=== PATIENT | female | born 1935 | race Caucasian/White ===

== ENCOUNTER 2024-01-28 16:05 | Inpatient (IN) | payer MEDICARE, BC, SELFPAY ==
[2024-01-28] VITALS (23 sets, daily range): BP systolic 105–172; BP diastolic 53–94; PULSE 96–145; RESP 15–30; TEMP 36.9–38.6; O2SAT 95–100; BMI 22.0
--- NOTE | ~2024-01-28 | XR_ITS ---
XR chest 1V portable 01/29/2024 11:12 Indication: CHF Procedure: AP portable chest Comparison: 01/28/2024 Findings: Cardiomegaly with interstitial edema. Moderate right pleural effusion. Atherosclerosis of t he aorta. No pneumothorax. There is a right shoulder arthroplasty. No acute osseous abnormality. Impression: 1: Cardiomegaly with interstitial edema. No significant change. 2: Stable moderate right pleural effusion. Reviewed, dictated and finalized at location B. REL PATTERN MAKER Impression: 1: Cardiomegaly with interstitial edema. No significant change. 2: Stable moderate right pleural effusion.
--- NOTE | ~2024-01-28 | XR_ITS ---
[id number] Ordering provider: Patty Tomlinson APRN History: 88 years Female with . pleural effusion-post thoracentesis . Comparison: None. FINDINGS: MEDIASTINUM: The cardiac silhouette is slightly enlarged. Congestive barrington. LUNGS: No pneumothorax. Bilateral basal opacification with blunting of the costophrenic angle suggest wilmer of atelectasis versus pneumonia with pleural effusion more on the right side. Minimal interstitia l changes are seen bilaterally. OTHER: No free air under the diaphragm. Right shoulder arthroplasty. Degenerative the spine with kyphosis. IMPRESSION: Slight cardiomegaly with congestive barrington which may indicate cardiac decompensation and minimal pulmon katty edema. Bilateral basal atelectasis versus pneumonia with minimal effusion more on the right side. Reviewed, dictated and finalized at location A. REGULATOR REPAIRER HELPER IMPRESSION: Slight cardiomegaly with congestive barrington which may indicate cardiac decompensat ion and minimal pulmonary edema. Bilateral basal atelectasis versus pneumonia with minimal effusion more on the right side.
--- NOTE | ~2024-01-28 | US_ITS ---
EXAMINATION: US thoracentesis DATE: 02/01/2024 17:14 INDICATION: pleural effusion TECHNIQUE: The procedure and its risks, benefits, and alternatives were discussed with the patient. P otential risks discussed included bleeding, infection, and pneumothorax. The patient understood the r isks and agreed to proceed. The skin was prepped and draped in sterile fashion. 1% lidocaine was used for local anesthesia. Under ultrasound guidance, a 5 Fr catheter with trochar was advanced into the right pleural effusion. Fluid was aspirated. The catheter was removed, and a dressing was applied. Th ere were no immediate complications. FINDINGS: Ultrasound images demonstrate a right pleural effusion and the catheter within the fluid. IMPRESSION: 1. Successful ultrasound-guided thoracentesis yielding 1000 mL of yellow fluid. Reviewed, dictated and finalized at location A. A THERAPIST IMPRESSION: 1. Successful ultrasound-guided thoracentesis yielding 1000 mL of yellow fluid .
--- NOTE | ~2024-01-28 | XR_ITS ---
CHEST RADIOGRAPH, PA AND LATERAL CLINICAL HISTORY: sob, cough . COMPARISON: None available TECHNIQUE: PA and lateral views of the chest. FINDINGS The cardiomediastinal silhouette is enlarged. Large right-sided pleural effusion with a small left-sided pleural effusion. Increased interstitial markings are identified bilaterally, findings suggesting mild pulmonary vascul ar congestion. The lungs are otherwise clear. IMPRESSION: Large right-sided and small left-sided pleural effusions Mild pulmonary vascular congestion is also noted. Reviewed, dictated and finalized at location A. CT MARKETING MANAGER
--- NOTE | 2024-01-28 16:28 | ECG_ITS ---
Test Date: 2024-01-28 17:37:00 Measurements Intervals Gail Rate: 129 P: 0 NV: 0 QRS: -1 QRSD: 84 T: 0 QT: 294 QTc: 431 Interpretive Statements ATRIAL FIBRILLATION WITH RAPID VENTRICULAR RESPONSE WITH VENTRICULAR PREMATURE COMPLEXES CANNOT R/O SEPTAL INFARCT, AGE INDETERMINATE BORDERLINE ST-T WAVE ABNORMALITY- DIFFUSE LEADS BASELINE ARTIFACT- I, II, AVR, AVL, AVF, V1-V3 ABNORMAL ECG No previous ECG available for comparison Electronically Signed On 01-28-2024 18:03:27 CHANNEL WORKER by Chano Lang D.O.
--- NOTE | 2024-01-28 16:29 | ED_ITS ---
HPI - URI/Sore Throat General Chief Complaint: Upper Respiratory Infection <Jennifer Quiñones PA-C - Last Filed: 01/28/24 16:31> Stated Complaint: URI sx <Jennifer Quiñones PA-C - Last Filed: 01/28/24 16:31> Time Seen by Provider: 01/28/24 16:25 <MANUEL Jones Last Filed: 01/28/24 16:31> Focused HPI: Patient is an 88 y/o female who presents to the ED with c/o URI sx's. Patient is a resident of [facility]. Per facility report, patient has been sick over the last couple of days with mild cough, rhinorrhea, fevers, intermittent right-sided chest pain, headache. Facility reported that patient had crackles in her lungs. Patient does admit to feeling mildly short of breath. Patient has not had any of her normal medications today. Denies abdominal pain, nausea, vomiting, known sick contacts. GENERAL: Elderly, well-nourished, and in no acute distress. Mildly flushed appearing. HEAD: Normocephalic, atraumatic. CHEST: Clear to auscultation. ?No respiratory distress. Decreased lung sounds in bases. HEART: Tachycardic with regular rhythm.? NEURO: ?Alert and oriented x3. Patient screened in triage and initial orders placed.? ?Additional care and disposition to be based upon?diagnostic testing and treatment. <Jennifer Quiñones PA-C - Last Filed: 01/28/24 16:31> Source: patient <Jennifer Quiñones PA-C - Last Filed: 01/28/24 16:31> Mode of arrival: ambulatory <MANUEL Jones Last Filed: 01/28/24 16:31> Limitations: no limitations <MNAUEL Jones Last Filed: 01/28/24 16:31> History of Present Illness HPI Narrative: agree with HPI <J Carlos Vora MD - Last Filed: 01/28/24 21:49> Related Data Allergies/Adverse Reactions: Allergies Allergy/AdvReac Type Severity Reaction Status Date / Time Penicillins Allergy Verified 10/15/11 18:42 <Jennifer Quiñones PA-C - Last Filed: 01/28/24 16:31> Review of Systems Review of Systems: All systems reviewed & are unremarkable except as noted in HPI and below <J Carlos Vora MD - Last Filed: 01/28/24 21:49> Constitutional: Constitutional: Denies chills, Reports fatigue and Denies fever(s) <J Carlos Vora MD - Last Filed: 01/28/24 21:49> ENT: Reports system reviewed and no additional complaints, except as documented <J Carlos Vora MD - Last Filed: 01/28/24 21:49> Cardiovascular: Cardiovascular: Denies chest pain, Reports rapid heart rate and Denies radiating jaw, neck or arm pain <J Carlos Vora MD - Last Filed: 01/28/24 21:49> Respiratory: Respiratory: Denies chest congestion, Reports cough, Denies dyspnea and Denies wheezing <J Carlos Vora MD - Last Filed: 01/28/24 21:49> Gastrointestinal: Gastrointestinal: Reports no additional gastrointestinal complaints <J Carlos Vora MD - Last Filed: 01/28/24 21:49> Genitourinary: Genitourinary: Reports no additional female genitourinary complaints <J Carlos Vora MD - Last Filed: 01/28/24 21:49> PMFSH Past Medical History Medical History: Medical History (Updated 01/28/24 @ 21:48 by J Carlos Vora MD) Atrial fibrillation CHF (congestive heart failure) Hyperlipidemia Hypertension <Jennifer Quiñones PA-C - Last Filed: 01/28/24 16:31> Social History Social History: Social History Smoking status: Smoker, status unknown <Jennifer Quiñones PA-C - Last Filed: 01/28/24 16:31> Exam Narrative: GENERAL: Well-appearing, well-nourished, and in no acute distress. HEAD: Normocephalic, atraumatic. ENT: Mucous membranes moist. NECK: Supple. CHEST: Diminished lung sounds at the bases with faint crackles in the mid/ upper lung zones. No respiratory distress. HEART: irregularly irregular rate and rhythm that is tachycardic. Normal peripheral pulses. ABDOMEN: Soft, nontender, nondistended. EXTREMITIES: Normal range of motion. No edema. SKIN: Warm, dry, no rash. NEURO: Alert and oriented x3. PSYCH: Normal mood and affect. <J Carlos Vora MD - Last Filed: 01/28/24 21:49> Course Course Emergency Course: given fever suspect pneumonia over pulmonary edema on chest x-ray. Patient restarted on EB antibiotics. Accepted by hospitalist service. Modest control of AFib with diltiazem. Will also give home oral metoprolol. Patient did receive 1 L IV fluid. Suspect component being dry given her significantly elevated fever. <J Carlos Vora MD - Last Filed: 01/28/24 21:49> Vital Signs Vital signs: Vital Signs Temperature 99.5 F 01/28/24 16:23 Pulse Rate 117 H 01/28/24 16:23 Respiratory Rate 20 01/28/24 16:23 Blood Pressure 105/78 01/28/24 16:23 Pulse Oximetry 97 01/28/24 16:23 Oxygen Delivery Room Air 01/28/24 16:23 Temperature 99.0 F 01/28/24 19:00 Pulse Rate 106 H 01/28/24 21:16 Respiratory Rate 22 H 01/28/24 21:16 Blood Pressure 145/72 H 01/28/24 21:16 Pulse Oximetry 96 01/28/24 21:16 Oxygen Delivery Room Air 01/28/24 16:23 <Jennifer Quiñones PA-C - Last Filed: 01/28/24 16:31> Vital Signs Temperature 99.5 F 01/28/24 16:23 Pulse Rate 117 H 01/28/24 16:23 Respiratory Rate 20 01/28/24 16:23 Blood Pressure 105/78 01/28/24 16:23 Pulse Oximetry 97 01/28/24 16:23 Oxygen Delivery Room Air 01/28/24 16:23 Temperature 99.0 F 01/28/24 19:00 Pulse Rate 106 H 01/28/24 21:16 Respiratory Rate 22 H 01/28/24 21:16 Blood Pressure 145/72 H 01/28/24 21:16 Pulse Oximetry 96 01/28/24 21:16 Oxygen Delivery Room Air 01/28/24 16:23 <J Carlos Vora MD - Last Filed: 01/28/24 21:49> MDM - URI/Sore Throat MDM Narrative Medical decision making narrative: MSE by LUIS in triage. <Jennifer Quiñones PA-C - Last Filed: 01/28/24 16:31> Lab Data Result diagrams: 01/28/24 18:02 01/28/24 18:02 <Jennifer Quiñones PA-C - Last Filed: 01/28/24 16:31> Labs: Lab Results 01/28/24 01/28/24 01/28/24 Range/Units 18:02 18:03 21:07 WBC 10.6 H (4.5-10.0) K/mm3 RBC 3.51 L (4.2-5.4) M/mm3 Hgb 9.7 L (12.0-15.0) g/dL Hct 30.9 L (37.0-47.0) % MCV 88.0 (80-100) fl MCH 27.6 (26-34) pg MCHC 31.4 L (32-36) g/dl RDW 20.1 H (11.5-14.5) % Plt Count 304 (150-375) k/mm3 MPV 9.4 (7.4-10.4) fl Immature Gran % (Auto) 0.5 (0-0.5) % Neut % (Auto) 79.5 H (45.5-73.1) % Lymph % (Auto) 12.5 L (18.3-44.2) % [place] % (Auto) 7.2 (2.6-8.5) % Eos % (Auto) 0.1 (0-4.4) % Baso % (Auto) 0.2 (0.2-1.2) % Lymph # (Auto) 1.32 (0.9-3.2) K/mm3 [place] # (Auto) 0.8 H (0.1-0.6) K/mm3 Eos # (Auto) 0.0 (0-0.3) K/mm3 Baso # (Auto) 0.0 (0.0-0.1) K/mm3 Abs Immat Gran (auto) 0.05 H (0.00-0.031) K/mm3 Absolute Neuts (auto) 8.4 H (1.3-6.7) K/mm3 Absolute Nucleated RBC 0.000 (0.0-0.012) K/mm3 Nucleated RBC % 0.0 (0.0-0.2) % PT 18.9 H (11.1-14.7) Seconds INR 1.5 APTT 33.0 (22.3-36.8) Seconds Sodium 131 L (137-145) mmol/L Potassium 3.0 L (3.4-5.0) mmol/L Chloride 95 L (98-107) mmol/L Carbon Dioxide 30 (22-30) mmol/L Anion Gap 6 (4-12) mmol/L BUN 16 (7-17) mg/dL Creatinine 0.80 (0.7-1.0) mg/dL Estim Creat Clear Calc Not Reportable Estimated GFR > 60 (59 - ) Glucose 114 H (65-110) mg/dL Lactic Acid 1.7 (0.7-2.0) mmol/L Calcium 8.7 (8.4-10.2) mg/dL Magnesium 1.3 L (1.6-2.3) mg/dL Total Bilirubin 1.4 H (0.2-1.3) mg/dL AST 23 (14-36) U/L ALT 13 (6-35) U/L Alkaline Phosphatase 108 (38-126) U/L Troponin I 0.022 (0.000-0.034) ng/mL NT-Pro-B Natriuret Pep 4510 H (19.9-100) pg/mL Total Protein 6.0 L (6.3-8.2) g/dL Albumin 2.8 L (3.5-5.1) g/dL Urine Color Yellow (Yellow) Urine Appearance Clear (Clear) Urine pH 6.0 (5.0-9.0) Ur Specific Devine 1.016 (1.001-1.035) Urine Protein 2+ H (Negative) mg/dL Urine Glucose (UA) Negative (Negative) mg/dL Urine Ketones Negative (Negative) mg/dL Ur Blood (Man) Negative (Negative) Urine Nitrate Negative (Negative) Urine Bilirubin Negative (Negative) Urine Urobilinogen 1.0 (<2.0) mg/dL Leukocyte Esterase Rfl Trace H (Negative) JACQUIE/UL Urine RBC 0-2 (0-2) /hpf Urine WBC 0-5 (0-3) /hpf Ur Squamous Epith Cells None seen (Few) /hpf Urine Bacteria None seen /hpf Urine Casts 0-2 Influenza A (RT-PCR) Negative (Negative) Influenza B (RT-PCR) Negative (Negative) RSV (RT-PCR) Negative (Negative) SARS-CoV-2 RNA (RT-PCR) Negative (Negative) <Jennifer Quiñones PA-C - Last Filed: 01/28/24 16:31> Lab Results 01/28/24 01/28/24 01/28/24 Range/Units 18:02 18:03 21:07 WBC 10.6 H (4.5-10.0) K/mm3 RBC 3.51 L (4.2-5.4) M/mm3 Hgb 9.7 L (12.0-15.0) g/dL Hct 30.9 L (37.0-47.0) % MCV 88.0 (80-100) fl MCH 27.6 (26-34) pg MCHC 31.4 L (32-36) g/dl RDW 20.1 H (11.5-14.5) % Plt Count 304 (150-375) k/mm3 MPV 9.4 (7.4-10.4) fl Immature Gran % (Auto) 0.5 (0-0.5) % Neut % (Auto) 79.5 H (45.5-73.1) % Lymph % (Auto) 12.5 L (18.3-44.2) % [place] % (Auto) 7.2 (2.6-8.5) % Eos % (Auto) 0.1 (0-4.4) % Baso % (Auto) 0.2 (0.2-1.2) % Lymph # (Auto) 1.32 (0.9-3.2) K/mm3 [place] # (Auto) 0.8 H (0.1-0.6) K/mm3 Eos # (Auto) 0.0 (0-0.3) K/mm3 Baso # (Auto) 0.0 (0.0-0.1) K/mm3 Abs Immat Gran (auto) 0.05 H (0.00-0.031) K/mm3 Absolute Neuts (auto) 8.4 H (1.3-6.7) K/mm3 Absolute Nucleated RBC 0.000 (0.0-0.012) K/mm3 Nucleated RBC % 0.0 (0.0-0.2) % PT 18.9 H (11.1-14.7) Seconds INR 1.5 APTT 33.0 (22.3-36.8) Seconds Sodium 131 L (137-145) mmol/L Potassium 3.0 L (3.4-5.0) mmol/L Chloride 95 L (98-107) mmol/L Carbon Dioxide 30 (22-30) mmol/L Anion Gap 6 (4-12) mmol/L BUN 16 (7-17) mg/dL Creatinine 0.80 (0.7-1.0) mg/dL Estim Creat Clear Calc Not Reportable Estimated GFR > 60 (59 - ) Glucose 114 H (65-110) mg/dL Lactic Acid 1.7 (0.7-2.0) mmol/L Calcium 8.7 (8.4-10.2) mg/dL Magnesium 1.3 L (1.6-2.3) mg/dL Total Bilirubin 1.4 H (0.2-1.3) mg/dL AST 23 (14-36) U/L ALT 13 (6-35) U/L Alkaline Phosphatase 108 (38-126) U/L Troponin I 0.022 (0.000-0.034) ng/mL NT-Pro-B Natriuret Pep 4510 H (19.9-100) pg/mL Total Protein 6.0 L (6.3-8.2) g/dL Albumin 2.8 L (3.5-5.1) g/dL Urine Color Yellow (Yellow) Urine Appearance Clear (Clear) Urine pH 6.0 (5.0-9.0) Ur Specific Devine 1.016 (1.001-1.035) Urine Protein 2+ H (Negative) mg/dL Urine Glucose (UA) Negative (Negative) mg/dL Urine Ketones Negative (Negative) mg/dL Ur Blood (Man) Negative (Negative) Urine Nitrate Negative (Negative) Urine Bilirubin Negative (Negative) Urine Urobilinogen 1.0 (<2.0) mg/dL Leukocyte Esterase Rfl Trace H (Negative) JACQUIE/UL Urine RBC 0-2 (0-2) /hpf Urine WBC 0-5 (0-3) /hpf Ur Squamous Epith Cells None seen (Few) /hpf Urine Bacteria None seen /hpf Urine Casts 0-2 Influenza A (RT-PCR) Negative (Negative) Influenza B (RT-PCR) Negative (Negative) RSV (RT-PCR) Negative (Negative) SARS-CoV-2 RNA (RT-PCR) Negative (Negative) <J Carlos Vora MD - Last Filed: 01/28/24 21:49> Imaging Data Radiologist's impression: ITS Impressions Chest X-Ray 01/28/24 18:26 IMPRESSION: Large right-sided and small left-sided pleural effusions Mild pulmonary vascular congestion is also noted. <J Carlos Vora MD - Last Filed: 01/28/24 21:49> ECG Data EKG #1: ECG completion date: 01/28/24 <J Carlos Vora MD - Last Filed: 01/28/24 21:49> ECG completion time: 17:37 <J Carlos Vora MD - Last Filed: 01/28/24 21:49> EKG Interpretation: tachycardia (129), atrial fibrillation, non-specific ST changes, normal QRS and NL axis <J Carlos Vora MD - Last Filed: 01/28/24 21:49> Critical Care Time Critical Care Time Critical Care Time: Yes <J Carlos Vora MD - Last Filed: 01/28/24 21:49> Total Critical Care Time: 35 <J Carlos Vora MD - Last Filed: 01/28/24 21:49> Discharge Plan Discharge Clinical Impression: Pneumonia, Atrial fibrillation with RVR <Jennifer Quiñones PA-C - Last Filed: 01/28/24 16:31> Patient Disposition: Still a Patient <Jennifer Quiñones PA-C - Last Filed: 01/28/24 16:31> Condition: Stable <Jennifer Quiñones PA-C - Last Filed: 01/28/24 16:31> Follow-up/Referrals: PHYSICIAN NOT ON STAFF,NONSTAFF [Primary Care Provider] - <DEBBIE JonesC - Last Filed: 01/28/24 16:31>
[2024-01-28] MEDS: ACETAMINOPHEN 500 MG TABLET 1000 MG PO (17:22)
--- NOTE | 2024-01-28 18:07 | PC.NURSE ---
5 unsuccessful attempts at an IV by 4 different RN's. blood work obtained and sent down
[2024-01-28 18:11] LABS: Basophils Percent Auto 0.2 % (0.2-1.2); Eosinophils Percent Auto 0.1 % (0-4.4); Hematocrit 30.9 % (37.0-47.0); Hemoglobin 9.7 g/dL (12.0-15.0); Immature Granulocyte Absolute 0.05 K/mm3 (0.00-0.031); Immature Granulocyte Percent A 0.5 % (0-0.5); Lymphocytes Absolute Auto 1.32 K/mm3 (0.9-3.2); Lymphocytes Percent Auto 12.5 % (18.3-44.2); Mean Corpuscular HGB Conc 31.4 g/dl (32-36); Mean Corpuscular Hemoglobin 27.6 pg (26-34); Mean Platelet Volume 9.4 fl (7.4-10.4); Monocytes Absolute Auto 0.8 K/mm3 (0.1-0.6); Monocytes Percent Auto 7.2 % (2.6-8.5); Neutrophils Absolute Auto 8.4 K/mm3 (1.3-6.7); Neutrophils Percent Auto 79.5 % (45.5-73.1); Platelet Count Result 304 k/mm3 (150-375); Red Blood Count 3.51 M/mm3 (4.2-5.4); Red Cell Distribution Width 20.1 % (11.5-14.5); White Blood Count 10.6 K/mm3 (4.5-10.0)
[2024-01-28 18:21] LABS: Lactic Acid Reflex 1.7 mmol/L (0.7-2.0)
[2024-01-28 18:22] LABS: Alanine Aminotransferase 13 U/L (6-35); Albumin Level 2.8 g/dL (3.5-5.1); Alkaline Phosphatase 108 U/L (38-126); Anion Gap 6 mmol/L (4-12); Aspartate Amino Transferase 23 U/L (14-36); Bilirubin,Total 1.4 mg/dL (0.2-1.3); Blood Urea Nitrogen 16 mg/dL (7-17); Calcium 8.7 mg/dL (8.4-10.2); Carbon Dioxide 30 mmol/L (22-30); Chloride 95 mmol/L (98-107); Estimated Glomerular Filt Rate > 60; Glucose 114 mg/dL (65-110); Magnesium 1.3 mg/dL (1.6-2.3); Sodium 131 mmol/L (137-145)
[2024-01-28 18:30] LABS: INR 1.5; Prothrombin Time 18.9 Seconds (11.1-14.7)
[2024-01-28 18:34] LABS: Troponin I 0.022 ng/mL (0.000-0.034)
[2024-01-28 18:42] LABS: NT Pro B Type Natriuretic Pept 4510 pg/mL (19.9-100)
[2024-01-28 18:47] LABS: Influenza A QL RT-PCR Negative (Negative); Influenza B QL RT-PCR Negative (Negative); RSV RNA, RT-PCR Negative (Negative); SARS-CoV-2 RNA PCR Negative (Negative)
[2024-01-28] MEDS: SODIUM CHLORIDE 0.9% IV 1,000 ML 999 ML IV CONT (19:06)
[2024-01-28] MEDS: dilTIAZem HCl INJ 25 MG/5 ML VIAL 10 MG IV PUSH (19:34)
--- NOTE | 2024-01-28 21:17 | PM.IMHP ---
H&P: HPI History of Present Illness Date/Time: 01/28/24 21:17 Chief Complaint: sob Narrative: This is an 88-year-old female with past medical history significant for atrial fibrillation, congestive heart failure, dyslipidemia, hypertension. Patient is currently in rehabilitation center after she was discharged from outside facility. Was brought to the emergency room due to shortness of breath. Patient has been feeling fatigued has had night sweats, fevers, chills, body aches and pains. Preliminary workup was significant for large pleural effusion. patient tested negative for influenza type A influenza type B COVID and RSV. Brain atretic peptide was 4500. Patient has been admitted for further evaluation management and treatment. CHEST RADIOGRAPH, PA AND LATERAL CLINICAL HISTORY: sob, cough . COMPARISON: None available TECHNIQUE: PA and lateral views of the chest. FINDINGS The cardiomediastinal silhouette is enlarged. Large right-sided pleural effusion with a small left-sided pleural effusion. Increased interstitial markings are identified bilaterally, findings suggesting mild pulmonary vascular congestion. The lungs are otherwise clear. IMPRESSION: Large right-sided and small left-sided pleural effusions Mild pulmonary vascular congestion is also noted. [facility] Past Medical History Medical History (Updated 01/29/24 @ 00:52 by Meng Duke MD) Atrial fibrillation CHF (congestive heart failure) Hyperlipidemia Hypertension Family History Family History (Updated 01/28/24 @ 23:03 by Tri Ghosh RN) Father Acute myocardial infarction Hypertension Mother Hypertension Cerebrovascular accident Social History Social History Smoking status: Never smoker Alcohol intake: never Substance use: never Do You Feel Safe in your Home?: Yes Lack of Transportation: YES Lack of Food: Never True Current Housing: I Have Housing Concerned About Future Housing: No Difficulty Paying Gas/Electric Bills: No Difficulty Paying for Meds: No Currently Unemployed: No Education: High School Diploma/GED Difficulty w/ Childcare or Family Care: No Spiritual care concerns: No Meds Home Medications and Allergies Home Medications Medication Instructions Recorded Confirmed Type amlodipine 5 mg tablet 5 mg PO DAILY 01/28/24 01/28/24 History apixaban 5 mg tablet (Eliquis) 5 mg PO BID 01/28/24 01/28/24 History atorvastatin 20 mg tablet 40 mg PO DAILY 01/28/24 01/28/24 History cetirizine 10 mg tablet 10 mg PO DAILY 01/28/24 01/28/24 History cimetidine 300 mg tablet 300 mg PO BID 01/28/24 01/28/24 History dexlansoprazole 60 mg 60 mg PO DAILY 01/28/24 01/28/24 History capsule,biphase delayed release diltiazem HCl 120 mg 120 mg PO DAILY 01/28/24 01/28/24 History capsule,extended release 24 hr fluticasone propionate 50 2 spray intranasal DAILY 01/28/24 01/28/24 History mcg/actuation nasal spray,suspension furosemide 20 mg tablet 20 mg PO BID 01/28/24 01/28/24 History furosemide 40 mg tablet 40 mg PO DAILY 01/28/24 01/29/24 History methimazole 10 mg tablet 10 mg PO DAILY 01/28/24 01/28/24 History metoprolol tartrate 75 mg tablet 75 mg PO DAILY 01/28/24 01/28/24 History mirtazapine 30 mg tablet 30 mg PO DAILY 01/28/24 01/29/24 History omeprazole 20 mg capsule,delayed 20 mg PO DAILY 01/28/24 01/29/24 History release potassium chloride 10 mEq 10 meq PO DAILY 01/28/24 01/28/24 History tablet,extended release(part/cryst) (Klor-Con M) propranolol 20 mg tablet 20 mg PO BID 01/28/24 01/28/24 History triamterene 75 1 tablet PO DAILY 01/28/24 01/29/24 History mg-hydrochlorothiazide 50 mg tablet Allergies Allergy/AdvReac Type Severity Reaction Status Date / Time Penicillins Allergy Verified 10/15/11 18:42 Vital Signs Vital Signs - 24 hr 01/28/24 16:23 01/28/24 17:23 01/28/24 17:25 Temperature 99.5 F 101.4 F H Pulse Rate 117 H 117 H Respiratory Rate 20 15 Blood Pressure 105/78 168/94 H 168/94 H Pulse Oximetry 97 97 97 Oxygen Delivery Room Air 01/28/24 17:46 01/28/24 18:01 01/28/24 17:52 Temperature 99.4 F Pulse Rate 125 H 123 H Respiratory Rate 26 H 30 H Blood Pressure 172/84 H 163/69 H Pulse Oximetry 97 96 Oxygen Delivery 01/28/24 19:00 01/28/24 18:02 01/28/24 18:45 Temperature 99.0 F Pulse Rate 115 H 145 H Respiratory Rate 25 H 25 H Blood Pressure Pulse Oximetry 100 95 Oxygen Delivery 01/28/24 19:42 01/28/24 19:46 01/28/24 20:01 Temperature Pulse Rate 100 97 100 Respiratory Rate 27 H 22 H 25 H Blood Pressure 136/59 L 137/62 152/57 H Pulse Oximetry 95 95 96 Oxygen Delivery 01/28/24 20:16 Temperature Pulse Rate 96 Respiratory Rate 24 H Blood Pressure 146/58 H Pulse Oximetry 96 Oxygen Delivery Exam Narrative: lying in stretcher Const: General: comfortable, no acute distress, well developed, alert, awake and average body habitus Nutritional Appearance: average body habitus Orientation/consciousness: patient oriented x3 HENMT: Head: normal to inspection, normocephalic and atraumatic Ears: hearing grossly normal bilaterally Face/Nose/Sinus: normal facial exam Face and sinus: normal facial exam Eyes: General: appearance normal, both eyes and all related structures Pupils: Equal, round and reactive pupils present EOM: EOMs intact bilaterally Neck: Neck: full ROM, no lymphadenopathy and no JVD Thyroid: thyroid normal Lymphatic: no lymphadenopathy noted Resp: Effort & Inspection: normal respiratory effort and able to speak in complete sentences Auscultation: clear to auscultation bilaterally and diminished lung sounds bilateral in the lower lung sosa Cardio: Jugular venous distension: no JVD Rate: regular rate Rhythm: regular rhythm Heart sounds: S1 normal heart sound present and S2 normal heart sound present GI: GI Palp: Yes Soft to palpation and Yes No hepatosplenomegaly present : General: Yes deferred Skin: Rashes: no rashes Wounds: no wounds Neuro: General: patient oriented x3 and CN's II-XI intact bilaterally Cranial nerves: Yes CN's II-XII intact bilaterally and Yes Equal, round and reactive pupils present Cognition (Neuro): normal cognition Speech: normal speech Gait exam (Neuro): Normal gait present Motor exam (neuro): 5/5 motor strength present throughout Extrem: General: normal to inspection, full ROM, no joint enlargement and no pedal edema H&P: Results Labs Labs: Short CBC 01/28/24 Range/Units 18:02 WBC 10.6 H (4.5-10.0) K/mm3 Hgb 9.7 L (12.0-15.0) g/dL Hct 30.9 L (37.0-47.0) % Plt Count 304 (150-375) k/mm3 BMP 01/28/24 18:02 Sodium 131 L Potassium 3.0 L Chloride 95 L Carbon Dioxide 30 BUN 16 Creatinine 0.80 Glucose 114 H Calcium 8.7 Cardiac Enzymes 01/28/24 Range/Units 18:02 Troponin I 0.022 (0.000-0.034) ng/mL Liver Function 01/28/24 Range/Units 18:02 Total Bilirubin 1.4 H (0.2-1.3) mg/dL AST 23 (14-36) U/L ALT 13 (6-35) U/L Alkaline Phosphatase 108 (38-126) U/L Albumin 2.8 L (3.5-5.1) g/dL Assessment and Plan Assessment and plan (1) Pneumonia: Code(s): J18.9 - Pneumonia, unspecified organism Status: Acute Assessment and Plan: Admit to IMU patient started on Rocephin and Zithromax await cultures (2) Atrial fibrillation with RVR: Code(s): I48.91 - Unspecified atrial fibrillation Status: Acute Assessment and Plan: rate controlled and anticoagulated (3) Pleural effusion: Code(s): J90 - Pleural effusion, not elsewhere classified Status: Acute Assessment and Plan: gentle diuresis consider thoracentesis (4) CHF (congestive heart failure): Code(s): I50.9 - Heart failure, unspecified Status: Acute Assessment and Plan: diurese as needed echo cardio Hospitalist MIPS Advance Care Plan I have confirmed that the patient's Advanced Care Plan is present, code status is documented, or surrogate decision maker is listed in patient medical record.: Yes Medication Reconciliation I have utilized all available resources to obtain, update and review the patients current medications (includes all prescriptions, OTC, herbals, cannabis, and nutritional supplements).: Yes
[2024-01-28 21:20] LABS: Add Urine Microscopic? YES; Appearance Urine Clear (Clear); Bacteria Urine None Seen /hpf; Bilirubin Urine Negative (Negative); Blood Urine Negative (Negative); Color Urine Yellow (Yellow); Glucose Urine UA Negative (Negative); Ketones Urine Negative (Negative); Leukocyte Esterase Ur Trace LEU/UL (Negative); Nitrate Urine Negative (Negative); Non Pathogenic Casts 0-2; Protein Urine 2+ mg/dL (Negative); RBC Urine 0-2 /hpf (0-2); Specific Grav Ur 1.016 (1.001-1.035); Squamous Epithelial Cell Urine None Seen /hpf (Few); WBC Urine 0-5 /hpf (0-3)
[2024-01-28] MEDS: METOPROLOL TARTRATE TAB 25 MG, METOPROLOL TARTRATE TAB 50 MG 75 MG PO (21:49)
[2024-01-28] MEDS: AZITHROMYCIN 500 MG/NS 250 ML 500 MG/250 ML BAG 250 MG IVPB (22:11)
--- NOTE | 2024-01-28 23:00 | ADMGEN ---
This patient, Keila Talbert, was admitted to IMU Room 205-01. Patient/family oriented to hospital policies and general routines including ID bracelet, bed and alarms, visiting hours, pain management, procedures, bathroom and other care routines, personal items, smoking policy, room service/diet, and visiting hours. Information on how to activate the Rapid Response Team has been discussed. Patient/Family are encouraged to report perceived risks to care and to ask questions if they do not understand what they are told or what they should do.
[2024-01-29] VITALS (16 sets, daily range): BP systolic 108–156; BP diastolic 59–70; PULSE 72–107; RESP 16–21; TEMP 36.7–36.9; O2SAT 91–100
--- NOTE | 2024-01-29 | ECHO_ITS ---
Patient Info Name: Keila Talbert Age: 88 years : 1935 Gender: Female Ht: 63 in Wt: 120 lbs BSA: 1.56 m2 HR: 86 bpm BP: 108 / 64 mmHg Heart Rhythm: Atrial Fibrillation Technical Quality: Good Exam Date: 01/29/2024 9:50 AM Exam Location: Echo Lab Patient Status: Outpatient Admit Date: 01/28/2024 Staff Ordering Physician: Meng Duke MD Department Of Sociology Chair: Micah Moreno RDCS Attending Provider: Meng Duke MD Referring Physician: Leilani ARIAS; Exam Type: CA echo doppler color flow Study Info Indications - chf Complete two-dimensional, color flow and Doppler transthoracic echocardiogram is performed. Summary 1. Left ventricular chamber dimension is normal. 2. Left ventricular systolic function is normal, estimated at 60-65%. 3. There is mildly increased left ventricular wall thickness. 4. Right ventricular systolic function is normal. 5. Left atrial chamber dimension is severely enlarged. 6. Right atrial chamber dimension is severely enlarged. 7. There is moderate aortic valve calcification. 8. There is mild aortic valve stenosis. 9. There is severe mitral valve regurgitation. 10. There is severe tricuspid valve regurgitation. 11. Pulmonary hypertension, estimated pulmonary arterial systolic pressure is 49 mmHg. Left Ventricle Left ventricular chamber dimension is normal. Left ventricular systolic function is normal, estimated at 60-65%. There is mildly increased left ventricular wall thickness. The left ventricular diastolic function is abnormal. Right Ventricle Right ventricular chamber dimension is normal. Right ventricular systolic function is normal. Left Atria Left atrial chamber dimension is severely enlarged. Right Atria Right atrial chamber dimension is severely enlarged. Atrial Septum Intact interatrial septum visualized by color flow imaging. Aortic Valve The aortic valve is probable trileaflet. There is mild aortic valve stenosis. There is no aortic valve regurgitation. There is moderate aortic valve calcification. Pulmonic Valve The pulmonic valve is not well visualized. There is trace pulmonic regurgitation. Mitral Valve There is severe mitral valve regurgitation. The mitral valve annulus is mildly calcified. Tricuspid Valve There is severe tricuspid valve regurgitation. Pulmonary hypertension, estimated pulmonary arterial systolic pressure is 49 mmHg. Pericardium/Pleural There is no pericardial effusion. Inferior Vena Cava Dilated inferior vena cava with >50% collapse upon inspiration consistent with elevated right atrial pressure, 8 mmHg. Aorta The aortic root size at the sinus of Valsalva is normal. Left Ventricular Outflow Tract Name Value Normal LVOT 2D LVOT Diameter 1.9 cm LVOT Doppler LVOT Peak Gradient 2 mmHg LVOT Mean Gradient 1 mmHg LVOT VTI 11 cm LVOT VTI/AV VTI Ratio 0.5 LVOT Stroke Volume 30 ml LVOT CO 2.8 l/min LVOT CI 1.8 l/min/m2 Pulmonic Valve Name Value Normal PV Regurgitation Doppler OR Peak End Diastolic Velocity 75 cm/s Mitral Valve Name Value Normal MV Doppler MV Decel Lamb 899 cm/s2 MV PHT 38 ms MV Area (PHT) 5.8 cm2 4.0-5.0 MV Regurgitation Doppler MR Peak Gradient 91 mmHg MV Diastolic Function MV E Peak Velocity 118 cm/s MV A Peak Velocity 36 cm/s MV E/A 3.3 MV Decel Time 132 ms MV Annular TDI MV E/e' (Septal) 23.0 <=8.0 MV E/e' (Lateral) 15.5 <=8.0 MV E/e' (Average) 19.2 Tricuspid Valve Name Value Normal TV Regurgitation Doppler TR Peak Velocity 340 cm/s TR Peak Gradient 24 mmHg Estimated PAP/RSVP RA Pressure 8 mmHg <=5 PA Systolic Pressure 54 mmHg <36 RV Systolic Pressure 54 mmHg <36 Aortic Valve Name Value Normal AV Doppler AV Peak Velocity 129 cm/s AV Peak Gradient 7 mmHg AV Mean Gradient 5 mmHg AV VTI 23 cm AV Area (Cont Eq VTI) 1.3 cm2 >=3.0 AV Area (Cont Eq Antione) 1.4 cm2 AV Regurgitation 2D LVOT Area 2.8 cm2 Ventricles Name Value Normal LV Dimensions 2D/MM IVS Diastolic Thickness (2D) 1.0 cm 0.6-1.0 LVID Diastole (2D) 4.7 cm 3.8-5.2 LVIW Diastolic Thickness (2D) 0.8 cm 0.6-0.9 LVID Systole (2D) 3.4 cm 2.2-3.5 LVOT Diameter 1.9 cm LV Mass (2D Cubed) 143.81 g 67.00-162.00 LV Mass Index (2D Cubed) 92 g/m2 43-95 Relative Wall Thickness (2D) 0.35 LV Fractional Shortening/Ejection Fraction 2D/MM LV Fractional Shortening (2D) 27 % 27-45 LV EF (2D Teicholz) 53 % 54-74 LV Diastolic Volume (4C MOD) 80 ml LV EF (4C MOD) 47 % LV Diastolic Volume (2C MOD) 54 ml LV EF (2C MOD) 51 % LV Diastolic Volume (BP MOD) 66 ml 46-106 LV Diastolic Volume Index (BP MOD) 43 ml/m2 29-61 LV Systolic Volume (BP MOD) 36 ml 14-42 LV Systolic Volume Index (BP MOD) 23 ml/m2 8-24 LV EF (BP MOD) 45 % 54-74 LV Diastolic Length (4C) 6.1 cm LV Systolic Length (4C) 5.7 cm LV Stroke Volume (4C MOD) 37 ml Atria Name Value Normal LA Dimensions LA Volume (4C A-L) 27 ml LA Volume (BP A-L) 55 ml RA Dimensions RA Area (4C) 17.6 cm2 <=18.0 Report Signatures
[2024-01-29] MEDS: FLUTICASONE PROPIONATE 0.05% NA SPR 16 GM BTL (*BKC) 2 SPRAY NASAL (07:58)
[2024-01-29] MEDS: ATORVASTATIN 40 MG TABLET PO (07:59)
[2024-01-29] MEDS: APIXABAN 5 MG TABLET PO (07:59)
[2024-01-29] MEDS: dilTIAZem HCL CD 120 MG CAP.24HR PO (08:00)
[2024-01-29] MEDS: PANTOPRAZOLE 40 MG TABLET PO (08:00)
[2024-01-29] MEDS: LORATADINE 10 MG TABLET PO (08:00)
[2024-01-29] MEDS: methiMAzole 10 MG TAB PO (08:00)
[2024-01-29] MEDS: PROPRANOLOL HCL 20 MG TABLET PO ×2 (08:00→20:44)
[2024-01-29] MEDS: METOPROLOL TARTRATE 25 MG TABLET 75 MG PO (08:00)
[2024-01-29] MEDS: amLODIPine BESYLATE 5 MG TABLET PO (08:01)
[2024-01-29] MEDS: FUROSEMIDE INJ 40 MG/4 ML VIAL IV PUSH ×2 (08:02→17:09)
[2024-01-29] MEDS: MIRTAZAPINE 30 MG TABLET PO (08:02)
--- NOTE | 2024-01-29 08:42 | P.PNIM_ITS ---
Progress Note: A&P Assessment and Plan (1) Pneumonia: Code(s): J18.9 - Pneumonia, unspecified organism Status: Acute Assessment and Plan: Admit to IMU patient started on Rocephin and Zithromax blood cultures pending NGTD (2) CHF (congestive heart failure): Code(s): I50.9 - Heart failure, unspecified Status: Acute Assessment and Plan: pulmonary edema seen on chest x-ray diurese as needed echo cardio EF 60 60% (3) Pleural effusion: Code(s): J90 - Pleural effusion, not elsewhere classified Status: Acute Assessment and Plan: is, will aggressively diure Eliquis on hold for possible thoracentesis (4) Atrial fibrillation with RVR: Code(s): I48.91 - Unspecified atrial fibrillation Status: Acute Assessment and Plan: rate controlled and anticoagulated IV diltiazem ED x1 continue home dose of diltiazem restart metoprolol, propanolol and Eliquis (5) Leukocytosis: Code(s): D72.829 - Elevated white blood cell count, unspecified Status: Acute Assessment and Plan: secondary to pneumonia and UTI (6) UTI (urinary tract infection): Code(s): N39.0 - Urinary tract infection, site not specified Status: Acute Assessment and Plan: on IV Rocephin (7) Hyponatremia: Code(s): E87.1 - Hypo-osmolality and hyponatremia Status: Acute Assessment and Plan: patient being aggressively diuresed daily BMP Time Spent With Patient Time with patient: Greater than 35 minutes Subjective Date/time seen: 01/29/24 08:42 Interval history: 88-year-old female with past medical history significant for atrial fibrillation, congestive heart failure, dyslipidemia, hypertension here with RVR, CHF and pneumonia patient with great urine output after Lasix, on ABX for pneumonia, AFib rate control now unable to do a thoracentesis today due to patient getting Eliquis This a.m., Eliquis placed on hold for tomorrow, will aggressively diurese and recheck chest x-ray. Patient is stable to move to floor. Review of Systems Review of Systems: 12 systems were reviewed and are negative except for as per HPI. Exam Narrative: General: well appearing, appears stated age. HEENT: normocephalic, atraumatic. Mucous membranes moist. EOMI, PERRLA, bilateral sclera anicteric, no conjunctival injection. Neck supple without JVD, lymphadenopathy, or bruit. Respiratory: clear to ascultation bilaterally. No rales/rhonic/wheezes. Cardiovascular: Regular rate and rhythm, normal S1-S2 upon ascultation. No murmurs, rubs, or clicks. PMI is nondisplaced, capillary refill less than 3 second. Abdomen: Soft, round, no pulsatile masses, nondistended and nontender. No rebound, no guarding. No CVA tenderness, no hepatosplenomegaly. Bowel sounds present to all four quadrants. No high pitch or tinkling sounds, resonant to percussion. Extremities: No cyanosis, clubbing. 2-3 + edema present. Pulses are palpable 2/2. Active ROM to all four extremities. Neuro: Alert and orientated x 4. PERRLA. Cranial nerves 2-12 intact without focal deficit. Skin: Warm, dry, and intact, without rash, erythema, or lesion. Psych: pleasant, cooperative, normal speech, normal affect, no hallucinations, no dysarthia Const: General: comfortable, no acute distress, well developed, alert, awake and average body habitus Nutritional Appearance: average body habitus Orientation/consciousness: patient oriented x3 HENMT: Head: normal to inspection, normocephalic and atraumatic Ears: hearing grossly normal bilaterally Face/Nose/Sinus: normal facial exam Face and sinus: normal facial exam Eyes: General: appearance normal, both eyes and all related structures Pupils: Equal, round and reactive pupils present EOM: EOMs intact bilaterally Neck: Neck: full ROM, no lymphadenopathy and no JVD Thyroid: thyroid normal Lymphatic: no lymphadenopathy noted Resp: Effort & Inspection: normal respiratory effort and able to speak in complete sentences Auscultation: clear to auscultation bilaterally and diminished lung sounds bilateral in the lower lung sosa Cardio: Jugular venous distension: no JVD Rate: regular rate Rhythm: regular rhythm Heart sounds: S1 normal heart sound present and S2 normal heart sound present : General: Yes deferred Skin: Rashes: no rashes Wounds: no wounds Neuro: General: patient oriented x3 and CN's II-XI intact bilaterally Cranial nerves: Yes CN's II-XII intact bilaterally and Yes Equal, round and reactive pupils present Cognition (Neuro): normal cognition Speech: normal speech Gait exam (Neuro): Normal gait present Motor exam (neuro): 5/5 motor strength present throughout Extrem: General: normal to inspection, full ROM, no joint enlargement and no pedal edema Objective Data Vital Signs Vital Signs: Vital Signs - 24 hr 01/28/24 16:23 01/28/24 17:23 01/28/24 17:25 Temperature 99.5 F 101.4 F H Pulse Rate 117 H 117 H Respiratory Rate 20 15 Blood Pressure 105/78 168/94 H 168/94 H Pulse Oximetry 97 97 97 Oxygen Delivery Room Air 01/28/24 17:46 01/28/24 18:01 01/28/24 17:52 Temperature 99.4 F Pulse Rate 125 H 123 H Respiratory Rate 26 H 30 H Blood Pressure 172/84 H 163/69 H Pulse Oximetry 97 96 Oxygen Delivery 01/28/24 19:00 01/28/24 18:02 01/28/24 18:45 Temperature 99.0 F Pulse Rate 115 H 145 H Respiratory Rate 25 H 25 H Blood Pressure Pulse Oximetry 100 95 Oxygen Delivery 01/28/24 19:42 01/28/24 19:46 01/28/24 20:01 Temperature Pulse Rate 100 97 100 Respiratory Rate 27 H 22 H 25 H Blood Pressure 136/59 L 137/62 152/57 H Pulse Oximetry 95 95 96 Oxygen Delivery 01/28/24 20:16 01/28/24 20:31 01/28/24 20:46 Temperature Pulse Rate 96 98 118 H Respiratory Rate 24 H 29 H 22 H Blood Pressure 146/58 H 144/53 H 120/55 L Pulse Oximetry 96 96 95 Oxygen Delivery 01/28/24 21:08 01/28/24 21:16 01/28/24 21:49 Temperature Pulse Rate 108 H 106 H 106 H Respiratory Rate 21 H 22 H Blood Pressure 156/84 H 145/72 H Pulse Oximetry 95 96 Oxygen Delivery 01/28/24 21:30 01/28/24 21:47 01/28/24 22:00 Temperature Pulse Rate 113 H 104 H 99 Respiratory Rate 25 H 30 H 30 H Blood Pressure 150/80 H 108/84 141/60 H Pulse Oximetry 96 97 96 Oxygen Delivery 01/28/24 22:14 01/29/24 00:10 01/29/24 00:00 Temperature 98.5 F 98.1 F Pulse Rate 77 82 Respiratory Rate 21 H Blood Pressure 110/59 L Pulse Oximetry 100 Oxygen Delivery 01/29/24 00:00 01/29/24 02:00 01/29/24 03:53 Temperature Pulse Rate 77 80 80 Respiratory Rate 21 H 21 H Blood Pressure Pulse Oximetry 100 100 Oxygen Delivery Room Air Room Air 01/29/24 04:17 01/29/24 04:00 01/28/24 23:25 Temperature 98.1 F Pulse Rate 88 77 Respiratory Rate 21 H Blood Pressure 108/64 Pulse Oximetry 100 100 Oxygen Delivery Room Air 01/29/24 05:59 01/29/24 07:50 01/29/24 08:00 Temperature 98.5 F Pulse Rate 85 88 107 H Respiratory Rate 20 Blood Pressure 132/61 Pulse Oximetry 98 Oxygen Delivery 01/29/24 08:00 01/29/24 08:00 Temperature Pulse Rate 107 H Respiratory Rate Blood Pressure Pulse Oximetry Oxygen Delivery Room Air Intake/Output Intake/Output: Intake & Output 01/26/24 01/27/24 01/28/24 01/29/24 23:59 23:59 23:59 23:59 Intake Total 1050 Output Total 200 Balance 850 Meds/Results Medications: Active Medications Generic Name Dose Route Start Last Admin Trade Name Freq PRN Reason Stop Dose Admin Acetaminophen 650 mg 01/28/24 21:19 Acetaminophen 325 Mg Tablet PO Q4H PRN Mild Pain (1-3) or Fever Amlodipine Besylate 5 mg 01/29/24 09:00 01/29/24 08:01 Amlodipine Besylate 5 Mg Tablet PO 5 mg DAILY MILDRED Administration Apixaban 5 mg 01/29/24 09:00 01/29/24 07:59 Apixaban 5 Mg Tablet PO 5 mg Q12HR MILDRED Administration Atorvastatin Calcium 40 mg 01/29/24 09:00 01/29/24 07:59 Atorvastatin 40 Mg Tablet PO 40 mg DAILY MILDRED Administration Diltiazem HCl 120 mg 01/29/24 09:00 01/29/24 08:00 Diltiazem Hcl Cd 120 Mg Cap.24hr PO 120 mg DAILY MILDRED Administration Fluticasone Propionate 2 spray 01/29/24 09:00 01/29/24 07:58 Fluticasone Propionate 0.05% Na Spr 16 Gm Btl (*Bkc) NASAL 2 spray DAILY MILDRED Administration Furosemide 40 mg 01/29/24 09:00 01/29/24 08:02 Furosemide Inj 40 Mg/4 Ml Vial IV PUSH 40 mg Q12HR MILDRED Administration Furosemide 40 mg 01/29/24 09:00 Furosemide Inj 40 Mg/4 Ml Vial IV PUSH BID MILDRED Ceftriaxone Sodium 1 gm in 50 mls @ 100 mls/hr 01/29/24 22:00 Rocephin 1 Gm/Ns 50 Ml IVPB Q24H MILDRED Azithromycin 500 mg in 250 mls @ 250 mls/hr 01/29/24 23:00 Zithromax IVPB Q24H MILDRED Loratadine 10 mg 01/29/24 09:00 01/29/24 08:00 Loratadine 10 Mg Tablet PO 02/28/24 08:59 10 mg DAILY MILDRED Administration Methimazole 10 mg 01/29/24 09:00 01/29/24 08:00 Methimazole 10 Mg Tab PO 10 mg DAILY MILDRED Administration Metoprolol Tartrate 25 mg/ 75 mg 01/28/24 21:00 01/28/24 21:49 Metoprolol Tartrate 50 mg PO 75 mg Q12HR MILDRED Administration Metoprolol Tartrate 75 mg 01/29/24 09:00 01/29/24 08:00 Metoprolol Tartrate 25 Mg Tablet PO 75 mg DAILY MILDRED Administration Mirtazapine 30 mg 01/29/24 09:00 01/29/24 08:02 Mirtazapine 30 Mg Tablet PO 30 mg DAILY MILDRED Administration Pantoprazole Sodium 40 mg 01/29/24 09:00 01/29/24 08:00 Pantoprazole 40 Mg Tablet PO 02/28/24 08:59 40 mg DAILY MILDRED Administration Perflutren Lipid Microsphere 0 ml 01/29/24 00:49 Perflutren Lipid Microspheres 1.5 Ml Vial Diluted To 10 Ml Total Volume IV PUSH 02/01/24 00:49 ONCE PRN adequate visualization Protocol Promethazine HCl 12.5 mg 01/28/24 21:19 Promethazine Hcl 25 Mg/Ml Ampul IV PUSH Q6H PRN Nausea Propranolol HCl 20 mg 01/29/24 09:00 01/29/24 08:00 Propranolol Hcl 20 Mg Tablet PO 20 mg Q12HR MILDRED Administration Radiology Results: ITS Impressions Chest X-Ray 01/28/24 18:26 IMPRESSION: Large right-sided and small left-sided pleural effusions Mild pulmonary vascular congestion is also noted. Labs Labs: Laboratory Results - last 24 hr 01/28/24 01/28/24 01/28/24 18:02 18:03 21:07 WBC 10.6 H RBC 3.51 L Hgb 9.7 L Hct 30.9 L MCV 88.0 MCH 27.6 MCHC 31.4 L RDW 20.1 H Plt Count 304 MPV 9.4 Immature Gran % (Auto) 0.5 Neut % (Auto) 79.5 H Lymph % (Auto) 12.5 L Lares % (Auto) 7.2 Eos % (Auto) 0.1 Baso % (Auto) 0.2 Lymph # (Auto) 1.32 Lares # (Auto) 0.8 H Eos # (Auto) 0.0 Baso # (Auto) 0.0 Abs Immat Gran (auto) 0.05 H Absolute Neuts (auto) 8.4 H Absolute Nucleated RBC 0.000 Nucleated RBC % 0.0 PT 18.9 H INR 1.5 APTT 33.0 Sodium 131 L Potassium 3.0 L Chloride 95 L Carbon Dioxide 30 Anion Gap 6 BUN 16 Creatinine 0.80 Estim Creat Clear Calc Not Reportable Estimated GFR > 60 Glucose 114 H Lactic Acid 1.7 Calcium 8.7 Magnesium 1.3 L Total Bilirubin 1.4 H AST 23 ALT 13 Alkaline Phosphatase 108 Troponin I 0.022 NT-Pro-B Natriuret Pep 4510 H Total Protein 6.0 L Albumin 2.8 L Urine Color Yellow Urine Appearance Clear Urine pH 6.0 Ur Specific Wheatley 1.016 Urine Protein 2+ H Urine Glucose (UA) Negative Urine Ketones Negative Ur Blood (Man) Negative Urine Nitrate Negative Urine Bilirubin Negative Urine Urobilinogen 1.0 Leukocyte Esterase Rfl Trace H Urine RBC 0-2 Urine WBC 0-5 Ur Squamous Epith Cells None seen Urine Bacteria None seen Urine Casts 0-2 Influenza A (RT-PCR) Negative Influenza B (RT-PCR) Negative RSV (RT-PCR) Negative SARS-CoV-2 RNA (RT-PCR) Negative Quality VTE Prophylaxis VTE prophylaxis: mechanical ordered and pharmacologic ordered Hospitalist MIPS Advance Care Plan I have confirmed that the patient's Advanced Care Plan is present, code status is documented, or surrogate decision maker is listed in patient medical record.: Yes Medication Reconciliation I have utilized all available resources to obtain, update and review the patients current medications (includes all prescriptions, OTC, herbals, cannabis, and nutritional supplements).: Yes
[2024-01-29] MEDS: HEPARIN SODIUM 5,000 UNITS/ML VIAL 5000 UNITS SUB-Q ×3 (14:48→20:59)
[2024-01-29] MEDS: FAMOTIDINE 20 MG TABLET PO (20:44)
[2024-01-29] MEDS: AZITHROMYCIN 500 MG/NS 250 ML 500 MG/250 ML BAG 250 MG IVPB (20:59)
[2024-01-29] MEDS: ACETAMINOPHEN 325 MG TABLET 650 MG PO (23:34)
[2024-01-30] VITALS (12 sets, daily range): BP systolic 130–147; BP diastolic 56–66; PULSE 72–98; RESP 16–18; TEMP 36.5–36.9; O2SAT 96–98
[2024-01-30] MEDS: HEPARIN SODIUM 5,000 UNITS/ML VIAL 5000 UNITS SUB-Q ×3 (06:35→21:23)
[2024-01-30] MEDS: FUROSEMIDE INJ 40 MG/4 ML VIAL IV PUSH ×2 (06:36→17:09)
[2024-01-30] MEDS: FLUTICASONE PROPIONATE 0.05% NA SPR 16 GM BTL (*BKC) 2 SPRAY NASAL (08:38)
[2024-01-30] MEDS: METOPROLOL TARTRATE 25 MG TABLET 75 MG PO (08:39)
[2024-01-30] MEDS: POTASSIUM CHLORIDE 10 MEQ ER TABLET PO (08:39)
[2024-01-30] MEDS: PANTOPRAZOLE 40 MG TABLET PO (08:39)
[2024-01-30] MEDS: LORATADINE 10 MG TABLET PO (08:39)
[2024-01-30] MEDS: amLODIPine BESYLATE 5 MG TABLET PO (08:39)
[2024-01-30] MEDS: TRIAMTERENE 37.5 MG/HCTZ 25 MG (MAXZIDE) TABLET 2 TAB PO (08:39)
[2024-01-30] MEDS: PROPRANOLOL HCL 20 MG TABLET PO ×2 (08:40→21:22)
[2024-01-30] MEDS: ATORVASTATIN 40 MG TABLET PO (08:40)
[2024-01-30] MEDS: MIRTAZAPINE 30 MG TABLET PO (08:40)
[2024-01-30] MEDS: methiMAzole 10 MG TAB PO (08:40)
[2024-01-30] MEDS: dilTIAZem HCL CD 120 MG CAP.24HR PO (08:40)
[2024-01-30] MEDS: FAMOTIDINE 20 MG TABLET PO ×2 (08:40→21:22)
[2024-01-30 09:23] LABS: Hematocrit 31.4 % (37.0-47.0); Hemoglobin 9.5 g/dL (12.0-15.0); Mean Corpuscular HGB Conc 30.3 g/dl (32-36); Mean Corpuscular Hemoglobin 26.8 pg (26-34); Mean Corpuscular Volume 88.7 fl (80-100); Mean Platelet Volume 9.6 fl (7.4-10.4); Platelet Count Result 340 k/mm3 (150-375); Red Blood Count 3.54 M/mm3 (4.2-5.4); Red Cell Distribution Width 19.9 % (11.5-14.5); White Blood Count 10.4 K/mm3 (4.5-10.0)
[2024-01-30 09:34] LABS: Anion Gap 4 mmol/L (4-12); Blood Urea Nitrogen 15 mg/dL (7-17); Calcium 8.4 mg/dL (8.4-10.2); Carbon Dioxide 35 mmol/L (22-30); Chloride 95 mmol/L (98-107); Estimated CRCL calculation 33 ml/min; Estimated Glomerular Filt Rate > 60; Glucose 97 mg/dL (65-110); INR 1.6; Potassium 2.8 mmol/L (3.4-5.0); Prothrombin Time 19.4 Seconds (11.1-14.7); Sodium 134 mmol/L (137-145)
[2024-01-30] MEDS: POTASSIUM CHLORIDE 20 MEQ ER TABLET 40 MEQ PO (09:59)
--- NOTE | 2024-01-30 12:38 | PM.IMPN ---
Progress Note: A&P Assessment and Plan (1) Pneumonia: Code(s): J18.9 - Pneumonia, unspecified organism Status: Acute Assessment and Plan: - Continue Rocephin and Zithromax. - Continue to follow blood cultures. - Supplemental O2 PRN for sats > 90 %. - Currently good O2 sats on RA. (2) CHF (congestive heart failure): Code(s): I50.9 - Heart failure, unspecified Status: Acute Assessment and Plan: - Acute on Chronic HFpEF. - pulmonary edema on CXR. - Continue diuresis with Lasix IV. - Strict I & O's with daily weights. - FR 1500 ML. - Echo showing EF 60-60%. (3) Pleural effusion: Code(s): J90 - Pleural effusion, not elsewhere classified Status: Acute Assessment and Plan: - Continue IV diuresis. - Continue FR. - Scheduled for paracentesis and we'll follow fluid analysis. (4) Atrial fibrillation with RVR: Code(s): I48.91 - Unspecified atrial fibrillation Status: Acute Assessment and Plan: - Rate well controlled. - Patient on Cardizem, metoprolol and propranolol at home. - Resume Apixaban post thoracentesis. - Continue tele monitoring. (5) Leukocytosis: Code(s): D72.829 - Elevated white blood cell count, unspecified Status: Acute Assessment and Plan: - Possibly secondary to pneumonia. - Stable. - Monitor trend. (6) UTI (urinary tract infection): Code(s): N39.0 - Urinary tract infection, site not specified Status: Acute Assessment and Plan: - Low suspicion for UTI. - Covered by Ceftriaxone. (7) Hyponatremia: Code(s): E87.1 - Hypo-osmolality and hyponatremia Status: Acute Assessment and Plan: - Possibly secondary to fluid overload. - Improving with diuresis. - Continue to monitor trend. Plan Continue IV abx for PNA treatment and IV diuresis for CHF exacerbation. Scheduled for paracentesis and we'll follow fluid analysis. Time Spent With Patient Time with patient: 25 - 35 minutes Subjective Date/time seen: 01/30/24 12:38 Patient seated on chair on states feels alright. Reports feeling much better compared to when she came. Interval history: Patient looks comfortable on chair, not in any acute distress. Patient admitted for SOB and noted with PNA and large Left Pleural effusion, moderate Right Pleural effusion. Patient scheduled for thoracentesis. Review of Systems Review of Systems: 12 systems were reviewed and are negative except for as per HPI. Exam Narrative: General: Elderly well appearing, no acute distress. HEENT: normocephalic, atraumatic. Mucous membranes moist. EOMI, PERRLA. Neck supple. Respiratory: clear to ascultation bilaterally. Cardiovascular: Regular rate and rhythm, normal S1-S2, No murmurs. Abdomen: Soft, nondistended and nontender. Bowel sounds present to all four quadrants. Extremities: No cyanosis, clubbing. 2-3 + edema crista. LE. 2+ pedal Pulses. Neuro: Alert and orientated x 4. Cranial nerves II-XII intact without focal deficit. Skin: Warm, dry, and intact, without rash, erythema, or lesion. Psych: pleasant, cooperative. Objective Data Vital Signs Vital Signs: Vital Signs - 24 hr 01/29/24 14:27 01/29/24 15:00 01/29/24 15:35 Temperature 98.4 F Pulse Rate 85 Respiratory Rate 16 Blood Pressure 156/67 H Pulse Oximetry 91 Oxygen Delivery Room Air Room Air 01/29/24 16:00 01/29/24 20:00 01/29/24 20:00 Temperature Pulse Rate 82 82 82 Respiratory Rate 16 Blood Pressure Pulse Oximetry 91 Oxygen Delivery Room Air 01/29/24 20:52 01/30/24 00:00 01/30/24 04:00 Temperature 98.5 F Pulse Rate 72 85 72 Respiratory Rate 16 Blood Pressure 153/70 H Pulse Oximetry 95 Oxygen Delivery 01/30/24 06:30 01/30/24 08:39 01/30/24 08:40 Temperature 97.7 F Pulse Rate 78 80 80 Respiratory Rate 16 Blood Pressure 130/66 Pulse Oximetry 96 Oxygen Delivery 01/30/24 08:00 01/30/24 12:00 Temperature Pulse Rate 77 77 Respiratory Rate Blood Pressure Pulse Oximetry Oxygen Delivery Intake/Output Intake/Output: Intake & Output 01/27/24 01/28/24 01/29/24 01/30/24 23:59 23:59 23:59 23:59 Intake Total 1050 1460 540 Output Total 200 Balance 850 1460 540 Meds/Results Medications: Active Medications Generic Name Dose Route Start Last Admin Trade Name Cezar PRN Reason Stop Dose Admin Acetaminophen 650 mg 01/28/24 21:19 01/29/24 23:34 Acetaminophen 325 Mg Tablet PO 650 mg Q4H PRN Administration Mild Pain (1-3) or Fever Amlodipine Besylate 5 mg 01/29/24 09:00 01/30/24 08:39 Amlodipine Besylate 5 Mg Tablet PO 5 mg DAILY [facility] Administration Apixaban 5 mg 01/29/24 09:00 01/29/24 07:59 Apixaban 5 Mg Tablet PO 5 mg Q12HR MILDRED Administration Atorvastatin Calcium 40 mg 01/29/24 09:00 01/30/24 08:40 Atorvastatin 40 Mg Tablet PO 40 mg DAILY [facility] Administration Diltiazem HCl 120 mg 01/29/24 09:00 01/30/24 08:40 Diltiazem Hcl Cd 120 Mg Cap.24hr PO 120 mg DAILY [facility] Administration Famotidine 20 mg 01/29/24 21:00 01/30/24 08:40 Famotidine 20 Mg Tablet PO 20 mg Q12HR [facility]DRED Administration Fluticasone Propionate 2 spray 01/29/24 09:00 01/30/24 08:38 Fluticasone Propionate 0.05% Na Spr 16 Gm Btl (*Bkc) NASAL 2 spray DAILY [facility] Administration Furosemide 40 mg 01/29/24 18:00 01/30/24 06:36 Furosemide Inj 40 Mg/4 Ml Vial IV PUSH 40 mg [id number] [facility]DRED Administration Furosemide 40 mg 01/30/24 09:00 Furosemide 40 Mg Tablet PO DAILY [facility] Heparin Sodium (Porcine) 5,000 units 01/29/24 22:00 01/30/24 06:35 Heparin Sodium 5,000 Units/Ml Vial SUB-Q 5,000 units Q8HR [facility] Administration Ceftriaxone Sodium 1 gm in 50 mls @ 100 mls/hr 01/29/24 22:00 01/29/24 21:30 Rocephin 1 Gm/Ns 50 Ml IVPB Infused Q24H [facility] Infusion Azithromycin 500 mg in 250 mls @ 250 mls/hr 01/29/24 23:00 01/29/24 22:00 Zithromax IVPB Infused Q24H [facility]ED Infusion Loratadine 10 mg 01/29/24 09:00 01/30/24 08:39 Loratadine 10 Mg Tablet PO 02/28/24 08:59 10 mg DAILY [facility] Administration Methimazole 10 mg 01/29/24 09:00 01/30/24 08:40 Methimazole 10 Mg Tab PO 10 mg DAILY [facility] Administration Metoprolol Tartrate 75 mg 01/29/24 09:00 01/30/24 08:39 Metoprolol Tartrate 25 Mg Tablet PO 75 mg DAILY [facility] Administration Mirtazapine 30 mg 01/29/24 09:00 01/30/24 08:40 Mirtazapine 30 Mg Tablet PO 30 mg DAILY [facility] Administration Pantoprazole Sodium 40 mg 01/29/24 09:00 01/30/24 08:39 Pantoprazole 40 Mg Tablet PO 02/28/24 08:59 40 mg DAILY [facility] Administration Perflutren Lipid Microsphere 0 ml 01/29/24 00:49 Perflutren Lipid Microspheres 1.5 Ml Vial Diluted To 10 Ml Total Volume IV PUSH 02/01/24 00:49 ONCE PRN adequate visualization Protocol Potassium Chloride 10 meq 01/30/24 09:00 01/30/24 08:39 Potassium Chloride 10 Meq Er Tablet PO 10 meq DAILY [facility] Administration Promethazine HCl 12.5 mg 01/28/24 21:19 Promethazine Hcl 25 Mg/Ml Ampul IV PUSH Q6H PRN Nausea Propranolol HCl 20 mg 01/29/24 09:00 01/30/24 08:40 Propranolol Hcl 20 Mg Tablet PO 20 mg Q12HR [facility]DRED Administration Triamterene/Hydrochlorothiazide 2 tab 01/30/24 09:00 01/30/24 08:39 Triamterene 37.5 Mg/Hctz 25 Mg (Maxzide) Tablet PO 2 tab QAM [facility]DRED Administration Radiology Results: ITS Impressions Chest X-Ray 01/29/24 11:15 Impression: 1: Cardiomegaly with interstitial edema. No significant change. 2: Stable moderate right pleural effusion. Labs Labs: Laboratory Results - last 24 hr 01/30/24 09:03 WBC 10.4 H RBC 3.54 L Hgb 9.5 L Hct 31.4 L MCV 88.7 MCH 26.8 MCHC 30.3 L RDW 19.9 H Plt Count 340 MPV 9.6 PT 19.4 H INR 1.6 Sodium 134 L Potassium 2.8 L* Chloride 95 L Carbon Dioxide 35 H Anion Gap 4 BUN 15 Creatinine 0.80 Estim Creat Clear Calc 33 Estimated GFR > 60 Glucose 97 Calcium 8.4 Quality VTE Prophylaxis VTE prophylaxis: mechanical ordered and pharmacologic ordered Hospitalist MIPS Advance Care Plan I have confirmed that the patient's Advanced Care Plan is present, code status is documented, or surrogate decision maker is listed in patient medical record.: Yes Medication Reconciliation I have utilized all available resources to obtain, update and review the patients current medications (includes all prescriptions, OTC, herbals, cannabis, and nutritional supplements).: Yes
[2024-01-30] MEDS: ACETAMINOPHEN 325 MG TABLET 650 MG PO (21:31)
[2024-01-30] MEDS: MELATONIN 5 MG TABLET PO (22:28)
[2024-01-30] MEDS: AZITHROMYCIN 500 MG/NS 250 ML 500 MG/250 ML BAG 250 MG IVPB (22:28)
[2024-01-31] VITALS (12 sets, daily range): BP systolic 130–144; BP diastolic 50–61; PULSE 75–110; RESP 16–20; TEMP 36.4–37.1; O2SAT 94–98
[2024-01-31] MEDS: HEPARIN SODIUM 5,000 UNITS/ML VIAL 5000 UNITS SUB-Q ×3 (06:44→21:01)
[2024-01-31] MEDS: FUROSEMIDE INJ 40 MG/4 ML VIAL IV PUSH ×2 (06:45→17:35)
[2024-01-31] MEDS: ATORVASTATIN 40 MG TABLET PO (08:13)
[2024-01-31] MEDS: FLUTICASONE PROPIONATE 0.05% NA SPR 16 GM BTL (*BKC) 2 SPRAY NASAL (08:13)
[2024-01-31] MEDS: dilTIAZem HCL CD 120 MG CAP.24HR PO (08:13)
[2024-01-31] MEDS: FAMOTIDINE 20 MG TABLET PO ×2 (08:13→20:21)
[2024-01-31] MEDS: amLODIPine BESYLATE 5 MG TABLET PO (08:13)
[2024-01-31] MEDS: methiMAzole 10 MG TAB PO (08:14)
[2024-01-31] MEDS: LORATADINE 10 MG TABLET PO (08:14)
[2024-01-31] MEDS: METOPROLOL TARTRATE 25 MG TABLET 75 MG PO (08:14)
[2024-01-31] MEDS: PANTOPRAZOLE 40 MG TABLET PO (08:15)
[2024-01-31] MEDS: MIRTAZAPINE 30 MG TABLET PO (08:15)
[2024-01-31] MEDS: PROPRANOLOL HCL 20 MG TABLET PO (08:15)
[2024-01-31] MEDS: TRIAMTERENE 37.5 MG/HCTZ 25 MG (MAXZIDE) TABLET 2 TAB PO (08:16)
[2024-01-31 09:17] LABS: Hematocrit 35.6 % (37.0-47.0); Hemoglobin 10.9 g/dL (12.0-15.0); Mean Corpuscular HGB Conc 30.6 g/dl (32-36); Mean Corpuscular Hemoglobin 27.5 pg (26-34); Mean Corpuscular Volume 89.7 fl (80-100); Mean Platelet Volume 9.6 fl (7.4-10.4); Platelet Count Result 434 k/mm3 (150-375); Red Blood Count 3.97 M/mm3 (4.2-5.4); Red Cell Distribution Width 19.8 % (11.5-14.5)
[2024-01-31 09:27] LABS: Anion Gap 8 mmol/L (4-12); Blood Urea Nitrogen 17 mg/dL (7-17); Calcium 9.1 mg/dL (8.4-10.2); Carbon Dioxide 33 mmol/L (22-30); Chloride 93 mmol/L (98-107); Estimated CRCL calculation 27 ml/min; Estimated Glomerular Filt Rate 52; Glucose 109 mg/dL (65-110); Potassium 3.3 mmol/L (3.4-5.0); Sodium 134 mmol/L (137-145)
[2024-01-31] MEDS: POTASSIUM CHLORIDE 10 MEQ ER TABLET PO (09:38)
--- NOTE | 2024-01-31 12:17 | P.PNIM_ITS ---
Progress Note: A&P Assessment and Plan (1) Pneumonia: Code(s): J18.9 - Pneumonia, unspecified organism Status: Acute Assessment and Plan: - Continue Rocephin and Zithromax. - Continue to follow blood cultures. - Supplemental O2 PRN for sats > 90 %. - Currently good O2 sats on RA. (2) CHF (congestive heart failure): Code(s): I50.9 - Heart failure, unspecified Status: Acute Assessment and Plan: - Acute on Chronic HFpEF. - pulmonary edema on CXR. - Continue diuresis with Lasix IV. - Strict I & O's with daily weights. - FR 1500 ML. - Echo showing EF 60-60%. (3) Pleural effusion: Code(s): J90 - Pleural effusion, not elsewhere classified Status: Acute Assessment and Plan: - Continue IV diuresis. - Continue FR. - Scheduled for paracentesis and we'll follow fluid analysis. (4) Atrial fibrillation with RVR: Code(s): I48.91 - Unspecified atrial fibrillation Status: Acute Assessment and Plan: - Rate well controlled. - Patient on Cardizem, metoprolol and propranolol at home, continued inpatient. - Resume Apixaban post thoracentesis. - Continue tele monitoring. (5) Leukocytosis: Code(s): D72.829 - Elevated white blood cell count, unspecified Status: Acute Assessment and Plan: - Slightly trended up today. - Possibly secondary to pneumonia vs atelectasis vs other. - Continue to monitor trend with IV abx. (6) UTI (urinary tract infection): Code(s): N39.0 - Urinary tract infection, site not specified Status: Acute Assessment and Plan: - Low suspicion for UTI. - Covered by Ceftriaxone. (7) Hyponatremia: Code(s): E87.1 - Hypo-osmolality and hyponatremia Status: Acute Assessment and Plan: - Possibly secondary to fluid overload. - Improving with diuresis. - Continue to monitor trend. Plan Continue IV abx for PNA treatment and IV diuresis for CHF exacerbation. Scheduled for paracentesis and we'll follow fluid analysis. Time Spent With Patient Time with patient: 15 - 25 minutes Subjective Date/time seen: 01/31/24 12:17 Patient calm on bedrest stating she feels alright. States still awaiting Thoracentesis and was informed it was going to be done later today. States her breathing is ok but she still has some discomfort in the middle of her chest. Interval history: Patient looks comfortable on chair, not in any acute distress. Patient admitted for SOB and noted with PNA and large Left Pleural effusion, moderate Right Pleural effusion. Patient scheduled for thoracentesis possibly later today. Review of Systems Review of Systems: 12 systems were reviewed and are negative except for as per HPI. Exam Narrative: General: Elderly female well appearing, no acute distress. HEENT: normocephalic, atraumatic. Mucous membranes moist. EOMI, PERRLA. Neck supple. Respiratory: Lungs diminished bilaterally. Cardiovascular: Regular rate and rhythm, normal S1-S2, No murmurs. Abdomen: Soft, nondistended and nontender. Bowel sounds present to all four quadrants. Extremities: No cyanosis, clubbing. 2-3 + edema crista. LE. 2+ pedal Pulses. Neuro: Alert and orientated x 4. Cranial nerves II-XII intact without focal deficit. Skin: Warm, dry, and intact, without rash, erythema, or lesion. Psych: pleasant, cooperative. Objective Data Vital Signs Vital Signs: Vital Signs - 24 hr 01/30/24 16:00 01/30/24 16:55 01/30/24 20:05 Temperature 98.4 F 98.0 F Pulse Rate 85 92 98 Respiratory Rate 18 16 Blood Pressure 147/66 H 139/56 L Pulse Oximetry 98 98 Oxygen Delivery 01/30/24 21:22 01/30/24 20:00 01/30/24 20:00 Temperature Pulse Rate 98 88 Respiratory Rate Blood Pressure Pulse Oximetry 98 Oxygen Delivery Room Air 01/31/24 00:00 01/31/24 05:08 01/31/24 04:00 Temperature 97.6 F Pulse Rate 75 85 92 Respiratory Rate 16 Blood Pressure 144/59 H Pulse Oximetry 94 Oxygen Delivery 01/31/24 08:14 01/31/24 08:15 01/31/24 08:06 Temperature Pulse Rate 80 80 Respiratory Rate Blood Pressure Pulse Oximetry Oxygen Delivery Room Air 01/31/24 08:06 Temperature Pulse Rate 99 Respiratory Rate Blood Pressure Pulse Oximetry Oxygen Delivery Intake/Output Intake/Output: Intake & Output 01/28/24 01/29/24 01/30/24 01/31/24 23:59 23:59 23:59 23:59 Intake Total 1050 1460 1280 390 Output Total 200 Balance 850 1460 1280 390 Meds/Results Medications: Active Medications Generic Name Dose Route Start Last Admin Trade Name Freq PRN Reason Stop Dose Admin Acetaminophen 650 mg 01/28/24 21:19 01/30/24 21:31 Acetaminophen 325 Mg Tablet PO 650 mg Q4H PRN Administration Mild Pain (1-3) or Fever Amlodipine Besylate 5 mg 01/29/24 09:00 01/31/24 08:13 Amlodipine Besylate 5 Mg Tablet PO 5 mg DAILY [facility] Administration Apixaban 5 mg 01/29/24 09:00 01/29/24 07:59 Apixaban 5 Mg Tablet PO 5 mg Q12HR [facility] Administration Atorvastatin Calcium 40 mg 01/29/24 09:00 01/31/24 08:13 Atorvastatin 40 Mg Tablet PO 40 mg DAILY [facility] Administration Diltiazem HCl 120 mg 01/29/24 09:00 01/31/24 08:13 Diltiazem Hcl Cd 120 Mg Cap.24hr PO 120 mg DAILY [facility] Administration Famotidine 20 mg 01/29/24 21:00 01/31/24 08:13 Famotidine 20 Mg Tablet PO 20 mg Q12HR [facility] Administration Fluticasone Propionate 2 spray 01/29/24 09:00 01/31/24 08:13 Fluticasone Propionate 0.05% Na Spr 16 Gm Btl (*Bkc) NASAL 2 spray DAILY [facility] Administration Furosemide 40 mg 01/29/24 18:00 01/31/24 06:45 Furosemide Inj 40 Mg/4 Ml Vial IV PUSH 40 mg [id number] [facility] Administration Furosemide 40 mg 01/30/24 09:00 Furosemide 40 Mg Tablet PO DAILY [facility] Heparin Sodium (Porcine) 5,000 units 01/29/24 22:00 01/31/24 06:44 Heparin Sodium 5,000 Units/Ml Vial SUB-Q 5,000 units Q8HR [facility] Administration Ceftriaxone Sodium 1 gm in 50 mls @ 100 mls/hr 01/29/24 22:00 01/30/24 21:52 Rocephin 1 Gm/Ns 50 Ml IVPB Infused Q24H [facility] Infusion Azithromycin 500 mg in 250 mls @ 250 mls/hr 01/29/24 23:00 01/30/24 23:28 Zithromax IVPB Infused Q24H [facility] Infusion Loratadine 10 mg 01/29/24 09:00 01/31/24 08:14 Loratadine 10 Mg Tablet PO 02/28/24 08:59 10 mg DAILY [facility] Administration Melatonin 5 mg 01/30/24 22:25 01/30/24 22:28 Melatonin 5 Mg Tablet PO 5 mg HS [facility]DR[facility] Administration Methimazole 10 mg 01/29/24 09:00 01/31/24 08:14 Methimazole 10 Mg Tab PO 10 mg DAILY [facility] Administration Metoprolol Tartrate 75 mg 01/29/24 09:00 01/31/24 08:14 Metoprolol Tartrate 25 Mg Tablet PO 75 mg DAILY [facility] Administration Mirtazapine 30 mg 01/29/24 09:00 01/31/24 08:15 Mirtazapine 30 Mg Tablet PO 30 mg DAILY [facility] Administration Pantoprazole Sodium 40 mg 01/29/24 09:00 01/31/24 08:15 Pantoprazole 40 Mg Tablet PO 02/28/24 08:59 40 mg DAILY [facility] Administration Perflutren Lipid Microsphere 0 ml 01/29/24 00:49 Perflutren Lipid Microspheres 1.5 Ml Vial Diluted To 10 Ml Total Volume IV PUSH 02/01/24 00:49 ONCE PRN adequate visualization Protocol Potassium Chloride 10 meq 01/30/24 09:00 01/31/24 09:38 Potassium Chloride 10 Meq Er Tablet PO 10 meq DAILY [facility]DR[facility] Administration Promethazine HCl 12.5 mg 01/28/24 21:19 Promethazine Hcl 25 Mg/Ml Ampul IV PUSH Q6H PRN Nausea Propranolol HCl 20 mg 01/29/24 09:00 01/31/24 08:15 Propranolol Hcl 20 Mg Tablet PO 20 mg Q12HR MILDRED Administration Triamterene/Hydrochlorothiazide 2 tab 01/30/24 09:00 01/31/24 08:16 Triamterene 37.5 Mg/Hctz 25 Mg (Maxzide) Tablet PO 2 tab QAM MILDRED Administration Radiology Results: ITS Impressions Chest X-Ray 01/29/24 11:15 Impression: 1: Cardiomegaly with interstitial edema. No significant change. 2: Stable moderate right pleural effusion. Labs Labs: Laboratory Results - last 24 hr 01/31/24 08:57 WBC 12.0 H RBC 3.97 L Hgb 10.9 L Hct 35.6 L MCV 89.7 MCH 27.5 MCHC 30.6 L RDW 19.8 H Plt Count 434 H MPV 9.6 Sodium 134 L Potassium 3.3 L Chloride 93 L Carbon Dioxide 33 H Anion Gap 8 BUN 17 Creatinine 1.00 Estim Creat Clear Calc 27 Estimated GFR 52 L Glucose 109 Calcium 9.1 Quality VTE Prophylaxis VTE prophylaxis: mechanical ordered and pharmacologic ordered Hospitalist MIPS Advance Care Plan I have confirmed that the patient's Advanced Care Plan is present, code status is documented, or surrogate decision maker is listed in patient medical record.: Yes Medication Reconciliation I have utilized all available resources to obtain, update and review the patients current medications (includes all prescriptions, OTC, herbals, cannabis, and nutritional supplements).: Yes
[2024-01-31] MEDS: POTASSIUM CHLORIDE 20 MEQ ER TABLET 40 MEQ PO (13:55)
--- NOTE | 2024-01-31 16:44 | PC.NURSE ---
Addendum entered by Cindy Boo RN 01/31/24 19:39: Close family friends came to bedside after speaking with son. Patient reoriented and back to bed. Patient requests all staff to announce and introduce themselves to her as multiple people coming in and out is overwhelming. Sign placed on door to see nurse's station prior to entry with patient's permission. Original Note: RN called to room as requesting per [employer]. Patient was found to be pacing the room and stating that she was not in the hospital. RN tried to re-orient the patient but patient became more agitated. Provider called @ 1625 to be made aware of the sudden mental status change. Provider came to room to assess patient. Patient was able to answer questions appropriately. Provider stated to continue to keep an eye on the patient and notify if anything were to change.
[2024-01-31] MEDS: METOPROLOL TARTRATE 50 MG TAB PO (20:20)
[2024-01-31] MEDS: MELATONIN 5 MG TABLET PO (20:21)
[2024-01-31] MEDS: AZITHROMYCIN 500 MG/NS 250 ML 500 MG/250 ML BAG 250 MG IVPB (23:14)
[2024-02-01] VITALS (13 sets, daily range): BP systolic 114–124; BP diastolic 52–67; PULSE 73–103; RESP 13–20; TEMP 36.3–36.9; O2SAT 90–97
[2024-02-01] MEDS: FUROSEMIDE INJ 40 MG/4 ML VIAL IV PUSH ×2 (05:10→17:24)
[2024-02-01] MEDS: HEPARIN SODIUM 5,000 UNITS/ML VIAL 5000 UNITS SUB-Q ×3 (05:10→20:33)
[2024-02-01 05:42] LABS: Basophils Percent Auto 0.5 % (0.2-1.2); Eosinophils Absolute Auto 0.1 K/mm3 (0-0.3); Eosinophils Percent Auto 1.5 % (0-4.4); Hematocrit 26.4 % (37.0-47.0); Hemoglobin 8.3 g/dL (12.0-15.0); Immature Granulocyte Absolute 0.04 K/mm3 (0.00-0.031); Immature Granulocyte Percent A 0.5 % (0-0.5); Lymphocytes Absolute Auto 1.81 K/mm3 (0.9-3.2); Lymphocytes Percent Auto 20.8 % (18.3-44.2); Mean Corpuscular HGB Conc 31.4 g/dl (32-36); Mean Corpuscular Hemoglobin 27.6 pg (26-34); Mean Corpuscular Volume 87.7 fl (80-100); Mean Platelet Volume 9.6 fl (7.4-10.4); Monocytes Absolute Auto 0.9 K/mm3 (0.1-0.6); Monocytes Percent Auto 9.9 % (2.6-8.5); Neutrophils Absolute Auto 5.8 K/mm3 (1.3-6.7); Neutrophils Percent Auto 66.8 % (45.5-73.1); Platelet Count Result 362 k/mm3 (150-375); Red Blood Count 3.01 M/mm3 (4.2-5.4); Red Cell Distribution Width 19.7 % (11.5-14.5); White Blood Count 8.7 K/mm3 (4.5-10.0)
[2024-02-01 05:58] LABS: Anion Gap 6 mmol/L (4-12); Blood Urea Nitrogen 19 mg/dL (7-17); Calcium 8.4 mg/dL (8.4-10.2); Carbon Dioxide 36 mmol/L (22-30); Chloride 91 mmol/L (98-107); Estimated CRCL calculation 24 ml/min; Estimated Glomerular Filt Rate 47; Glucose 90 mg/dL (65-110); Potassium 2.9 mmol/L (3.4-5.0); Sodium 133 mmol/L (137-145)
[2024-02-01 07:50] LABS: Magnesium 1.5 mg/dL (1.6-2.3)
[2024-02-01] MEDS: METOPROLOL TARTRATE 50 MG TAB PO ×2 (09:21→20:35)
[2024-02-01] MEDS: POTASSIUM CHLORIDE 20 MEQ ER TABLET 40 MEQ PO ×2 (09:21→17:24)
[2024-02-01] MEDS: methiMAzole 10 MG TAB PO (09:21)
[2024-02-01] MEDS: TRIAMTERENE 37.5 MG/HCTZ 25 MG (MAXZIDE) TABLET 2 TAB PO (09:22)
[2024-02-01] MEDS: PANTOPRAZOLE 40 MG TABLET PO (09:22)
[2024-02-01] MEDS: ATORVASTATIN 40 MG TABLET PO (09:22)
[2024-02-01] MEDS: MIRTAZAPINE 30 MG TABLET PO (09:22)
[2024-02-01] MEDS: amLODIPine BESYLATE 5 MG TABLET PO (09:22)
[2024-02-01] MEDS: LORATADINE 10 MG TABLET PO (09:22)
[2024-02-01] MEDS: dilTIAZem HCL CD 120 MG CAP.24HR PO (09:23)
[2024-02-01] MEDS: FAMOTIDINE 20 MG TABLET PO ×2 (09:23→20:35)
[2024-02-01] MEDS: MAGNESIUM SULF 2 GM/WATER 50ML 2 GM/50 ML BAG IVPB (09:23)
[2024-02-01] MEDS: FLUTICASONE PROPIONATE 0.05% NA SPR 16 GM BTL (*BKC) 2 SPRAY NASAL (09:23)
--- NOTE | 2024-02-01 09:56 | PM.IMPN ---
Progress Note: A&P Assessment and Plan (1) Pneumonia: Code(s): J18.9 - Pneumonia, unspecified organism Status: Acute Assessment and Plan: - Switch to oral Azithromycin and Cefdinir. - Continue to follow blood cultures. - Supplemental O2 PRN for sats > 90 %. - Currently good O2 sats on RA. (2) CHF (congestive heart failure): Code(s): I50.9 - Heart failure, unspecified Status: Acute Assessment and Plan: - Acute on Chronic HFpEF. - pulmonary edema on CXR. - Continue diuresis with Lasix IV. - Strict I & O's with daily weights. - FR 1500 ML. - Echo showing EF 60-60%. (3) Pleural effusion: Code(s): J90 - Pleural effusion, not elsewhere classified Status: Acute Assessment and Plan: - Continue IV diuresis. - Continue FR. - Scheduled for paracentesis and we'll follow fluid analysis. (4) Atrial fibrillation with RVR: Code(s): I48.91 - Unspecified atrial fibrillation Status: Acute Assessment and Plan: - Rate well controlled. - Patient on Cardizem, metoprolol and propranolol at home, continued inpatient. - Resume Apixaban post thoracentesis. - Continue tele monitoring. (5) Leukocytosis: Code(s): D72.829 - Elevated white blood cell count, unspecified Status: Acute Assessment and Plan: - WBC: 10.6->10.4->12.0->8.7 - Possibly secondary to pneumonia vs atelectasis vs other. - Continue to monitor trend - Switch antibiotics to oral (6) Hypokalemia: Code(s): E87.6 - Hypokalemia Status: Acute Assessment and Plan: Potassium 2.9 Increase Potassium 40 meq PO BID Monitor labs. (7) Hypomagnesemia: Code(s): E83.42 - Hypomagnesemia Status: Acute Assessment and Plan: Magnesium 1.5. Give Magnesium 2 gm IVPB x1 Monitor labs. (8) Hyponatremia: Code(s): E87.1 - Hypo-osmolality and hyponatremia Status: Acute Assessment and Plan: - Possibly secondary to fluid overload. - Improving with diuresis. - Sodium 133 - Continue to monitor trend. Subjective Date/time seen: 02/01/24 09:56 Interval history: Patient sitting up in chair. Patient denies chest pain, palpitations, dizziness, nausea, or vomiting. Patient reports a headache that is a 6 , constant, and aching. Review of Systems Review of Systems: All systems reviewed & are unremarkable except as noted in HPI and below Exam Const: General: no acute distress Eyes: Sclera: sclerae normal Resp: Auscultation: diminished lung sounds Cardio: Rhythm: abnormal rhythm irregularly irregular Other: Telemetry Afib 98 GI: GI Palp: Yes Soft to palpation Auscultation: normal bowel sounds Extrem: General: pedal edema bilaterally 2+ Psych: Affect: normal affect Objective Data Vital Signs Vital Signs: Vital Signs - 24 hr 01/31/24 12:00 01/31/24 14:05 01/31/24 16:00 Temperature 98.3 F Pulse Rate 90 88 110 H Respiratory Rate 16 Blood Pressure 130/50 L Pulse Oximetry 98 01/31/24 20:20 01/31/24 20:00 01/31/24 21:28 Temperature 98.8 F Pulse Rate 108 H 87 90 Respiratory Rate 20 Blood Pressure 133/61 Pulse Oximetry 98 02/01/24 00:00 02/01/24 04:00 02/01/24 05:38 Temperature 98.4 F Pulse Rate 80 87 87 Respiratory Rate 18 Blood Pressure 124/56 L Pulse Oximetry 96 02/01/24 09:20 02/01/24 09:21 Temperature Pulse Rate 97 95 Respiratory Rate Blood Pressure 121/52 L Pulse Oximetry Intake/Output Intake/Output: Intake & Output 01/29/24 01/30/24 01/31/24 02/01/24 23:59 23:59 23:59 23:59 Intake Total 1460 1280 490 100 Output Total 0 Balance 1460 1280 490 100 Meds/Results Medications: Active Medications Generic Name Dose Route Start Last Admin Trade Name Freq PRN Reason Stop Dose Admin Acetaminophen 650 mg 01/28/24 21:19 01/30/24 21:31 Acetaminophen 325 Mg Tablet PO 650 mg Q4H PRN Administration Mild Pain (1-3) or Fever Amlodipine Besylate 5 mg 01/29/24 09:00 02/01/24 09:22 Amlodipine Besylate 5 Mg Tablet PO 5 mg DAILY MILDRED Administration Apixaban 5 mg 01/29/24 09:00 01/29/24 07:59 Apixaban 5 Mg Tablet PO 5 mg Q12HR MILDRED Administration Atorvastatin Calcium 40 mg 01/29/24 09:00 02/01/24 09:22 Atorvastatin 40 Mg Tablet PO 40 mg DAILY MILDRED Administration Diltiazem HCl 120 mg 01/29/24 09:00 02/01/24 09:23 Diltiazem Hcl Cd 120 Mg Cap.24hr PO 120 mg DAILY MILDRED Administration Famotidine 20 mg 01/29/24 21:00 02/01/24 09:23 Famotidine 20 Mg Tablet PO 20 mg Q12HR MILDRED Administration Fluticasone Propionate 2 spray 01/29/24 09:00 02/01/24 09:23 Fluticasone Propionate 0.05% Na Spr 16 Gm Btl (*Bkc) NASAL 2 spray DAILY MILDRED Administration Furosemide 40 mg 01/29/24 18:00 02/01/24 05:10 Furosemide Inj 40 Mg/4 Ml Vial IV PUSH 40 mg [id number] MILDRED Administration Furosemide 40 mg 01/30/24 09:00 Furosemide 40 Mg Tablet PO DAILY [facility] Heparin Sodium (Porcine) 5,000 units 01/29/24 22:00 02/01/24 05:10 Heparin Sodium 5,000 Units/Ml Vial SUB-Q 5,000 units Q8HR MILDRED Administration Ceftriaxone Sodium 1 gm in 50 mls @ 100 mls/hr 01/29/24 22:00 01/31/24 21:00 Rocephin 1 Gm/Ns 50 Ml IVPB 100 mls/hr Q24H MIDLRED Administration Azithromycin 500 mg in 250 mls @ 250 mls/hr 01/29/24 23:00 01/31/24 23:14 Zithromax IVPB 250 mls/hr Q24H MILDRED Administration Magnesium Sulfate 2 gm in 50 mls @ 25 mls/hr 02/01/24 08:20 02/01/24 09:23 Magnesium Sulf 2 Gm/Water 50ml IVPB 02/01/24 10:19 25 mls/hr ONCE ONE Administration Loratadine 10 mg 01/29/24 09:00 02/01/24 09:22 Loratadine 10 Mg Tablet PO 02/28/24 08:59 10 mg DAILY MILDRED Administration Melatonin 5 mg 01/30/24 22:25 01/31/24 20:21 Melatonin 5 Mg Tablet PO 5 mg HS MILDRED Administration Methimazole 10 mg 01/29/24 09:00 02/01/24 09:21 Methimazole 10 Mg Tab PO 10 mg DAILY MILDRED Administration Metoprolol Tartrate 50 mg 01/31/24 21:00 02/01/24 09:21 Metoprolol Tartrate 50 Mg Tab PO 50 mg Q12HR MILDRED Administration Mirtazapine 30 mg 01/29/24 09:00 02/01/24 09:22 Mirtazapine 30 Mg Tablet PO 30 mg DAILY [facility]ED Administration Pantoprazole Sodium 40 mg 01/29/24 09:00 02/01/24 09:22 Pantoprazole 40 Mg Tablet PO 02/28/24 08:59 40 mg DAILY MILDRED Administration Polyethylene Glycol 17 gm 02/01/24 09:45 Polyethylene Glycol 3350 17 Gm Powd.Pack PO QAM MILDRED Potassium Chloride 40 meq 02/01/24 09:00 02/01/24 09:21 Potassium Chloride 20 Meq Er Tablet PO 40 meq BID MILDRED Administration Promethazine HCl 12.5 mg 01/28/24 21:19 Promethazine Hcl 25 Mg/Ml Ampul IV PUSH Q6H PRN Nausea Senna/Docusate Sodium 1 tab 02/01/24 09:45 Senna/Docusate Sodium Tablet PO BID MILDRED Triamterene/Hydrochlorothiazide 2 tab 01/30/24 09:00 02/01/24 09:22 Triamterene 37.5 Mg/Hctz 25 Mg (Maxzide) Tablet PO 2 tab QAM MILDRED Administration Radiology Results: ITS Impressions Chest X-Ray 01/29/24 11:15 Impression: 1: Cardiomegaly with interstitial edema. No significant change. 2: Stable moderate right pleural effusion. Labs Labs: Laboratory Results - last 24 hr 02/01/24 02/01/24 05:06 05:11 WBC 8.7 RBC 3.01 L Hgb 8.3 L Hct 26.4 L MCV 87.7 MCH 27.6 MCHC 31.4 L RDW 19.7 H Plt Count 362 MPV 9.6 Immature Gran % (Auto) 0.5 Neut % (Auto) 66.8 Lymph % (Auto) 20.8 [place] % (Auto) 9.9 H Eos % (Auto) 1.5 Baso % (Auto) 0.5 Lymph # (Auto) 1.81 [place] # (Auto) 0.9 H Eos # (Auto) 0.1 Baso # (Auto) 0.0 Abs Immat Gran (auto) 0.04 H Absolute Neuts (auto) 5.8 Absolute Nucleated RBC 0.000 Nucleated RBC % 0.0 Sodium 133 L Potassium 2.9 L Chloride 91 L Carbon Dioxide 36 H Anion Gap 6 BUN 19 H Creatinine 1.10 H Estim Creat Clear Calc 24 Estimated GFR 47 L Glucose 90 Calcium 8.4 Magnesium 1.5 L Quality VTE Prophylaxis VTE prophylaxis: mechanical ordered
[2024-02-01] MEDS: ACETAMINOPHEN 325 MG TABLET 650 MG PO ×2 (11:57→18:19)
[2024-02-01] MEDS: SENNA/DOCUSATE SODIUM TABLET 1 TAB PO ×2 (11:57→17:24)
[2024-02-01 17:36] LABS: pH Pleural Fluid > 7.500 (7.210-7.500)
[2024-02-01 18:43] LABS: Pleural fluid source Pleural fluid
[2024-02-01 18:44] LABS: Appearance Pleural Fluid Hazy (Clear); Color Pleural Fluid Yellow (Colorless); Nucleated Cell Pleural Fluid 1317 /uL (0-1000); RBC Pleural Fluid < 2000 /uL (0-10000)
[2024-02-01 18:45] LABS: Lymphocytes Pleural Fluid 8 %; Macrophages Pleural Fluid 70 %; Mesothelial Cells Pleural Flui 4 %; Neutrophils Pleural Fluid 13 % (0-25); Other Cells Pleural Fluid 5 %
[2024-02-01] MEDS: CEFDINIR 300 MG CAPSULE PO (20:35)
[2024-02-01] MEDS: MELATONIN 5 MG TABLET PO (20:35)
[2024-02-01] MEDS: AZITHROMYCIN 250 MG TABLET 500 MG PO (20:41)
[2024-02-02] VITALS (12 sets, daily range): BP systolic 106–128; BP diastolic 45–63; PULSE 82–113; RESP 18–24; TEMP 36.4–37.2; O2SAT 91–100
[2024-02-02 06:13] LABS: Basophils Percent Auto 0.3 % (0.2-1.2); Eosinophils Absolute Auto 0.2 K/mm3 (0-0.3); Eosinophils Percent Auto 2.1 % (0-4.4); Hematocrit 30.2 % (37.0-47.0); Hemoglobin 9.2 g/dL (12.0-15.0); Immature Granulocyte Absolute 0.04 K/mm3 (0.00-0.031); Immature Granulocyte Percent A 0.5 % (0-0.5); Lymphocytes Absolute Auto 1.61 K/mm3 (0.9-3.2); Lymphocytes Percent Auto 18.4 % (18.3-44.2); Mean Corpuscular HGB Conc 30.5 g/dl (32-36); Mean Corpuscular Hemoglobin 27.1 pg (26-34); Mean Corpuscular Volume 88.8 fl (80-100); Monocytes Absolute Auto 0.6 K/mm3 (0.1-0.6); Monocytes Percent Auto 7.2 % (2.6-8.5); Neutrophils Absolute Auto 6.3 K/mm3 (1.3-6.7); Neutrophils Percent Auto 71.5 % (45.5-73.1); Platelet Count Result 406 k/mm3 (150-375); Red Cell Distribution Width 19.6 % (11.5-14.5); White Blood Count 8.8 K/mm3 (4.5-10.0)
[2024-02-02 06:30] LABS: Alanine Aminotransferase 13 U/L (6-35); Albumin Level 3.1 g/dL (3.5-5.1); Alkaline Phosphatase 114 U/L (38-126); Anion Gap 5 mmol/L (4-12); Aspartate Amino Transferase 23 U/L (14-36); Bilirubin,Total 0.5 mg/dL (0.2-1.3); Blood Urea Nitrogen 21 mg/dL (7-17); Calcium 8.8 mg/dL (8.4-10.2); Carbon Dioxide 36 mmol/L (22-30); Chloride 92 mmol/L (98-107); Estimated CRCL calculation 21 ml/min; Estimated Glomerular Filt Rate 39; Glucose 102 mg/dL (65-110); Potassium 3.9 mmol/L (3.4-5.0); Sodium 133 mmol/L (137-145)
[2024-02-02] MEDS: FUROSEMIDE INJ 40 MG/4 ML VIAL IV PUSH ×2 (06:52→17:02)
[2024-02-02] MEDS: dilTIAZem HCL CD 120 MG CAP.24HR PO (08:43)
[2024-02-02] MEDS: amLODIPine BESYLATE 5 MG TABLET PO (08:43)
[2024-02-02] MEDS: PANTOPRAZOLE 40 MG TABLET PO (08:43)
[2024-02-02] MEDS: ATORVASTATIN 40 MG TABLET PO (08:44)
[2024-02-02] MEDS: TRIAMTERENE 37.5 MG/HCTZ 25 MG (MAXZIDE) TABLET 2 TAB PO (08:44)
[2024-02-02] MEDS: methiMAzole 10 MG TAB PO (08:44)
[2024-02-02] MEDS: LORATADINE 10 MG TABLET PO (08:45)
[2024-02-02] MEDS: MIRTAZAPINE 30 MG TABLET PO (08:45)
[2024-02-02] MEDS: FAMOTIDINE 20 MG TABLET PO (08:45)
[2024-02-02] MEDS: METOPROLOL TARTRATE 50 MG TAB PO ×2 (08:45→21:46)
[2024-02-02] MEDS: FLUTICASONE PROPIONATE 0.05% NA SPR 16 GM BTL (*BKC) 2 SPRAY NASAL (08:45)
[2024-02-02] MEDS: POTASSIUM CHLORIDE 20 MEQ ER TABLET 40 MEQ PO ×2 (08:46→17:01)
[2024-02-02] MEDS: SENNA/DOCUSATE SODIUM TABLET 1 TAB PO ×2 (08:46→17:01)
--- NOTE | 2024-02-02 09:54 | P.PNIM_ITS ---
Progress Note: A&P Assessment and Plan (1) Pneumonia: Code(s): J18.9 - Pneumonia, unspecified organism Status: Acute Assessment and Plan: - Patient completed Azithromycin and Cefdinir. - Continue to follow blood cultures. - Supplemental O2 PRN for sats > 90 %. - Currently good O2 sats on RA. (2) CHF (congestive heart failure): Code(s): I50.9 - Heart failure, unspecified Status: Acute Assessment and Plan: - Acute on Chronic HFpEF. - pulmonary edema on CXR. - Continue diuresis with Lasix IV. - Strict I & O's with daily weights. - FR 1500 ML. - Echo showing EF 60-65%. (3) Pleural effusion: Code(s): J90 - Pleural effusion, not elsewhere classified Status: Acute Assessment and Plan: - Continue IV diuresis. - Continue FR. - Thoracentesis completed on 02/01/24 with 1,000 ml yellow fluid removed. - Pleural fluid grew gram positive gram + cocci. - Started on Vancomycin 1,000 mg IVPB q 36. (4) Atrial fibrillation with RVR: Code(s): I48.91 - Unspecified atrial fibrillation Status: Acute Assessment and Plan: - Rate well controlled. - Patient on Cardizem, metoprolol and propranolol at home, continued inpatient. - Resume Apixaban tomorrow, post thoracentesis. - Heparin 5,000 units subq q8. - Continue tele monitoring. (5) Leukocytosis: Code(s): D72.829 - Elevated white blood cell count, unspecified Status: Acute Assessment and Plan: - WBC: 10.6->10.4->12.0->8.7->8.8 - Possibly secondary to pneumonia vs atelectasis vs other. - Continue to monitor trend (6) Hypokalemia: Code(s): E87.6 - Hypokalemia Status: Acute Assessment and Plan: * Potassium 3.9, improved. * Continue Potassium 40 meq PO BID * Monitor labs. (7) Hypomagnesemia: Code(s): E83.42 - Hypomagnesemia Status: Acute Assessment and Plan: * Magnesium 2.0, improved. * Monitor labs. (8) Hyponatremia: Code(s): E87.1 - Hypo-osmolality and hyponatremia Status: Acute Assessment and Plan: - Possibly secondary to fluid overload. - Improving with diuresis. - Sodium 133 - Continue to monitor trend. Subjective Date/time seen: 02/02/24 09:54 Interval history: Patient sitting up in chair. Patient denies any chest pain, palpitations, shortness of breath, nausea, or vomiting. Patient reports feeling better since her right lung was drained. Pleural fluid grew gram + cocci. Review of Systems Review of Systems: All systems reviewed & are unremarkable except as noted in HPI and below Exam Const: General: comfortable and no acute distress Eyes: Sclera: sclerae normal Resp: Auscultation: diminished lung sounds Other: bandaid intact to right side of back thoracentesis site, no swelling or drainage. Cardio: Rhythm: abnormal rhythm irregularly irregular (Telemetry-Afib 92) GI: GI Palp: Yes Soft to palpation Auscultation: normal bowel sounds Extrem: General: pedal edema bilaterally 2+ Psych: Affect: normal affect Objective Data Vital Signs Vital Signs: Vital Signs - 24 hr 02/01/24 12:00 02/01/24 12:29 02/01/24 18:16 Temperature 98.2 F 98.5 F Pulse Rate 85 84 103 H Respiratory Rate 13 14 Blood Pressure 114/59 L 117/67 Pulse Oximetry 97 90 Oxygen Delivery 02/01/24 16:00 02/01/24 19:49 02/01/24 20:35 Temperature 97.3 F L Pulse Rate 73 98 98 Respiratory Rate 20 Blood Pressure 116/60 Pulse Oximetry 95 Oxygen Delivery 02/01/24 20:00 02/01/24 20:00 02/02/24 00:00 Temperature Pulse Rate 92 99 Respiratory Rate Blood Pressure Pulse Oximetry Oxygen Delivery Room Air 02/02/24 04:00 02/02/24 04:52 02/02/24 08:41 Temperature 97.6 F Pulse Rate 99 99 99 Respiratory Rate 20 Blood Pressure 128/63 120/58 L Pulse Oximetry 91 Oxygen Delivery 02/02/24 08:45 02/02/24 07:55 Temperature 98.7 F Pulse Rate 99 95 Respiratory Rate 20 Blood Pressure 112/56 L Pulse Oximetry 99 Oxygen Delivery Intake/Output Intake/Output: Intake & Output 01/30/24 01/31/24 02/01/24 02/02/24 23:59 23:59 23:59 23:59 Intake Total 1280 490 396 200 Output Total 1000 250 Balance 1280 490 -604 -50 Meds/Results Medications: Active Medications Generic Name Dose Route Start Last Admin Trade Name [place] PRN Reason Stop Dose Admin Acetaminophen 650 mg 01/28/24 21:19 02/01/24 18:19 Acetaminophen 325 Mg Tablet PO 650 mg Q4H PRN Administration Mild Pain (1-3) or Fever Amlodipine Besylate 5 mg 01/29/24 09:00 02/02/24 08:43 Amlodipine Besylate 5 Mg Tablet PO 5 mg DAILY MILDRED Administration Apixaban 5 mg 01/29/24 09:00 01/29/24 07:59 Apixaban 5 Mg Tablet PO 5 mg Q12HR MILDRED Administration Atorvastatin Calcium 40 mg 01/29/24 09:00 02/02/24 08:44 Atorvastatin 40 Mg Tablet PO 40 mg DAILY MILDRED Administration Diltiazem HCl 120 mg 01/29/24 09:00 02/02/24 08:43 Diltiazem Hcl Cd 120 Mg Cap.24hr PO 120 mg DAILY MILDRED Administration Famotidine 20 mg 01/29/24 21:00 02/02/24 08:45 Famotidine 20 Mg Tablet PO 20 mg Q12HR MILDRED Administration Fluticasone Propionate 2 spray 01/29/24 09:00 02/02/24 08:45 Fluticasone Propionate 0.05% Na Spr 16 Gm Btl (*Bkc) NASAL 2 spray DAILY MILDRED Administration Furosemide 40 mg 01/29/24 18:00 02/02/24 06:52 Furosemide Inj 40 Mg/4 Ml Vial IV PUSH 40 mg [id number] MILDRED Administration Furosemide 40 mg 01/30/24 09:00 Furosemide 40 Mg Tablet PO DAILY MILDRED Heparin Sodium (Porcine) 5,000 units 01/29/24 22:00 02/02/24 09:47 Heparin Sodium 5,000 Units/Ml Vial SUB-Q Not Given Q8HR MILDRED Loratadine 10 mg 01/29/24 09:00 02/02/24 08:45 Loratadine 10 Mg Tablet PO 02/28/24 08:59 10 mg DAILY MILDRED Administration Melatonin 5 mg 01/30/24 22:25 02/01/24 20:35 Melatonin 5 Mg Tablet PO 5 mg HS MILDRED Administration Methimazole 10 mg 01/29/24 09:00 02/02/24 08:44 Methimazole 10 Mg Tab PO 10 mg DAILY MILDRED Administration Metoprolol Tartrate 50 mg 01/31/24 21:00 02/02/24 08:45 Metoprolol Tartrate 50 Mg Tab PO 50 mg Q12HR MILDRED Administration Mirtazapine 30 mg 01/29/24 09:00 02/02/24 08:45 Mirtazapine 30 Mg Tablet PO 30 mg DAILY MILDRED Administration Pantoprazole Sodium 40 mg 01/29/24 09:00 02/02/24 08:43 Pantoprazole 40 Mg Tablet PO 02/28/24 08:59 40 mg DAILY MILDRED Administration Polyethylene Glycol 17 gm 02/01/24 09:45 02/02/24 08:46 Polyethylene Glycol 3350 17 Gm Powd.Pack PO Not Given QAM MILDRED Potassium Chloride 40 meq 02/01/24 09:00 02/02/24 08:46 Potassium Chloride 20 Meq Er Tablet PO 40 meq BID MILDRED Administration Promethazine HCl 12.5 mg 01/28/24 21:19 Promethazine Hcl 25 Mg/Ml Ampul IV PUSH Q6H PRN Nausea Senna/Docusate Sodium 1 tab 02/01/24 09:45 02/02/24 08:46 Senna/Docusate Sodium Tablet PO 1 tab BID MILDRED Administration Triamterene/Hydrochlorothiazide 2 tab 01/30/24 09:00 02/02/24 08:44 Triamterene 37.5 Mg/Hctz 25 Mg (Maxzide) Tablet PO 2 tab QAM MILDRED Administration Radiology Results: ITS Impressions Chest X-Ray 02/01/24 17:04 IMPRESSION: Slight cardiomegaly with congestive [place] which may indicate cardiac decompensation and minimal pulmonary edema. Bilateral basal atelectasis versus pneumonia with minimal effusion more on the right side. Thoracentesis Ultrasound 02/01/24 18:52 IMPRESSION: 1. Successful ultrasound-guided thoracentesis yielding 1000 mL of yellow fluid. Labs Labs: Laboratory Results - last 24 hr 02/01/24 02/01/24 02/02/24 17:07 17:08 05:04 WBC RBC Hgb Hct MCV MCH MCHC RDW Plt Count MPV Immature Gran % (Auto) Neut % (Auto) Lymph % (Auto) [place] % (Auto) Eos % (Auto) Baso % (Auto) Lymph # (Auto) [place] # (Auto) Eos # (Auto) Baso # (Auto) Abs Immat Gran (auto) Absolute Neuts (auto) Absolute Nucleated RBC Nucleated RBC % Sodium Potassium Chloride Carbon Dioxide Anion Gap BUN Creatinine Estim Creat Clear Calc Estimated GFR Glucose Calcium Magnesium 2.0 Total Bilirubin AST ALT Alkaline Phosphatase Total Protein Albumin Pleural Fluid Source Pleural fluid Pleural Color Yellow Pleural Appearance Hazy Pleural pH > 7.500 H Pleural RBC < 2000 Pleural Nuc Cells 1317 H Pleural Neutrophils 13 Pleural Lymphocytes 8 Pleural Macrophages 70 Pleural Mesothelial 4 Pleural Other Cells 5 02/02/24 05:09 WBC 8.8 RBC 3.40 L Hgb 9.2 L Hct 30.2 L MCV 88.8 MCH 27.1 MCHC 30.5 L RDW 19.6 H Plt Count 406 H MPV 10.0 Immature Gran % (Auto) 0.5 Neut % (Auto) 71.5 Lymph % (Auto) 18.4 [place] % (Auto) 7.2 Eos % (Auto) 2.1 Baso % (Auto) 0.3 Lymph # (Auto) 1.61 [place] # (Auto) 0.6 Eos # (Auto) 0.2 Baso # (Auto) 0.0 Abs Immat Gran (auto) 0.04 H Absolute Neuts (auto) 6.3 Absolute Nucleated RBC 0.000 Nucleated RBC % 0.0 Sodium 133 L Potassium 3.9 Chloride 92 L Carbon Dioxide 36 H Anion Gap 5 BUN 21 H Creatinine 1.30 H Estim Creat Clear Calc 21 Estimated GFR 39 L Glucose 102 Calcium 8.8 Magnesium Total Bilirubin 0.5 AST 23 ALT 13 Alkaline Phosphatase 114 Total Protein 6.0 L Albumin 3.1 L Pleural Fluid Source Pleural Color Pleural Appearance Pleural pH Pleural RBC Pleural Nuc Cells Pleural Neutrophils Pleural Lymphocytes Pleural Macrophages Pleural Mesothelial Pleural Other Cells Quality VTE Prophylaxis VTE prophylaxis: mechanical ordered and pharmacologic ordered
[2024-02-02] MEDS: HEPARIN SODIUM 5,000 UNITS/ML VIAL 5000 UNITS SUB-Q ×2 (14:10→21:45)
[2024-02-02] MEDS: VANCOMYCIN 1,000 MG/NS 250 ML 1,000 MG/250 ML BAG 150 MG IVPB (14:11)
[2024-02-02] MEDS: MELATONIN 5 MG TABLET PO (21:47)
[2024-02-03] VITALS (9 sets, daily range): BP systolic 109–140; BP diastolic 47–72; PULSE 72–98; RESP 16–20; TEMP 35.9–36.6; O2SAT 79–100
[2024-02-03] MEDS: ACETAMINOPHEN 325 MG TABLET 650 MG PO ×2 (00:22→21:28)
[2024-02-03 05:41] LABS: Basophils Percent Auto 0.4 % (0.2-1.2); Eosinophils Absolute Auto 0.3 K/mm3 (0-0.3); Eosinophils Percent Auto 3.1 % (0-4.4); Hematocrit 31.9 % (37.0-47.0); Hemoglobin 9.8 g/dL (12.0-15.0); Immature Granulocyte Absolute 0.05 K/mm3 (0.00-0.031); Immature Granulocyte Percent A 0.5 % (0-0.5); Lymphocytes Absolute Auto 2.59 K/mm3 (0.9-3.2); Lymphocytes Percent Auto 27.6 % (18.3-44.2); Mean Corpuscular HGB Conc 30.7 g/dl (32-36); Mean Corpuscular Hemoglobin 27.1 pg (26-34); Mean Corpuscular Volume 88.4 fl (80-100); Mean Platelet Volume 10.1 fl (7.4-10.4); Monocytes Absolute Auto 0.9 K/mm3 (0.1-0.6); Monocytes Percent Auto 9.5 % (2.6-8.5); Neutrophils Absolute Auto 5.5 K/mm3 (1.3-6.7); Neutrophils Percent Auto 58.9 % (45.5-73.1); Platelet Count Result 459 k/mm3 (150-375); Red Blood Count 3.61 M/mm3 (4.2-5.4); Red Cell Distribution Width 19.4 % (11.5-14.5); White Blood Count 9.4 K/mm3 (4.5-10.0)
[2024-02-03 05:57] LABS: Alanine Aminotransferase 16 U/L (6-35); Albumin Level 3.3 g/dL (3.5-5.1); Alkaline Phosphatase 143 U/L (38-126); Anion Gap 7 mmol/L (4-12); Aspartate Amino Transferase 34 U/L (14-36); Bilirubin,Total 0.5 mg/dL (0.2-1.3); Blood Urea Nitrogen 21 mg/dL (7-17); Calcium 9.4 mg/dL (8.4-10.2); Carbon Dioxide 35 mmol/L (22-30); Chloride 91 mmol/L (98-107); Estimated CRCL calculation 20 ml/min; Estimated Glomerular Filt Rate 39; Glucose 88 mg/dL (65-110); Magnesium 1.9 mg/dL (1.6-2.3); Potassium 4.1 mmol/L (3.4-5.0); Sodium 133 mmol/L (137-145)
[2024-02-03] MEDS: HEPARIN SODIUM 5,000 UNITS/ML VIAL 5000 UNITS SUB-Q (06:27)
[2024-02-03] MEDS: FUROSEMIDE INJ 40 MG/4 ML VIAL IV PUSH (06:28)
[2024-02-03] MEDS: dilTIAZem HCL CD 120 MG CAP.24HR PO (09:11)
[2024-02-03] MEDS: FAMOTIDINE 20 MG TABLET PO (09:11)
[2024-02-03] MEDS: methiMAzole 10 MG TAB PO (09:11)
[2024-02-03] MEDS: polyethylene glycoL 3350 17 GM POWD.PACK PO (09:11)
[2024-02-03] MEDS: APIXABAN 5 MG TABLET PO (09:11)
[2024-02-03] MEDS: SENNA/DOCUSATE SODIUM TABLET 1 TAB PO ×2 (09:11→16:10)
[2024-02-03] MEDS: ATORVASTATIN 40 MG TABLET PO (09:12)
[2024-02-03] MEDS: METOPROLOL TARTRATE 50 MG TAB PO ×2 (09:12→21:20)
[2024-02-03] MEDS: POTASSIUM CHLORIDE 20 MEQ ER TABLET PO ×2 (09:12→16:10)
[2024-02-03] MEDS: TRIAMTERENE 37.5 MG/HCTZ 25 MG (MAXZIDE) TABLET 2 TAB PO (09:13)
[2024-02-03] MEDS: amLODIPine BESYLATE 5 MG TABLET PO (09:13)
[2024-02-03] MEDS: PANTOPRAZOLE 40 MG TABLET PO (09:13)
[2024-02-03] MEDS: MIRTAZAPINE 30 MG TABLET PO (09:13)
[2024-02-03] MEDS: LORATADINE 10 MG TABLET PO (09:13)
--- NOTE | 2024-02-03 11:45 | P.PNIM_ITS ---
Progress Note: A&P Assessment and Plan (1) Pneumonia: Code(s): J18.9 - Pneumonia, unspecified organism Status: Acute Assessment and Plan: - Patient completed Azithromycin and Cefdinir. - Blood cultures showed no growth. - Supplemental O2 PRN for sats > 90 %. - Currently good O2 sats on RA. (2) CHF (congestive heart failure): Code(s): I50.9 - Heart failure, unspecified Status: Acute Assessment and Plan: - Acute on Chronic HFpEF. - pulmonary edema on CXR. - Lasix changed to oral 40 mg PO BID. - Patient has lost 13 lb of fluid. - BNP improving 4510 to 3240. - Strict I & O's with daily weights. - FR 1500 ML. - Echo showing EF 60-65%. (3) Pleural effusion: Code(s): J90 - Pleural effusion, not elsewhere classified Status: Acute Assessment and Plan: - Continue IV diuresis. - Continue FR. - Thoracentesis completed on 02/01/24 with 1,000 ml yellow fluid removed. - Pleural fluid grew gram positive gram + cocci. - Switched to oral antibiotics: Doxycycline 100 mg PO q 12 and Cefdinir 300 mg PO daily. (4) Atrial fibrillation with RVR: Code(s): I48.91 - Unspecified atrial fibrillation Status: Acute Assessment and Plan: - Rate well controlled. - Patient on Cardizem, metoprolol and propranolol at home, continued inpatient. - Resume Apixaban 2.5 mg PO BID. - Telemetry Afib 98. - Continue tele monitoring. (5) Leukocytosis: Code(s): D72.829 - Elevated white blood cell count, unspecified Status: Acute Assessment and Plan: - WBC: 10.6->10.4->12.0->8.7->8.8->9.4. - Possibly secondary to pneumonia vs atelectasis vs other. - Continue to monitor trend (6) Hypokalemia: Code(s): E87.6 - Hypokalemia Status: Acute Assessment and Plan: * Potassium 4.1, improved * Decrease Potassium 20 meq PO BID * Monitor labs. (7) Hypomagnesemia: Code(s): E83.42 - Hypomagnesemia Status: Acute Assessment and Plan: * Magnesium 1.9 today. * Monitor labs. (8) Hyponatremia: Code(s): E87.1 - Hypo-osmolality and hyponatremia Status: Acute Assessment and Plan: - Possibly secondary to fluid overload. - Improving with diuresis. - Sodium 133 - Continue to monitor trend. Subjective Date/time seen: 02/03/24 11:45 Interval history: Patient sitting up in chair. Patient denies any chest pain, palpitations, shortness of breath, nausea, or vomiting. Patient reports feeling better since her right lung was drained. Pleural fluid grew gram + cocci. Son Krysta call returned and his questions answered. Review of Systems Review of Systems: All systems reviewed & are unremarkable except as noted in HPI and below Exam Const: General: comfortable and no acute distress Eyes: Sclera: sclerae normal Resp: Auscultation: diminished lung sounds Cardio: Rhythm: abnormal rhythm irregularly irregular (Telemetry Afib 92. ) GI: GI Palp: Yes Soft to palpation Auscultation: normal bowel sounds Other: Last BM 02/03/24 Skin: General skin exam: no rashes or lesions noted Extrem: General: pedal edema bilaterally 1+ Psych: Affect: normal affect Objective Data Vital Signs Vital Signs: Vital Signs - 24 hr 02/02/24 16:00 02/02/24 12:00 02/02/24 16:00 Temperature 99 F Pulse Rate 82 106 H 100 Respiratory Rate 18 Blood Pressure 115/61 Pulse Oximetry 100 Oxygen Delivery 02/02/24 19:42 02/02/24 21:46 02/02/24 20:00 Temperature 98.4 F Pulse Rate 110 H 113 H Respiratory Rate 24 H Blood Pressure 106/45 L Pulse Oximetry 99 Oxygen Delivery Room Air 02/02/24 20:00 02/03/24 00:00 02/03/24 00:00 Temperature 97.3 F L Pulse Rate 101 H 72 86 Respiratory Rate 20 Blood Pressure 109/47 L Pulse Oximetry 99 Oxygen Delivery 02/03/24 04:00 02/03/24 05:09 02/03/24 09:12 Temperature 97.9 F Pulse Rate 86 79 92 Respiratory Rate 20 Blood Pressure 114/55 L Pulse Oximetry 93 Oxygen Delivery 02/03/24 09:00 02/03/24 08:00 02/03/24 08:00 Temperature 97.1 F L Pulse Rate 79 84 Respiratory Rate 18 Blood Pressure 117/72 Pulse Oximetry 79 L Oxygen Delivery Room Air Intake/Output Intake/Output: Intake & Output 01/31/24 02/01/24 02/02/24 02/03/24 23:59 23:59 23:59 23:59 Intake Total 361 468 0329 910 Output Total 1000 650 400 Balance 490 -604 535 510 Meds/Results Medications: Active Medications Generic Name Dose Route Start Last Admin Trade Name Freq PRN Reason Stop Dose Admin Acetaminophen 650 mg 01/28/24 21:19 02/03/24 00:22 Acetaminophen 325 Mg Tablet PO 650 mg Q4H PRN Administration Mild Pain (1-3) or Fever Amlodipine Besylate 5 mg 01/29/24 09:00 02/03/24 09:13 Amlodipine Besylate 5 Mg Tablet PO 5 mg DAILY MILDRED Administration Apixaban 5 mg 01/29/24 09:00 02/03/24 09:11 Apixaban 5 Mg Tablet PO 5 mg Q12HR MILDRED Administration Atorvastatin Calcium 40 mg 01/29/24 09:00 02/03/24 09:12 Atorvastatin 40 Mg Tablet PO 40 mg DAILY MILDRED Administration Cefdinir 300 mg 02/03/24 21:00 Cefdinir 300 Mg Capsule PO 02/22/24 21:01 DAILY@2100 MILDRED Diltiazem HCl 120 mg 01/29/24 09:00 02/03/24 09:11 Diltiazem Hcl Cd 120 Mg Cap.24hr PO 120 mg DAILY MILDRED Administration Doxycycline Hyclate 100 mg 02/03/24 21:00 Doxycycline Hyclate 100 Mg Tablet PO 02/23/24 21:01 Q12HR MILDRED Famotidine 20 mg 02/03/24 09:00 02/03/24 09:11 Famotidine 20 Mg Tablet PO 20 mg DAILY MILDRED Administration Fluticasone Propionate 2 spray 01/29/24 09:00 02/02/24 08:45 Fluticasone Propionate 0.05% Na Spr 16 Gm Btl (*Bkc) NASAL 2 spray DAILY MILDRED Administration Furosemide 40 mg 02/03/24 17:00 Furosemide 40 Mg Tablet PO BID MILDRED Loratadine 10 mg 01/29/24 09:00 02/03/24 09:13 Loratadine 10 Mg Tablet PO 02/28/24 08:59 10 mg DAILY MILDRED Administration Melatonin 5 mg 01/30/24 22:25 02/02/24 21:47 Melatonin 5 Mg Tablet PO 5 mg HS MILDRED Administration Methimazole 10 mg 01/29/24 09:00 02/03/24 09:11 Methimazole 10 Mg Tab PO 10 mg DAILY MILDRED Administration Metoprolol Tartrate 50 mg 01/31/24 21:00 02/03/24 09:12 Metoprolol Tartrate 50 Mg Tab PO 50 mg Q12HR MILDRED Administration Mirtazapine 30 mg 01/29/24 09:00 02/03/24 09:13 Mirtazapine 30 Mg Tablet PO 30 mg DAILY MILDRED Administration Pantoprazole Sodium 40 mg 01/29/24 09:00 02/03/24 09:13 Pantoprazole 40 Mg Tablet PO 02/28/24 08:59 40 mg DAILY MILDRED Administration Polyethylene Glycol 17 gm 02/01/24 09:45 02/03/24 09:11 Polyethylene Glycol 3350 17 Gm Powd.Pack PO 17 gm QAM MILDRED Administration Potassium Chloride 20 meq 02/03/24 09:00 02/03/24 09:12 Potassium Chloride 20 Meq Er Tablet PO 20 meq BID MILDRED Administration Promethazine HCl 12.5 mg 01/28/24 21:19 Promethazine Hcl 25 Mg/Ml Ampul IV PUSH Q6H PRN Nausea Senna/Docusate Sodium 1 tab 02/01/24 09:45 02/03/24 09:11 Senna/Docusate Sodium Tablet PO 1 tab BID MILDRED Administration Triamterene/Hydrochlorothiazide 2 tab 01/30/24 09:00 02/03/24 09:13 Triamterene 37.5 Mg/Hctz 25 Mg (Maxzide) Tablet PO 2 tab QAM MILDRED Administration Radiology Results: ITS Impressions Chest X-Ray 02/01/24 17:04 IMPRESSION: Slight cardiomegaly with congestive [place] which may indicate cardiac decompensation and minimal pulmonary edema. Bilateral basal atelectasis versus pneumonia with minimal effusion more on the right side. Thoracentesis Ultrasound 02/01/24 18:52 IMPRESSION: 1. Successful ultrasound-guided thoracentesis yielding 1000 mL of yellow fluid. Labs Labs: Laboratory Results - last 24 hr 02/03/24 04:03 WBC 9.4 RBC 3.61 L Hgb 9.8 L Hct 31.9 L MCV 88.4 MCH 27.1 MCHC 30.7 L RDW 19.4 H Plt Count 459 H MPV 10.1 Immature Gran % (Auto) 0.5 Neut % (Auto) 58.9 Lymph % (Auto) 27.6 [place] % (Auto) 9.5 H Eos % (Auto) 3.1 Baso % (Auto) 0.4 Lymph # (Auto) 2.59 [place] # (Auto) 0.9 H Eos # (Auto) 0.3 Baso # (Auto) 0.0 Abs Immat Gran (auto) 0.05 H Absolute Neuts (auto) 5.5 Absolute Nucleated RBC 0.000 Nucleated RBC % 0.0 Sodium 133 L Potassium 4.1 Chloride 91 L Carbon Dioxide 35 H Anion Gap 7 BUN 21 H Creatinine 1.30 H Estim Creat Clear Calc 20 Estimated GFR 39 L Glucose 88 Calcium 9.4 Magnesium 1.9 Total Bilirubin 0.5 AST 34 ALT 16 Alkaline Phosphatase 143 H Total Protein 7.0 Albumin 3.3 L Quality VTE Prophylaxis VTE prophylaxis: mechanical ordered and pharmacologic ordered
[2024-02-03] MEDS: FLUTICASONE PROPIONATE 0.05% NA SPR 16 GM BTL (*BKC) 2 SPRAY NASAL (12:08)
[2024-02-03 12:17] LABS: NT Pro B Type Natriuretic Pept 3240 pg/mL (19.9-100)
[2024-02-03] MEDS: FUROSEMIDE 40 MG TABLET PO (16:10)
[2024-02-03] MEDS: MELATONIN 5 MG TABLET PO (21:21)
[2024-02-03] MEDS: DOXYCYCLINE HYCLATE 100 MG TABLET PO (21:21)
[2024-02-03] MEDS: APIXABAN 2.5 MG TABLET PO (21:21)
[2024-02-03] MEDS: CEFDINIR 300 MG CAPSULE PO (21:21)
[2024-02-04] VITALS (7 sets, daily range): BP systolic 115–122; BP diastolic 50–62; PULSE 75–100; RESP 14–18; TEMP 36.7–37.1; O2SAT 98–100
[2024-02-04 05:59] LABS: Basophils Percent Auto 0.5 % (0.2-1.2); Eosinophils Absolute Auto 0.3 K/mm3 (0-0.3); Eosinophils Percent Auto 4.6 % (0-4.4); Hematocrit 30.7 % (37.0-47.0); Hemoglobin 9.2 g/dL (12.0-15.0); Immature Granulocyte Absolute 0.03 K/mm3 (0.00-0.031); Immature Granulocyte Percent A 0.4 % (0-0.5); Lymphocytes Absolute Auto 2.19 K/mm3 (0.9-3.2); Lymphocytes Percent Auto 29.8 % (18.3-44.2); Mean Corpuscular Hemoglobin 26.4 pg (26-34); Mean Corpuscular Volume 88.2 fl (80-100); Mean Platelet Volume 9.8 fl (7.4-10.4); Monocytes Absolute Auto 0.7 K/mm3 (0.1-0.6); Monocytes Percent Auto 9.9 % (2.6-8.5); Neutrophils Percent Auto 54.8 % (45.5-73.1); Platelet Count Result 466 k/mm3 (150-375); Red Blood Count 3.48 M/mm3 (4.2-5.4); Red Cell Distribution Width 19.2 % (11.5-14.5); White Blood Count 7.4 K/mm3 (4.5-10.0)
[2024-02-04 06:16] LABS: Alanine Aminotransferase 22 U/L (6-35); Alkaline Phosphatase 145 U/L (38-126); Anion Gap 5 mmol/L (4-12); Aspartate Amino Transferase 41 U/L (14-36); Bilirubin,Total 0.4 mg/dL (0.2-1.3); Blood Urea Nitrogen 21 mg/dL (7-17); Calcium 9.4 mg/dL (8.4-10.2); Carbon Dioxide 32 mmol/L (22-30); Chloride 94 mmol/L (98-107); Estimated CRCL calculation 18 ml/min; Estimated Glomerular Filt Rate 33; Glucose 95 mg/dL (65-110); Magnesium 1.7 mg/dL (1.6-2.3); Potassium 4.1 mmol/L (3.4-5.0); Sodium 131 mmol/L (137-145)
--- NOTE | 2024-02-04 07:16 | P.PNIM_ITS ---
Progress Note: A&P Assessment and Plan (1) Pneumonia: Code(s): J18.9 - Pneumonia, unspecified organism Status: Acute Assessment and Plan: - Patient completed Azithromycin and Cefdinir. - Blood cultures showed no growth. - Supplemental O2 PRN for sats > 90 %. - Currently good O2 sats on RA. (2) CHF (congestive heart failure): Code(s): I50.9 - Heart failure, unspecified Status: Acute Assessment and Plan: - Acute on Chronic HFpEF. - pulmonary edema on CXR. - Lasix changed to oral 40 mg PO BID. - Patient has lost 13 lb of fluid. - BNP improving 4510 to 3240. - Strict I & O's with daily weights. - FR 1500 ML. - Echo showing EF 60-65%. (3) Pleural effusion: Code(s): J90 - Pleural effusion, not elsewhere classified Status: Acute Assessment and Plan: - Continue IV diuresis. - Continue FR. - Thoracentesis completed on 02/01/24 with 1,000 ml yellow fluid removed. - Pleural fluid grew gram positive gram + cocci. - Switched to oral antibiotics: Doxycycline 100 mg PO q 12 and Cefdinir 300 mg PO daily. (4) Atrial fibrillation with RVR: Code(s): I48.91 - Unspecified atrial fibrillation Status: Acute Assessment and Plan: - Rate well controlled. - Patient on Cardizem, metoprolol and propranolol at home, continued inpatient. - Resume Apixaban 2.5 mg PO BID. - Telemetry Afib 98. - Continue tele monitoring. (5) Hyponatremia: Code(s): E87.1 - Hypo-osmolality and hyponatremia Status: Acute Assessment and Plan: - Possibly secondary to fluid overload. - Improving with diuresis. - Sodium 131 low-sodium diet changed to regular - Continue to monitor trend. gentle IV hydration for 12 hours (6) MIN (acute kidney injury): Code(s): N17.9 - Acute kidney failure, unspecified Status: Acute Assessment and Plan: likely due to aggressive diuresis will continue with p.o. Lasix daily BMP avoid additional nephrotoxic medications gentle IV hydration for 12 hours repeat BMP in a.m. (7) Leukocytosis: Code(s): D72.829 - Elevated white blood cell count, unspecified Status: Acute Assessment and Plan: resolved - Possibly secondary to pneumonia vs atelectasis vs other. - Continue to monitor trend (8) Hypomagnesemia: Code(s): E83.42 - Hypomagnesemia Status: Acute Assessment and Plan: * improved * Magnesium 1.9 today. * Monitor labs. (9) Hypokalemia: Code(s): E87.6 - Hypokalemia Status: Acute Assessment and Plan: * Potassium 4.1, improved * Decrease Potassium 20 meq PO BID * Monitor labs. Time Spent With Patient Time with patient: Greater than 35 minutes Subjective Date/time seen: 02/04/24 07:16 Interval history: 88-year-old female with past medical history significant for atrial fibrillation, congestive heart failure, dyslipidemia, hypertension Presents hospital with AFib with RVR Pleural fluid grew gram + cocci. patient on P.o. Omnicef and doxycycline. patient euvolemic and rate control. She is working towards discharge. However Na 131 this morning creatinine has increased 1.5 from 1.1 on 02/01/2024 , monitor closely. patient will likely discharge tomorrow Review of Systems Review of Systems: 12 systems were reviewed and are negative except for as per HPI. All systems reviewed & are unremarkable except as noted in HPI and below Exam Narrative: General: Elderly female well appearing, no acute distress. HEENT: normocephalic, atraumatic. Mucous membranes moist. EOMI, PERRLA. Neck supple. Respiratory: Lungs diminished bilaterally. Cardiovascular: Regular rate and rhythm, normal S1-S2, No murmurs. Abdomen: Soft, nondistended and nontender. Bowel sounds present to all four quadrants. Extremities: No cyanosis, clubbing. 2-3 + edema crista. LE. 2+ pedal Pulses. Neuro: Alert and orientated x 4. Cranial nerves II-XII intact without focal deficit. Skin: Warm, dry, and intact, without rash, erythema, or lesion. Psych: pleasant, cooperative. Const: General: comfortable, no acute distress, well developed, alert, awake and average body habitus Nutritional Appearance: average body habitus Orientation/consciousness: patient oriented x3 HENMT: Head: normal to inspection, normocephalic and atraumatic Ears: hearing grossly normal bilaterally Face/Nose/Sinus: normal facial exam Face and sinus: normal facial exam Eyes: General: appearance normal, both eyes and all related structures Sclera: sclerae normal Pupils: Equal, round and reactive pupils present EOM: EOMs intact bilaterally Neck: Neck: full ROM, no lymphadenopathy and no JVD Thyroid: thyroid normal Lymphatic: no lymphadenopathy noted Resp: Effort & Inspection: normal respiratory effort and able to speak in complete sentences Auscultation: clear to auscultation bilaterally and diminished lung sounds bilateral in the lower lung sosa Other: bandaid intact to right side of back thoracentesis site, no swelling or drainage. Cardio: Jugular venous distension: no JVD Rate: regular rate Rhythm: regular rhythm and abnormal rhythm irregularly irregular (Telemetry Afib 92. ) Heart sounds: S1 normal heart sound present and S2 normal heart sound present Other: Telemetry Afib 98 GI: Auscultation: normal bowel sounds Other: Last BM 02/03/24 : General: Yes deferred Skin: General skin exam: no rashes or lesions noted Rashes: no rashes Wounds: no wounds Neuro: General: patient oriented x3 and CN's II-XI intact bilaterally Cr anial nerves: Yes CN's II-XII intact bilaterally and Yes Equal, round and reactive pupils present Cognition (Neuro): normal cognition Speech: normal speech Gait exam (Neuro): Normal gait present Motor exam (neuro): 5/5 motor strength present throughout Extrem: General: normal to inspection, full ROM, no joint enlargement, no pedal edema and pedal edema bilaterally 1+ Psych: Affect: normal affect Objective Data Vital Signs Vital Signs: Vital Signs - 24 hr 02/03/24 09:12 02/03/24 09:00 02/03/24 08:00 Temperature 97.1 F L Pulse Rate 92 79 Respiratory Rate 18 Blood Pressure 117/72 Pulse Oximetry 79 L Oxygen Delivery Room Air 02/03/24 08:00 02/03/24 12:00 02/03/24 16:00 Temperature 96.6 F L Pulse Rate 84 98 77 Respiratory Rate 16 Blood Pressure 140/67 Pulse Oximetry 100 Oxygen Delivery 02/03/24 16:00 02/03/24 21:20 02/03/24 20:00 Temperature Pulse Rate 92 94 Respiratory Rate Blood Pressure Pulse Oximetry Oxygen Delivery Room Air 02/03/24 20:00 02/04/24 00:00 02/04/24 00:00 Temperature 98.1 F Pulse Rate 85 89 75 Respiratory Rate 18 Blood Pressure 115/51 L Pulse Oximetry 98 Oxygen Delivery 02/04/24 04:00 Temperature Pulse Rate 83 Respiratory Rate Blood Pressure Pulse Oximetry Oxygen Delivery Intake/Output Intake/Output: Intake & Output 02/01/24 02/02/24 02/03/24 02/04/24 23:59 23:59 23:59 23:59 Intake Total 396 1185 1660 Output Total 2026 038 4144 Balance -604 535 60 Meds/Results Medications: Active Medications Generic Name Dose Route Start Last Admin Trade Name Freq PRN Reason Stop Dose Admin Acetaminophen 650 mg 01/28/24 21:19 02/03/24 21:28 Acetaminophen 325 Mg Tablet PO 650 mg Q4H PRN Administration Mild Pain (1-3) or Fever Amlodipine Besylate 5 mg 01/29/24 09:00 02/03/24 09:13 Amlodipine Besylate 5 Mg Tablet PO 5 mg DAILY MILDRED Administration Apixaban 2.5 mg 02/03/24 21:00 02/03/24 21:21 Apixaban 2.5 Mg Tablet PO 2.5 mg Q12HR MILDRED Administration Atorvastatin Calcium 40 mg 01/29/24 09:00 02/03/24 09:12 Atorvastatin 40 Mg Tablet PO 40 mg DAILY MILDRED Administration Cefdinir 300 mg 02/03/24 21:00 02/03/24 21:21 Cefdinir 300 Mg Capsule PO 02/22/24 21:01 300 mg DAILY@2100 MILDRED Administration Diltiazem HCl 120 mg 01/29/24 09:00 02/03/24 09:11 Diltiazem Hcl Cd 120 Mg Cap.24hr PO 120 mg DAILY MILDRED Administration Doxycycline Hyclate 100 mg 02/03/24 21:00 02/03/24 21:21 Doxycycline Hyclate 100 Mg Tablet PO 02/23/24 21:01 100 mg Q12HR MILDRED Administration Famotidine 20 mg 02/03/24 09:00 02/03/24 09:11 Famotidine 20 Mg Tablet PO 20 mg DAILY MILDRDE Administration Fluticasone Propionate 2 spray 01/29/24 09:00 02/03/24 12:08 Fluticasone Propionate 0.05% Na Spr 16 Gm Btl (*Bkc) NASAL 2 spray DAILY MILDRED Administration Furosemide 40 mg 02/03/24 17:00 02/03/24 16:10 Furosemide 40 Mg Tablet PO 40 mg BID MILDRED Administration Loratadine 10 mg 01/29/24 09:00 02/03/24 09:13 Loratadine 10 Mg Tablet PO 02/28/24 08:59 10 mg DAILY MILDRED Administration Melatonin 5 mg 01/30/24 22:25 02/03/24 21:21 Melatonin 5 Mg Tablet PO 5 mg HS MILDRED Administration Methimazole 10 mg 01/29/24 09:00 02/03/24 09:11 Methimazole 10 Mg Tab PO 10 mg DAILY MILDRED Administration Metoprolol Tartrate 50 mg 01/31/24 21:00 02/03/24 21:20 Metoprolol Tartrate 50 Mg Tab PO 50 mg Q12HR MILDRED Administration Mirtazapine 30 mg 01/29/24 09:00 02/03/24 09:13 Mirtazapine 30 Mg Tablet PO 30 mg DAILY MILDRED Administration Pantoprazole Sodium 40 mg 01/29/24 09:00 02/03/24 09:13 Pantoprazole 40 Mg Tablet PO 02/28/24 08:59 40 mg DAILY MILDRED Administration Polyethylene Glycol 17 gm 02/01/24 09:45 02/03/24 09:11 Polyethylene Glycol 3350 17 Gm Powd.Pack PO 17 gm QAM MILDRED Administration Potassium Chloride 20 meq 02/03/24 09:00 02/03/24 16:10 Potassium Chloride 20 Meq Er Tablet PO 20 meq BID MILDRED Administration Promethazine HCl 12.5 mg 01/28/24 21:19 Promethazine Hcl 25 Mg/Ml Ampul IV PUSH Q6H PRN Nausea Senna/Docusate Sodium 1 tab 02/01/24 09:45 02/03/24 16:10 Senna/Docusate Sodium Tablet PO 1 tab BID MILDRED Administration Triamterene/Hydrochlorothiazide 2 tab 01/30/24 09:00 02/03/24 09:13 Triamterene 37.5 Mg/Hctz 25 Mg (Maxzide) Tablet PO 2 tab QAM MILDRED Administration Radiology Results: ITS Impressions Chest X-Ray 02/01/24 17:04 IMPRESSION: Slight cardiomegaly with congestive [place] which may indicate cardiac decompensation and minimal pulmonary edema. Bilateral basal atelectasis versus pneumonia with minimal effusion more on the right side. Thoracentesis Ultrasound 02/01/24 18:52 IMPRESSION: 1. Successful ultrasound-guided thoracentesis yielding 1000 mL of yellow fluid. Labs Labs: Laboratory Results - last 24 hr 02/03/24 02/04/24 04:03 04:58 WBC 7.4 RBC 3.48 L Hgb 9.2 L Hct 30.7 L MCV 88.2 MCH 26.4 MCHC 30.0 L RDW 19.2 H Plt Count 466 H MPV 9.8 Immature Gran % (Auto) 0.4 Neut % (Auto) 54.8 Lymph % (Auto) 29.8 [place] % (Auto) 9.9 H Eos % (Auto) 4.6 H Baso % (Auto) 0.5 Lymph # (Auto) 2.19 [place] # (Auto) 0.7 H Eos # (Auto) 0.3 Baso # (Auto) 0.0 Abs Immat Gran (auto) 0.03 Absolute Neuts (auto) 4.0 Absolute Nucleated RBC 0.000 Nucleated RBC % 0.0 Sodium 131 L Potassium 4.1 Chloride 94 L Carbon Dioxide 32 H Anion Gap 5 BUN 21 H Creatinine 1.50 H Estim Creat Clear Calc 18 Estimated GFR 33 L Glucose 95 Calcium 9.4 Magnesium 1.7 Total Bilirubin 0.4 AST 41 H ALT 22 Alkaline Phosphatase 145 H NT-Pro-B Natriuret Pep 3240 H Total Protein 7.0 Albumin 3.0 L Quality VTE Prophylaxis VTE prophylaxis: mechanical ordered and pharmacologic ordered Hospitalist MIPS Advance Care Plan I have confirmed that the patient's Advanced Care Plan is present, code status is documented, or surrogate decision maker is listed in patient medical record.: Yes Medication Reconciliation I have utilized all available resources to obtain, update and review the patients current medications (includes all prescriptions, OTC, herbals, cannabis, and nutritional supplements).: Yes
[2024-02-04] MEDS: MIRTAZAPINE 30 MG TABLET PO (09:06)
[2024-02-04] MEDS: DOXYCYCLINE HYCLATE 100 MG TABLET PO ×2 (09:06→20:06)
[2024-02-04] MEDS: SENNA/DOCUSATE SODIUM TABLET 1 TAB PO ×2 (09:06→16:30)
[2024-02-04] MEDS: PANTOPRAZOLE 40 MG TABLET PO (09:06)
[2024-02-04] MEDS: TRIAMTERENE 37.5 MG/HCTZ 25 MG (MAXZIDE) TABLET 2 TAB PO (09:06)
[2024-02-04] MEDS: METOPROLOL TARTRATE 50 MG TAB PO ×2 (09:07→20:06)
[2024-02-04] MEDS: dilTIAZem HCL CD 120 MG CAP.24HR PO (09:07)
[2024-02-04] MEDS: FAMOTIDINE 20 MG TABLET PO (09:07)
[2024-02-04] MEDS: ATORVASTATIN 40 MG TABLET PO (09:07)
[2024-02-04] MEDS: POTASSIUM CHLORIDE 20 MEQ ER TABLET PO ×2 (09:07→16:29)
[2024-02-04] MEDS: FUROSEMIDE 40 MG TABLET PO ×2 (09:07→16:30)
[2024-02-04] MEDS: methiMAzole 10 MG TAB PO (09:07)
[2024-02-04] MEDS: amLODIPine BESYLATE 5 MG TABLET PO (09:07)
[2024-02-04] MEDS: APIXABAN 2.5 MG TABLET PO ×2 (09:08→20:06)
[2024-02-04] MEDS: polyethylene glycoL 3350 17 GM POWD.PACK PO (09:08)
[2024-02-04] MEDS: FLUTICASONE PROPIONATE 0.05% NA SPR 16 GM BTL (*BKC) 2 SPRAY NASAL (09:08)
[2024-02-04] MEDS: LORATADINE 10 MG TABLET PO (09:08)
[2024-02-04] MEDS: SODIUM CHLORIDE 0.9% IV 1,000 ML 75 ML IV CONT (13:02)
[2024-02-04] MEDS: CEFDINIR 300 MG CAPSULE PO (20:06)
[2024-02-04] MEDS: MELATONIN 5 MG TABLET PO (20:07)
[2024-02-05 05:52] LABS: Alanine Aminotransferase 33 U/L (6-35); Alkaline Phosphatase 179 U/L (38-126); Anion Gap 4 mmol/L (4-12); Aspartate Amino Transferase 60 U/L (14-36); Bilirubin,Total 0.4 mg/dL (0.2-1.3); Blood Urea Nitrogen 21 mg/dL (7-17); Calcium 9.4 mg/dL (8.4-10.2); Carbon Dioxide 31 mmol/L (22-30); Chloride 96 mmol/L (98-107); Estimated CRCL calculation 22 ml/min; Estimated Glomerular Filt Rate 42; Glucose 95 mg/dL (65-110); Magnesium 1.6 mg/dL (1.6-2.3); Potassium 4.1 mmol/L (3.4-5.0); Sodium 131 mmol/L (137-145)
[2024-02-05 05:58] LABS: Basophils Absolute Auto 0.1 K/mm3 (0.0-0.1); Basophils Percent Auto 0.6 % (0.2-1.2); Eosinophils Absolute Auto 0.3 K/mm3 (0-0.3); Eosinophils Percent Auto 3.7 % (0-4.4); Hematocrit 29.3 % (37.0-47.0); Hemoglobin 8.8 g/dL (12.0-15.0); Immature Granulocyte Absolute 0.03 K/mm3 (0.00-0.031); Immature Granulocyte Percent A 0.4 % (0-0.5); Lymphocytes Absolute Auto 1.93 K/mm3 (0.9-3.2); Lymphocytes Percent Auto 24.6 % (18.3-44.2); Mean Corpuscular Hemoglobin 26.3 pg (26-34); Mean Corpuscular Volume 87.7 fl (80-100); Mean Platelet Volume 9.4 fl (7.4-10.4); Monocytes Absolute Auto 0.8 K/mm3 (0.1-0.6); Monocytes Percent Auto 10.2 % (2.6-8.5); Neutrophils Absolute Auto 4.8 K/mm3 (1.3-6.7); Neutrophils Percent Auto 60.5 % (45.5-73.1); Platelet Count Result 485 k/mm3 (150-375); Red Blood Count 3.34 M/mm3 (4.2-5.4); Red Cell Distribution Width 18.8 % (11.5-14.5); White Blood Count 7.9 K/mm3 (4.5-10.0)
[2024-02-05 06:00] VITALS: BP 116/57; PULSE 93; RESP 18; TEMP 36.7; O2SAT 97
--- NOTE | 2024-02-05 07:39 | P.DS_ITS ---
DS: Admitting Diagnosis Discharge Date 02/05/2024 Admitting Diagnosis AFib with RVR, acute CHF and pneumonia DS: Discharge Diagnosis Discharge Diagnosis (1) Pneumonia: Code(s): J18.9 - Pneumonia, unspecified organism Status: Acute Assessment and Plan: improving - Patient completed Azithromycin and Cefdinir. - Blood cultures showed no growth. - Supplemental O2 PRN for sats > 90 %. - Currently good O2 sats on RA. (2) CHF (congestive heart failure): Code(s): I50.9 - Heart failure, unspecified Status: Acute Assessment and Plan: euvolemic - Acute on Chronic HFpEF. - pulmonary edema on CXR. - Lasix changed to oral 40 mg PO BID. - Patient has lost 13 lb of fluid. - BNP improving 4510 to 3240. - Strict I & O's with daily weights. - FR 1500 ML. - Echo showing EF 60-65%. (3) Pleural effusion: Code(s): J90 - Pleural effusion, not elsewhere classified Status: Acute Assessment and Plan: improved - Continue IV diuresis. - Continue FR. - Thoracentesis completed on 02/01/24 with 1,000 ml yellow fluid removed. - Pleural fluid grew gram positive gram + cocci. - Switched to oral antibiotics: Doxycycline 100 mg PO q 12 and Cefdinir 300 mg PO daily. (4) Atrial fibrillation with RVR: Code(s): I48.91 - Unspecified atrial fibrillation Status: Acute Assessment and Plan: - Rate well controlled. - Patient on Cardizem, metoprolol and propranolol at home, continued inpatient. - Resume Apixaban 2.5 mg PO BID. - Telemetry Afib 98. - Continue tele monitoring. (5) Hyponatremia: Code(s): E87.1 - Hypo-osmolality and hyponatremia Status: Acute Assessment and Plan: pre - Possibly secondary to fluid overload. - Improving with diuresis. low-sodium diet changed to regular - Continue to monitor trend. (6) MIN (acute kidney injury): Code(s): N17.9 - Acute kidney failure, unspecified Status: Acute Assessment and Plan: improved likely due to aggressive diuresis will continue with p.o. Lasix daily BMP avoid additional nephrotoxic medications (7) Leukocytosis: Code(s): D72.829 - Elevated white blood cell count, unspecified Status: Acute Assessment and Plan: resolved - Possibly secondary to pneumonia vs atelectasis vs other. - Continue to monitor trend (8) Hypomagnesemia: Code(s): E83.42 - Hypomagnesemia Status: Acute Assessment and Plan: * improved * Magnesium 1.9 today. * Monitor labs. (9) Hypokalemia: Code(s): E87.6 - Hypokalemia Status: Acute Assessment and Plan: * Potassium 4.1, improved * Decrease Potassium 20 meq PO BID * Monitor labs. DS: Summary Hospital Course Reason for hospitalization: pneumonia and acute on chronic CHF Hospital Course: 88-year-old female with past medical history significant for atrial fibrillation, congestive heart failure, dyslipidemia, hypertension. Patient is currently in rehabilitation center after she was discharged from outside facility. Was brought to the emergency room due to shortness of breath. Patient has been feeling fatigued has had night sweats, fevers, chills, body aches and pains. Preliminary workup was significant for large pleural effusion. patient tested negative for influenza type A influenza type B COVID and RSV. Brain atretic peptide was 4500. Patient has been admitted for further evaluation management and treatment. Patient was found to have AFib with RVR,acute on chronic CHF, pneumonia, and pleural effusion positive for Gram-positive cocci. bone the ED the patient was given IV diltiazem which resolved her AFib with RVR. She was restart him on diltiazem dose. during her hospitalization the patient had aggressive diuresis which helped resolve her shortness of breath. Patient had echocardiogram which showed EF of 60-65%. She is currently euvolemic on the day of discharge. Patient was also found to have bilateral pleural effusions with right greater than left and completed a right Thoracentesis on 02/01/24 with 1,000 ml yellow fluid removed. Pleural fluid grew gram positive gram + cocci. Started on Vancomycin 1,000 mg IVPB q 36. After the thoracentesis she was able to restart her anticoagulation. Without issue. patient worked with PT and OT with recommendations for SNF. She is recommended to follow-up closely with her plant tender as an to remain medically compliant so she reduce her chances of going back into AFib with RVR and acute on chronic CHF. Status at Discharge Functional status at discharge: uses cane/walker Time Spent with Patient Time attestation: Total time spent providing and/or coordinating discharge services: Time spent: Greater than 30 minutes Exam Narrative: General: Elderly female well appearing, no acute distress. HEENT: normocephalic, atraumatic. Mucous membranes moist. EOMI, PERRLA. Neck supple. Respiratory: Lungs diminished bilaterally. Cardiovascular: Regular rate and rhythm, normal S1-S2, No murmurs. Abdomen: Soft, nondistended and nontender. Bowel sounds present to all four quadrants. Extremities: No cyanosis, clubbing. 2-3 + edema crista. LE. 2+ pedal Pulses. Neuro: Alert and orientated x 4. Cranial nerves II-XII intact without focal deficit. Skin: Warm, dry, and intact, without rash, erythema, or lesion. Psych: pleasant, cooperative. Const: General: comfortable, no acute distress, well developed, alert, awake and average body habitus Nutritional Appearance: average body habitus Orientation/consciousness: patient oriented x3 HENMT: Head: normal to inspection, normocephalic and atraumatic Ears: hearing grossly normal bilaterally Face/Nose/Sinus: normal facial exam Face and sinus: normal facial exam Eyes: General: appearance normal, both eyes and all related structures Sclera: sclerae normal Pupils: Equal, round and reactive pupils present EOM: EOMs intact bilaterally Neck: Neck: full ROM, no lymphadenopathy and no JVD Thyroid: thyroid normal Lymphatic: no lymphadenopathy noted Resp: Effort & Inspection: normal respiratory effort and able to speak in complete sentences Auscultation: clear to auscultation bilaterally and diminished lung sounds bilateral in the lower lung sosa Other: bandaid intact to right side of back thoracentesis site, no swelling or drainage. Cardio: Jugular venous distension: no JVD Rate: regular rate Rhythm: regular rhythm and abnormal rhythm irregularly irregular (Telemetry Afib 92. ) Heart sounds: S1 normal heart sound present and S2 normal heart sound present Other: Telemetry Afib 98 GI: Auscultation: normal bowel sounds Other: Last BM 02/03/24 : General: Yes deferred Skin: General skin exam: no rashes or lesions noted Rashes: no rashes Wounds: no wounds Neuro: General: patient oriented x3 and CN's II-XI intact bilaterally Cranial nerves: Yes CN's II-XII intact bilaterally and Yes Equal, round and reactive pupils present Cognition (Neuro): normal cognition Speech: normal speech Gait exam (Neuro): Normal gait present Motor exam (neuro): 5/5 motor strength present throughout Extrem: General: normal to inspection, full ROM, no joint enlargement, no pedal edema and pedal edema bilaterally 1+ Psych: Affect: normal affect DS: Data Data Completed and Pending Completed studies during hospitalization: Pending at discharge 02/01/24 15:37 Cytology [PTH] Routine Pending studies at discharge: Pending at discharge 02/01/24 12:31 Cytology [PTH] Routine Labs on day of discharge: Labs from last 24 hours 02/05/24 05:01 WBC 7.9 RBC 3.34 L Hgb 8.8 L Hct 29.3 L MCV 87.7 MCH 26.3 MCHC 30.0 L RDW 18.8 H Plt Count 485 H MPV 9.4 Immature Gran % (Auto) 0.4 Neut % (Auto) 60.5 Lymph % (Auto) 24.6 [place] % (Auto) 10.2 H Eos % (Auto) 3.7 Baso % (Auto) 0.6 Lymph # (Auto) 1.93 [place] # (Auto) 0.8 H Eos # (Auto) 0.3 Baso # (Auto) 0.1 Abs Immat Gran (auto) 0.03 Absolute Neuts (auto) 4.8 Absolute Nucleated RBC 0.000 Nucleated RBC % 0.0 Sodium 131 L Potassium 4.1 Chloride 96 L Carbon Dioxide 31 H Anion Gap 4 BUN 21 H Creatinine 1.20 H Estim Creat Clear Calc 22 Estimated GFR 42 L Glucose 95 Calcium 9.4 Magnesium 1.6 Total Bilirubin 0.4 AST 60 H ALT 33 Alkaline Phosphatase 179 H Total Protein 7.0 Albumin 3.0 L Preliminary micro results at discharge 02/01/24 17:08 Anaerobic Culture - Preliminary Pleural Fluid Aerobic Culture - Preliminary Fungal Culture - Preliminary 02/01/24 17:08 Acid Fast Bacilli Culture - Preliminary Pleural Fluid Discharge Plan Discharge Discharging Clinician: Tami Valverde Anticipated Discharge Date/Time: 02/05/24 07:46 Patient Disposition: SNF Activity: may shower Diet: heart healthy Discharge Instructions: Per Care Coordination: [facility] has been arranged for physical and occupational therapy [phone]. They will call you regarding your first visit. Discharge instructions: Take medications as prescribed New medications prescribed: you have been surgery on 2 different antibiotics Omnicef and doxy please take as directed you have started on metoprolol you will need to get refills from your primary care provider you need to follow-up with her plant tender for medical management and take cardiac meds as directed You are activity as tolerated Monitor blood pressures Avoid social areas, you wear a mask when in social settings Encouraged to continue with yearly vaccinations Return to the emergency department if he developed sudden shortness of breath, chest pain, nausea, vomiting, upset stomach or intractable diarrhea Return to the emergency department if you develop fever greater than 101.5 Follow-up with: Your primary care physician within 1-2 weeks for post hospitalization check up will need to follow up with your plant tender post hospitalization, is very important to have optimal medical management to prevent hospitalization Thank you for choosing [facility] for your healthcare needs Patient Instructions: Heart Failure (DC), Heart Failure (GEN), A-fib (Atrial Fibrillation) (DC), Pulmonary Edema (DC), Low-Sodium Diet (DC), Safe Use of Anticoagulants (ED), Safe Use of Anticoagulants (DC) Stand Alone Forms: General Discharge Information Follow-up/Referrals: PHYSICIAN NOT ON STAFF,NONSTAFF [Primary Care Provider] - Discharge Medications: New metoprolol tartrate 50 mg Tablet 50 mg PO Q12HR 90 Days Qty: 90 0RF cefdinir 300 mg Capsule 300 mg PO DAILY@2100 18 Days Qty: 18 0RF doxycycline hyclate 100 mg Tablet 100 mg PO Q12HR 19 Days Qty: 38 0RF Continued amlodipine 5 mg tablet 5 mg PO DAILY atorvastatin 20 mg tablet 40 mg PO DAILY cetirizine 10 mg tablet 10 mg PO DAILY cimetidine 300 mg tablet 300 mg PO BID diltiazem HCl 120 mg capsule,extended release 24hr 120 mg PO DAILY fluticasone propionate 50 mcg/actuation spray,suspension 2 spray INTRANASAL DAILY dexlansoprazole 60 mg capsule,biphase delayed releas 60 mg PO DAILY Eliquis 5 mg tablet 5 mg PO BID furosemide 40 mg tablet 40 mg PO DAILY mirtazapine 30 mg tablet 30 mg PO DAILY omeprazole 20 mg capsule,delayed release(DR/EC) 20 mg PO DAILY triamterene-hydrochlorothiazid 75-50 mg tablet 1 tablet PO DAILY methimazole 10 mg tablet 10 mg PO DAILY propranolol 20 mg tablet 20 mg PO BID potassium chloride [Klor-Con M10] 10 mEq tablet,ER particles/crystals 10 meq PO DAILY metoprolol tartrate 75 mg tablet 75 mg PO DAILY Date of admission: 01/29/24 17:39 Primary Care Provider: PHYSICIAN NOT ON STAFF,NONSTAFF Admitting Provider: Meng Duke V. Attending physician on admission: Meng Duke V. Condition: Stable Quality VTE Prophylaxis VTE prophylaxis: mechanical ordered and pharmacologic ordered Hospitalist MIPS Heart Failure (Exclusion) Patient has history of Heart Transplant or Left Ventricular Assistive Device?: No IF YES, STOP HERE Heart Failure (Qualifier) Patient has current or prior documentation of LVEF less than or equal to 40%, or mod/servere depressed LVSF?: No IF NO, STOP HERE
[2024-02-05] MEDS: FLUTICASONE PROPIONATE 0.05% NA SPR 16 GM BTL (*BKC) 2 SPRAY NASAL (08:26)
[2024-02-05] MEDS: DOXYCYCLINE HYCLATE 100 MG TABLET PO (08:26)
[2024-02-05 08:27] VITALS: PULSE 80
[2024-02-05] MEDS: APIXABAN 2.5 MG TABLET PO (08:27)
[2024-02-05] MEDS: ATORVASTATIN 40 MG TABLET PO (08:27)
[2024-02-05] MEDS: METOPROLOL TARTRATE 50 MG TAB PO (08:27)
[2024-02-05] MEDS: methiMAzole 10 MG TAB PO (08:27)
[2024-02-05] MEDS: FAMOTIDINE 20 MG TABLET PO (08:27)
[2024-02-05] MEDS: FUROSEMIDE 40 MG TABLET PO (08:27)
[2024-02-05] MEDS: amLODIPine BESYLATE 5 MG TABLET PO (08:27)
[2024-02-05] MEDS: POTASSIUM CHLORIDE 20 MEQ ER TABLET PO (08:27)
[2024-02-05] MEDS: MIRTAZAPINE 30 MG TABLET PO (08:28)
[2024-02-05] MEDS: dilTIAZem HCL CD 120 MG CAP.24HR PO (08:28)
[2024-02-05] MEDS: SENNA/DOCUSATE SODIUM TABLET 1 TAB PO (08:28)
[2024-02-05] MEDS: polyethylene glycoL 3350 17 GM POWD.PACK PO (08:28)
[2024-02-05] MEDS: LORATADINE 10 MG TABLET PO (08:28)
[2024-02-05] MEDS: TRIAMTERENE 37.5 MG/HCTZ 25 MG (MAXZIDE) TABLET 2 TAB PO (08:28)
[2024-02-05] MEDS: PANTOPRAZOLE 40 MG TABLET PO (08:28)
[2024-02-05 14:00] VITALS: BP 128/61; PULSE 90; RESP 12; TEMP 37.1; O2SAT 98
--- NOTE | 2024-02-05 14:55 | PCNWS ---
Weekly nutritional screen. Patient is tolerating current diet with adequate intake. No weight loss reported. No nutritional needs at this time.
[2024-02-09 20:58] LABS: Albumin Pleural Fluid 1.4 g/dL; Amylase, Pleural Fluid 29 U/L; Glucose Pleural Fluid 136 mg/dL; LDH Pleural Fluid 410 U/L; Total Protein Pleural Fluid 3.1 g/dL
== END 2024-02-05 13:05 | DRG 193 ==
LOC: ANHED 21:48 → ANHIMU 22:26 → ANH2MED 01-29 13:31
PROVIDERS: Nurse Practitioner Adult Health; Nurse Practitioner Family; Physician Assistant; Admitting Provider Internal Medicine; Emergency Provider Emergency Medicine; Visit Provider Nurse Practitioner Gerontology
DX: J18.9 Pneumonia, unspecified organism (principal); I50.33 Acute on chronic diastolic (congestive) heart failure; N39.0 Urinary tract infection, site not specified; E87.1 Hypo-osmolality and hyponatremia; I48.20 Chronic atrial fibrillation, unspecified; J90 Pleural effusion, not elsewhere classified; I11.0 Hypertensive heart disease with heart failure; E87.6 Hypokalemia; E83.42 Hypomagnesemia; E78.5 Hyperlipidemia, unspecified; Z20.822 Contact with and (suspected) exposure to COVID-19; Z79.01 Long term (current) use of anticoagulants
CPT/HCPCS: 32555; 36415; 71045; 71046; 80048; 80053; 81001; 82042; 82150; 82945; 83605; 83615; 83735; 83880; 83986; 84157; 84311; 84484; 85025; 85027; 85610; 85730; 87015; 87040; 87070; 87075; 87102; 87116; 87205; 87206; 87637; 88108; 88305; 88342; 89051; 93005; 93306; 96361; 96365; 96375; 97110; 97161; 97165; 97530; 97535; 99285; A9270; G0378; J0456; J0696; J1644; J1940; J3370; J3475; J7030

== ENCOUNTER 2024-05-30 21:58 | Inpatient (IN) | payer MEDICARE, BC, SELFPAY ==
[2024-05-30] VITALS (8 sets, daily range): BP systolic 144; BP diastolic 62; PULSE 76–87; RESP 18–36; O2SAT 85–100
--- NOTE | ~2024-05-30 | XR_ITS ---
EXAMINATION: [id number] DATE: 05/31/2024 15:41 INDICATION: Right pleural effusion status post thoracentesis. TECHNIQUE: A single frontal view of the chest was obtained. COMPARISON: Chest 2 views 05/30/2024 FINDINGS: There is a moderate-sized right pleural effusion. There are airspace opacities at the lung bases. No pneumothorax. Cardiomegaly is noted. There is a total right shoulder arthroplasty. IMPRESSION: 1. Moderate-sized right pleural effusion with improvement status post thoracentesis. 2. Airspace opacities at the lung bases, consistent with atelectasis versus pneumonia. 3. Cardiomegaly. Reviewed, dictated and finalized at location B. IMPRESSION: 1. Moderate-sized right pleural effusion with improvement status post thoracent esis. 2. Airspace opacities at the lung bases, consistent with atelectasis versus pne umonia. 3. Cardiomegaly.
--- NOTE | ~2024-05-30 | US_ITS ---
EXAMINATION: US thoracentesis DATE: 05/31/2024 16:38 INDICATION: Right-sided pleural effusion TECHNIQUE: The procedure and its risks, benefits, and alternatives were discussed with the patient. Potential risks discussed included bleeding, infection, and pneumothorax. The patient understood the risks and agreed to proceed. A timeout was then performed as per protocol. The skin was prepped and draped in sterile fashion. 1% lidocaine was used for local anesthesia. Under ultrasound guidance, a 5 Fr Buzzient catheter was advanced into the right-sided pleural effusion, a nd the inner cannula needle removed. The catheter was then attached to vacuum suction. 1250 cc of thin yellow fluid was evacuated. Evacuation of the fluid was aborted when patient became symptomatic (coughing and complaining of ches t pain, which resolved after catheter removal). The catheter was then removed, and a sterile dressing was applied. There were no immediate complications. FINDINGS: Ultrasound images demonstrate a large right-sided pleural effusion and the catheter within the fluid. IMPRESSION: 1. Successful ultrasound-guided thoracentesis yielding 1250 mL of thin yellow fluid. Fluid was sent for the requested studies. Reviewed, dictated and finalized at location A.
--- NOTE | ~2024-05-30 | XR_ITS ---
EXAMINATION: XR chest 2V Exam Date/Time: 05/30/2024 22:50 CDT HISTORY: sob Comparison: None. RESULT: Lines, tubes, and devices: Cholecystomy clips. Right shoulder arthroplasty hardware. Lungs and pleura: Right mid and lower lung airspace opacities. Moderate left costophrenic angle blun ting. Cardiomediastinal silhouette: Stable. Hiatal hernia. Other: No acute osseous or upper abdominal finding. IMPRESSION: Right lower lung atelectasis/consolidation. Moderate right pleural effusion, slightly increased in si ze since the comparison study. Reviewed, dictated and finalized at location K. IMPRESSION: Right lower lung atelectasis/consolidation. Moderate right pleural effusion, sl ightly increased in size since the comparison study.
--- NOTE | 2024-05-30 22:02 | ECG_ITS ---
Test Date: 2024-05-30 23:12:05 Measurements Intervals [place] Rate: 75 P: 75 [place]: 154 QRS: -11 QRSD: 93 T: 10 QT: 388 QTc: 434 Interpretive Statements SINUS RHYTHM SEPTAL MYOCARDIAL INFARCTION , OF INDETERMINATE AGE [40+ ms Q WAVE IN V1/V2] Compared to ECG 01/28/2024 17:37:00 Atrial fibrillation no longer present Electronically Signed On 05-31-2024 14:49:12 CDT by Kaushal Copeland M.D.
--- NOTE | 2024-05-30 22:17 | PC.NURSE ---
rn x 3 attempting for iv with no luck.
[2024-05-30 22:37] LABS: Basophils Percent Auto 0.3 % (0.2-1.2); Eosinophils Absolute Auto 0.3 K/mm3 (0-0.3); Eosinophils Percent Auto 2.8 % (0-4.4); Hematocrit 27.9 % (37.0-47.0); Hemoglobin 8.7 g/dL (12.0-15.0); Immature Granulocyte Absolute 0.02 K/mm3 (0.00-0.031); Immature Granulocyte Percent A 0.2 % (0-0.5); Lymphocytes Absolute Auto 1.22 K/mm3 (0.9-3.2); Lymphocytes Percent Auto 13.1 % (18.3-44.2); Mean Corpuscular HGB Conc 31.2 g/dl (32-36); Mean Corpuscular Hemoglobin 26.5 pg (26-34); Mean Corpuscular Volume 85.1 fl (80-100); Mean Platelet Volume 8.9 fl (7.4-10.4); Monocytes Absolute Auto 0.9 K/mm3 (0.1-0.6); Neutrophils Absolute Auto 6.8 K/mm3 (1.3-6.7); Neutrophils Percent Auto 73.6 % (45.5-73.1); Platelet Count Result 365 k/mm3 (150-375); Red Blood Count 3.28 M/mm3 (4.2-5.4); White Blood Count 9.3 K/mm3 (4.5-10.0)
[2024-05-30 22:46] LABS: Alanine Aminotransferase 13 U/L (6-35); Albumin Level 3.3 g/dL (3.5-5.1); Alkaline Phosphatase 137 U/L (38-126); Anion Gap 6 mmol/L (4-12); Aspartate Amino Transferase 25 U/L (14-36); Bilirubin,Total 0.4 mg/dL (0.2-1.3); Blood Urea Nitrogen 17 mg/dL (7-17); Calcium 9.5 mg/dL (8.4-10.2); Carbon Dioxide 31 mmol/L (22-30); Chloride 97 mmol/L (98-107); Estimated CRCL calculation 22 ml/min; Estimated Glomerular Filt Rate 41; Glucose 115 mg/dL (65-110); Potassium 3.1 mmol/L (3.4-5.0); Sodium 134 mmol/L (137-145)
[2024-05-30 23:13] LABS: Influenza A QL RT-PCR Negative (Negative); Influenza B QL RT-PCR Negative (Negative); RSV RNA, RT-PCR Negative (Negative); SARS-CoV-2 RNA PCR Negative (Negative)
[2024-05-31] VITALS (10 sets, daily range): BP systolic 117–142; BP diastolic 49–88; PULSE 72–100; RESP 16–28; TEMP 35.9–37.1; O2SAT 98–100; BMI 23.0
--- OUTSIDE RECORDS SUMMARY | 2024-05-31 00:17 | XMS_ITS | Encounter Summary ---
Author Organization [facility] Address [address] [place] [address] Care Team Providers Care Color Paste Mixer Name Role Phone Naomi Pena MD Primary Care Provider [phone] Encounter Details Date Type Department Care Team (Late st Contact Info) Description 05/28/2024 External Device Data [facility] ABSTRACTION Provider, Abstract NO ADDRESS ON FILE Social History Tobacco Use Types Packs/Day Years Used Date Smoking Tobacco: Never Smokeless Tobacco: Never Feeling Safe Answer Date Recorded Are you in a relationship wi th someone who hurts you emotionally and/or physically? No 12/24/2023 Food Insecurity Answer Date Recorded Social/Environmental Concerns No concerns Transportation Needs Answer Date Record ed Social/Environmental Concerns No concerns Housing Stability Answer Date Recorded Social/Environmental Concerns No concerns Utility Needs Answer Date Recorded Social/Environmental Concerns No concerns Comments Unknown Sex and Gender Information Value Date Recorded Sex Assigned at Not on file Legal Sex Female 10:05 PM CDT Gender Identity Not on file Sexual Orientation Not on file documented as of this encounter Plan of Treatment Upcoming Encounters Date Type Department Care Team (Late st Contact Info) Description 03/09/2025 10:15 AM ENERGY CONSULTANT Appointment [facility] Testing [address] [place] [address] [place] [id number] [place] [phone] 03/29/2025 10:30 AM ENERGY CONSULTANT Office Visit [facility] Heart [facility] V[facility] - [address] [place] [phone] Skip Cole MD [address] [place] [phone] documented as of this encounter Visit Diagnoses Not on filedocumented in this encounter Care Teams Color Paste Mixer Relationship Specialty Start Date End Date Naomi Pena MD [address] [place] [phone] PCP - General Internal Medicine 11/08/20 documented as of this encounter
--- OUTSIDE RECORDS SUMMARY | 2024-05-31 00:17 | XMS_ITS | Continuity of Care Document ---
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 atorvastatin 40 mg tablet take 1 tablet by oral route every day 40 MG - Active amlodipine 5 mg tablet take 1 tablet by oral route every day 5 MG - Active Eliquis 2.5 mg tablet take 1 tablet by oral route 2 times every day 2.5 MG - Active potassium chloride ER 10 mEq tablet,extended release take 1 tablet by oral route every day with food 10 MEQ - Active metoprolol tartrate 50 mg tablet take 1 tablet by oral route 2 times every day with meals 50 MG - Active cimetidine 300 mg tablet take 1 tablet by oral route 2 times every day with meals - Active trazodone 50 mg tablet take 0.5 tablet by oral route 3 times every day after meals - Active Hospital diltiazem ER 120 mg tablet,extended release 24 hr take 1 tablet by oral route every day 120 MG - Active Hospital methimazole 10 mg tablet take 1 tablet by oral route every day 10 MG - Active Hospital mirtazapine 30 mg tablet take 1 tablet by oral route every day before bedtime 30 MG - Active ferrous sulfate 325 mg (65 mg iron) tablet take 1 tablet by oral route every day 325 MG - Active Citracal + Bone Density 300 mg-200 unit-13.5 mg tablet - Active CALCIUM 1.5G TABS 1 DIRECTE 325 MG - Activ e Vitamin D3 1,000 unit capsule - Active Zyrtec 10 mg capsule - Active Centrum Silver tablet - Active Procedures Procedure Date CBC, INC PLATELETS, NO DIFFERENTIAL COMPREHEN METABOLIC PANEL CMP LIPID PANEL BRAIN NATRIURETIC PEPTIDE (BNP) 025 THYROID STIMULATION HORMONE(TSH) 2024 ROUTINE VENIPUNCTURE OFFICE [id number]-[id number] BODY MASS INDEX DOCD SYST BP GE 130 - 139MM HG DIAST BP < 80 MM HG CBC, INC PLATELETS AND DIFFERENTIAL COMPREHEN METABOLIC PANEL CMP 4 FREE T4 (FT4) LIPID PANEL THYROID STIMULATION HORMONE(TSH) 2023 ROUTINE VENIPUNCTURE OFFICE [id number] ROUTINE VENIPUNCTURE OFFICE VWNXI-DIM-RLKGUKHK BODY MASS INDEX DOCD SYST BP LT 130 MM HG DIAST BP < 80 MM HG DSCHRG MED/CURRENT MED MERGE C-REACTIVE PROTEIN (CRP) CBC, INC PLATELETS AND DIFFERENTIAL COMPREHEN METABOLIC PANEL CMP 4 FERRITIN LEVEL FOLIC ACID (S) (FOLATE) IRON (FE), TOTAL TIBC, & % SATURATION RETICYTE/HGB CONCENTRATE VITAMIN B12 (SERUM) ROUTINE VENIPUNCTURE EKG (ELECTROCARDIOGRAM) URINALYSIS, DIPSTICK (UA) - Office Lab S PARATHYROID HORMONE (PTH) OFFICE FYOWK-TCK-YNOUILKO BODY MASS INDEX DOCD SYST BP GE 130 - 139MM HG DIAST BP < 80 MM HG CBC, INC PLATELETS AND DIFFERENTIAL COMPREHEN METABOLIC PANEL CMP FERRITIN LEVEL IRON (FE), TOTAL TIBC, & % SATURATION PARATHYROID HORMONE (PTH) VITAMIN D, 25-HYDROXY ROUTINE VENIPUNCTURE ANTINUCLEAR ANTIBODIES ([place]) C-REACTIVE PROTEIN (CRP) OFFICE WEOGM-HZF-LCDEYYHB OFFICE DPIZE-KKL-YBGWIWL Kept Appointment No Charge Encounter Oct OFFICE MGYCG-JRA-ZCEMGIB SYST BP GE 130 - 139MM HG DIAST BP < 80 MM HG DSCHRG MED/CURRENT MED MERGE Pt inelig neg scrn depres C-REACTIVE PROTEIN (CRP) CBC, INC PLATELETS AND DIFFERENTIAL COMPREHEN METABOLIC PANEL CMP ROUTINE VENIPUNCTURE SYST BP LT 130 MM HG DIAST BP < 80 MM HG OFFICE GVACF-TVD-[id number] BODY MASS INDEX DOCD SYST BP LT 130 MM HG DIAST BP < 80 MM HG PARATHYROID HORMONE (PTH) DSCHRG MED/CURRENT MED MERGE Pt inelig neg scrn depres EKG (ELECTROCARDIOGRAM) C-REACTIVE PROTEIN (CRP) CBC, INC PLATELETS AND DIFFERENTIAL COMPREHEN METABOLIC PANEL CMP ROUTINE VENIPUNCTURE OFFICE VSXIK-HXU-ZFOBHARD BODY MASS INDEX DOCD SYST BP LT 130 MM HG DIAST BP < 80 MM HG OFFICE ZCFTN-TPG-IWECRIAW BODY MASS INDEX DOCD SYST BP >= 140 MM HG6 IT DIAST BP < 80 MM HG Pt inelig neg scrn depres FALL RISK ASSESSMENT DOC'D PRES/ABSN URINE INCON ASSESS OFFICE HTWED-KXD-DOUGUVFB BODY MASS INDEX DOCD SYST BP LT 130 MM HG DIAST BP < 80 MM HG CBC, INC PLATELETS AND DIFFERENTIAL COMPREHEN METABOLIC PANEL CMP LIPID PANEL VITAMIN D, 25-HYDROXY ROUTINE VENIPUNCTURE INIT PREVENT PHYS EXAM; LIMITED TO NEW B ENEFICIARY BODY MASS INDEX DOCD SYST BP GE 130 - 139MM HG DIAST BP < 80 MM HG FERRITIN LEVEL FOLIC ACID (S) (FOLATE) VITAMIN B12 (SERUM) OFFICE YMEJL-PTN-GHXPKOTA BODY MASS INDEX DOCD SYST BP >= 140 MM HG6 IT DIAST BP < 80 MM HG URINALYSIS, DIPSTICK (UA) - Office Lab M OFFICE NAYJE-AWR-GQPJMDO OFFICE HOSSF-SWJ-DHBMJOJJ BODY MASS INDEX DOCD SYST BP >= 140 MM HG6 IT DIAST BP < 80 MM HG Pt inelig neg scrn depres CBC, INC PLATELETS AND DIFFERENTIAL COMPREHEN METABOLIC PANEL CMP FERRITIN LEVEL IRON (FE), TOTAL TIBC, & % SATURATION LIPID PANEL VITAMIN D, 25-HYDROXY ROUTINE VENIPUNCTURE URINALYSIS, DIPSTICK (UA) - Office Lab J OFFICE HXPEA-XYQ-JYWYNRZB BODY MASS INDEX DOCD SYST BP LT 130 MM HG DIAST BP < 80 MM HG OFFICE XIMDA-YHB-OQODFACQ BODY MASS INDEX DOCD SYST BP LT 130 MM HG DIAST BP < 80 MM HG FALL RISK ASSESSMENT DOC'D PRES/ABSN URINE INCON ASSESS OFFICE WOFNS-QDA-ZKLMHNJQ BODY MASS INDEX DOCD SYST BP GE 130 - 139MM HG DIAST BP < 80 MM HG Admin influenza virus vac FLU VACC PRSV FREE INC ANTIG URINALYSIS, DIPSTICK (UA) - Office Lab A OFFICE RRBDI-KXE-DCLBQKSX BODY MASS INDEX DOCD SYST BP >= 140 MM HG6 IT DIAST BP < 80 MM HG BREATH HYDROGEN TEST OFFICE QIZGF-HLU-MVJKZJJR BODY MASS INDEX DOCD SYST BP >= 140 MM HG6 IT DIAST BP < 80 MM HG FALL RISK ASSESSMENT DOC'D PRES/ABSN URINE INCON ASSESS Pt inelig neg scrn depres CBC, INC PLATELETS AND DIFFERENTIAL COMPREHEN METABOLIC PANEL CMP LIPID PANEL VITAMIN D, 25-HYDROXY ROUTINE VENIPUNCTURE OFFICE ZAGDO-VLR-NENKJSZM BODY MASS INDEX DOCD SYST BP >= 140 MM HG6 IT DIAST BP < 80 MM HG FALL RISK ASSESSMENT DOC'D PRES/ABSN URINE INCON ASSESS CBC, INC PLATELETS AND DIFFERENTIAL COMPREHEN METABOLIC PANEL CMP THYROID STIMULATION HORMONE(TSH) 2020 URINALYSIS, DIPSTICK (UA) - Office Lab A ROUTINE VENIPUNCTURE OFFICE KMJDF-JHJ-DXJOAVXF BODY MASS INDEX DOCD SYST BP >= 140 MM HG6 IT DIAST BP < 80 MM HG OFFICE VRBGU-STR-NEHYGRNB BODY MASS INDEX DOCD SYST BP LT 130 MM HG DIAST BP < 80 MM HG FALL RISK ASSESSMENT DOC'D PRES/ABSN URINE INCON ASSESS OFFICE TDVVM-FSF-FMUBNQDV BODY MASS INDEX DOCD SYST BP >= 140 MM HG6 IT DIAST BP < 80 MM HG HEPATIC FUNCTION PANEL(LFT, LIVER) Feb-2 ROUTINE VENIPUNCTURE DSCHRG MED/CURRENT MED MERGE AMYLASE CBC, INC PLATELETS AND DIFFERENTIAL COMPREHEN METABOLIC PANEL CMP 0 LIPASE ROUTINE VENIPUNCTURE OFFICE NDBKW-CXI-OUMRSJGE Additional supplies, materials, & Clinic al Staff Time During A PHE BODY MASS INDEX DOCD SYST BP >= 140 MM HG6 IT DIAST BP 80-89 MM HG TELEPHONE E&M BY A PHYSICIAN; 02-09 VJ GARCIAS OFFICE ILZFV-DQA-[id number] BODY MASS INDEX DOCD SYST BP GE 130 - 139MM HG DIAST BP < 80 MM HG OFFICE PCLZC-LWG-ZRGQLLYF BODY MASS INDEX DOCD SYST BP >= 140 MM HG6 IT DIAST BP < 80 MM HG OFFICE DTKHC-LAS-WWFUTAAL BODY MASS INDEX DOCD SYST BP >= 140 MM HG6 IT DIAST BP < 80 MM HG Pt inelig neg scrn depres OFFICE EPXWI-TEK-JHUYKSNG BODY MASS INDEX DOCD SYST BP >= 140 MM HG6 IT DIAST BP < 80 MM HG BASIC METABOLIC PANEL(BMP) LDL-CHOLESTEROL, DIRECT ROUTINE VENIPUNCTURE COLONOSCOPY TRANSENDOSCOPIC BALLOON COLONOSCOPY AND BIOPSY TISSUE EXAM BY PATHOLOGIST OFFICE IWKPH-VPC-YXVVFRRO BODY MASS INDEX DOCD SYST BP >= 140 MM HG6 IT DIAST BP < 80 MM HG Admin influenza virus vac FLU VACC 4 JEANNIE 0.5mL DOSAGE URINALYSIS, DIPSTICK (UA) - Office Lab S OFFICE OFLAF-JOZ-OYEIEKI OFFICE VZGMT-MYC-QQBBAYW Depression screen annual Brief Emotional/Behavioral A ssessment, With Scoring/Doct, Per Stndrd Instrument FALL PLAN OF CARE DOC'D URINE INCON PLAN DOC'D PRES/ABSN URINE INCON ASSESS OFFICE KYPQL-TJJ-[id number] BODY MASS INDEX DOCD SYST BP >= 140 MM HG6 IT DIAST BP < 80 MM HG BASIC METABOLIC PANEL(BMP) HEMATOCRIT (HCT) HEMOGLOBIN (HGB) LDL-CHOLESTEROL, DIRECT ROUTINE VENIPUNCTURE Advance Directives Directive Yes / No Effective Date File Name Life Support Not Answered N/A N/A Intubation Not Answered N/A N/A Antibiotics Not Answered N/A N/A IV Fluid Support Not Answered N/A N/A Tube Feed Not Answered N/A N/A Other Directive N/A N/A WARNING:The information contained in this section is historical and is provided for information only and does not constitute a legal document or any assurance that the information is still accurate. Please verify the information with the cornejo of the legal document before using it for clinical purposes. Encounters Encounter Description Practice Location Reason(s) For Visit Diagnoses Date Provider Providers Copied on Encounter [facility], [address], [place], [place], [address] , tel: [phone] No Information 5 Jean Salgado. [address], [facility] [address], [place], [place], [address], . tel:[phone] [facility], [address], [place], [place], [address] , [facility]: [phone] [facility] Information 5 Jean Salgado. [address], [address], [place], [place], [address], [place]. tel:[phone] OFFICE BOBQU-GUR-AW TAILED [facility], [address], [place], [place], [address] , tel: [phone] [facility] leg swelling- (chief complaint) Hyperthyroidis mMild hyperlipidemia Pulmonary hypertensionLo ngstanding persistent atrial fibrillationLe g swellingAcute on chronic combined systolic and diastolic congestive heart failure 0 5 Jean Salgado. [address], [address], [place], [place], [address], . tel:[phone] Referring Provider: Rosanna De [address], [place], [address] . tel:[phone] [facility], [address], [place], [place], [address] , tel: [phone] [facility] Dementia with anxiety, unspecified dementia severity, unspecified dementia typeDepression , unspecified depression type 5 Jean Salgado. [address], [place], [place], [address], [place]. tel:[phone] [employer] [facility], [address], [place], [place], [address] , tel: [phone] [facility] No Information 4 Jean Salgado. [address], [place], [place], [address], [place]. tel:[phone] [facility], [address], [place], [place], [address] , tel: [phone] [facility] No Information 4 Jean Salgado. [facility] [address], [address], [place], [place], [address], [place]. tel:[phone] OFFICE ZDTDH-UXJ-JX [facility], [address], [place], [place], [address] , [place] tel: [phone] [facility] weight loss (chief complaint)mem ory issues (chief complaint) Unspecified deficiency anemiaPulmonar y hypertensionMi ld hyperlipidemia Hyperthyroidis m 4 Jean Salgado. [address], [place], [place], [address], [place]. tel:[phone] Referring Provider: Rosanna [address], [place], [address] . tel:[phone] [facility], [address], [place], [place], [address] , tel: [phone] [facility] No Information 4 Jean Salgado. [address], [place], [place], [address], [place]. tel:[phone] [facility], [address], [place], [place], [address] , tel: [phone] [facility] discharge f/u for cc- (chief complaint) Pulmonary hypertensionHy perlipidemia LDL goal <100Leg swellingHypert hyroidismLongs tanding persistent atrial fibrillation 4 Jean Salgado. [address], [address], [place], [place], [address], . tel:[phone] Referring Provider: Naomi Pena, [address], [place], [address] . tel:[phone] [facility], [address], [place], [place], [address] , tel: [phone] [facility] No Information 4 Jean Salgado. [address], [address], [place], [place], [address], . tel:[phone] Referring Provider: Rosanna De [address], [place], [address] . tel:[phone] OFFICE [facility]JZ[facility]AFW[facility], [address], [place], [place], [address] , tel: [phone] [facility] fatigue- (chief complaint) Pulmonary hypertensionMi ld anemiaFever, unspecified fever causeTachycard iaLeukocytes in urineHypercalc emia 4 Jean Salgado. [address], [address], [place], [place], [address], [place]. tel:[phone] Referring Provider: Rosanna De [address], [place], [address] . tel:[phone] OFFICE JBHTC[facility]GMP[facility], [address], [place], [place], [address] , tel:[phone] [facility] fatigue- (chief complaint) Mild anemiaPulmonar y hypertensionMi ld depression Nov- 4 Jean Salgado. [address], [address], [place], [place], [address], . tel:[phone] Referring Provider: Rosanna [address], [place], [address] . tel:[phone] [facility], [address], [place], [place], [address] , [place] tel: [phone] [facility] eustachian tube dysfunction (chief complaint) Dysfunction of both eustachian tubes 4 Jean Salgado. [address], [address], [place], [place], [address], [place]. tel:[phone] Referring Provider: Ros[address], [place], [address] . tel:[phone] [facility], [address], [place], [place], [address] , [place] tel: [phone] [facility] No Information 4 Jean Salgado. [address], [place], [place], [address], [place]. tel:[phone] Referring Provider: Rosanna De [address], [place], [address] . tel:[phone] OFFICE HJDGX[facility]CWF[facility], [address], [place], [place], [address] , [place] tel: [phone] [facility] stress (chief complaint)dep ression (chief complaint) StressSituatio nal depression 4 Brigette Sears. [address], [place], [place], [address], [place]. tel:[phone] Referring Provider: Ros[address], [place], [address] . tel:[phone] [facility], [address], [place], [place], [address] , tel: [phone] [facility] hospital discharge f/u- (chief complaint) Personal history of pneumoniaOther fatigueHospita l discharge follow-up 4 Jean Salgado. [address], [facility] [address], [place], [place], [address], . tel:[phone] Referring Provider: Rosanna De Dios Dr [facility] [address], [place], [address] . tel:[phone] OFFICE YIGNA-NZO-ML [employer], [address], [place], [place], [address] , tel: [phone] [facility] not feeling well- (chief complaint) TachycardiaHyp okalemiaOther fatigue 4 Jean Salgado. [address] [facility] [address], [place], [place], [address], . tel:[phone] Referring Provider: Naomi Pena, [address] [facility] [address], [place], [address] . tel:[phone] OFFICE KIQVT-VWU-MP [employer], [address], [place], [place], [address] , tel: [phone] [facility] GERD (chief complaint) Gastro-esophag eal reflux dis with esophagitis, without bleed 3 Jr Valdivia. [address], [address], [address], . tel:[phone] Referring Provider: Rosanna De Dios Dr [facility] [address], [place], [address] . tel:[phone] [facility], [address], [place], [place], [address] , tel: [phone] [facility] No Information 3 Brigette Sears. [address] [facility] [address], [place], [place], [address], . tel:[phone] OFFICE ZSJXJ-WQZ-CW [employer], [address], [place], [place], [address] , tel: [phone] [facility] 6 months f/u for cc- (chief complaint) Coronary artery disease involving [place] coronary artery of [place] heart without angina pectorisAthero sclerosis of aortaHyperlipi demia LDL goal <100Gastro-eso phageal reflux dis with esophagitis, without bleedVitamin D deficiencyCere bral atrophyEssenti al hypertensionAg e-related osteoporosis without current pathological fracture 3 Jean Salgado. [address], [address], [place], [place], [address], [place]. tel:[phone] Referring Provider: Rosanna De [address], [place], [address] . tel:[phone] [facility], [address], [place], [place], [address] , [place] tel: [phone] [facility] Encounter for screening mammogram for malignant neoplasm of breast 3 Jean Salgado. [address], [address], [place], [place], [address], [place]. tel:[phone] [employer], [address], [place], [place], [address] , [place] tel: [phone] [facility] No Information 3 Jean Salgado. [address], [address], [place], [place], [address], [place]. tel:[phone] [facility], [address], [place], [place], [address] , tel: [phone] [facility] [employer] preventive (chief complaint)pre ventive- (chief complaint) Encntr for general adult medical exam w/o abnormal findingsVitami n D deficiencyCere bral atrophyEssenti al hypertensionHy perlipidemia LDL goal <100Age-relate d osteoporosis without current pathological fractureGastro -esophageal reflux dis with esophagitis, without bleedCoronary artery disease involving [place] coronary artery of [place] heart without angina pectorisAthero sclerosis of aortaMild anemia 3 Jean Salgado. [address], [address], [place], [place], [address], [place]. [phone] Referring Provider: [address], [place], [address] . tel:[phone] [facility], [address], [place], [place], [address] , [place] tel: [phone] [facility] No Information 2 Josef De Jesus. [address], [address], [place], [place], [address], . tel:[phone] OFFICE AGFXP-QAM-MK [facility], [address], [place], [place], [address] , [place] tel: [phone] [facility] 6 months f/u- (chief complaint) Essential hypertensionCe rebral atrophyHyperli pidemia LDL goal <100Coronary artery disease involving [place] coronary artery of [place] heart without angina pectorisAge-re lated osteoporosis without current pathological fractureGastro -esophageal reflux dis with esophagitis, without bleed 2 Jean Salgado. [address], [address], [place], [place], [address], . tel:[phone] Referring Provider: Naomi Pena [address], [place], [address] . [phone] [facility], [address], [place], [place], [address] , [place] tel: [phone] [facility] Acute bilateral low back pain without sciaticaCervic al radiculopathy 2 Jean Salgado. [address], [address], [place], [place], [address], . tel:[phone] OFFICE RNUSW-HXL-CE [facility], [address], [place], [place], [address] , [place] tel: [phone] [facility] Acute bilateral low back pain without sciatica 2 Jean Salgado. [address], [address], [place], [place], [address], . tel:[phone] Referring Provider: Rosanna [address], [place], [address] . tel:[phone] OFFICE ATNFF-NNC-XX PANDED [facility], [address], [place], [place], [address] , [place] tel: [phone] [facility] gerd. (chief complaint)SIB O. (chief complaint) Gastro-esophag eal reflux dis with esophagitis, without bleedSmall intestinal bacterial overgrowth (SIBO) 2 Kamla Mcmullen. [address], [facility] [address], [place], [place], [address], [place]. tel:[phone] Referring Provider: [address], [place], [address] . tel:[phone] [facility], [address], [place], [place], [address] , [place] tel: [phone] [facility] Encounter for screening mammogram for malignant neoplasm of breast 2 Jean Salgado. [address], [address], [place], [place], [address], [place]. tel:[phone] OFFICE QKVJG-CQZ-LN TAILED [facility], [address], [place], [place], [address] , [place] tel: [phone] [facility] 6 months f/u for cc- (chief complaint) Essential hypertensionHy perlipidemia LDL goal <100Coronary artery disease involving [place] coronary artery of [place] heart without angina pectorisGastro -esophageal reflux dis with esophagitis, without bleedAge-relat ed osteoporosis without current pathological fractureCerebr al atrophyEncount er for screening mammogram for malignant neoplasm of breastVitamin D deficiencyFati francisco, unspecified typeAcute UTIAsymptomati c menopausal state 2 Jean Salgado. [address], [address], [place], [place], [address], [place]. tel:[phone] Referring Provider: Ros[address], [place], [address] . tel:[phone] OFFICE BPMAC-IPI-ZA [facility], [address], [place], [place], [address] , [place] tel: [phone] [facility] Follow Up of GERD (chief complaint)Fol low Up of SIBO (chief complaint) Gastro-esophag eal reflux dis with esophagitis, without bleedSmall intestinal bacterial overgrowth (SIBO) 1 Kamla Mcmullen. [address], [facility] [address], [place], [place], [address], . [phone] Referring Provider: Rosanna [address], [place], [address] . tel:[phone] OFFICE XXNZL-IKJ-KA [facility]ITAL[facility], [address], [place], [place], [address] , [place] tel: [phone] [facility] Edema and Rash on legs (chief complaint) Body mass index (BMI) 32.0-32.9, adultLeg swelling Nov- 1 Jean Salgado. [address], [place], [place], [address], [place]. tel:[phone] Referring Provider: [address], [place], [address] . tel:[phone] [facility], [address], [place], [place], [address] , [place] tel: [phone] [facility] No Information 1 Jean Salgado. [address], [place], [place], [address], [place]. tel:[phone] Referring Provider: [address], [place], [address] . tel:[phone] OFFICE MJUNR-XSK-VC [employer], [address], [place], [place], [address] , tel: [phone] [facility] skin laceration- (chief complaint)uri nary frequency- (chief complaint) Acute UTILaceration of skin of left forearm, subsequent encounter 1 Jean Salgado. [address], [place], [place], [address], . tel:[phone] Referring Provider: [address], [place], [address] . tel:[phone] [facility], [address], [place], [place], [address] , [place] tel: [phone] [facility] No Information 1 Kamla Mcmullen. [address] [place] [address] Drive, [address], [address], . tel:[phone] Referring Provider: [address], [place], [address] . tel:[phone] OFFICE AXXGF-KRG-QP [facility], [address], [place], [place], [address] , [place] tel: [phone] [facility] GERD (chief complaint)Abd ominal pain (chief complaint) Gastro-esophag eal reflux dis with esophagitis, without bleedAbdominal bloating 1 Kamla Mcmullen. [facility]5 [facility], [address], [address], . tel:[phone] Referring Provider: [address], [place], [address] . tel:[phone] OFFICE PHFQP[facility]IZU[facility], [address], [place], [place], [address] , [place] tel: [phone] [facility] 6 mo fu re cc (chief complaint) Body mass index (BMI) 31.0-31.9, adultEssential hypertensionVi tamin D deficiencyHype rlipidemia LDL goal <100Coronary artery disease involving [place] coronary artery of [place] heart without angina pectorisGastro -esophageal reflux dis with esophagitis, without bleedAge-relat ed osteoporosis without current pathological fractureScalp irritation 1 Jean Salgado. [address], [place], [place], [address], [place]. [phone] Referring Provider: [address], [place], [address] . tel:[phone] OFFICE LBTWM[facility]NJO[facility]QPExcel[facility], [address], [place], [place], [address] , [place] tel: [id number] [facility] fatigue. (chief complaint) Recurrent UTICoronary artery disease involving [place] coronary artery of [place] heart without angina pectorisEssent ial hypertensionCe rebral atrophyAtheros clerosis of aortaFatigue, unspecified type 1 Tomas De Jesus. [address] , [address], [place], [place], [address], . [phone] Referring Provider: Nikhil Knox, [address] [place], [address]. tel:[phone] [facility], [address], [place], [place], [address] , [place] tel: [phone] [facility] No Information 1 Abilio Tejeda. [address] [place], [address], [place]. [phone] OFFICE WUDBQ-LJX-UM PANDED [facility], [address], [place], [place], [address] , [place] tel: [phone] [facility] Follow Up of Abdominal pain (chief complaint)Fol low Up of GERD (chief complaint) Left upper quadrant abdominal painGastro-eso phageal reflux dis with esophagitis, without bleed 1 Kamla Mcmullen. [address] [facility], [address], [address], [place]. tel:[phone] Referring Provider: Nikhil Knox, [address] [place], [address]. tel:[phone] OFFICE ZLYAC-AZO-HQ TAILED [facility], [address], [place], [place], [address] , [place] tel: [phone] [facility] hbp (chief complaint)hyp erlipid (chief complaint)cad (chief complaint)ost eoporosis (chief complaint)rec urrent uti (chief complaint)dori d /abd pain (chief complaint) Body mass index (BMI) 31.0-31.9, adultEssential hypertensionOt her and unspecified hyperlipidemia Coronary artery disease involving [place] coronary artery of [place] heart without angina pectorisEncoun ter for screening for osteoporosisGa stro-esophagea l reflux dis with esophagitis, without bleedRecurrent UTILeft upper quadrant abdominal pain Feb- 0 Josef De Jesus. [address], [address], [place], [place], [address], [place]. tel:[phone] Referring Provider: [address], [address], [place], [address] . tel:[phone] [facility], [address], [place], [place], [address] , [place] tel: [phone] [facility] LUQ abdominal pain Feb- 0 Cason Kemi. [facility], [address], [address], [place]. tel:[phone] OFFICE TTGDR-HQQ-JL [facility], [address], [place], [place], [address] , tel: [phone] [facility] Abdominal pain (chief complaint)DORI D (chief complaint) LUQ abdominal painGastro-eso phageal reflux dis with esophagitis, without bleed Feb- 0 Cason Kemi. [facility], [address], [address], [place]. tel:[phone] Referring Provider: [address], [address], [place], [address] . tel:[phone] TELEPHONE E&M BY A PHYSICIAN; 11-20 MINUTES [facility], [address], [place], [place], [address] , tel:[phone] [facility] Follow Up of GERD (chief complaint) Gastro-esophag eal reflux dis with esophagitis, without bleed 0 Cason Kemi. [facility], [address], [address], [place]. tel:[phone] Referring Provider: [address], [address], [place], [address] . tel:[phone] [facility], [address], [place], [place], [address] , tel:[phone] [facility] No Information 0 Josef De Jeuss. [address], [address], [place], [place], [address], . [phone] OFFICE NRQYK-LRY-TX [facility], [address], [place], [place], [address] , tel: [phone] [facility] GERD (chief complaint) GERD with esophagitis 0 Kamla Mcmullen. [address], [place] [address], [place], [place], [address], [place]. tel:[phone] Referring Provider: [address], [address], [place], [address] . tel:[phone] OFFICE CPFLD-AJN-OC [facility], [address], [place], [place], [address] , tel: [phone] [facility] hbp (chief complaint)cad (chief complaint)hyp erlipoid (chief complaint)ost eoporosis (chief complaint)dori d (chief complaint)vit d def (chief complaint) Body mass index (BMI) 30.0-30.9, adultEssential hypertensionOt her and unspecified hyperlipidemia Coronary artery disease involving [place] coronary artery of [place] heart without angina pectorisEncoun ter for screening for osteoporosisGE RD with esophagitisVit regalado D deficiencyCere bral atrophyRosacea 0 Josef De Jesus. [address], [address], [place], [place], [address], [place]. tel:[phone] Referring Provider: [address], [address], [place], [address] . tel:[phone] OFFICE ICWED-IID-WS PANDED [facility], [address], [place], [place], [address] , tel: [phone] [facility] rt earache (chief complaint) EaracheRashBod y mass index (BMI) 31.0-31.9, adult Aug- 0 Josef De Jesus. [address], [address], [place], [place], [address], [place]. tel:[phone] Referring Provider: [address], [address], [place], [address] . tel:[phone] OFFICE SCKDI-DRM-XW [facility], [address], [place], [place], [address] , [place] tel: [phone] [facility] hbp (chief complaint)cad (chief complaint)hyp erlipid (chief complaint)ost eoporosis (chief complaint)uri (chief complaint) Body mass index (BMI) 31.0-31.9, adultEssential hypertensionCo ronary artery disease involving [place] coronary artery of [place] heart without angina pectorisOther and unspecified hyperlipidemia Osteoporosis, unspecified osteoporosis type, unspecified pathological fracture presenceBronch itisAtheroscle rosis of aorta 0 Josef De Jesus. [address], [address], [place], [place], [address], . [phone] Referring Provider: [address], [address], [place], [address] . tel:[phone] [facility], [address], [place], [place], [address] , [place] tel: [phone] [facility] No Information 0 Jr Valdivia. [address] [place] [address], [address], [address], [place]. [phone] Referring Provider: [address], [address], [place], [address] . tel:[phone] [facility], [address], [place], [place], [address] , [place] tel: [phone] [facility] No Information 0 Jr Valdivia. [address] [place] [address], [address], [address], [place]. tel:[phone] Referring Provider: [address], [address], [place], [address] . tel:[phone] [facility], [address], [place], [place], [address] , tel: [phone] [facility] Encntr screen mammogram for malignant neoplasm of breastOsteopor osis, unspecified osteoporosis type, unspecified pathological fracture presenceEncoun ter for screening for osteoporosis 9 Jr Valdivia. [address] [place] [address], [address], [address], . tel:[phone] [facility], [address], [place], [place], [address] , tel: [phone] [facility] Diverticular disease (chief complaint) Diverticulosis of large intestine without hemorrhageChan ge in bowel habit Jr Valdivia. [facility], [address], [address], [place]. tel:[phone] Referring Provider: Neal Bahena [address], [address], [place], [address] . tel:[phone] [facility], [address], [place], [place], [address] , [place] tel: [phone] [facility] No Information 9 Josef De Jesus. [address], [address], [place], [place], [address], [place]. tel:[phone] Referring Provider: [address], [address], [place], [address] . tel:[phone] OFFICE [facility], [address], [place], [place], [address] , [place] tel: [phone] [facility] sinusitis (chief complaint)UTI (chief complaint) Acute sinusitis, recurrence not specified, unspecified locationAcute UTI 9 Josef De Jesus. [address], [address], [place], [place], [address], [place]. tel:[phone] Referring Provider: Neal Bahena [address], [address], [place], [address] . tel:[phone] OFFICE [facility], [address], [place], [place], [address] , tel: [phone] [facility] allergic rhinitis (chief complaint) Allergic rhinitis, unspecified seasonality, unspecified trigger 9 Josef De Jesus. [address], [address], [place], [place], [address], . tel:[phone] Referring Provider: [address], [address], [place], [address] . tel:[phone] OFFICE [facility]LP[facility]TXJ[facility]Excel[facility], [address], [place], [place], [address] , tel: [phone] [facility] cad (chief complaint)hyp erlipid (chief complaint)ane lex (chief complaint)dori d (chief complaint)hbp (chief complaint)ost eoporosis (chief complaint) Essential hypertensionCo ronary artery disease involving [place] coronary artery of [place] heart without angina pectorisOther and unspecified hyperlipidemia GERD with esophagitisOAB (overactive bladder)Age-re lated osteoporosis without current pathological fractureOverwe ightAnemia, unspecified typeBody mass index (BMI) 32.0-32.9, adult 9 Josef De Jesus. [address], [address], [place], [place], [address], . tel:[phone] Referring Provider: [address], [address], [place], [address] . tel:[phone] [facility], [address], [place], [place], [address] , [place] tel:[phone] [facility] Anemia, unspecified typeOther and unspecified hyperlipidemia 9 Josef De Jesus. [address], [address], [place], [place], [address], . [phone] Referring Provider: [address], [address], [place], [address] . tel:[phone] [facility], [address], [place], [place], [address] , [place] tel: [phone] [facility] Other and unspecified hyperlipidemia Anemia, unspecified type 9 Josef De Jesus. [address], [address], [place], [place], [address], [place]. tel:[phone] [facility], [address], [place], [place], [address] , [place] tel: [phone] [facility] Fall, initial encounterScree trina for cancer of the rectum 9 Josef De Jesus. [address], [address], [place], [place], [address], [place]. tel: [phone] Referring Provider: [address], [address], [place], [address] . tel:[phone] [facility], [address], [place], [place], [address] , [place] tel: [phone] [facility] Body mass index (BMI) 32.0-32.9, adultCoronary artery disease involving [place] coronary artery of [place] heart without angina pectorisHyperl ipidemia, unspecifiedChr onic anemiaGERD with esophagitisOAB (overactive bladder)Essent ial hypertensionAg e-related osteoporosis without current pathological fracture 8 Josef De Jesus. [address], [address], [place], [place], [address], [place]. tel:[phone] Referring Provider: [address], [address], [place], [address] . tel:[phone] [facility], [address], [place], [place], [address] , [place] tel: [phone] [facility] RUQ abdominal painDiverticul osis of large intestine without hemorrhageGERD with esophagitis 8 Jr Valdivia. [address], [place] [address], [place], [place], [address], [place]. tel:[phone] Referring Provider: [address], [address], [place], [address] . tel:[phone] [facility], [address], [place], [place], [address] , [place] tel: [phone] [facility] No Information 8 Josef De Jesus. [address], [address], [place], [place], [address], . tel:[phone] [facility], [address], [place], [place], [address] , tel: [phone] [facility] RUQ abdominal painGERD with esophagitisDiv erticulosis of large intestine without hemorrhageBloa ting 0 8 Jr Valdivia. [address], [facility] [address], [place], [place], [address], [place]. tel:[phone] Referring Provider: Neal Bahena, [address], [address], [place], [address] . tel:[phone] [facility] [employer] [facility], [address], [place], [place], [address] , [place] tel: [phone] [facility] Bilateral low back pain without sciatica, unspecified chronicity 8 Josef De Jesus. [address], [address], [place], [place], [address], [place]. tel:[phone] Referring Provider: Neal Bahena, [address], [address], [place], [address] . tel:[phone] [facility] [employer] [facility], [address], [place], [place], [address] , [place] tel: [phone] [facility] BloatingGERD with esophagitisRUQ abdominal painDiverticul osis of large intestine without hemorrhage 8 Iraida Everett. [address] [facility] [address], [place], [place], [address], [place]. tel:[phone] Referring Provider: Neal Bahena, [address], [address], [place], [address] . tel:[phone] [facility] [employer], [address], [place], [place], [address] , tel: [phone] [facility] Acute pyelonephritis HypokalemiaChr onic anemiaHyperlip idemia, unspecifiedCor onary artery disease involving [place] coronary artery of [place] heart without angina pectorisOverwe ightBody mass index (BMI) 33.0-33.9, adultRight upper quadrant abdominal pain 8 Josef De Jesus. [address], [address], [place], [place], [address], . tel:[phone] Referring Provider: [address], [address], [place], [address] . tel:[phone] [facility], [address], [place], [place], [address] , tel: [phone] [facility] Right upper quadrant painGastro-eso phageal reflux disease without esophagitisDiv erticulosis of large intestine without hemorrhage 8 Iraida Everett. [address], [place], [place], [address], [place]. tel:[phone] Referring Provider: [address], [address], [place], [address] . tel:[phone] [facility], [address], [place], [place], [address] , tel: [phone] [facility] Body mass index (BMI) 32.0-32.9, adultCoronary artery disease involving [place] coronary artery of [place] heart without angina pectorisHyperl ipidemia, unspecifiedOst eoporosis, unspecifiedVit regalado D deficiencyGast ro-esophageal reflux disease without esophagitisOve rweightOAB (overactive bladder) 8 Josef De Jesus. [address], [address], [place], [place], [address], . [phone] Referring Provider: [address], [address], [place], [address] . tel:[phone] [facility], [address], [place], [place], [address] , tel: [phone] [facility] Edema of legCoronary artery disease involving [place] coronary artery of [place] heart without angina pectoris 8 Josef De Jesus. [address], [address], [place], [place], [address], . tel:[phone] Referring Provider: [address], [address], [place], [address] . tel:[phone] [facility], [address], [place], [place], [address] , tel: [phone] [facility] Hayden of foot May-2 8 Josef De Jesus. [address], [address], [place], [place], [address], . tel:[phone] Referring Provider: [address], [address], [place], [address] . tel:[phone] [facility], [address], [place], [place], [address] , tel: [phone] [facility] Cellulitis of foot May-0 8 Josef De Jesus. [address], [address], [place], [place], [address], . tel:[phone] Referring Provider: [address], [address], [place], [address] . tel:[phone] [facility], [address], [place], [place], [address] , tel: [phone] [facility] Acute UTI 8 Josef De Jesus. [address], [address], [place], [place], [address], . tel:[phone] Referring Provider: [address], [address], [place], [address] . tel:[phone] [facility], [address], [place], [place], [address] , tel: [phone] [facility] Coronary artery disease involving [place] coronary artery of [place] heart without angina pectorisHyperl ipidemia, unspecifiedVit regalado D deficiencyGast ro-esophageal reflux disease without esophagitisOst eoporosis, unspecifiedOve rweightOAB (overactive bladder) 7 Josef De Jesus. [address], [address], [place], [place], [address], . tel:[phone] Referring Provider: [address], [address], [place], [address] . tel:[phone] [facility], [address], [place], [place], [address] , [place] tel:[phone] [facility] Diarrhea, unspecifiedGas tro-esophageal reflux disease without esophagitisNau sea Jr Valdivia. [facility], [address], . [phone] Referring Provider: [address], [address], [place], [address] . tel:[phone] [facility], [address], [place], [place], [address] , [place] tel:[phone] [facility] Osteoporosis, unspecified Josef De Jesus. [address], [address], [place], [place], [address], . tel:[phone] [facility], [address], [place], [place], [address] , [place] tel: [phone] [facility] Essential (primary) hypertensionHy perlipidemia, unspecifiedOve rweightVitamin D deficiencyChro allyson GERDOsteoporos is Josef De Jesus. [address], [address], [place], [place], [address], . tel:[phone] Referring Provider: [address], [address], [place], [address] . tel:[phone] [facility], [address], [place], [place], [address] , tel: [phone] [facility] Fractured shoulder, right, with delayed healing, subsequent encounterEssen tial (primary) hypertensionHy perlipidemia, unspecifiedOst eopenia of multiple sites 0 7 Josef De Jesus. [address], [address], [place], [place], [address], . tel:[phone] Referring Provider: [address], [address], [place], [address] . tel:[phone] [facility], [address], [place], [place], [address] , tel: [phone] [facility] C[facility] Fe 7 Josef De Jesus. [address], [address], [place], [place], [address], . tel:[phone] [facility], [address], [place], [place], [address] , tel: [phone] [facility] Essential (primary) hypertensionHy perlipidemia, unspecifiedOst eoporosisGastr o-esophageal reflux disease without esophagitisOve rweightOAB (overactive bladder)Other screening mammogram 6 Josef De Jesus. [address], [address], [place], [place], [address], . tel:[phone] Referring Provider: [address], [address], [place], [address] . tel:[phone] [facility], [address], [place], [place], [address] , tel: [phone] [facility] Essential (primary) hypertension Nov- 6 Josef De Jesus. [address], [address], [place], [place], [address], . tel:[phone] Referring Provider: [address], [address], [place], [address] . tel:[phone] [facility], [address], [place], [place], [address] , tel: [phone] [facility] Gastro-esophag eal reflux disease without esophagitisDia rrhea, unspecified 6 Jr Valdivia. [address] [facility], [address], [address], . tel:[phone] Referring Provider: [address], [address], [place], [address] . tel:[phone] [facility], [address], [place], [place], [address] , tel: [phone] [facility] Pre-op evaluationEsse ntial (primary) hypertensionHy perlipidemia, unspecifiedAcu te UTI 6 Josef De Jesus. [address], [address], [place], [place], [address], . tel:[phone] Referring Provider: [address], [address], [place], [address] . tel:[phone] [facility], [address], [place], [place], [address] , tel: [phone] [facility] Acute UTI 6 Josef De Jesus. [address], [address], [place], [place], [address], . tel:[phone] Referring Provider: [address], [address], [place], [address] . tel:[phone] [facility], [address], [place], [place], [address] , tel: [phone] [facility] Acute UTI 6 Josef De Jesus. [address], [address], [place], [place], [address], . tel:[phone] Referring Provider: [address], [address], [place], [address] . tel:[phone] [facility], [address], [place], [place], [address] , [place] tel: [phone] [facility] Fatigue, unspecified type Josef De Jesus. [address], [address], [place], [place], [address], . tel:[phone] Referring Provider: [address], [address], [place], [address] . tel:[phone] [facility], [address], [place], [place], [address] , tel: [phone] [facility] Essential (primary) hypertensionHy perlipidemia, unspecifiedArt hritis involving multiple sitesOsteoporo sisOverweightI rritable bowel syndrome with diarrheaGastro -esophageal reflux disease without esophagitis 6 Josef De Jesus. [address], [address], [place], [place], [address], . tel:[phone] Referring Provider: [address], [address], [place], [address] . tel:[phone] [facility], [address], [place], [place], [address] , tel: [phone] [facility] Irritable bowel syndrome with diarrheaDivert iculosis of large intestine without perforation or abscess without bleedingGastro -esophageal reflux disease without esophagitis Jr Valdivia. [address] [facility], [address], [address], . tel:[phone] Referring Provider: [address], [address], [place], [address] . tel:[phone] [facility], [address], [place], [place], [address] , tel: [phone] [facility] 6 Josef De Jesus. [address], [address], [place], [place], [address], . tel:[phone] [facility], [address], [place], [place], [address] , tel: [phone] [facility] sEssential (primary) hypertension 6 Josef De Jesus. [address], [address], [place], [place], [address], . [phone] Referring Provider: [address], [address], [place], [address] . tel:[phone] [facility], [address], [place], [place], [address] , tel: [phone] [facility] Essential (primary) hypertensionAr thropathy, unspecifiedHyp erlipidemia, unspecifiedDis order of arteries and arterioles, unspecifiedIrr itable bowel syndrome with diarrheaOverwe ightOsteoporos is, unspecifiedEnc ounter for immunization 5 Josef De Jesus. [address], [address], [place], [place], [address], . [phone] Referring Provider: [address], [address], [place], [address] . tel:[phone] [facility], [address], [place], [place], [address] , [place] tel: [phone] [facility] Irritable bowel syndrome with diarrheaGastri tis, unspecified, without bleedingDivert iculosis of large intestine without perforation or abscess without bleeding 5 Kamla Mcmullen. [facility]5 [facility], [address], [address], . tel:[phone] Referring Provider: [address], [address], [place], [address] . tel:[phone] [facility], [address], [place], [place], [address] , tel:[phone] [facility] Change in bowel functionAbdomi nal pain 5 Kamla Mcmullen. [address] [facility], [address], [address], . tel:[phone] Referring Provider: [address], [address], [place], [address] . tel:[phone] [facility], [address], [place], [place], [address] , tel: [phone] [facility] Constipation, unspecifiedDiv erticulosis of colon (without mention of hemorrhage)Scr eening for colon cancer 5 Kamla Mcmullen. [facility]5 [facility], [address], [address], . tel:[phone] Referring Provider: [address], [address], [place], [address] . tel:[phone] [facility], [address], [place], [place], [address] , tel: [phone] [facility] Bronchitis Josef De Jesus. [facility] [address], [address], [place], [place], [address], . tel:[phone] Referring Provider: [address], [address], [place], [address] . tel:[phone] [facility], [address] [address], [place], [place], [address] , tel: [phone] [facility] Diverticulosis of colon (without mention of hemorrhage)Yennifer rrhea Jr Valdivia. [address] [facility], [address], [address], . tel:[phone] Referring Provider: Neal Bahena [address], [address], [place], [address] . tel:[phone] [facility], [address], [place], [place], [address] , tel: [phone] [facility] Essential hypertensionOt her and unspecified hyperlipidemia GERD (gastroesophag eal reflux disease)Caroti d artery diseaseOsteoar throsis, generalized, involving unspecified siteOsteopenia Josef De Jesus. [address], [address], [place], [place], [address], [place]. tel:[phone] Referring Provider: [address], [address], [place], [address] . tel:[phone] [facility], [address], [place], [place], [address] , [place] tel: [phone] [facility] Abdominal pain, right upper quadrantHistor y of colonic polypsGERD (gastroesophag eal reflux disease)Consti pation, unspecified 4 Jr Skip. [address] [facility], [address] [address], [place], [place], [address], [place]. tel:[phone] Referring Provider: [address], [address], [place], [address] . tel:[phone] [facility], [address], [place], [place], [address] , [place] tel: [phone] [facility] Essential hypertensionOt her and unspecified hyperlipidemia GERDOsteoarthr osis, generalized, involving unspecified siteOsteoporos is, unspecifiedCar otid artery diseaseROUTINE MEDICAL EXAM 4 Josef De Jesus. [address], [address], [place], [place], [address], [place]. tel:[phone] Referring Provider: [address], [address], [place], [address] . tel:[phone] [facility], [address], [place], [place], [address] , [place] tel:[phone] [facility] Left rib fractureContus ion of right chest wallEncounter for long-term (current) use of other medicationsOst eoporosis screening 4 Josef De Jesus. [address], [address], [place], [place], [address], [place]. tel:[phone] Referring Provider: [address], [address], [place], [address] . tel:[phone] [facility], [address], [place], [place], [address] , [place] tel: [phone] [facility] Chest pain 4 Josef De Jesus. [address] [place] [address] , [address], [place], [place], [address], . tel:[phone] Referring Provider: Neal Bahena, [address], [address], [place], [address] . tel:[phone] [facility], [address], [place], [place], [address] , tel: [phone] [facility] Screening for depressionOver active bladderOther and unspecified hyperlipidemia 4 Josef De Jesus. [address] [place] [address] , [address], [place], [place], [address], . tel:[phone] Referring Provider: Neal Bahena, [address] , [address], [place], [address] . tel:[phone] [facility], [address], [place], [place], [address] , tel: [phone] [facility] GERDDiverticul osis of colon (without mention of hemorrhage)Con stipation, unspecifiedFAM MEIR HX COLONIC POLYPS 4 Jr Valdivia. [facility], [address], [place]. tel:[phone] Referring Provider: Neal Bahena [address], [address], [place], [address] . tel:[phone] [facility], [address], [place], [place], [address] , tel: [phone] [facility] GastritisDiver ticulosis of colon (without mention of hemorrhage)Abd ominal pain, right upper quadrantConsti pation, unspecifiedHem orrhage of rectum and anus 4 Jr Valdivia. [address] [facility], [address], [address], . tel:[phone] [facility], [address], [place], [place], [address] , tel: [phone] [facility] Essential hypertensionHy perlipidemiaGE RD (gastroesophag eal reflux disease)Osteoa rthrosis, generalized, involving unspecified siteOverweight 3 Josef De Jesus. [address], [address], [place], [place], [address], . [phone] Referring Provider: [address], [address], [place], [address] . tel:[phone] [facility], [address], [place], [place], [address] , [place] tel: [phone] [facility] HYPERTENSION NOSHYPERLIPIDE LEX NEC/NOSESOPHAG EAL REFLUXGENERAL OSTEOARTHROSIS Insomnia 3 Josef De Jesus. [address], [address], [place], [place], [address], [place]. tel:[phone] Referring Provider: [address], [address], [place], [address] . tel:[phone] [facility], [address], [place], [place], [address] , [place] tel: [phone] [facility] Bronchitis 3 Josef De Jesus. [address], [address], [place], [place], [address], [place]. tel:[phone] Referring Provider: [address], [address], [place], [address] . tel:[phone] [facility], [address], [place], [place], [address] , [place] tel: [phone] [facility] UTI (urinary tract infection) 3 Josef De Jesus. [address], [address], [place], [place], [address], [place]. tel:[phone] Referring Provider: [address], [address], [place], [address] . tel:[phone] [facility], [address], [place], [place], [address] , tel: [phone] [facility] Bronchitis, not specified as acute or chronic 2 Josef De Jesus. [address], [address], [place], [place], [address], . tel:[phone] Referring Provider: [address], [address], [place], [address] . tel:[phone] [facility], [address], [place], [place], [address] , tel: [phone] [facility] Unspecified essential hypertensionOt her and unspecified hyperlipidemia Esophageal refluxOsteoart hrosis, generalized, involving unspecified siteOverweight Osteoporosis, unspecified 2 Josef De Jesus. [address], [address], [place], [place], [address], . tel:[phone] Referring Provider: [address], [address], [place], [address] . tel:[phone] [facility], [address], [place], [place], [address] , tel: [phone] [facility] Unspecified essential hypertensionOt her and unspecified hyperlipidemia OSTEOPOROSIS NOSArthritis involving multiple sitesOverweigh tUrinary tract infection 2 Josef De Jesus. [address], [address], [place], [place], [address], . tel:[phone] Referring Provider: [address], [address], [place], [address] . tel:[phone] [facility], [address], [place], [place], [address] , tel: [phone] [facility] Abdominal pain, right upper quadrant 2 Josef De Jesus. [address], [address], [place], [place], [address], . tel:[phone] Referring Provider: [address], [address], [place], [address] . tel:[phone] [facility], [address], [place], [place], [address] , [place] tel: [phone] [facility] Urinary tract infection, site not specified 1 Josef De Jesus. [facility] [address], [address], [place], [place], [address], . tel:[phone] Referring Provider: Neal Bahena, [facility] [address], [address], [place], [address] . tel:[phone] [facility], [address], [place], [place], [address] , [place] tel: [phone] [facility] Unspecified arthropathy involving multiple sitesOsteoporo sis, unspecifiedOve rweight 1 Josef De Jesus. [address] [place] [address] [address], [address], [place], [place], [address], . tel:[phone] Referring Provider: Neal Bahena, [address], [address], [place], [address] . tel:[phone] [facility], [address], [place], [place], [address] , [place] tel: [phone] [facility] No Information 1 Conversion Doctor. [address] [place] [address], [address], . [facility], [address], [place], [place], [address] , tel: [phone] [facility] HYPERLIPIDEMIA NEC/NOSHYPERTE NSION NOSARTHROPATHY NOS-MULTOSTEOP OROSIS NOSOVERWEIGHT 1 Josef De Jesus. [facility] [address], [address], [place], [place], [address], . tel:[phone] [facility], [address], [place], [place], [address] , [place] tel: [phone] [facility] URIN TRACT INFECTION NOS 0 Josef De Jesus. [facility] [address], [address], [place], [place], [address], . tel:[phone] [facility], [address], [place], [place], [address] , [place] tel: [phone] [facility] GENERAL OSTEOARTHROSIS 3 0-201 0 Josef De Jesus. [address], [address], [place], [place], [address], . tel: [phone] [facility], [address], [place], [place], [address] , [place] tel: [phone] [facility] LONG-TERM USE MEDS NEC 0-201 0 Josef De Jesus. [address], [address], [place], [place], [address], [place]. tel: [phone] [facility], [address], [place], [place], [address] , tel: [phone] [facility] POLYURIASCIATI CA 8-200 9 Josef De Jesus. [address] [place] [address] , [address], [place], [place], [address], [place]. tel: [phone] [facility], [address], [place], [place], [address] , [place] tel:[phone] [facility] No Information 8-200 9 Josef De Jesus. [address] [place] [address] [address], [address], [place], [place], [address], [place]. tel: [phone] [facility], [address], [place], [place], [address] , [place] tel: [phone] [facility] ESOPHAGEAL REFLUXBENIGN HYPERTENSION Oct-0 2-200 8 Josef De Jesus. [address], [address], [place], [place], [address], [place]. tel: [phone] [facility], [address], [place], [place], [address] , [place] tel: [phone] [facility] ROUTINE MEDICAL EXAM Sep-2 9-200 8 Conversion Doctor. [address], [place], [address], [place]. [facility], [address], [place], [place], [address] , [place] tel: [phone] [facility] ABDMNAL PAIN GENERALIZED Oct-3 1200 7 Josef De Jesus. [address], [address], [place], [place], [address], [place]. tel: [phone] [facility], [address], [place], [place], [address] , [place] tel: [phone] [facility] VIRAL INFECTION NOS 8200 7 Josef De Jesus. [address], [address], [place], [place], [address], [place]. tel: [phone] [facility], [address], [place], [place], [address] , [place] tel: [phone] [facility] IRRITABLE BOWEL SYNDROME 0200 7 Josef De Jesus. [address], [address], [place], [place], [address], [place]. tel: [phone] [facility], [address], [place], [place], [address] , [place] tel: [phone] [facility] URGENCY OF URINATION 9200 7 Josef De Jesus. [address], [address], [place], [place], [address], [place]. tel: [phone] [facility], [address], [place], [place], [address] , [place] tel: [phone] [facility] FEVERLOC PRIM OSTEOART-L/LEG 1200 6 Josef De Jesus. [address], [address], [place], [place], [address], [place]. tel: [phone] [facility], [address], [place], [place], [address] , [place] tel: [phone] [facility] PREOP EXAM UNSPCF 0-200 6 Josef De Jesus. [address], [address], [place], [place], [address], [place]. tel:[phone] [facility], [address], [place], [place], [address] , [place] tel: [phone] [facility] LUMP OR MASS IN BREAST Apr-2 6-200 6 Josef De Jesus. [facility] [address], [address], [place], [place], [address], . tel: [phone] [facility], [address], [place], [place], [address] , tel: [phone] [facility] DIFFUS CYSTIC MASTOPATHY 7-200 6 Josef De Jesus. [address], [address], [place], [place], [address], [place]. tel: [phone] [facility], [address], [place], [place], [address] , [place] tel: [phone] [facility] ALLERGIC RHINITIS NEC 0 8-200 5 Josef De Jesus. [facility] [address], [address], [place], [place], [address], [place]. tel: [phone] [facility], [address], [place], [place], [address] , tel:[phone] [facility] MIXED HYPERLIPIDEMIA OSTEOPETROSIS 9-200 5 Josef De Jesus. [facility] [address], [address], [place], [place], [address], [place]. tel: [phone] [facility], [address], [place], [place], [address] , [place] tel: [phone] [facility] TIETZE'S DISEASE 8-200 5 Josef De Jesus. [address], [address], [place], [place], [address], [place]. tel: [phone] [facility], [address], [place], [place], [address] , [place] tel: [phone] [facility] PYELONEPHRITIS NOS 2-200 4 Josef De Jesus. [facility] [address], [address], [place], [place], [address], [place]. tel: [phone] [facility], [address], [place], [place], [address] , tel: [phone] [facility] ALLERGIC RHINITIS NOS 4-200 4 Josef De Jesus. [facility] [address], [address], [place], [place], [address], . tel: [phone] [facility], [address], [place], [place], [address] , tel:[phone] [facility] IRON DEFIC ANEMIA NOSDVRTCLI COLON W/O HMRHGSCREEN MAL NEOP-RECTUM 8-200 3 Josef De Jesus. [address] [place] [address] , [address], [place], [place], [address], . tel: [phone] [facility], [address], [place], [place], [address] , tel:[phone] [facility] TETANUS TOXOID INOCULAT 0 4-200 3 Josef De Jesus. [address] [place] [address] , [address], [place], [place], [address], . tel: [phone] [facility], [address], [place], [place], [address] , tel: [facility] SCREEN-DIABETE S MELLITUS Aug-0 4-200 2 Josef De Jesus. [address] [place] [address] , [address], [place], [place], [address], . tel: [phone] [facility], [address], [place], [place], [address] , tel:[phone] [facility] HEMORRHOIDS NOS May-1 1-200 2 Josef De Jesus. [address] [place] [address] , [address], [place], [place], [address], . tel: [phone] [facility], [address], [place], [place], [address] , tel: [phone] [facility] HYPOPOTASSEMIA July-0 2-200 1 Josef De Jesus. [address] [place] [address] , [address], [place], [place], [address], . tel: [phone] [facility], [address], [place], [place], [address] , tel:[phone] [facility] OTITIS MEDIA NOS Mitul-2 3-200 0 Josef De Jesus. [address] [place] [address] , [address], [place], [place], [address], . tel: [phone] [facility], [address], [place], [place], [address] , tel:[phone] [facility] ABN URINE FINDINGS NEC 4-200 0 Josef De Jesus. [address], [address], [place], [place], [address], . tel: [phone] [facility], [address], [place], [place], [address] , tel:[phone] [facility] HYPERPOTASSEMI A 7200 0 Josef De Jesus. [address], [address], [place], [place], [address], . tel: [phone] [facility], [address], [place], [place], [address] , tel:[phone] [facility] ND VAC STRPTCS PNEUMNI B 9 Josef De Jesus. [facility] [address], [address], [place], [place], [address], . tel: [phone] [facility], [address], [place], [place], [address] , tel: [phone] [facility] MASTOIDITIS NOS 199 9 Josef De Jesus. [address], [address], [place], [place], [address], . tel: [phone] [facility], [address], [place], [place], [address] , tel: [phone] [facility] CONTACT DERMATIT EYELID 199 9 Babatunde Carter. [address], [place], [address], . tel:[phone] Family History Family Member Type Diagnosis Age At Onset Brother Problem (finding) coronary arterioscleros is Sister Problem (finding) Obesity Sister Problem (finding) coronary arterioscleros is Father Problem (finding) coronary arterioscleros is Mother Problem (finding) hypertension Immunizations Vaccine Date Status Comments Influenza vaccine, quadrivalent, adjuvanted administered Source: Other P rovider influenza, high-dose, quadrivalent administered Source: Other Provid er Fluzone High-Dose, high dose , preservative free administered Source: New Immuniza tion Record Moderna COVID19 Vaccine, 0.5 mL per dose, 2 doses, administered 28 days apart administered Source: Other Registry Moderna COVID19 Vaccine, 0.5 mL per dose, 2 doses, administered 28 days apart administered Source: Other Provider Fluzone High-Dose, high dose , preservative free administered Source: Other Provid er Fluzone Quad, split virus, 0.5mL dosage administered Source: New Immuniza tion Record Fluzone Quad, split virus, 0.5mL dosage administered Note: family care armacy ; Source: Other Provider Pneumococcal conjugate PCV 13 administere d Source: New Immunization Record Influenza, seasonal, injectable (3 yrs or older) administered Source: Othe r Provider Influenza, seasonal, injectable (3 yrs or older) administered Source: New Immunization Record Tdap administered Source: New Imm unization Record flu (split) (3 yrs or older) administered Source: New Immunization Record Zoster administered Source: New Imm unization Record 69357 - Pneumococcal_PPV23 administered S ource: Source Unspecified 22979 - Pneumococcal_PPV23 administered S ource: Source Unspecified Payers Payer name Insurance type Covered democrat ID Authoriza tion(s) MEDICARE MB [id number] BCBS ACCESS BL [id number] MEDICARE MB [id number] BCBS ACCESS BL [id number] MEDICARE MB [id number] BCBS ACCESS BL [id number] MEDICARE MB [id number] BCBS INACTIVE OUT OF STATE BL [id number] MEDICARE MB [id number] BCBS INACTIVE OUT OF STATE BL [id number] Social History Type Description Quantity Date Captured Comments Alcohol Use Details Unknown Caffeine Use Details Unknown Tobacco Use Status No Information Smoking Status No Information Sex Female Sexual Orientation Straight or heterosexual Gender Identity Female Chief Complaint And Reason For Visit No Information Reason For Referral Reason For Referral No Information Plan Of Treatment Date Type Action Status Goal Dietary manageme nt education, guidance, and counseling completed Goal Dietary manageme nt education, guidance, and counseling completed Goal Dietary manageme nt education, guidance, and counseling completed Goal Dietary manageme nt education, guidance, and counseling completed Goal Dietary manageme nt education, guidance, and counseling completed Goal Dietary manageme nt education, guidance, and counseling completed Goal Dietary manageme nt education, guidance, and counseling completed Referral Ordered: Titi Saleh -Psychiatry (related to Dementia with anxiety, unspecified dementia severity, unspecified dementia type) ordered Referral Referred To: Titi Saleh [address] [place], [phone] Ordered: Referrals: Psychiatry. Titi Aguilar Evaluation/diagnostic/treatment - Level 3 ordered Referral Ordered: EKG (ELECTROCARDIOGRAM) ordered Referral Ordered: X-ray of lumbar spine and sacrum, four views ordered Referral Ordered: X-ray of cervical spine with four or more views ordered Referral Referred To: Physical Therapy Ordered: Referrals: Physical Therapy. Location: [facility]. Evaluation/diagnostic/treatment - Level 3 ordered Referral Ordered: DIAGNOSTIC MAMMOGRAM (CAD) BOTH BREASTS Bilateral breast ordered Referral Ordered: Breath test for intestinal bacterial overgrowth ordered Referral Ordered: Myocardial SPECT multiple studies ordered Referral Ordered: CT abdomen with contrast ordered Referral Referred To: [address] [place], [place], [id number] Ordered: DEXA of spine and hip Appointment date/timeframe: 1 Month ordered Referral Referred To: [address] [place], [place], [id number] Ordered: SCREENING MAMMOGRAM (CAD) Bilateral breast Appointment date/timeframe: 4 Weeks ordered Referral Ordered: Diagnostic colonoscopy ordered Future Order: Radiology Order X- ray of left foot, three views with x-ray of left ankle, two views left (19805), Sent on: Sent Future Order: Lab Order Comprehe nsive Metabolic (CMP) ([id number]), Sent on: Sent History Of Present Illness Encounter Date Complaint History Of Prese nt Illness leg swelling- Pt come in today for check up. She states her leg swelling seems getting worse with some worsening of breathing .Her past away recently. Acute on chronic CHF: Pt is currently on lasix 20mg daily. will increase lasix to 40mg daily. check blood work and RTC in one month for check upshe is feeling better since stay in nursing homeAF: will c/w current Eliquis and diltiazem. doing wellHLD: C/w current medication, doing wellHyperthyroidism: on Methimazole 10mg and will check on TSH level hospital discharge f/u for cc- P t with past medical hx of AF with RVR, Hypertension, Depression, HLD who is here for recent hospital discharge f/uPt is doing much better on today's visit. her medication has been adjusted and HR is better. She complaints of bilateral leg swelling as she was not given since her hospital discharge. will resume her water pill and repeat lab in one to two weeks for her renal function evaluation and potassium level.Her emotional stress is better as wellHyperthyroidism : It was noted while she was in hospital, will continue with methimazole 10mg and will check TSH level. Pt's son was on the telephone call who contribute her information at homePt was brought in by her neighbor fatigue- Pt has not been doing well for a while and it was worsened in last one week per pt. Her house cleaning lady was with her and states pt has been having low appetitive, feverish. She is here for evaluation. Pulmonology hypertension: will c/w electric frying pan repairer f/uAF with RVR: EKG today with HR at 125-145, will go to ER for hydrationBlood work was done, EKG showed AF with RVR with HR in 125. considering she has low energy and poor appetite. Will send her to ER for heart rate control fatigue- Pt is here for f eeling fatigue. Pt was recently seen by electric frying pan repairer and has had blood work which showed anemia.Pt also had cardiac Echo which showed worsening of pulmonary HTN but she did not experience any dizzinessPt was started on sertraline 50mg daily. but she may not been taking her medication as instructed. Her son called office to explain that pt has been stressed about moving to [facility] physician [facility] living. She complaints of working too hard to packing and moving. hospital discharge f/u- Pt come in today for recent hospital discharge f/uShe was admitted to hospital for Pneumonia and AF with RVR. On discharge, she was started on Eliquis. She started to feel better. Lab is margarita today as she does not remember the lab at hospital and I can not get access to record.Pt has no other complaints. not feeling well- Patient is 87 years female with hx of hyperlipidemia, coronary artery disease, osteoporosis, acid reflux with heart hernia, hypertension, vitamin D deficiency who presenting today since she does not feeling wellShe was diagnosed with URI and went to urgent care where she was found to have low potassium level . SHe was given fluid and pt reports that she still not feeling wellPt states that she does not feeling well but not clear with her other symptoms.Patient coming with her .Surgery including hysterectomy in the knee replacement and her right shoulder GERD The severity is moderate. The problem is improving. There is no radiation of pain. The patient reports heartburn. Context: treatment with PPIs. Pertinent negatives include dysphagia, nausea, reflux and vomiting. Additional information: Doing well on current regimen. 6 months f/u for cc- Patient is 86 years female who presenting today for six months checkupPatient have past medical history including hyperlipidemia, coronary artery disease, osteoporosis, acid reflux with heart hernia, hypertension, vitamin D deficiency.No new complaints on today's visit. Hypertension: patient is a currently taking, metoprolol 25 mg b.i.d., lisinopril 5 mg and the blood pressure is reasonable control,hyperlipidemia: currently taking Lipitor 40 mg, cholesterol is in good rangeCAD: currently patient is a taking Lipitor 40 mg. She has had a cardiac cath with multiple lesions but no stent. She is currently taking beta-xiang as well. She also has aortic atherosclerosisosteoporosis: currently patient is a taking alendronate 70 mg and vitamin DGERD: Currently seen by GI and taking DexilantBrain atrophy: noticed on imagine study, no sign of dementiaPatient coming with her .Surgery including hysterectomy in the knee replacement and her right shoulder preventive- Patient is 86 ye ars female who presenting today for six months checkupPatient have past medical history including hyperlipidemia, coronary artery disease, osteoporosis, acid reflux with heart hernia, hypertension, vitamin D deficiency.No new complaints on today's visit. Her was diagnosed with seizure recently. They are in process to move to a new house.Hypertension: patient is a currently taking, metoprolol 25 mg b.i.d., lisinopril 5 mg and the blood pressure is reasonable control,hyperlipidemia: currently taking Lipitor 40 mg, cholesterol is in good rangeCAD: currently patient is a taking Lipitor 40 mg. She has had a cardiac cath with multiple lesions but no stent. She is currently taking beta-xiang as well. She also has aortic atherosclerosisosteoporosis: currently patient is a taking alendronate 70 mg and vitamin DGERD: Currently seen by GI and taking DexilantBrain atrophy: noticed on imagine study, no sign of dementiaPatient coming with her .Surgery including hysterectomy in the knee replacement and her right shoulder Medicare preventive The patient has not felt depressed and has had interest and pleasure doing things recently. Functional Status: No impairment (Functional status has changed) and Assessment method used is cit6 on 04/01/2022. Cognitive Status: Normal cognition (Cognitive status has changed) and method used is cit 6 on 04/01/2022. The ''Up and Go'' test took less than 30 seconds andthe patient does not need help with activities of daily living. The patient is at risk for falls. The patient has not fallen in the last year. The fall(s) did not result in injury. The patient has smoke detectors in the home. The patient does not have firearms in the home. Relevant history is positive for alcohol use. 6 months f/u- Patient is 85 ye ars female who presenting today for six months checkupPatient have past medical history including hyperlipidemia, coronary artery disease, osteoporosis, acid reflux with heart hernia, hypertension, vitamin D deficiency.No new complaints on today's visit. Her was diagnosed with seizure recently. They are in process to move to a new house.Hypertension: patient is a currently taking, metoprolol 25 mg b.i.d., lisinopril 5 mg and the blood pressure is reasonable control,hyperlipidemia: currently taking Lipitor 40 mg, cholesterol is in good rangeCAD: currently patient is a taking Lipitor 40 mg. She has had a cardiac cath with multiple lesions but no stent. She is currently taking beta-xiang as wellosteoporosis: currently patient is a taking alendronate 70 mg and vitamin DGERD: Currently seen by GI and taking DexilantPatient coming with her .Surgery including hysterectomy in the knee replacement and her right shoulder gerd. Here for 6 month f/u. Taking Dexilant 60 mg/day and cimetidine 300 mg BID as well as Carafate 1 g at HS. She has cut down on soda as well and that has really helped. No reflux or heartburn, doing well. SIBO. BT done 10/2020 a nd positive. Treated with Xifaxan X14 days then Bactrim X10 days. Symptoms much improved. Occasional bloating at night. Taking Align about 3 times per week. 6 months f/u for cc- Patient is 85 years female who presenting today for six months checkupPatient have past medical history including hyperlipidemia, coronary artery disease, osteoporosis, acid reflux with heart hernia, hypertension, vitamin D deficiency.No new complaints on today's visit. Hypertension: patient is a currently taking, metoprolol 25 mg b.i.d., lisinopril 5 mg and the blood pressure is reasonable control,hyperlipidemia: currently taking Lipitor 40 mg, cholesterol is in good rangeCAD: currently patient is a taking Lipitor 40 mg. She has had a cardiac cath with multiple lesions but no stent. She is currently taking beta-xiang as wellosteoporosis: currently patient is a taking alendronate 70 mg and vitamin DGERD: Currently seen by GI and taking DexilantPatient coming with her .Surgery including hysterectomy in the knee replacement and her right shoulder Follow Up of SIBO Follow Up of GERD (comments) 85 y/o F here for f/u. Last seen 3 months ago. Taking Dexilant 60 mg/day and cimetidine 300 mg BID as well as Carafate 1 g at HS. No reflux but wakes up at times with belching, but this is much improved. Follow Up of SIBO (comments) BT done and was positive 10/2020. Treated with Xifaxan TID X14 days. Insurance would not cover 2nd round so we did Bactrim X10 days. Her bloating is much improved, not completely gone. Taking Align 1 per day. Follow Up of GERD Edema and Rash on legs Patient c oming today for worsening of bilateral lower leg swelling with some skin rash.She has been taking Maxcide for many years only once every other day.She noticed small petechia to both ankle L> R, does not itchy, no erythema or warmth.No SOB or increase salt intake skin laceration- Pt reports a sk in laceration when she was trying to get peach pits out. She has had two stiches at urgent care. no sign of infection urinary frequency- Pt complains one week hx of urinary frequency, urgency with burning sensation. Pt has been on chronic bactrim for her SIBO currentlyWill check UA with culture today GERD (comments) 84 y/o F here fo r 6 month f/u. Taking Dexilant 60 mg/day, cimetidine 300 mg BID and Carafate 1g at HS. Still with some heartburn at times. Abdominal pain (comments) Altern ates between diarrhea and constipation. Still with some pain on the right side that is intermittent. Typically occurs every 2 months or so. Less frequent then it was before. When she has the pain, abd is distended on that side. Also c/o bloating and gas, more often then the pain but not daily.CT 03/30/20 normal. GERD Abdominal pain 6 mo fu re cc Patient is 84 ye ars female who presenting today for six months checkup( she is new to me, changing physician)Patient have past medical history including hyperlipidemia, coronary artery disease, osteoporosis, acid reflux with heart hernia, hypertension, vitamin D deficiency.On today's visit, pt complains of hair irritation for few weeks. She had recent perm but her irritation was noticed before that. Pt does noticed new shampoo. Willt aurelia benadrylHypertension: patient is a currently taking, metoprolol 25 mg b.i.d., lisinopril 5 mg and the blood pressure is reasonable control,hyperlipidemia: currently taking Lipitor 40 mg, cholesterol is in good rangeCAD: currently patient is a taking Lipitor 40 mg. She has had a cardiac cath with multiple lesions but no stent. She is currently taking beta-xiang as wellosteoporosis: currently patient is a taking alendronate 70 mg and vitamin DPatient coming with her .Surgery including hysterectomy in the knee replacement and her right shoulder fatigue. the patient retu rns after last being seen here March 20. She called up saying that she has been more fatigued and tired than usual over the past two or three weeks. She says she is also not been sleeping well at night but sometimes falls asleep easily during the day. 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 Follow Up of Abdomin al pain (comments) 84 y/o F here for f/u. Last seen 1 month ago. She had a CT scan 03/30/20 with no acute findings. Her pain is improved, reports 75%. She is trying to watch her diet and drink less soda. Labs done 1 month ago with normal amylase, lipase, CBC and CMP except Na 132. Follow Up of GERD (comments) She is taking Dexilant 60 mg/day and cimetidine 300 mg BID as well as Carafate 1 g at HS. She does have occasional reflux and heartburn but it is improved. Not daily. Follow Up of Abdominal pain Follow Up of GERD hbp hyperlipid cad osteoporosis recurrent uti gerd /abd pain hbp (comments) on med and bp go od but hr little low but no sxs hyperlipid (comments) on med and diet but gained 2 lb cad (comments) no cp or sob and fairly active osteoporosis (comments) on med a nd ca+ and tolerating recurrent uti (comments) seeing urologist for recurrent uti ( 5 in last few months ) and presently on macrobid for uti gerd /abd pain (comments) on med per gi doc and having some vague abd discomfort in left upper abd --- soreness mostly and sometimes sharp started over one month and no aggravating factors or relieving factors ---- she feels it is not as severe last week or so GERD (comments) She is taking De xilant 60 mg/day and cimetidine 300 mg BID. Now off the Carafate. Having no reflux or heartburn. Abdominal pain (comments) 84 y/o F here for f/u. Just seen via telephone visit 02/29/20. Did not mention this pain to me at that visit. Started 3 weeks ago. Constant. Described as achy and at times is sharp. Worse with bending over and eating. Some intermittent nausea, no vomiting. Also with constant belching. She is having loose BMs twice per day. Normal color, no blood or pale stools. No weight loss.Last EGD 10/2017, which showed grade B reflux esophagitis, medium sized hiatal hernia, gastritis, erythematous duodenopathy. Abdominal pain GERD Follow Up of GERD (comments) TELEPHONE VISIT84 y/o F presents for f/u. Last seen 3 months ago. She is taking Dexilant 60 mg/day, cimetidine 300 mg BID and Carafate once at HS. Rarely has any GERD symptoms. Feels like the Carafate is helping. Trying to avoid trigger foods. She has been having more gas and belching lately. Follow Up of GERD GERD GERD (comments) 83 y/o F here fo r annual f/u. She is taking Dexilant 60 mg in the AM and cimetidine 300 mg BID. Still waking up 1-2 times per week, feeling of discomfort. Takes tums and walks around and it calms down. No reflux or heartburn. No abd pain, N/V, F/C, wt loss, loss of appetite, blood in stool.These nighttime episodes do seem to be related to trigger foods like red sauces and soda. hbp (comments) on med and bp ok and no sxs cad (comments) she is fairly ac tive adn no cp or sob hbp cad hyperlipoid osteoporosis gerd vit d def hyperlipoid (comments) on med an d diet and lost 2 lb osteoporosis (comments) on med a nd ca+ and last dexa 03/2019 gerd (comments) on med and diet and no co's vit d def (comments) on vit d an d toleratng rt earache rt earache (comments) she called today with several days of rt ear pain going down neck ---no fever hbp cad hyperlipid osteoporosis uri hbp (comments) on med and bp ok and no sxs cad (comments) no cp or sob hyperlipid (comments) on med and diet and tolerating osteoporosis (comments) on med a nd toleratin gand diet uri (comments) has had uri with fever , and cough x 5 days and was put on z lopez and medrol dose paks on 05/08 and little better but still signifigant cough Diverticular disease Location of pain: left lower quadrant. The pain is not radiating. The pain is cramping. Risk factors include age and known diverticulosis. Associated symptoms include bloating, change in bowel habits and constipation. Pertinent negatives include blood in stool, hematochezia and mucus in stool. Diverticular disease (comments) Having more sx of constipation and bloating. Had a diverticular stricture noted in 2014. She feels he sx are worsening. sinusitis UTI allergic rhinitis cad hyperlipid anemia gerd hbp osteoporosis cad (comments) overall doing we ll adn no cp hyperlipid (comments) on med and diet but gained 2 lb but no co's anemia (comments) no sign of ble eding and no co's gerd (comments) on med and edwin ating hbp (comments) on med and bp ok and no co's osteoporosis (comments) on med a nd diet Functional Status Date Functional Assessmen t No Information Instructions Date Instruction Additional Infor dilip will check TSH level c/w current Methimazole 10mg daily Related to Hyperthyroidism increase lasix to 40 mgcheck Pro-BNPRTC in one month for symptoms check up Related to Acute on chronic combined systolic and diastolic congestive heart failure will continue with nano ardiologist f/udoing wellAdd lasix for nowRTC in one month for f/u Related to Pulmonary hypertension will continue with renay ipitor daily dosecut back on 20mg dailycheck lipid level Related to Mild hyperlipidemia Will start pt on las ix 40mg dailyc/w potassium supplement Related to Leg swelling will continue with nano larry EliquisC/w rate control with diltiazem Related to Longstanding persistent atrial fibrillation Disease process Will start pt on las ix 40mg dailyc/w potassium supplementwill repeat lab in 1-2 weeks. Related to Leg swelling will continue with l ipitor daily dosecut back on 20mg dailycheck lipid level Related to Hyperlipidemia LDL goal <100 c/w current methimaz ameya check TSH levelAdjust dose based on result Related to Hyperthyroidism will continue with nano larry EliquisC/w rate control with diltiazem Related to Longstanding persistent atrial fibrillation will continue with c ardiologist f/udoing wellAdd lasix for nowRTC in one month for f/u Related to Pulmonary hypertension Disease process will check PTH for this Related to Hypercalcemia will continue with nano ardiologist f/udoing wellRTC as scheduled Related to Pulmonary hypertension UA with reflux cultu retreat if indicated Related to Leukocytes in urine Check for CXR and UA for evaluationwill send to ER for evaluation Related to Fever, unspecified fever cause EKG showed AF with R Mateus send pt to ER for next step to control HR Related to Tachycardia Will check reticuloc yte and B12 , folic acidMonitor CBC Related to Mild anemia Disease process will continue with nano larry zoloft 50mg dailyneed to work on stress level Related to Mild depression Pt has been followin g with cardiologistfurther evaluation will defer Related to Pulmonary hypertension will order blood wor k for further evaluationadvice pt to eat regularlyRTC in 4 months for f/u Related to Mild anemia Disease process May need to repeat C XR symptoms improved, may need to repeat CXR Related to Personal history of pneumonia She is feeling bruna r on today's visit. Will repeat lab todayRTC as needed Related to Hospital discharge follow-up will check blood wor kwill need to improve hydration Related to Other fatigue Disease process EKG today showed sin us tachycardiawill improve hydrationmonitor symptomsRTC as scheduled Related to Tachycardia will check blood wor k todayWill improve hydration with Gatorade Related to Hypokalemia will check blood wor kwill need to improve hydration Related to Other fatigue Disease process Doing well on Dexila nt and cimetidine. Will continue. Related to Gastro-esophageal reflux dis with esophagitis, without bleed Medication management Will continue with nano burnsy lipitor 40mg will check lipid level Related to Hyperlipidemia LDL goal <100 No stent but taking lipitorHad Echo, stress testStatus: Able to self-manage condition. Goals: Your goal is to be active. Barriers: No barriers to goal achievement have been identified. Related to Coronary artery disease involving [place] coronary artery of [place] heart without angina pectoris ill c/w current rusty dronatec/w vit D supplement Related to Age-related osteoporosis without current pathological fracture Currently taking vit D supplementwill check Vit D level Related to Vitamin D deficiency Keep on current medi cations.doing well, no vascular symptoms Related to Atherosclerosis of aorta She is taking Dexila nt 60 mg/day and cimetidine 300 mg BID as well as Carafate 1 g at HS. She does have occasional reflux and heartburn but it is improved. Related to Gastro-esophageal reflux dis with esophagitis, without bleed noted on prior imagi ng.will advice active life style Related to Cerebral atrophy Keep on current medi cations, no dose changeBP is in good rangeRTC in 6 months for f/u Related to Essential hypertension Disease process Keep on current medi cations.keep scheduled appointment September [address] Knox. Related to Atherosclerosis of aorta CBC, CMP, Lipid pane Will RTC in 6 months or as needed Related to Encntr for general adult medical exam w/o abnormal findings Currently taking vit D supplementwill check Vit D level Related to Vitamin D deficiency No stent but taking lipitorHad Echo, stress testStatus: Able to self-manage condition. Goals: Your goal is to be active. Barriers: No barriers to goal achievement have been identified. Related to Coronary artery disease involving [place] coronary artery of [place] heart without angina pectoris Will continue with nano eduardorentlck lipitor 40mg will check lipid level Related to Hyperlipidemia LDL goal <100 She is taking Dexila nt 60 mg/day and cimetidine 300 mg BID as well as Carafate 1 g at HS. She does have occasional reflux and heartburn but it is improved. Related to Gastro-esophageal reflux dis with esophagitis, without bleed Keep on current medi cations, no dose changeBP is in good range Related to Essential hypertension noted on prior imagi ng.will advice active life style Related to Cerebral atrophy ill c/w current rusty dronatec/w vit D supplement Related to Age-related osteoporosis without current pathological fracture Disease process Will continue with nano eduardorenpanchito lipitor 40mg will check lipid level Related to Hyperlipidemia LDL goal <100 Keep on current medi cations, no dose changeBP is in good rangeRTC in 6 months Related to Essential hypertension noted on prior imagi ng.will advice active life style Related to Cerebral atrophy ill c/w current rusty dronatec/w vit D supplement Related to Age-related osteoporosis without current pathological fracture She is taking Dexila nt 60 mg/day and cimetidine 300 mg BID as well as Carafate 1 g at HS. She does have occasional reflux and heartburn but it is improved. Related to Gastro-esophageal reflux dis with esophagitis, without bleed No stent but taking lipitorHad Echo, stress testStatus: Able to self-manage condition. Goals: Your goal is to be active. Barriers: No barriers to goal achievement have been identified. Related to Coronary artery disease involving [place] coronary artery of [place] heart without angina pectoris Disease prevention Treated last year an d continues to do well. Taking Align 3 days/week.Will continue to monitor Related to Small intestinal bacterial overgrowth (SIBO) Here for 6 month f/u . She is taking Dexilant 60 mg/day and cimetidine 300 mg BID as well as Carafate 1 g at HS. No reflux or heartburn. Trying to cut down on soda. Increased stress with her 's health issues.Continue current medications. If she stops drinking soda, may be able to stop some of these meds.F/u 1 yr Related to Gastro-esophageal reflux dis with esophagitis, without bleed Disease process will check for bone density Rela jo to Asymptomatic menopausal state Will check urine tod aygive Abx if indicated Related to Acute UTI Will continue with c alesharently lipitor 40mg will check lipid level Related to Hyperlipidemia LDL goal <100 Keep on current medi cations, no dose changeBP is in good rangeRTC in 6 months Related to Essential hypertension ill c/w current rusty dronatec/w vit D supplement Related to Age-related osteoporosis without current pathological fracture She is taking Dexila nt 60 mg/day and cimetidine 300 mg BID as well as Carafate 1 g at HS. She does have occasional reflux and heartburn but it is improved. Related to Gastro-esophageal reflux dis with esophagitis, without bleed No stent but taking lipitorHad Echo, stress test Related to Coronary artery disease involving [place] coronary artery of [place] heart without angina pectoris noted on prior imaging. Related to Cerebral atrophy Disease process Here for 3 month f/u . She is taking Dexilant 60 mg/day and cimetidine 300 mg BID as well as Carafate 1 g at HS. No reflux or heartburn.Continue current medicationsF/u 6 months Related to Gastro-esophageal reflux dis with esophagitis, without bleed BT done 10/2020 and p ositive. Treated with Xifaxan X14 days then Bactrim X10 days. Symptoms much improved. Taking Align 1/day.Can stop probiotic and see how she doesWill continue to monitorIf symptoms recur, she will call Related to Small intestinal bacterial overgrowth (SIBO) Disease process C/w current Maxicide 50mg dailyRepeat BMP in two weeks Related to Leg swelling Pt will continue wit h healthy eatingAware of the importance of keep a good weight Related to Body mass index (BMI) 32.0-32.9, adult Urinary Incontinence Dietary management e ducation, guidance, and counseling Related to Body mass index (BMI) 32.0-32.9, adult Disease process Urine showed infecti jose cruz send for cultureRTC as scheduled Related to Acute UTI Suture removal today Doing well, no sign of infection Related to Laceration of skin of left forearm, subsequent encounter Disease process CT 03/2020 negative. Still with right sided abd pain at times, but less frequent then before. Lots of bloating/gas when she has this pain.We discussed could be SIBO. Will check breath test for this. Related to Abdominal bloating Here for 6 month f/u . She is taking Dexilant 60 mg/day and cimetidine 300 mg BID as well as Carafate 1 g at HS. Still with some heartburn at times. I think her symptoms are more functional. Worse when she is upset. Continue current medicationsF/u 3 months Related to Gastro-esophageal reflux dis with esophagitis, without bleed Disease process Will change shampoot ry to use benadryl for this if not better, call back for further testing Related to Scalp irritation ill c/w current rusty dronatec/w vit D supplement Related to Age-related osteoporosis without current pathological fracture Pt will continue wit h diet modificationAdvice to increase activityAware of the importance to lose weight Related to Body mass index (BMI) 31.0-31.9, adult On vit D supplementWill check le papi Related to Vitamin D deficiency She is taking Dexila nt 60 mg/day and cimetidine 300 mg BID as well as Carafate 1 g at HS. She does have occasional reflux and heartburn but it is improved. Related to Gastro-esophageal reflux dis with esophagitis, without bleed No stent but taking lipitorHad Echo, stress test Related to Coronary artery disease involving [place] coronary artery of [place] heart without angina pectoris Keep on current medi cations, no dose changeBP is in good rangeRTC in 6 months Related to Essential hypertension On lipitor 40mg doin g well with medication Related to Hyperlipidemia LDL goal <100 Dietary management e ducation, guidance, and counseling Related to Body mass index (BMI) 31.0-31.9, adult Urinary Incontinence Disease process Keep on current medi cations.keep scheduled appointment September [address] Knox. Related to Atherosclerosis of aorta noted on prior imaging. Related to Cerebral atrophy Keep on current medications. 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 If her laboratory studies are unrevealing I discuss with her we should do non-walking stress test. She in the past to see Dr. Boudreaux but she thinks he will retire soon and she would like to switch to see Dr. Cole who her sees.Status: Meeting treatment plan goals. Goals: Your goal is to manage your medicine. Barriers: No barriers to goal achievement have been identified. Related to Coronary artery disease involving [place] coronary artery of [place] heart without angina pectoris she has been more ti red than usual for two or three weeks. Check labs. She also describes not sleeping well at night but falling asleep easily if she is sitting during the day. Related to Fatigue, unspecified type check urine. We will culture, no abx for now. Related to Recurrent UTI Medication management Here for f/u. Recent CT was with no acute findings. Labs normal. Her pain is improved. She has been watching her diet and drinking less soda.Continue GERD medications as belowGERD guidelinesF/u 6 months Related to Left upper quadrant abdominal pain She is taking Dexila nt 60 mg/day and cimetidine 300 mg BID as well as Carafate 1 g at HS. She does have occasional reflux and heartburn but it is improved. Not daily.Continue current medications Related to Gastro-esophageal reflux dis with esophagitis, without bleed Disease process unclear what is caus e but seems to be better lately --- to fu with gi doc and ct scan of abd next week Related to Left upper quadrant abdominal pain urged wt loss with diet an exerc ise Related to Body mass index (BMI) 31.0-31.9, adult to cont atb and fu w ith gu doc and to have ct of abd next week Related to Recurrent UTI on new meds and diet and doing fair so will cotn and fu with gi doc Related to Gastro-esophageal reflux dis with esophagitis, without bleed to cont med and urge d repeat dexa in two yrs Related to Encounter for screening for osteoporosis to cont med and urge d she monitor bp and pulse at home and call results in few weeks if < 50 pulse and then may need to decrease beta xiang Status: Meeting treatment plan goals. Goals: Your goal is to work on healthy eating habits. Related to Coronary artery disease involving [place] coronary artery of [place] heart without angina pectoris on med and will cotn and get lipid next ov and urged diet and exericse Related to Other and unspecified hyperlipidemia on med nad to cont a nd will get lab soon and urged diet and exercise with wt loss ---reviewed immunizations Related to Essential hypertension Dietary management e ducation, guidance, and counseling Related to Body mass index (BMI) 31.0-31.9, adult Fall Risk Prevention Hypertension education Related t o Body mass index (BMI) 31.0-31.9, adult Urinary Incontinence Giving encouragement to exercise Related to Body mass index (BMI) 31.0-31.9, adult She is taking Dexila nt 60 mg/day and cimetidine 300 mg BID. She stopped Carafate last week as her reflux had improved. Last EGD was in 2018.Will restart Carafate 1 g at HS, just in case the above abd pain is due to a gastric cause.Continue Dexilant and cimetidine Related to Gastro-esophageal reflux dis with esophagitis, without bleed Here for f/u. Last s een via telephone visit last week. She did not mention this pain at that time but she has had this pain for 3 weeks now. Worse with eating and bending over. Radiates to her back as well. Some nausea, but no vomiting.We discussed will start with checking labs and CT scan. Given location of her pain, I would like to rule out pancreatitis. She is having a CT scan with contrast ordered by her urogynecologist on 03/30/20. That should evaluate her pancreas and liver as well.Check labsProceed with CT scan as scheduled in Mar.F/u 1 month Related to LUQ abdominal pain Disease process TELEPHONE VISIT * 14 minutes spent in medical discussion for today's visit with additional time spent for chart review and documentation.Pt aware this is a billable service.Pt presents for f/u. She is taking Dexilant 60 mg/day, cimetidine 300 mg BID and Carafate once at HS. Rarely has any GERD symptoms. Feels like the Carafate is helping. Trying to avoid trigger foods. She has been having more gas and belching lately, which I think is a SE from the Carafate. Her renal function is normal.Will see if she can taper off the CarafateContinue Dexilant and cimetidineF/u 6 months Related to Gastro-esophageal reflux dis with esophagitis, without bleed Disease process Here for f/u. She is taking Dexilant 60 mg/day and cimetidine 300 mg BID. Still with some GERD symptoms 1-2 times per week. More related to food triggers like red sauces and soda.Continue current medicationsCan add Carafate 10 ml as needed, would take this before bed on nights she eats trigger foodsF/u 3 months Related to GERD with esophagitis Disease process on vft d and will cotn Related t o Vitamin D deficiency by xray and will follow Related to Cerebral atrophy to cont med as needed Related to Rosacea urged wt loss with diet and exer cise Related to Body mass index (BMI) 30.0-30.9, adult overall doing very w ell and very active with no sxs so will just watch for now Status: Not meeting treatment plan goals. Goals: Your goal is to work on healthy eating habits. Related to Coronary artery disease involving [place] coronary artery of [place] heart without angina pectoris on med and doing and will cotn a nd diet Related to GERD with esophagitis on med and to cont and diet Rela jo to Encounter for screening for osteoporosis on med and to cont a nd urged diet and wt loss Related to Other and unspecified hyperlipidemia on med and stable so will cotn and urged diet nad wt loss Related to Essential hypertension Hypertension education Related t o Body mass index (BMI) 30.0-30.9, adult Giving encouragement to exercise Related to Body mass index (BMI) 30.0-30.9, adult Dietary management e ducation, guidance, and counseling Related to Body mass index (BMI) 30.0-30.9, adult rash on rt posterior neck suspicous for shingels so will watch adn gave script for acyclovir 800mg tid x 7days and will fill if rash worse and pt told Related to Rash rt earache due to al lergies and fluid vs early shingles ---- will try claritin od and watch for now Related to Earache Hypertension education Related t o Body mass index (BMI) 31.0-31.9, adult Giving encouragement to exercise Related to Body mass index (BMI) 31.0-31.9, adult Dietary management e ducation, guidance, and counseling Related to Body mass index (BMI) 31.0-31.9, adult urged wt loss with diet and exer cise Related to Body mass index (BMI) 31.0-31.9, adult to finish atb and st eroid and will give ciaran ac Related to Bronchitis by xray and no sxs and will foll ow Related to Atherosclerosis of aorta on med and will cont and get lab Related to Other and unspecified hyperlipidemia no sxs and active an d doing well so will watch Status: Meeting treatment plan goals. Goals: Your goal is to work on healthy eating habits. Related to Coronary artery disease involving [place] coronary artery of [place] heart without angina pectoris on med and ca+ and will cotn and watch Related to Osteoporosis, unspecified osteoporosis type, unspecified pathological fracture presence on med and stable so will cotn med and watch and get lab and urged diet and exercise Related to Essential hypertension Dietary management e ducation, guidance, and counseling Related to Body mass index (BMI) 31.0-31.9, adult Giving encouragement to exercise Related to Body mass index (BMI) 31.0-31.9, adult Hypertension education Related t o Body mass index (BMI) 31.0-31.9, adult Diverticular stricturePlan colon oscopy Related to Change in bowel habit Maintain high fiber diet Related to Diverticulosis of large intestine without hemorrhage Medication management no sighn of bleeding so will yifan ck lab Related to Anemia, unspecified type urged diet and wt loss Related t o Overweight on med and to follow up with gu doc and consider botox injection Related to OAB (overactive bladder) on med and will cont and get dexa scan this fall and pt told Related to Age-related osteoporosis without current pathological fracture on med an will cont and get lab and urged diet and exercise with wt loss Related to Other and unspecified hyperlipidemia on med and will cotn Related to GERD with esophagitis overall doing well a nd will cotn asa and meds and urged daily exercise Status: Meeting treatment plan goals. Goals: Your goal is to work on healthy eating habits. Related to Coronary artery disease involving [place] coronary artery of [place] heart without angina pectoris on med and bp ok on outside so will cont med and get lab and urged wt loss Related to Essential hypertension Dietary management e ducation, guidance, and counseling Related to Body mass index (BMI) 32.0-32.9, adult Hypertension education Related t o Body mass index (BMI) 32.0-32.9, adult Giving encouragement to exercise Related to Body mass index (BMI) 32.0-32.9, adult Urinary Incontinence Fall Risk Prevention Assessments Type Assessment Date No Information Patient Care Teams Name Effective Dates (start - stop) Status Members No Information
--- OUTSIDE RECORDS SUMMARY | 2024-05-31 00:17 | XMS_ITS | Encounter Summary ---
Author Organization [facility] Address [address] [place] [address] Care Team Providers Care Air Cargo Agent Name Role Phone Naomi Pena MD Primary Care Provider [phone] Reason for Visit * Reason Onset Date Comments MIN 12/24/2023 SPOKE WITH FLORECITA / DR. GAMBOA OFFICE Thyroid abnormality 12/24/2023 Left a MSG o n Dr. Talbot's VM A-FIB/RVR 12/24/2023 Spoke w/Kerri @ Dr. Gentile's exchange Encounter Details Date Type Department Care Team (Late st Contact Info) Description 12/24/2023 Telephone [facility] Admitting [id number] [place] [address] Adonis Jackman MD [address] [place] [phone] MIN (SPOKE WITH FLORECITA / DR. GAMBOA OFFICE); Thyroid abnormality (Left a MSG on Dr. Talbot's VM); A-FIB/RVR (Spoke w/Kerri @ Dr. Gentile's exchange) Social History Tobacco Use Types Packs/Day Years [...] st Contact Info) Description 03/09/2025 10:15 AM QUALITY IMPROVEMENT CONSULTANT Appointment [facility] Testing [address] [address] Skip Cole MD [address] [place] [phone] 03/29/2025 10:30 AM QUALITY IMPROVEMENT CONSULTANT Office Visit [facility] - [address] [place] [phone] Skip Cole MD [address] [place] [id number] documented as of this encounter Visit Diagnoses Not on filedocumented in this encounter Care Teams Air Cargo Agent Relationship Specialty Start Date End Date Naomi Pena MD [address] [place] [id number] PCP - General Internal Medicine 11/08/20 documented as of this encounter
--- OUTSIDE RECORDS SUMMARY | 2024-05-31 00:17 | XMS_ITS | Referral Summary ---
Author Organization [facility] Address [address] [place] [address] Care Team Providers Care Design Technology Teacher Name Role Phone Neal Bahena MD Primary Care Provider [phone] Source Comments [facility],non-[facility] Affiliates and Associated Physician Practices is amultiple site organization consisting of ambulatory clinics and hospital sitesin [place], [place], [place] and [place]. This disclosure is being madepursuant to the Care Everywhere program and may not contain all information available regarding this patient. Last updated 17.[facility] [employer] Social History Tobacco Use Types Packs/Day Years Used Date Smoking Tobacco: Never Assessed Sex and Gender Information Value Date Recorded Sex Assigned at Not on file Gender Identity Not on file Sexual Orientation Not on file Plan of Treatment Not on file Care Teams Design Technology Teacher Relationship Specialty Start Date End Date Neal Bahena MD PCP - General Internal Medicine 07/19/15
--- OUTSIDE RECORDS SUMMARY | 2024-05-31 00:17 | XMS_ITS | Patient Health Summary ---
Author Organization [facility] Address [address] [place] [address] Care Team Providers Care Wash Oil Pump Operator Helper Name Role Phone Neal Bahena MD Primary Care Provider Note from [facility],non-owned Affiliates and Associated Physician Practices is amultiple site organization consisting of ambulatory clinics and hospital sitesin [place], [place], [place] and [place]. This disclosure is being madepursuant to the Care Everywhere program and may not contain all information available regarding this patient. Last updated 17.[facility] Social History Tobacco Use Types Packs/Day Years Used Date Smoking Tobacco: Never Assessed Sex and Gender Information Value Date Recorded Sex Assigned at Not on file Gender Identity Not on file Sexual Orientation Not on file Procedures * VAS RIGHT VENOUS DUPLEX LE(Performed 07/19/2015) Performed for Swelling of limb Results * VAS RIGHT VENOUS DUPLEX LE (07/19/2015 12:59 PM CDT) Anatomical Region Laterality Modality Ultrasound 07/19/2015 12:3 8 PM CDT Narrative Procedure Note Cherri Rodriguez MD - 07/19/[address] [address] Lower Extremity Venous Ultrasound Report Pat.Name: KEILA MCGINNIS Pat.ID: [id number] St.Date: 07/19/2015 Exam Time: 12:38:00 PM Study Type:LE Venous Age: 9 1935,79Y Sex: FEMALE Sonogrphr: Karrie Hankins RVT, [facility] Pat. Stat.:Outpatient Reason for Study:Swelling -Leg, right, Pain -Leg, right Procedures:Lower Extremity Venous - Right Visit ID: [id number] SUMMARY: No evidence of deep or superficial venous thrombosis of the right lower extremity. FINDINGS: Procedure: Venous duplex imaging of the right lower extremity was performed using color flow and spectral Doppler analysis. The contralateral common femoral vein was also examined. Study Quality: This study is of adequate technical quality. Rt Leg: All vessels seen appear patent and compressible. There was spontaneous and phasic flow seen in all the major veins of the right lower extremity. Suboptimal visualization of calf veins. Comments: Technologist findings were called to RN. Rojas 12:55pm. No acute DVT seen. Signed 07/19/2015 01:12 PM Cherri Rodriguez MD Neal Ugalde MD VASCULAR LAB ORDERAB LES Care Teams Wash Oil Pump Operator Helper Relationship Specialty Start Date End Date Neal Bahena MD PCP - General Internal Medicine 07/19/15
--- OUTSIDE RECORDS SUMMARY | 2024-05-31 00:17 | XMS_ITS | Data Portability ---
Author Organization [employer] [facility], Main Office Address [address] [place] [address] Care Team Providers Care Portfolio Consultant Name Role Phone P [facility] FAX OTHER NAOMI SOLIS Primary Care Provider LEODAN BANG Manager Web [phone] Assessment Encounter Date Assessment Date Assessment LastModified by Organization Details LastModified Time 02/07/2024 02/07/2024 labs ordered for AM awaiting home med list and hospital discharge summary/further inpatient documentation [email or web address] Not available 02/10/2024 10:46:25 02/10/2024 02/10/2024 Consider dose reduction of Eliquis given age >80 and wt <60 kg. Consider changing PPI to PRN. Consider changing Zyrtec to PRN. Labs on . Not available 02/10/2024 15:28:19 02/15/2024 02/15/2024 Nursing has a call out to Dr. Bang's office to consider dose reduction of Eliquis given age >80 and wt <60 kg. Labs pending from this AM. Not available 02/15/2024 18:55:04 02/17/2024 02/17/2024 Labs on Wednesday 02/21. Tentative d/c to [facility] set for 02/23. Not available 02/17/2024 14:43:27 02/22/2024 02/22/2024 Pt will d/c to [facility] apartment with her and [facility] on 02/23. She will need continued monitoring of her WBCs and pulmonary status. She will complete oral Omnicef x 18 days on 02/22 and Doxycycline x 19 days on 02/23. Not available 02/24/2024 13:07:11 Plan of Treatment Reminders Order Date Submit Date Provider Last Modified By Organization Details Last Modified Time Details Appointments None recorded. Lab None recorded. Referral None recorded. Procedures None recorded. Surgeries None recorded. Imaging None recorded. Medication Orders Eliquis 2.5 mg tablet 2023 [facility], [address] [place] [address], [address], 01:12:00 metoprolol tartrate 50 mg tablet 2023 [facility], [address] [place] [address], [address], 01:11:59 triamterene 37.5 mg-hydrochl orothiazide 25 mg tablet 2023 [facility], [address] [place] [address] [place], [address], 01:12:00 Patient TargetsNo targets recorded. Patient Instructions Encounter Date Encounter Id Patient Instructions Last Modified By Organization Details Last Modified Time 02/07/[id number] I spent {{16* 17 18 19 20 21 22 23 24 25}} minutes counseling and discussing advance directives and/or end of life care planning and decisions with the {{patient* surrog ate patient and surrogate}} today. I reviewed the current relevant diagnoses, treatment options, natural history, and prognosis and clarified the patient's goals of care. code status is full I spent {{ 70#}} minutes providing care to the patient today. More than 50% of that time was spent in discussing the expected course of the disease, discussing prognosis, coordinating care and counseling of the patient/family. [email or web address] Not available 02/10/2024 10:47:08 02/10/[id number] I spent {{ 37#}} minutes providing care to the patient today. More than 50% of that time was spent in discussing the expected course of the disease, discussing prognosis, coordinating care and counseling of the patient/family. Not available 02/10/2024 15:26:57 02/15/[id number] I spent {{ 32#}} minutes providing care to the patient today. More than 50% of that time was spent in discussing the expected course of the disease, discussing prognosis, coordinating care and counseling of the patient/family. Not available 02/15/2024 19:15:00 02/17/[id number] I spent {{ 33#}} minutes providing care to the patient today. More than 50% of that time was spent in discussing the expected course of the disease, discussing prognosis, coordinating care and counseling of the patient/family. Not available 02/17/2024 14:43:34 02/22/[id number] I spent {{ 40#}} minutes providing care to the patient today. More than 50% of that time was spent in discussing the expected course of the disease, discussing prognosis, coordinating care and counseling of the patient/family. The patient will be discharged home with home health orders of home health RN / PT / OT to evaluate and treat. The patient is homebound because of {{gait instability poor balance fall risk* respiratory difficulties cogn itive impairment disori entation severe pain wounds}} and is unable to leave home safely because {{requires use of an assistive device and assistance of another person to leave home requires considerable and taxing effort to leave home* of cognitive impairment}}. The patient requires home health nursing for instruction, observation and assessment; PT for training to restore safe independent functional ambulation in community; and OT for training to improve ability to fulfill ADLs. Please follow-up with your primary care provider within 1 week. Call your primary care provider for instructions or go to the emergency room for new or worsening symptoms. [email or web address] Not available 02/22/2024 16:38:31 Reason for Referral None Reported. Results Created Date Observation Date Name Description Value Unit Range Abnormal Flag Note LastModifiedBy Organization Detail LastModifiedTime Result Notes None recorded. Medical Equipment None Reported. Allergies Allergen ID Allergen Name Allergen Category Reaction Reaction Severity Criticality Documentation Date Start Date Code Code System Note Provider Name and Address Organization Details Recorded Time 51792 Product containin g penicilli n (product) medicatio n Not available Not available Not available 02/06/2024 84050 8008 SNOMED Not Available Not Available Not Available 01296 morphine medicatio n Not available Not available Not available 02/06/2024 7052 RxNorm Not Available Not Available Not Available 09627 adhesive tape environme nt,medica tion Not available Not available Not available 02/06/2024 13961 UNK Not Available Not Available Not Available 38740 fentanyl medicatio n Not available Not available Not available 02/06/2024 4337 RxNorm Not Available Not Available Not Available 00482 propofol medicatio n Not available Not available Not available 02/06/2024 8782 RxNorm Not Available Not Available Not Available 48209 midazolam medicatio n Not available Not available Not available 02/06/2024 6960 RxNorm Not Available Not Available Not Available Medications Name Sig Start Date Stop Date Status Note LastModified by Organization Details LastModified Time furosemide 40 mg tablet Take 1 tablet every day by oral route. active Not Available Not Available No t Available atorvastati n 40 mg tablet Take 1 tablet every day by oral route in the evening. active Not Available Not Available No t Available atorvastati n 20 mg tablet Take 2 tablets every day by oral route. 02/09 completed Not Available Not Available Not Available cetirizine 10 mg tablet Take 1 tablet every day by oral route. active Not Available Not Available No t Available amlodipine 5 mg tablet Take 1 tablet every day by oral route. active Not Available Not Available No t Available cimetidine 300 mg tablet Take 1 tablet twice a day by oral route. active Not Available Not Available No t Available diltiazem ER 120 mg capsule,24 hr,extended release Take 1 capsule every day by oral route. active Not Available Not Available No t Available mirtazapine 30 mg tablet Take 1 tablet every day by oral route at bedtime. active Not Available Not Available No t Available metoprolol tartrate 50 mg tablet Take 1 tablet twice a day by oral route. 2023 active Not Available Not Available Not Avai lable triamterene 37.5 mg-hydrochl orothiazide 25 mg tablet Take 1 tablet every day by oral route. 2023 active Not Available Not Available Not Avai lable omeprazole 20 mg capsule,del ayed release Take 1 capsule every day by oral route. 02/09 completed Not Available Not Available Not Available triamterene 75 mg-hydrochl orothiazide 50 mg tablet Take 1 tablet every day by oral route. 02/16 completed Not Available Not Available Not Available methimazole 10 mg tablet Take 1 tablet every day by oral route. active Not Available Not Available No t Available propranolol 20 mg tablet Take 1 tablet twice a day by oral route. 02/09 completed Not Available Not Available Not Available cefdinir 300 mg capsule Take 1 capsule every day by oral route for 18 days. active Stop Date: Not Available Not Available Not Available fluticasone propionate 50 mcg/actuati on nasal spray,suspe nsion [place] 2 sprays every day by intranasa l route. active Not Available Not Available No t Available doxycycline hyclate 100 mg tablet Take 1 tablet twice a day by oral route for 19 days. active Stop Date: Not Available Not Available Not Available potassium chloride ER 10 mEq tablet,exte nded release(par t/cryst) Take 1 tablet every day by oral route. active Not Available Not Available No t Available dexlansopra zole 60 mg capsule,bip hase delayed release Take 1 capsule every day by oral route. active Not Available Not Available No t Available apixaban 5 mg tablet Take 1 tablet twice a day by oral route. 02/21 completed Not Available Not Available Not Available Eliquis 2.5 mg tablet Take 1 tablet twice a day by oral route. 2023 active Not Available Not Available Not Avai lable acidophilus 7.5 mg (30 million cell)-pecti n, citrus 100 mg capsule Take 1 capsule twice a day by oral route for 30 days. active Stop Date: 5 Not Available Not Available Not Available Vitals Date Recorded Body height Body mass index (BMI) Body weight Heart rate Body temperature Respiratory rate Oxygen saturation Oxygen saturation in Arterial blood by Pulse oximetry Systolic blood pressure Diastolic blood pressure Provider Name and Address Organization Details Last Updated DateTime 4 157.48 cm 19.6 kg/m2 13511.8 2 g 97 /min 98.2 [degF] 18 /min 95 % 95 % 124 mm[Hg] 63 mm[Hg] [place] [address] [place], [address], [place] - [facility] 4 07:07:40 Date Recorded Body height Heart rate Body temperature Respiratory rate Oxygen saturation Oxygen saturation in Arterial blood by Pulse oximetry Body mass index (BMI) Body weight Systolic blood pressure Diastolic blood pressure Provider Name and Address Organization Details Last Updated DateTime 4 157.48 cm 82 /min 97.9 [degF] 18 /min 97 % 97 % 19.5 kg/m2 99229.2 3 g 108 mm[Hg] 62 mm[Hg] [place] [address] [place], [address], [place] [facility] 4 14:47:48 Date Recorded Body height Respiratory rate Body temperature Heart rate Oxygen saturation Oxygen saturation in Arterial blood by Pulse oximetry Body mass index (BMI) Body weight Systolic blood pressure Diastolic blood pressure Provider Name and Address Organization Details Last Updated DateTime 4 157.48 cm 20 /min 98.2 [degF] 84 /min 100 % 100 % 19.7 kg/m2 75004.5 4 g 133 mm[Hg] 67 mm[Hg] [place] [address] [place], [address], [place] [facility] 4 13:43:40 Date Recorded Body height Body mass index (BMI) Body weight Body temperature Oxygen saturation Oxygen saturation in Arterial blood by Pulse oximetry Respiratory rate Heart rate Systolic blood pressure Diastolic blood pressure Provider Name and Address Organization Details Last Updated DateTime 4 157.48 cm 19.9 kg/m2 32211.1 3 g 98.3 [degF] 98 % 98 % 18 /min 99 /min 135 mm[Hg] 72 mm[Hg] [place] [address] [place], [address], [place] [facility] 4 17:13:24 Date Recorded Body height Heart rate Body temperature Respiratory rate Oxygen saturation Oxygen saturation in Arterial blood by Pulse oximetry Body mass index (BMI) Body weight Systolic blood pressure Diastolic blood pressure Provider Name and Address Organization Details Last Updated DateTime 4 157.48 cm 100 /min 98.5 [degF] 20 /min 97 % 97 % 19.4 kg/m2 97834.7 9 g 132 mm[Hg] 69 mm[Hg] Janiya Ochoa, [employer] [address] [place], [address], [place] [facility] 14:34:53 Date Recorded Body height Heart rate Body temperature Respiratory rate Oxygen saturation Oxygen saturation in Arterial blood by Pulse oximetry Body mass index (BMI) Body weight Systolic blood pressure Diastolic blood pressure Provider Name and Address Organization Details Last Updated DateTime 157.48 cm 72 /min 97.9 [degF] 18 /min 96 % 96 % 19.5 kg/m2 64403.6 7 g 130 mm[Hg] 60 mm[Hg] Janiyadaily Ochoa, [employer] [address] [place], [address], [place] [facility] 10:24:29 Social History Question Answer Notes LastModified by [email or web address] ion Details LastModified Time Tobacco Smoking Status Never Smoker [facility] 02/06/2024 07:26:43 Do You Have An Advance Directive? Yes [email or web address] Information not available 02/06/2024 What Is Your Level Of Alcohol Consumption? None [email or web address] Information not available 02/06/2024 What Is Your Code Status? Full Code [email or web address] Information not available 02/06/2024 Do You Have A Medical Power Of Drophammer Operator? Yes Clayton Long [phone] [email or web address] Information not available 02/06/2024 Do You Use Any Illicit Or Recreational Drugs? No [email or web address] Information not available 02/10/2024 Sex: Unknown Functional Status None recorded. Mental Status None recorded. Family History Relationship Description Onset Age of this Age Resolved Age Notes LastModified by Organization Details LastModified Time Father Acute myocardial infarction [email or web address] Not available 02/05 07:24:16 Father History of hypertension [email or web address] Not available 07:24:37 Mother History of hypertension [email or web address] Not available 07:25:22 Mother Cerebrovascu lar accident [email or web address] Not available 07:25:52 Medical History Condition Response Atrial Fibrillation Y Congestive Heart Failure (CHF) Y Hyperlipidemia Y Hypertension Y Gynecological HistoryNo gynecological history recorded. Obstetrics History GPAL:G 0 P 0 0 0 0 Past Encounters Encounter ID Performer Location Encounter Start Date Encounter Closed Date Diagnosis/Indication Diagnosis SNOMED-CT Code Diagnosis ICD10 Code Diagnosis Note [id number] DO JENNIE Barrera [place] [address] [place] [address] 02/07/2024 15:41:06 02/19/2024 15:48:16 Pneumonia 436892455 J18.9 the patient was treated with IV Rocephin and Zithromax during her hospitaliz ation. She has been discharged on oral omnicef and doxycyclin e for an very extended period (18 days for omnicef and 19 days for doxycyclin e). It is unclear as to reasons for prolonged treatment duration - awaiting hospital discharge summary/in patient records for further clarificat ion. The patient does not currently have respirator y symptoms Congestive heart failure 65071014 I50.9 continue lasix, triamteren e/HCTZ and betablocke r therapytre nd weights and labsadjust medication s as clinically indicatedf /u with cardiology , Dr. Liriano er as scheduled 03/03 Atrial fibrillation 4943 6004 I48.91 rate is currently controlled with diltiazem and newly added metoprolol continue eliquis for VTE prophylaxi s - consider dose reduction of eliquis due to advanced age/weight Hyperlipidemia 54199447 E78.5 presumed stable - continue statin therapy Gastroesop hageal reflux disease without esophagitis 576559694 K21.9 the patient continues on both H2 blockade and ppi therapy without complaints of GI symptomsmi ght consider trial of d/c of PPIof note, the patient was discharged from [facility] on both omeprazole and dexlansopr azole - she has been continued on only dexlansopr azole for now Hyperthyroidism 85644938 E05.90 presumed stable with tapazole and betablocke r therapy - per labs done at [facility] in [place] 12/23/2023 TSH < 0.007, free T4 3.35 Failure to thrive 194772 06 R62.51 patient with recent functional decline/re current hospital admissions after moving to her [facility] apartment at [place] mata remeron, dietary supplement s, supportive measures Allergic rhinitis 618285 04 J30.9 continue zyrtec daily for now - consider trial of prn use due to high risk medication in this elderly female who does not admit to rhinitis symptoms at this timecontin ue flonase daily Hypertensi ve heart and renal disease with (congestive) heart failure 708887028 I50.9 continue amlodipine , metoprolol and diuretics - please note that the patient was discharged from the hospital on both propranolo l and metoprolol - propranolo l has been stopped Physical deconditioning 7353085542 9102 R68.89 related to advanced age, recent hospitaliz ations, comorbidit iestherapi es have been initiated - she plans to return to her [facility] apartment upon d/c from [id number] Janiya Ochoa NP [place] [address] [facility] [place] [address] 02/10/2024 09:27:25 02/22/2024 06:27:08 Pneumonia 015455445 J18.9 Patient was treated with IV Rocephin and IV Zithromax during her hospitaliz ation. Right thoracente sis pleural fluid grew gram positive cocci. She was treated with IV Vancomycin for this.She has been discharged on oral Omnicef x 18 days and Doxycyclin e x 19 days.The patient does not currently have respirator y symptoms.S he does not have f/u with pulmonolog y scheduled. She will f/u with Dr. Liriano er (cards) on 03/03. Congestive heart failure 81867183 I50.9 SEE ABOVE... Atrial fibrillation 4943 6004 I48.91 Rate is currently controlled with Diltiazem and newly-adde d Metoprolol . Of note, patient was discharged from the hospital on both Propranolo l and Metoprolol -- Propranolo l has been stopped.Co ntinue Eliquis for VTE prophylaxi s. Consider dose reduction. F/U with with Dr. Liriano er (cards) on 03/03. Hyperlipidemia 31038217 E78.5 Presumed stable. Continue statin. Gastroesop hageal reflux disease without esophagitis 836449497 K21.9 Of note, the patient was discharged from [facility] on both Omeprazole and Dexlansopr azole - Omeprazole was not started.Co ntinues on Cimetidine & Dexlansopr azole.Madison tor for symptoms and consider changing PPI to PRN. Hyperthyroidism 15882319 E05.90 Presumed stable. Continue Methimazol e and Metoprolol .Per labs done at [facility] in [place] 12/23/2023, TSH <0.007, free T4 3.35. Failure to thrive 608178 06 R62.51 Patient with recent functional decline/re current hospital admissions after moving to her [facility] apartment at [place].Co ntinue Remeron, dietary supplement s, and supportive measures. Allergic rhinitis 073622 04 J30.9 Stable. Continue Flonase & Zyrtec daily for now.Consid er changing Zyrtec to PRN. Hypertensi ve heart and renal disease with (congestive) heart failure 848479233 I50.9 Echo while inpatient reportedly revealed EF 60-65%. She was aggressiv lyle diuresed while inpatient. Appears euvolemic. Continue Amlodipine , Metoprolol , Furosemide , KCl, and Triamteren e/HCTZ.Mon itor weights, labs, and edema.F/U with with Dr. Liriano er (cards) on 03/03. Physical deconditioning 2798452560 9102 R68.89 Related to advanced age, recent hospitaliz ations, comorbidit ies.Therap ies have been initiated. She plans to return to her [facility] apartment upon d/c from [place], however she is discussing a possible move to [facility] instead. Pleural ef fusion due to congestive heart failure 89875876 J91.8 s/p right thoracente sis on 01/31 with 1,000 ml of yellow fluid. Pleural fluid grew gram positive cocci. She was treated with IV Vancomycin , as well as IV Rocephin & Zithromax. Continues on PO antibiotic s as above.SEE ABOVE... [id number] Janiya Ochoa NP [facility] [address] [place] [address] 02/15/2024 13:45:31 02/22/2024 06:29:36 Pneumonia 942133136 J18.9 Patient was treated with IV Rocephin and IV Zithromax during her hospitaliz ation. Right thoracente sis pleural fluid grew gram positive cocci. She was treated with IV Vancomycin for this.She has been discharged on oral Omnicef x 18 days and Doxycyclin e x 19 days.The patient does not currently have respirator y symptoms.S he does not have f/u with pulmonolog y scheduled. She will f/u with Dr. Liriano er (cards) on 03/03. Hypertensi ve heart and renal disease with (congestive) heart failure 242245352 I50.9 Echo while inpatient reportedly revealed EF 60-65%. She was aggressiv lyle diuresed while inpatient. Appears euvolemic. Continue Amlodipine , Metoprolol , Furosemide , KCl, and Triamteren e/HCTZ.Mon itor weights, labs, and edema.F/U with with Dr. Liriano er (cards) on 03/03. Congestive heart failure 63890488 I50.9 SEE ABOVE... Pleural ef fusion due to congestive heart failure 29139308 J91.8 s/p right thoracente sis on 01/31 with 1,000 ml of yellow fluid. Pleural fluid grew gram positive cocci. She was treated with IV Vancomycin , as well as IV Rocephin & Zithromax. Continues on PO antibiotic s as above.SEE ABOVE... Atrial fibrillation 4943 6004 I48.91 Rate is currently controlled with Diltiazem and newly-adde d Metoprolol . Of note, patient was discharged from the hospital on both Propranolo l and Metoprolol -- Propranolo l has been stopped.Co ntinue Eliquis for VTE prophylaxi s. Consider dose reduction. F/U with with Dr. Liriano er (cards) on 03/03. Hyperlipidemia 41163000 E78.5 Presumed stable. Continue statin. Hyperthyroidism 14416027 E05.90 Presumed stable. Continue Methimazol e and Metoprolol .Per labs done at [facility] in [place] 12/23/2023, TSH <0.007, free T4 3.35. Gastroesop hageal reflux disease without esophagitis 720667303 K21.9 Of note, the patient was discharged from [facility] on both Omeprazole and Dexlansopr azole - Omeprazole was not started.Co ntinues on Cimetidine & Dexlansopr azole.Madison tor for symptoms and consider changing PPI to PRN. Allergic rhinitis 916086 04 J30.9 Stable. Continue Flonase & Zyrtec daily for now.Consid er changing Zyrtec to PRN. Failure to thrive 286563 06 R62.51 Patient with recent functional decline/re current hospital admissions after moving to her [facility] apartment at [place].Co ntinue Remeron, dietary supplement s, and supportive measures. Physical deconditioning 9154199564 9102 R68.89 Related to advanced age, recent hospitaliz ations, comorbidit ies.Therap ies have been initiated. She plans to return to her [facility] apartment upon d/c from , however she is discussing a possible move to [facility] instead. [id number] Janiya Ochoa NP [facility] [address] [place] [address] 02/17/2024 08:05:18 02/22/2024 06:30:36 Pneumonia 541115265 J18.9 Patient was treated with IV Rocephin and IV Zithromax during her hospitaliz ation. Right thoracente sis pleural fluid grew gram positive cocci. She was treated with IV Vancomycin for this.She has been discharged on oral Omnicef x 18 days (02/22) and Doxycyclin e x 19 days (02/23).The patient does not currently have respirator y symptoms.S he does not have f/u with pulmonolog y scheduled. She will f/u with Dr. Liriano er (cards) on 03/03. Hypertensi ve heart and renal disease with (congestive) heart failure 707523543 I50.9 Echo while inpatient reportedly revealed EF 60-65%. She was aggressiv lyle diuresed while inpatient. Appears euvolemic. Continue Amlodipine , Metoprolol , Furosemide , and KCl. Triamteren e/HCTZ dose reduced in response to 02/14 BUN/Cr. Repeating labs on 02/21.Monit or weights, labs, and edema.F/U with with Dr. Liriano er (cards) on 03/03. Congestive heart failure 62871745 I50.9 SEE ABOVE... Pleural ef fusion due to congestive heart failure 91127643 J91.8 s/p right thoracente sis on 01/31 with 1,000 ml of yellow fluid. Pleural fluid grew gram positive cocci. She was treated with IV Vancomycin , as well as IV Rocephin & Zithromax. Continues on PO antibiotic s as above.SEE ABOVE... Atrial fibrillation 4943 6004 I48.91 Rate is currently controlled with Diltiazem and newly-adde d Metoprolol . Of note, patient was discharged from the hospital on both Propranolo l and Metoprolol -- Propranolo l has been stopped.Co ntinue Eliquis for VTE prophylaxi s with recent age/weight adjustment .F/U with with Dr. Liriano er (cards) on 03/03. Hyperlipidemia 23533160 E78.5 Presumed stable. Continue statin. Hyperthyroidism 73573360 E05.90 Presumed stable. Continue Methimazol e and Metoprolol .Per labs done at [facility] in [place] 12/23/2023, TSH <0.007, free T4 3.35. Gastroesop hageal reflux disease without esophagitis [id number] K21.9 Of note, the patient was discharged from [facility] on both Omeprazole and Dexlansopr azole - Omeprazole was not started.Co ntinues on Cimetidine & Dexlansopr azole.Madison tor for symptoms and consider changing PPI to PRN. Allergic rhinitis 032887 04 J30.9 Stable. Continue Flonase & Zyrtec daily for now.Consid er changing Zyrtec to PRN. Failure to thrive 090859 06 R62.51 Patient with recent functional decline/re current hospital admissions after moving to her [facility] apartment at [place].Co ntinue Remeron, dietary supplement s, and supportive measures. Physical deconditioning [id number] 9102 R68.89 Related to advanced age, recent hospitaliz ations, comorbidit ies.Therap ies have been initiated. Tentative d/c to [facility] set for 02/23. [id number] Janiya Ochoa NP [facility] [address] [place] [address] 02/22/2024 10:04:54 03/01/2024 00:03:35 Pneumonia [id number] J18.9 Patient was treated with IV Rocephin and IV Zithromax during her hospitaliz ation. Right thoracente sis pleural fluid grew gram positive cocci. She was treated with IV Vancomycin for this.She has been discharged on oral Omnicef x 18 days (02/22) and Doxycyclin e x 19 days (02/23).The patient does not currently have respirator y symptoms.S he does not have f/u with pulmonolog y scheduled. She will f/u with Dr. Deandra odom (cards) on 03/03. Hypertensi ve heart and renal disease with (congestive) heart failure [id number] I50.9 Echo while inpatient reportedly revealed EF 60-65%. She was aggressiv lyle diuresed while inpatient. Appears euvolemic. Continue Amlodipine , Metoprolol , Furosemide , and KCl. Triamteren e/HCTZ dose reduced in response to 02/14 BUN/Cr.Mon itor weights, labs, and edema.F/U with with Dr. Deandra odom (cards) on 03/03. Congestive heart failure [id number] I50.9 SEE ABOVE... Pleural ef fusion due to congestive heart failure 96346539 J91.8 s/p right thoracente sis on 01/31 with 1,000 ml of yellow fluid. Pleural fluid grew gram positive cocci. She was treated with IV Vancomycin , as well as IV Rocephin & Zithromax. Continues on PO antibiotic s as above.SEE ABOVE... Atrial fibrillation 4943 6004 I48.91 Rate is currently controlled with Diltiazem and newly-adde d Metoprolol . Of note, patient was discharged from the hospital on both Propranolo l and Metoprolol -- Propranolo l has been stopped.Co ntinue Eliquis for VTE prophylaxi s with recent age/weight adjustment okayed by Dr. Deandra odom.F/U with with Dr. Deandra odom (cards) on 03/03. Hyperlipidemia 55788018 E78.5 Presumed stable. Continue statin. Hyperthyroidism 37663772 E05.90 Presumed stable. Continue Methimazol e and Metoprolol .Per labs done at [facility] in [place] 12/23/2023, TSH <0.007, free T4 3.35. Gastroesop hageal reflux disease without esophagitis [id number] K21.9 Of note, the patient was discharged from [facility] on both Omeprazole and Dexlansopr azole - Omeprazole was not started.Co ntinues on Cimetidine & Dexlansopr azole.Madison tor for symptoms and consider changing PPI to PRN. Allergic rhinitis 180358 04 J30.9 Stable. Continue Flonase & Zyrtec daily for now.Consid er changing Zyrtec to PRN. Failure to thrive 188809 06 R62.51 Patient with recent functional decline/re current hospital admissions after moving to her [facility] apartment at [place].Co ntinue Remeron, dietary supplement s, and supportive measures. Health Concerns Section Related Observation LastModified by Organization Detai ls LastModified Time None Recorded Concern Status LastModified by Organization Details LastModified Time None Recorded Advance Directives Directive Y: Payers Encounter Date Sequence Insurance Name Policy Number Policy Villatoro Covered Member ID Villatoro Member ID Guarantor Name 02/07/2024 2 [place] [facility] - FEDERAL EMPLOYEE PROGRAM (PPO) 106 Keila A Galeaz [id number] Keila A Galeaz 02/07/2024 1 [place] Keila A Galeaz [id number] Keila A Galeaz 02/10/2024 2 [place] [employer]OYEE PROGRAM (PPO) 106 Keila A Galeaz [id number] Keila A Galeaz 02/10/2024 1 [place] Keila A Galeaz [id number] Keila A Galeaz 02/15/2024 2 [place] [facility] - [employer]AL EMPLOYEE PROGRAM (PPO) 106 Keila A Galeaz [id number] Keila A Galeaz 02/15/2024 1 [place] Keila A Galeaz [id number] 3 Keila A Galeaz 02/17/2024 2 [place] [facility] - [employer]AL EMPLOYEE PROGRAM (PPO) 106 Keila A Galeaz [id number] Keila A Galeaz 02/17/2024 1 [place] Keila Pierceeaz [id number] 3 Keila Alvarado Galeaz 02/22/2024 2 [place] [employer] [place]EE PROGRAM (PPO) 106 Keila Talbert [id number] Keila Pierceeaz 02/22/2024 1 [place] Keila Alvarado Galeaz [id number] 3 Keila Talbert Notes Date Note Type Note Provider Name and Address Organization Details Recorded Time 02/07/2024 text/html 88 Y/O female wi th a history of atrial fibrillation, hyperthyroidism, CHF, HTN, HLD and GERD admitted to [place] [facility] for post acute rehab subsequent to an inpatient stay at [facility] 01/28-02/08/24 related to pneumonia, CHF and atrial fibrillation with RVR. The patient was recently discharged from [place] [facility] back to her [facility] apartment 01/12/2024 after an inpatient stay at [facility] 12/23-12/29/2023 related to afib with RVR and MIN. She had been doing well until the evening of 01/27 when she was noted to be short of breath with significant fatigue. She was taken to [facility] where imaging showed a large right sided pleural effusion, BNP of 4500, respiratory panel was negative. She was admitted to the hospitalist service for further evaluation and treatment of pneumonia, afib with RVR and CHF. There is little documentation available for review from her hospital stay - only an admission H&P and discharge orders. She was treated with IV antibiotics for pneumonia, diuretics for CHF and had metoprolol added to medication regimen for rate control. She has been discharged to [place] [facility] for therapy prior to return to her [facility] apartment where she lives with her . New medications: Omnicef, doxycycline, metoprololNo documented dose adjustments to outpatient meds or discontinued medications The patient is sitting in a chair in the common area today sleeping. She is easily arousable. She is a poor historian, is without complaints or concerns aside from being tired. Staff states she is withdrawn and seems depressed compared to her prior stay. The patient denies SOB or chest pain. She is AMB within the facility with her WW. [facility], [place] [address] [place], [address], [facility] 02/10/2024 11:30:59 02/10/2024 text/html F/U pneumonia, C HF with large [R] pleural effusion s/p thoracentesis, atrial fibrillation with RVR, debility, and chronic medical conditions.--- 4The patient is sitting in a chair in the common area today sleeping. She is easily arousable. She is a poor historian, is without complaints or concerns aside from being tired. Staff states she is withdrawn and seems depressed compared to her prior stay. The patient denies SOB or chest pain. She is AMB within the facility with her WW.---02/10/24Corona alvarado is seated in her recliner, having just walked back from therapy with w/w. She has just had a discussion with staff here in regards to recommendations that pt and consider transition to [facility] apartment rather than returning to [facility] apartment. She plans to discuss further with her son Krysta, but per staff it is also his opinion that this is the best and safest option for them both. She expresses a need to consider it longer as I have for so long done everything for myself, it's hard for me to hear that I can't do it all any longer. She tells me her Mikel will be brought up to visit her later and she will discuss with him. She tells me that she understands her 's mental status is worsening in regards to his dementia and that we should be preparing for the future and taking steps towards making that safe. VSS. Staff is without concerns at present. Janiya Ochoa, SARATH [address] [facility], [place], [address], [facility] 02/10/2024 15:28:23 02/15/2024 text/html F/U pneumonia, C HF with large [R] pleural effusion s/p thoracentesis, atrial fibrillation with RVR, debility, and chronic medical conditions.--- 4The patient is sitting in a chair in the common area today sleeping. She is easily arousable. She is a poor historian, is without complaints or concerns aside from being tired. Staff states she is withdrawn and seems depressed compared to her prior stay. The patient denies SOB or chest pain. She is AMB within the facility with her WW.---02/10/24Corona alvarado is seated in her recliner, having just walked back from therapy with w/w. She has just had a discussion with staff here in regards to recommendations that pt and consider transition to [facility] apartment rather than returning to [facility] apartment. She plans to discuss further with her son Krysta, but per staff it is also his opinion that this is the best and safest option for them both. She expresses a need to consider it longer as I have for so long done everything for myself, it's hard for me to hear that I can't do it all any longer. She tells me her Mikel will be brought up to visit her later and she will discuss with him. She tells me that she understands her 's mental status is worsening in regards to his dementia and that we should be preparing for the future and taking steps towards making that safe. VSS. Staff is without concerns at present.---02/15/24Jose weems is resting in bed, without concerns or pain today. She was able to tour an [facility] apartment on 02/11 and plans to move her and herself into one upon discharge from rehab. She appears accepting of this decision and knows it is what is best for her and herself in the future. VSS. Staff is without concerns today. Janiya Ochoa, SAR[address] [address] [place], [address], [facility] 02/15/2024 19:15:24 02/17/2024 text/html F/U pneumonia, C HF with large [R] pleural effusion s/p thoracentesis, atrial fibrillation with RVR, debility, and chronic medical conditions.--- 4The patient is sitting in a chair in the common area today sleeping. She is easily arousable. She is a poor historian, is without complaints or concerns aside from being tired. Staff states she is withdrawn and seems depressed compared to her prior stay. The patient denies SOB or chest pain. She is AMB within the facility with her WW.---02/10/24Corona alvarado is seated in her recliner, having just walked back from therapy with w/w. She has just had a discussion with staff here in regards to recommendations that pt and consider transition to [facility] apartment rather than returning to [facility] apartment. She plans to discuss further with her son Krysta, but per staff it is also his opinion that this is the best and safest option for them both. She expresses a need to consider it longer as I have for so long done everything for myself, it's hard for me to hear that I can't do it all any longer. She tells me her Mikel will be brought up to visit her later and she will discuss with him. She tells me that she understands her 's mental status is worsening in regards to his dementia and that we should be preparing for the future and taking steps towards making that safe. VSS. Staff is without concerns at present.---02/15/24Pa t is resting in bed, without concerns or pain today. She was able to tour an [facility] apartment on 02/11 and plans to move her and herself into one upon discharge from rehab. She appears accepting of this decision and knows it is what is best for her and herself in the future. VSS. Staff is without concerns today.---02/17/24Pat is resting in her recliner, napping. She awakens to my voice, is a fair historian, is without concerns or pain to report today. SW is here with paperwork to fill out for transfer to [facility] (for now, planned for 02/23). VSS. Staff is without concerns today. Dr. Bang's office called back yesterday and okayed Eliquis dose reduction to 2.5 mg BID based on weight & age. Her Triamterene-HCTZ dose was reduced yesterday in response to elevation in BUN/Cr noted on 02/14 labs. Repeat labwork will be done on 02/21. Janiya Ochoa, SARATH [address] [facility], [place], [address], [place] [facility] 02/18/2024 07:47:40 02/22/2024 text/html 88 Y/O female wi th a history of atrial fibrillation, hyperthyroidism, CHF, HTN, HLD and GERD admitted to [place] [facility] for post acute rehab subsequent to an inpatient stay at [facility] 01/28-02/08/24 related to pneumonia, CHF and atrial fibrillation with RVR. The patient was recently discharged from [place] [facility] back to her [facility] apartment 01/12/2024 after an inpatient stay at [facility] 12/23-12/29/2023 related to afib with RVR and MIN. She had been doing well until the evening of 01/27 when she was noted to be short of breath with significant fatigue. She was taken to [facility] ER where imaging showed a large right sided pleural effusion, BNP of 4500, respiratory panel was negative. She was admitted to the hospitalist service for further evaluation and treatment of pneumonia, afib with RVR and CHF. There is little documentation available for review from her hospital stay - only an admission H&P and discharge orders. She was treated with IV antibiotics for pneumonia, diuretics for CHF and had metoprolol added to medication regimen for rate control. She has been discharged to [place] [facility] for therapy prior to return to her [facility] apartment where she lives with her . New medications: Omnicef, doxycycline, metoprololNo documented dose adjustments to outpatient meds or discontinued medications PCP Naomi Levy status is fullPOA is son, Krysta who lives in [place]---02/07/24The patient is sitting in a chair in the common area today sleeping. She is easily arousable. She is a poor historian, is without complaints or concerns aside from being tired. Staff states she is withdrawn and seems depressed compared to her prior stay. The patient denies SOB or chest pain. She is AMB within the facility with her WW.---02/10/24Corona alvarado is seated in her recliner, having just walked back from therapy with w/w. She has just had a discussion with staff here in regards to recommendations that pt and consider transition to [facility] apartment rather than returning to [facility] apartment. She plans to discuss further with her son Krysta, but per staff it is also his opinion that this is the best and safest option for them both. She expresses a need to consider it longer as I have for so long done everything for myself, it's hard for me to hear that I can't do it all any longer. She tells me her Mikel will be brought up to visit her later and she will discuss with him. She tells me that she understands her 's mental status is worsening in regards to his dementia and that we should be preparing for the future and taking steps towards making that safe. VSS. Staff is without concerns at present.---02/15/24Pa t is resting in bed, without concerns or pain today. She was able to tour an [facility] apartment on 02/11 and plans to move her and herself into one upon discharge from rehab. She appears accepting of this decision and knows it is what is best for her and herself in the future. VSS. Staff is without concerns today.---02/17/24Pat is resting in her recliner, napping. She awakens to my voice, is a fair historian, is without concerns or pain to report today. SW is here with paperwork to fill out for transfer to [facility] (for now, planned for 02/23). VSS. Staff is without concerns today. Dr. Bang's office called back yesterday and okayed Eliquis dose reduction to 2.5 mg BID based on weight & age. Her Triamterene-HCTZ dose was reduced yesterday in response to elevation in BUN/Cr noted on 02/14 labs. Repeat labwork will be done on 02/21.---02/22/24Pat is seated in her recliner today, a fair historian, without concerns or pain to report. She is also without concerns regarding her upcoming discharge to [facility]. Her (who is currently in their [facility] apartment) will be moving into [place] today and she will follow on Thursday. VSS. Staff is without concerns. Janiya Ochoa, [employer]IST [address] [facility], [place], [address], [facility] 02/24/2024 13:12:21 OBGyn Episode No OBEpisode recorded.
--- OUTSIDE RECORDS SUMMARY | 2024-05-31 00:17 | XMS_ITS | Continuity of Care Document ---
Author Organization [facility] Address [address] [address] [place] [address] Phone Care Team Providers Care Websphere Commerce Architect Name Role Phone Magdi Saravia MD Unavailable Unavailable Allergies, Adverse Reactions, Alerts Substance Reaction Status Criticality morphine Active No Information TAPE, OCCLUSIVE ADHESIVE Active No Information MIDAZOLAM HCL Unknown Active No Information propofol Unknown Active No Information fentanyl Unknown Active No Information Penicillins Unknown Active No Information Medications Medication Instructions Dosage Effective Dates (start - stop) Status Comments [place] 5 mg-325 mg tablet take 1- 2 tablets by oral route every 6 hours as needed for pain - Active CIMETIDINE (unknown strength) take 1 tablet by oral route 2 times every day 30 minutes before meals Not Available - Active QBRELIS (unknown strength) take 10 milliliter by oral route every day Not Available - Active ZOLPIDEM TARTRATE (unknown strength) Not Available - Active CLINDAMYCIN HCL (unknown strength) Not Available - Active DEXILANT (unknown strength) Not Available - Active MAXZIDE (unknown strength) Not Available - Active RANITIDINE HCL (unknown strength) Not Available - Active TYLENOL (unknown strength) Not Available - Active ZYRTEC (unknown strength) Not Available - Active VITAMIN D3 (unknown strength) Not Available - Active CENTRUM SILVER (unknown strength) Not Available - Active GLUCOSAMINE-CHONDRO ITIN (unknown strength) Not Available - Active ECOTRIN (unknown strength) Not Available - Active METOPROLOL TARTRATE (unknown strength) Not Available - Active MIRALAX (unknown strength) Not Available - Active Procedures Procedure Date RADEX WRST COMPL MINIMUM 3 VIEWS 2021 Triamcinolone acet inj NOS Drugs unclassified injection DRAIN/INJECT JOINT/BURSA Triamcinolone acet inj NOS DRAIN/INJECT JOINT/BURSA OFFICE/OUTPATIENT VISIT EST RADEX KNE 1/2 VIEWS OFFICE/OUTPATIENT VISIT EST RADEX KNE 3 VIEWS OFFICE/OUTPATIENT VISIT EST OFFICE/OUTPATIENT VISIT EST OFFICE/OUTPATIENT VISIT EST Triamcinolone acet inj NOS DRAIN/INJECT JOINT/BURSA OFFICE/OUTPATIENT VISIT EST RADEX FNGR MINIMUM 2 VIEWS Triamcinolone acet inj NOS DRAIN/INJECT JOINT/BURSA OFFICE/OUTPATIENT VISIT EST OFFICE/OUTPATIENT VISIT EST OFFICE/OUTPATIENT VISIT EST OFFICE/OUTPATIENT VISIT EST POSTOP FOLLOW-UP VISIT POSTOP FOLLOW-UP VISIT OFFICE/OUTPATIENT VISIT EST POSTOP FOLLOW-UP VISIT POSTOP FOLLOW-UP VISIT RADEX KNE COMPL 4/MORE VIEWS RADEX KNE COMPL 4/MORE VIEWS OFFICE/OUTPATIENT VISIT EST OFFICE/OUTPATIENT VISIT EST OFFICE/OUTPATIENT VISIT EST RADEX HAND MINIMUM 3 VIEWS RADEX HAND MINIMUM 3 VIEWS OFFICE/OUTPATIENT VISIT EST MU Reporting OFFICE/OUTPATIENT VISIT EST MU Reporting OFFICE/OUTPATIENT VISIT EST MU Reporting MU Reporting OFFICE/OUTPATIENT VISIT EST MU Reporting MU Reporting Advance Directives Directive Yes / No Effective Date File Name Other Directive No N/A N/A WARNING:The information contained in this [...] Diagnoses Date Provider Providers Copied on Encounter OFFICE/OUTPA TIENT VISIT EST [facility], [address] [facility] [address] [address], [place], [address], [place] tel:[phone] [facility] Primary osteoarthritis of first carpometacarpal joint of left handPain in right wristDegenerative arthritis of metacarpophalange al joint of left thumbDegenerative tear of triangular fibrocartilage complex (TFCC) of right wrist Sep-2 2 Rani Fairbanks. [address] [facility] [address] , [place], [place], [id number] . tel:[phone] Referring Provider: Naomi Pena, [address] [place] [address] [address], [place], [address]. tel:[phone] OFFICE/OUTPA TIENT VISIT EST [facility], [address] [facility] [address] [address], [place], [address], [place] tel:[phone] [facility] Nondisplaced longitudinal fracture of right patella, subsequent encounter for closed fracture with routine healingHistory of total right knee replacementContus ion of left knee, subsequent encounterContusio n of right knee, subsequent encounter 2 L'Hommedi eu Raymond. [address] , [place], [place], [address] . tel:[phone] Referring Provider: Naomi Pena, [address] [place] [address] [address], [place], [address]. tel:[phone] OFFICE/OUTPA TIENT VISIT EST [facility], [address] [facility] [address] [address], [place], [address], [place] tel:[phone] [facility] Aftercare following right knee joint replacement surgeryHistory of total right knee replacementHistor y of total left knee replacementContus ion of right knee, initial encounterContusio n of left knee, initial encounterClosed nondisplaced longitudinal fracture of right patella, initial encounterBody mass index [BMI] 31.0-31.9, adult Mar-0 2 L'Hommedi eu [place]. [address] , [place], [place], [address] . tel: [phone] Referring Provider: Naomi Pena, [address] [place] [address] [address], [place], [address]. tel:[phone] OFFICE/OUTPA TIENT VISIT EST [facility], [address] [facility] [address] [address], [place], [address], [place] tel:[phone] [facility] Trigger ring finger of right handDegenerative arthritis of metacarpophalange al joint of left thumbBody mass index [BMI] 31.0-31.9, adult Nov- 0- 1 Rani Fairbanks. [address] [facility] [address] , [place], [place], [address] . tel: [phone] Referring Provider: Naomi Pena, [address] [place] [address] [address], [place], [address]. tel:[phone] OFFICE/OUTPA TIENT VISIT EST [facility], [address], [address], [place] tel:[phone] [facility] Trigger ring finger of right handHyperextensio n of joint of right handDegenerative arthritis of metacarpophalange al joint of left thumb 1 Rani Fairbanks. [address] [facility] [address] , [place], [place], [address] . tel: [phone] OFFICE/OUTPA TIENT VISIT EST [facility], [address], [address], [place] tel:[phone] [facility] Degenerative arthritis of metacarpophalange al joint of left thumbTrigger ring finger of right handTrigger middle finger of right hand 1 Rani Fairbanks. [address] [facility] [address] , [place], [place], [address] . tel: [phone] OFFICE/OUTPA TIENT VISIT EST [facility], [address], [address], [place] tel:[phone] [facility] Pain of left thumbDegenerative arthritis of metacarpophalange al joint of left thumb Oct- 7-202 0 Rani Fairbanks. [address] [facility], [place], [place], [address] . tel: [phone] OFFICE/OUTPA TIENT VISIT EST [facility], [address] [address], [place], [address], [place] tel:[phone] [facility] Trigger ring finger of right hand Oct-3 0-201 7 Rani Fairbanks. [address] [facility], [place], [place], [address] . tel: [phone] OFFICE/OUTPA TIENT VISIT EST [facility], [address] [address], [place], [address], [place] tel:[phone] [facility] Carpal tunnel syndrome of right wrist Oct-2 3-201 6 Rani Fairbanks. [address] [facility], [place], [place], [address] . tel: [phone] OFFICE/OUTPA TIENT VISIT EST [facility], [address], [address], [place] tel:[phone] [facility] Carpal tunnel syndrome of right wrist Sep-0 8-201 6 Rani Fairbanks. [address] [facility], [place], [place], [address] . tel: [phone] [facility], [address], [address], [place] tel:[phone] [facility] Trigger middle finger of right handTrigger ring finger of right handMass of finger, rightPrimary osteoarthritis of left hand Mitul-0 3-201 6 Rani Fairbanks. [address] [facility], [place], [place], [address] . tel: [phone] [facility], [address], [address], [place] tel:[phone] [facility] Trigger middle finger of right hand July-0 6-201 6 Rani Fairbanks. [address] [place], [place], [address] . tel: [phone] OFFICE/OUTPA TIENT VISIT EST [facility], [address] [address] [facility], [place], [address], [place] tel:[phone] [facility] Alvaro Right leg swellingLeg pain, posterior, rightPresence of right artificial knee jointBody mass index (BMI) 33.0-33.9, adult Jun-2 8 6 Aftab Neal. [address] [facility] [address], [place], [place], [address] . tel: [phone] [facility], [address] [address], [place], [address], [place] tel:[phone] [facility] Trigger middle finger of right handTrigger ring finger of right hand Apr-0 7- 6 Rani Fairbanks. [address] [facility], [place], [place], [address] . tel: [phone] [facility], [address] [address], [place], [address], [place] tel:[phone] [facility] Trigger middle finger of right hand Feb-2 5 6 Rani Fairbanks. [address] [facility], [place], [place], [address] . tel: [phone] [facility], [address] [address], [place], [address], [place] tel:[phone] [facility] No Information Apr- 0 6 Rani Fairbanks. [address] [facility], [place], [place], [address] . tel: [phone] OFFICE/OUTPA TIENT VISIT EST [facility], [address] [address], [place], [address], [place] tel:[phone] [facility] Aftercare following right knee joint replacement surgeryPresence of right artificial knee jointPresence of left artificial knee joint 2-201 6 Aftabsinai De Jesus. [address] [facility] [address], [place], [place], [address] . tel: [phone] OFFICE/OUTPA TIENT VISIT EST [facility], [address] [address], [place], [address], [place] tel:[phone] [facility] Trigger middle finger of right handTrigger ring finger of right handMass of finger, right 6 Rani Fairbanks. [address] [facility], [place], [place], [address] . tel: [phone] OFFICE/OUTPA TIENT VISIT EST [facility], [address] [address], [place], [address], [place] tel:[phone] [facility] Primary osteoarthritis of first carpometacarpal joint of left handTrigger middle finger of right hand 5 Rani Fairbanks. [address] [facility], [place], [place], [address] . tel: [phone] OFFICE/OUTPA TIENT VISIT EST [facility], [address] [address], [place], [address], [place] tel:[phone] [facility] Pain of left handPain of right handTrigger middle finger of right handPrimary osteoarthritis of first carpometacarpal joint of left hand 5 Rani Fairbanks. [address] [facility], [place], [place], [address] . tel: [phone] Referring Provider: [address], [place], [address]. tel:[phone] OFFICE/OUTPA TIENT VISIT EST [facility], [address] [address], [place], [address], [place] tel:[phone] [facility] Knee joint replacement 3 Abelardo Mckeon. [address] [facility], [place], [place], [address] . tel: [phone] Referring Provider: [address], [place], [address]. tel:[phone] OFFICE/OUTPA TIENT VISIT EST [facility], [address], [address], tel:[phone] [facility] Knee joint replacement 3 Abelardo Mckeon. [address] [facility] [address] [place], [place], [address] . tel: [phone] Referring Provider: [address], [place], [address]. tel:[phone] OFFICE/OUTPA TIENT VISIT EST [facility], [address] [address], [place], [address], [place] tel:[phone] [facility] Knee joint replacementDietar y surveillance and counseling 2 Abelardo Mckeon. [address] [facility] [address] [place], [place], [address] . tel: [phone] Referring Provider: [address], [place], [address]. tel:[phone] [facility], [address], [address], [place] tel:[phone] [facility] No Information 2 Abelardo Mckeon. [address] [facility] [address] [place], [place], [address] . tel: [phone] [facility], [address], [address], [place] tel:[phone] [facility] Knee joint replacementHypert ension, Unspecified 2 Abelardo Mckeon. [address] [facility] [address] [place], [place], [address] . tel: [phone] Referring Provider: [address], [place], [place], [facility]. tel:[phone] Family History Family Member Type Diagnosis Age At Onset Father Problem (finding) Heart Disease Payers Payer name Insurance type Covered constitution party ID Authormarcka mady(s) Medicare E2 OT [id number] Blue Cross Federal E2 OT [id number] Social History Type Description Quantity Date Captured Comments Alcohol Use Details Unknown Caffeine Use Details Unknown Tobacco Use Status Never smoked tobacco 2021 Smoking Status Never smoker Non-Smoking Tobacco Use Details : No Details Available : No Details Available Sex Female Chief Complaint And Reason For Visit No Information Reason For Referral Reason For Referral No Information Plan Of Treatment Date Type Action Status Goal Lifestyle education regardin g diet completed Goal Lifestyle education regardin g diet completed Referral Ordered: RADEX WRST COMPL MINIMUM 3 VIEWS RT wrist ordered Referral Ordered: RADEX KNE 1/2 VIEWS RT knee ordered Referral Ordered: RADEX FNGR MINIMUM 2 VIEWS LT THUMB ordered Referral Ordered: UPR/LXTR TAM DOPPLER STDY BILAT (Venous Doppler) RT leg Appointment date/timeframe: 07/19/2015 ordered Referral Ordered: RADEX KNE COMPL 4/MORE VIEWS RT ordered Referral Ordered: RADEX KNE COMPL 4/MORE VIEWS LT ordered Referral Ordered: RADEX HAND MINIMUM 3 VIEWS LT ordered Referral Ordered: RADEX HAND MINIMUM 3 VIEWS RT ordered Referral Ordered: RADEX KNE 3 VIEWS Bilateral knee ordered Referral Ordered: RADEX KNE 3 VIEWS Bilateral ordered History Of Present Illness Encounter Date Complaint History Of Prese nt Illness No Information Functional Status Date Functional Assessmen t No Information Instructions Date Instruction Additional Infor mation Activity as tolerated. Related t o Primary osteoarthritis of first carpometacarpal joint of left hand Lifestyle education regarding di et Related to Body mass index [BMI] 31.0-31.9, adult Giving encouragement to exercise Related to Body mass index [BMI] 31.0-31.9, adult Rest, ice and elevate. Related t o Hyperextension of joint of right hand Activity as tolerated. Related t o Trigger ring finger of right hand Activity as tolerated. 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 Related t o Trigger ring finger of right hand Activity as tolerated. Related t o Trigger middle finger of right hand Activity as tolerated. Related t o Trigger ring finger of right hand Activity as tolerated. Related t o Trigger middle finger of right hand Activity as tolerated. Related t o Trigger ring finger of right hand Activity as tolerated. Related t o Primary osteoarthritis of left hand Discussed treatment options Rela jo to Leg pain, posterior, right Lifestyle education regarding di et Related to Body mass index (BMI) 33.0-33.9, adult Activity as tolerated. Related t o Trigger ring finger of right hand Activity as tolerated. Related t o Trigger middle finger of right hand Weight bearing status as directe d. Related to Presence of right artificial knee joint Discussed treatment options Rela jo to Presence of right artificial knee joint Activity as tolerated. Related t o Trigger middle finger of right hand Activity as tolerated. Related t o Trigger ring finger of right hand Discussed treatment options. Rel ated to Primary osteoarthritis of first carpometacarpal joint of left hand OTC anti-inflammatories (NSAIDs) Activity as tolerated Activity as tolerated Continue medication as prescribe d Activity as tolerated Continue medication as prescribe d Physical activity counseling Rel ated to Dietary surveillance counseling Dietary counseling Related to Di etary surveillance counseling Assessments Type Assessment Date assessment Primary osteoarthrit is of first carpometacarpal joint of left hand assessment Pain in right wrist assessment Degenerative arthrit is of metacarpophalangeal joint of left thumb assessment 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
--- OUTSIDE RECORDS SUMMARY | 2024-05-31 00:17 | XMS_ITS | Continuity of Care Document ---
Author Name Auto Generated, Auto Generated Organization [facility] Support Name Relationship Address Phone Gali Clayton Emergency Contact [address] [place] [address] Gali Krysta Son [address] [place] [address] Unavailable Keila Talbert Financial Responsible Democrat [address] [place], [place] [address] Keila Talbert Self [address] [place], [place] [address] Clayton Talbert Spouse [address] [place] [address] Krysta Talbert Emergency Contact [address] [place] [address] Unavailable Summary Purpose Consult/Referral Allergies, Adverse Reactions, Alerts Type Description/Agent Code Date Allergy Active Date Allergy Inactivated Date of Last Reaction Adverse Reactions Severity Status Comments Source of Information FDB Medic ation Ingre dient propofol Active Patient History FDB Medic ation Ingre dient fentanyl Active Patient History FDB Medic ation Ingre dient midazolam Active Patient History FDB Medic ation Ingre dient morphine Active Patient History FDB Medic ation Name adhesive tape-silicones Active P atient History FDB Medic ation Ingre dient penicillin Active Patien t History Medications Medications Prescription Date Begun Date Discontinued Status Associated Diagnoses Ordering Provider azithromycin 250 mg tablet 1 tablet 1 Time Daily for 4 Days 05/30/19 25 Active MD Naomi Pena furosemide 40 mg tablet 1 TABLET 1 Time Daily 05/29/19 25 Active MD Naomi Pena melatonin 5 mg tablet 1 PRN Hour Of Sleep 04/25/19 25 Active MD Naomi Pena Blood Pressure Cuff 1 2 Times Monthly 03/25/19 Active MD Naomi Pena cholecalciferol (vitamin D3) 25 mcg (1,000 unit) capsule 1 1 Time Daily 03/11/20 24 Active MD Naomi Pena FeroSuL 325 mg (65 mg iron) tablet 1 1 Time Daily 03/11/20 24 Active MD Naomi Pena Citracal Plus Bone Density Builder 300 mg-200 unit-13.5 mg tablet 1 1 Time Daily 03/11/20 24 Active MD Naomi Pena Centrum Silver 0.4 mg-300 mcg-250 mcg tablet 1 1 Time Daily 03/11/20 24 Active MD Naomi Pena calcium 600 mg (as calcium carbonate 1,500 mg) tablet 1 1 Time Daily 03/11/20 24 Active MD Naomi Pena atorvastatin 20 mg tablet 1 1 Time Daily 03/10/20 24 Active MD Naomi Pena traZODone 50 mg tablet 1/2 tab 3 Times Daily 02/29/20 24 Active MD Naomi Pena metoprolol tartrate 50 mg tablet 1 TABLET 2 Times Daily 02/24/20 24 Active MD Naomi Pena amLODIPine 5 mg tablet 1 TABLET 1 Time Daily 02/24/20 24 Active MD Naomi Pena cetirizine 10 mg tablet 1 TABLET 1 Time Daily 02/24/20 24 Active MD Naomi Pena cimetidine 300 mg tablet 1 TABLET 2 Times Daily 02/24/20 24 Active MD Naomi Pena mirtazapine 30 mg tablet 1 TABLET 1 Time Daily 02/24/20 24 Active MD Naomi Pena Klor-Con M10 mEq tablet,extended release 1 TABLET 1 Time Daily 02/24/20 24 Active MD Naomi Pena dilTIAZem ER 120 mg capsule,24 hr,extended release 1 CAPSULE 1 Time Daily 02/24/20 24 Active MD Naomi Pena methIMAzole 10 mg tablet 1 TABLET 1 Time Daily 02/24/20 24 Active MD Naomi Pena Eliquis 2.5 mg tablet 1 tablet 2 Times Daily 02/24/20 24 Active MD Naomi Pena Conditions/Problems Problem/Diagnosis Awareness of Diagnosis Code (ICD-10) Onset Date (Start Date) Resolution Date (End Date) Status Source Comments PNEUMONIA, UNSPECIFIED ORGANISM J18.9 02/26/20 24 Active MD Naomi Pena ADULT FAILURE TO THRIVE R62.7 02/07/20 Active MD Naomi Pena OTHER SPECIFIED POSTPROCEDURAL STATES Z98.890 02/01/20 Active MD Naomi Pena HYPO-OSMOLALITY AND HYPONATREMIA E87.1 01/29/20 Active MD Naomi Pena HYPOMAGNESEMIA E83.42 01/29/20 Active MD Naomi Pena HYPOKALEMIA E87.6 01/29/20 Active MD Naomi Pena AGE-RELATED PHYSICAL DEBILITY R54 01/29/20 Active MD Naomi Pena ACUTE ON CHRONIC DIASTOLIC (CONGESTIVE) HEART FAILURE I50.33 01/29/20 Active MD Naomi Pena UNSPECIFIED ATRIAL FIBRILLATION I48.91 01/29/2002/08/2024 Resolved MD Naomi Pena HEART FAILURE, UNSPECIFIED I50.9 01/29/2002/10/2024 Resolved MD Naomi Pena HYPERTENSIVE HEART DISEASE WITH HEART FAILURE I11.0 01/29/20 Active MD Naomi Pena PLEURAL EFFUSION, NOT ELSEWHERE CLASSIFIED J90 01/29/20 Active MD Naomi Pena GASTRO-ESOPHAGEAL REFLUX DISEASE WITHOUT ESOPHAGITIS K21.9 01/15/20 Active MD Naomi Pena OTHER EVP OF [employer] (CURRENT) DRUG THERAPY Z79.899 01/15/20 Active MD Naomi Pena DEPENDENCE ON OTHER ENABLING MACHINES AND DEVICES Z99.89 01/15/20 Active MD Naomi Pena UNSPECIFIED PROTEIN-CALORIE MALNUTRITION E46 01/15/2001/15/2024 Resolved MD Naomi Pena DEPRESSION, UNSPECIFIED F32.A 01/15/2001/15/2024 Resolved MD Naomi Pena OTHER SEASONAL ALLERGIC RHINITIS J30.2 01/15/20 Active MD Naomi Pena PERSONAL HISTORY OF URINARY (TRACT) INFECTIONS Z87.440 01/15/20 Active MD Naomi Pena OBSTRUCTIVE SLEEP APNEA (ADULT) (PEDIATRIC) G47.33 01/15/20 Active MD Naomi Pena PAROXYSMAL ATRIAL FIBRILLATION I48.0 01/15/20 Active MD Naomi Pena HYPERLIPIDEMIA, UNSPECIFIED E78.5 01/15/20 Active MD Naomi Pena PERIPHERAL VASCULAR DISEASE, UNSPECIFIED I73.9 01/15/20 Active MD Naomi Pena ESSENTIAL (PRIMARY) HYPERTENSION I10 01/15/20 24 02/24/2024 Resolved MD Naomi Pena LONGTERM (CURRENT) USE OF ANTICOAGULANTS Z79.01 01/15/20 Active MD Naomi Pena RHEUMATIC MITRAL INSUFFICIENCY I05.1 01/15/20 Active MD Naomi Pena INSOMNIA, UNSPECIFIED G47.00 01/11/20 Active MD Naomi Pena LOCALIZED EDEMA R60.0 01/11/20 24 02/24/2024 Resolved MD Naomi Pena BODY MASS INDEX [BMI] 21.0-21.9, ADULT Z68.21 12/30/19 Active MD Naomi Pena 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 12/24/19 Active MD Naomi Pena DELIRIUM DUE TO KNOWN PHYSIOLOGICAL CONDITION F05 12/24/19 24 12/30/2023 Resolved MD Naomi Pena ALLERGIC RHINITIS, UNSPECIFIED J30.9 12/24/19 Active MD Naomi Pena ANXIETY DISORDER, UNSPECIFIED F41.9 12/24/19 24 01/15/2024 Resolved MD Naomi Pena ENCOUNTER FOR ADJUSTMENT AND MANAGEMENT OF VASCULAR ACCESS DEVICE Z45.2 12/24/19 Active MD Naomi Pena Date 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
--- OUTSIDE RECORDS SUMMARY | 2024-05-31 00:17 | XMS_ITS | Clinical Summary ---
Author Organization [facility] [employer] [facility] Address [address] [place] [address] Care Team Providers Care Adventure Education Teacher Name Role Phone Naomi Pena MD Primary Care Provider [phone] Allergies Active Allergy Reactions Criticality Noted Date Comments Adhesive Other (See Comments) Low 05/24/2018 Adhesive Tape-Silicones Other (See Comments) High redness Reaction: ERYTHEMA, Fentanyl Unknown 10/28/2011 Midazolam Unknown 10/30/2020 Morphine Other (See Comments) 07/19/2020 Reaction: ERYTHEMA;, Penicillins Hives,Rash,Unknown High 05/10/2011 Propofol Unknown 10/28/2011 Medications atorvastatin (LIPITOR) 20 mg tablet Take 40 mg by mouth daily. 9 Active fluticasone propionate (FLONASE) 50 mcg/spray [place], Suspension nasal inhaler Administer 2 Sprays in each nostril. Active cetirizine (ZyrTEC) 10 mg tablet Take 10 mg by mouth. Active acetaminophen (TYLENOL) 325 mg tablet 1 time daily as needed. Active multivitamins-m inerals-lutein (CENTRUM SILVER) Tablet Take 1 Tablet by mouth daily. Active mirtazapine (REMERON SolTab) 30 mg Tablet, Rapid Dissolve Place 30 mg inside cheek daily at bedtime. PRN Active methIMAzole (TAPAZOLE) 10 mg tablet Take 1 Tablet (10 mg) by mouth daily. 30 Tablet 3 4 Active propranoloL (INDERAL) 20 mg tablet Take 1 Tablet (20 mg) by mouth every 12 hours. 60 Tablet 3 4 Active Klor-Con M10 10 mEq Extended Release tablet Take 10 mEq by mouth daily. 4 Active amLODIPine (NORVASC) 5 mg tablet Take 5 mg by mouth. 2 Active Lasix 40 mg tablet Take 40 mg by mouth every 24 hours. 4 Active Active Problems Problem Noted Date Diagnosed Date Protein-calorie malnutrition, severe 12/26/2023 Hyperthyroidism 12/25/2023 Atrial fibrillation with rapid ventricular respo nse 12/24/2023 MIN (acute kidney injury) 12/24/2023 Encounters Date Type Department Care Team Description 05/28/2024 External Device Data ST[facility] ABSTRACTION Provider, Abstract 05/27/2024 External Device Data [facility] ABSTRACTION Provider, Abstract 05/11/2024 External Device Data [facility] ABSTRACTION Provider, Abstract 05/10/2024 External Device Data [facility] ABSTRACTION Provider, Abstract 04/14/2024 External Device Data [facility] ABSTRACTION Provider, Abstract 04/13/2024 External Device Data ST[facility] ABSTRACTION Provider, Abstract 04/12/2024 External Device Data ST[facility] ABSTRACTION Provider, Abstract 04/05/2024 External Device Data [facility] ABSTRACTION Provider, Abstract 03/08/2024 Telephone [facility] - [address] [facility] [address] [address] [facility] [address] [place] [address] Skip Cole MD Wants call from Dr Saxena 03/07/2024 Telephone [facility] - [address] [facility] [address] [address] [facility] [address] [place] [address] Skip Cole MD Question 03/03/2024 1:45 PM STOCK CLERK Office Visit [facility] - [address] [facility] [address] [address] [facility] [address] [place] [address] Skip Cole MD Coronary artery disease involving [place] coronary artery of [place] heart without angina pectoris (Primary Dx); Bilateral carotid artery stenosis; Nonrheumatic mitral valve regurgitation; Essential hypertension; Mixed hyperlipidemia; Persistent atrial fibrillation (CMS/HCC) from Last 3 Months Family History Medical History Relation Name Comments Heart Disease Father Relation Name Status Comments Father Social History Tobacco Use Types Packs/Day Years Used Date Smoking Tobacco: Never Smokeless Tobacco: Never Tobacco Cessation:Counseling Given: Not Answered Feeling Safe Answer Date Recorded Are you [...] on file Sexual Orientation Not on file Last Filed Vital Signs Vital Sign Reading Time Taken Comments Blood Pressure 128/40 03/03/2024 1:45 PM STOCK CLERK Pulse 88 03/03/2024 1:42 PM STOCK CLERK Temperature 36.4 C (97.5 F) 12/29/2023 8:05 AM CDT Respiratory Rate 25 12/29/2023 8:05 AM CDT Oxygen Saturation 99% 12/29/2023 8:05 AM CDT Inhaled Oxygen Concentration - - Weight 51.7 kg (114 lb) 03/03/2024 1:42 PM STOCK CLERK Height 157.5 cm (5' 2 ) 03/03/2024 1:42 PM STOCK CLERK Body Mass Index 20.85 03/03/2024 1:42 PM STOCK CLERK Plan of Treatment Upcoming Encounters Date Type Department Care Team (Late st Contact Info) Description 03/09/2025 10:15 AM STOCK CLERK Appointment [facility] Testing [address] [address] [place] [address] [facility] [address] [place] [address] 03/29/2025 10:30 AM STOCK CLERK Office Visit [facility] - [address] [place] [address] [facility] [address] [place] [address] [place] [address] [facility] [address] [place] [address] Health Maintenance Due Date Last Done Comments PNEUMOCOCCAL VACCINE 50+ YEA RS (1 of 1 - PCV) 1984 ZOSTER VACCINE (1 of 2) 1984 RSV VACCINE (60+ or ) (1 - 1-dose 75+ series) 2009 INFLUENZA VACCINE (#1) 2023 12/01/2022 COVID-19 Vaccine (3 - 2023-2 5 season) 2023 06/01/2020, 05/04/2020 DTAP/TDAP/TD VACCINES (2 - T d or Tdap) 11/13/2030 11/13/2020 OSTEOPOROSIS SCREENING Completed , 03/30/2019, 02/11/2017, Additional history exists Procedures Procedure Name Priority Date/Time Associated Diagnosis Comments XR DEXA BONE DENSITY AXIAL 1 OR MORE SITES Routine 05/03/2021 11:15 AM STOCK CLERK Asymptomatic menopausal state from Last 3 Months or Most Recently Relevant to Health Maintenance Results * XR DEXA BONE DENSITY AXIAL 1 OR MORE SITES (05/03/2021 11:15 AM STOCK CLERK) Anatomical Region Laterality Modality Computed Radiogr aphy 05/03/2021 11:1 5 AM STOCK CLERK Narrative 05/03/2021 12:44 PM STOCK CLERK SUMMARY DEXA REPORT DATE: 05/03/2021 11:15 AM INDICATION: Postmenopausal. FINDINGS: Osteopenia with lowest T score -1.9, previously -2.0. Fracture risk is moderate. Please refer to the full report available in [facility] under the PACS Images tab. If a faxed copy is needed, please call [phone]. DICTATION LOCATION: [facility] Procedure Note Sherry Luis MD - 05/03/2021 SUMMARY DEXA REPORT DATE: 05/03/2021 11:15 AM INDICATION: Postmenopausal. FINDINGS: Osteopenia with lowest T score -1.9, previously -2.0. Fracture risk is moderate. Please refer to the full report available in [facility] under the PACS Images tab. If a faxed copy is needed, please call [phone]. DICTATION LOCATION: [facility] Jesseamilcar Schaefer DIAGNOSTIC IMAGING ORDERABLES F inal Result from Last 3 Months or Most Recently Relevant to Health Maintenance Insurance MEDICARE PART A AND B [facility] RX [facility] Medicare Part D RX [facility] Medicare Part D Advance Directives For more information, please contact: [phone] * Full Code (Latest Code Status on File) Date Activated Date Inactivated Comments 12/24/2023 12:30 PM 12/29/2023 2:08 PM Care Teams Adventure Education Teacher Relationship Specialty Start Date End Date Naomi Pena MD [address] [place] [address] PCP - General Internal Medicine 11/08/20
--- OUTSIDE RECORDS SUMMARY | 2024-05-31 00:17 | XMS_ITS | Clinical Summary ---
Author Organization [facility] Address [address] [place] [address] Care Team Providers Care Area Attendant Name Role Phone Neal Bahena MD Primary Care Provider [phone] Source Comments [facility],non-owned Affiliates and Associated Physician Practices is amultiple site organization consisting of ambulatory clinics and hospital sitesin [place], [place], [place] and [place]. This disclosure is being madepursuant to the Care Everywhere program and may not contain all information available regarding this patient. Last updated 17.[facility] [email or web address] Social History Tobacco Use Types Packs/Day Years Used Date Smoking Tobacco: Never Assessed Sex and Gender Information Value Date Recorded Sex Assigned at Not on file Gender Identity Not on file Sexual Orientation Not on file Plan of Treatment Health Maintenance Due Date Last Done Comments BONE DENSITY TESTING 1934 MEDICARE AWV 12 MONTHS 1934 DTAP/TDAP/TD VACCINES (1 - Tdap) 1953 PNEUMOCOCCAL VACCINE 50+ (1 of 1 - PCV) 1984 ZOSTER VACCINE (1 of 2) 1984 Respiratory Syncytial Virus (RSV) Vaccine Pt: or over 60 yrs (1 - 1-dose 75+ series) 2009 COVID-19 VACCINE ( - 2023-2 5 season) 2023 INFLUENZA VACCINE (#1) 2023 DEPRESSION SCREENING 03/23/2024 HEPATITIS B VACCINE Aged Out No longe r eligible based on patient's age to complete this topic HIB VACCINE Aged Out No longer eligi ble based on patient's age to complete this topic HPV VACCINE Aged Out No longer eligi ble based on patient's age to complete this topic MENINGOCOCCAL (Group B) VACCINE Aged Out No longer eligible based on patient's age to complete this topic MENINGOCOCCAL VACCINE Aged Out No ibrahima maria t eligible based on patient's age to complete this topic Care Teams Area Attendant Relationship Specialty Start Date End Date Neal Bahena MD PCP - General Internal Medicine 07/19/15
--- NOTE | 2024-05-31 00:42 | ED_ITS ---
HPI - General Adult General Chief complaint: Shortness of Breath/Dyspnea Stated complaint: DIFFICULTY IN BREATHING; RECENT PNE DX Time Seen by Provider: 05/31/24 00:02 History of Present Illness HPI narrative: Patient is an 88-year-old female who presents emergency department this evening with complaint of shortness of breath and hypoxia. Patient was noted to be breathing at a rate of 36-40 breaths per minute and was satting 84% on room air. Patient does have a history of atrial fibrillation and CHF but does not use any oxygen at her nursing facility. Patient does take Lasix daily and per son, her doctor had her taking double her daily dose for a few weeks until recently, now she is down to her regular 40 mg daily dose. Son is present with the patient at bedside and states that the shortness of breath started on of last week, [place] ordered a chest x-ray which showed maybe possible pneumonia and patient was started on antibiotics. Patient's symptoms continues to worsen over the weekend. Son states that they just buried his father, patient's on Thursday and yesterday the patient slept most of the day. Today he noticed that her breathing has not improved and has been progressively getting worse and patient is now hypoxic so she was brought to our facility for further evaluation. Patient herself is denying any symptoms, states that she does not want to be here and wants to go back home. Son states that when his mother gets sick she gets angry and behaves the way she is behaving today. Related Data Home Medications ?Medication ?Instructions ?Recorded ?Confirmed ?Last Taken ?Type amlodipine 5 mg tablet 5 mg PO DAILY 01/28/24 01/28/24 Unknown History apixaban 5 mg tablet (Eliquis) 5 mg PO BID 01/28/24 01/28/24 Unknown History atorvastatin 20 mg tablet 40 mg PO DAILY 01/28/24 01/28/24 Unknown History cetirizine 10 mg tablet 10 mg PO DAILY 01/28/24 01/28/24 Unknown History cimetidine 300 mg tablet 300 mg PO BID 01/28/24 01/28/24 Unknown History dexlansoprazole 60 mg 60 mg PO DAILY 01/28/24 01/28/24 Unknown History capsule,biphase delayed release diltiazem HCl 120 mg 120 mg PO DAILY 01/28/24 01/28/24 Unknown History capsule,extended release 24 hr fluticasone propionate 50 2 spray intranasal DAILY 01/28/24 01/28/24 Unknown History mcg/actuation nasal spray,suspension furosemide 40 mg tablet 40 mg PO DAILY 01/28/24 01/29/24 Unknown History methimazole 10 mg tablet 10 mg PO DAILY 01/28/24 01/28/24 Unknown History metoprolol tartrate 75 mg tablet 75 mg PO DAILY 01/28/24 01/28/24 Unknown History mirtazapine 30 mg tablet 30 mg PO DAILY 01/28/24 01/29/24 Unknown History omeprazole 20 mg capsule,delayed 20 mg PO DAILY 01/28/24 01/29/24 Unknown History release potassium chloride 10 mEq 10 meq PO DAILY 01/28/24 01/28/24 Unknown History tablet,extended release(part/cryst) (Klor-Con M) propranolol 20 mg tablet 20 mg PO BID 01/28/24 01/28/24 Unknown History triamterene 75 1 tablet PO DAILY 01/28/24 01/29/24 Unknown History mg-hydrochlorothiazide 50 mg tablet Allergies Allergy/AdvReac Type Severity Reaction Status Date / Time Penicillins Allergy Verified 02/01/24 08:03 Review of Systems 2 Review of Systems: All systems are reviewed and are negative unless stated otherwise in the HPI. [facility] Past Medical History Medical History (Updated 05/31/24 @ 01:06 by Jeannie Baker APRN) Anemia Hyperlipidemia Hypertension CHF (congestive heart failure) Atrial fibrillation Family History Family History Father Acute myocardial infarction Hypertension Mother Hypertension Cerebrovascular accident Social History Social History Smoking status: Never smoker Alcohol intake: never Substance use: never Do You Feel Safe in your Home?: Yes Lack of Transportation: YES Lack of Food: Never True Current Housing: I Have Housing Concerned About Future Housing: No Difficulty Paying Gas/Electric Bills: No Difficulty Paying for Meds: No Currently Unemployed: No Education: High School Diploma/GED Difficulty w/ Childcare or Family Care: No Spiritual care concerns: No Exam 2 Narrative: General: Alert, awake, afebrile, unpleasant elderly female, mild respiratory distress. HEENT: PERRL, no rhinorrhea, no post nasal drip, oropharynx clear. Neck: Trachea midline, no JVD, no lymphadenopathy. Cardiovascular: Regular rate and rhythm, no murmurs, rubs or gallops, 1+ bilateral peripheral lower extremity edema. Respiratory: Diminished breath sounds on the right mid to lower lung sosa, tachypnea, no wheezing, no rhonchi, no rubs, mild to moderate respiratory distress with increased work of breathing. Abdomen: Soft, nontender, nondistended, no rebound, no guarding, no peritoneal signs. Musculoskeletal: No joint swelling or deformity, normal muscle tone. Skin: No rashes or petechia, no signs of infection. Psychiatric: Agitated otherwise normal behavior and judgment for situation. Neurological: Alert and oriented to person, place, and time. Follows all commands. No focal deficits, speech is clear and fluent. Course Vital Signs Vital signs: Vital Signs Pulse Rate 80 05/30/24 22:00 Pulse Oximetry 85 L 05/30/24 22:00 Oxygen Delivery Room Air 05/30/24 22:00 Pulse Rate 79 05/31/24 00:40 Respiratory Rate 28 H 05/31/24 00:40 Blood Pressure 135/88 05/31/24 00:40 Pulse Oximetry 98 05/31/24 00:40 Oxygen Delivery Nasal Cannula 05/30/24 22:23 Oxygen Flow Rate 2 05/30/24 22:23 Medical Decision Making MDM Narrative Medical decision making narrative: The patient was evaluated by myself in the emergency department. History is obtained from patient who is an independent historian and physical exam was performed. External medical records were reviewed at this time. IV was established and pertinent tests were ordered. Patient was administered 40 mg IV Lasix at this time. EKG was obtained which revealed sinus rhythm rate of 75 beats per minute, no evidence of acute ischemia. EKG was independently interpreted by me and is currently pending official cardiology read. Laboratory results obtained revealing a hemoglobin of 8.7 which is around patient's baseline, potassium of 3.1, otherwise unremarkable. At this time patient was administered 40 mEq of oral potassium. Magnesium noted to be normal at 1.7, proBNP 1640 which is lower than last documented value of 3240 on in January of 2024. Imaging studies obtained included CXR which was independently interpreted by me revealing: IMPRESSION: Right lower lung atelectasis/consolidation. Moderate right pleural effusion, slightly increased in size since the comparison study. At this time, patient was started on IV antibiotics with levofloxacin 750 mg given her penicillin allergy for possible pneumonia. Differential diagnosis considerations include pleural effusion, CHF exacerbation, infectious process such as pneumonia, acute viral syndrome. Comorbidities impacting this visit include history of CHF and pleural effusion which required a thoracentesis January of 2024. I have evaluated and discussed social determinants of health with the patient that could potentially impact subsequent diagnosis and treatment plans. On repeat assessment of the patient, reevaluation revealed that the patient is doing well and is in no acute distress. Patient symptoms have improved since she arrived to our emergency department. Repeat vital signs were all reviewed and noted to be stable. Differential diagnosis and treatment plan were discussed with the patient at bedside. Patient agrees with discussion and after shared medical decision making agrees with admission. All questions were answered to the patient's satisfaction. Case was discussed with the on-call MANAGER [employer] Jeannie at 0050 and she accepted admission. Vital Signs Vital Signs: Vital Signs Pulse Rate 80 05/30/24 22:00 Pulse Oximetry 85 L 05/30/24 22:00 Oxygen Delivery Room Air 05/30/24 22:00 Pulse Rate 79 05/31/24 00:40 Respiratory Rate 28 H 05/31/24 00:40 Blood Pressure 135/88 05/31/24 00:40 Pulse Oximetry 98 05/31/24 00:40 Oxygen Delivery Nasal Cannula 05/30/24 22:23 Oxygen Flow Rate 2 05/30/24 22:23 Lab Data 05/30/24 22:31 05/30/24 22:31 Labs: Lab Results 05/30/24 05/30/24 Range/Units 22:30 22:31 WBC 9.3 (4.5-10.0) K/mm3 RBC 3.28 L (4.2-5.4) M/mm3 Hgb 8.7 L (12.0-15.0) g/dL Hct 27.9 L (37.0-47.0) % MCV 85.1 (80-100) fl MCH 26.5 (26-34) pg MCHC 31.2 L (32-36) g/dl RDW 15.0 H (11.5-14.5) % Plt Count 365 (150-375) k/mm3 MPV 8.9 (7.4-10.4) fl Immature Gran % (Auto) 0.2 (0-0.5) % Neut % (Auto) 73.6 H (45.5-73.1) % Lymph % (Auto) 13.1 L (18.3-44.2) % [place] % (Auto) 10.0 H (2.6-8.5) % Eos % (Auto) 2.8 (0-4.4) % Baso % (Auto) 0.3 (0.2-1.2) % Lymph # (Auto) 1.22 (0.9-3.2) K/mm3 [place] # (Auto) 0.9 H (0.1-0.6) K/mm3 Eos # (Auto) 0.3 (0-0.3) K/mm3 Baso # (Auto) 0.0 (0.0-0.1) K/mm3 Abs Immat Gran (auto) 0.02 (0.00-0.031) K/mm3 Absolute Neuts (auto) 6.8 H (1.3-6.7) K/mm3 Absolute Nucleated RBC 0.000 (0.0-0.012) K/mm3 Nucleated RBC % 0.0 (0.0-0.2) % Sodium 134 L (137-145) mmol/L Potassium 3.1 L (3.4-5.0) mmol/L Chloride 97 L (98-107) mmol/L Carbon Dioxide 31 H (22-30) mmol/L Anion Gap 6 (4-12) mmol/L BUN 17 (7-17) mg/dL Creatinine 1.23 H (0.7-1.0) mg/dL Estim Creat Clear Calc 22 ml/min Estimated GFR 41 L (59 - ) Glucose 115 H (65-110) mg/dL Calcium 9.5 (8.4-10.2) mg/dL Magnesium 1.7 (1.6-2.3) mg/dL Total Bilirubin 0.4 (0.2-1.3) mg/dL AST 25 (14-36) U/L ALT 13 (6-35) U/L Alkaline Phosphatase 137 H (38-126) U/L Troponin I Pending NT-Pro-B Natriuret Pep 1640 H (19.9-100) pg/mL Total Protein 7.0 (6.3-8.2) g/dL Albumin 3.3 L (3.5-5.1) g/dL Influenza A (RT-PCR) Negative (Negative) Influenza B (RT-PCR) Negative (Negative) RSV (RT-PCR) Negative (Negative) SARS-CoV-2 RNA (RT-PCR) Negative (Negative) Discharge Plan Discharge Clinical Impression: Acute hypoxic respiratory failure, Pleural effusion, Acute hypokalemia, Pneumonia Patient Disposition: Still a Patient Condition: Improved Patient Language: Israeli Prescriptions: No Action amlodipine 5 mg tablet 5 mg PO DAILY atorvastatin 20 mg tablet 40 mg PO DAILY cetirizine 10 mg tablet 10 mg PO DAILY cimetidine 300 mg tablet 300 mg PO BID diltiazem HCl 120 mg capsule,extended release 24hr 120 mg PO DAILY fluticasone propionate 50 mcg/actuation spray,suspension 2 spray INTRANASAL DAILY dexlansoprazole 60 mg capsule,biphase delayed releas 60 mg PO DAILY Eliquis 5 mg tablet 5 mg PO BID furosemide 40 mg tablet 40 mg PO DAILY mirtazapine 30 mg tablet 30 mg PO DAILY omeprazole 20 mg capsule,delayed release(DR/EC) 20 mg PO DAILY triamterene-hydrochlorothiazid 75-50 mg tablet 1 tablet PO DAILY methimazole 10 mg tablet 10 mg PO DAILY propranolol 20 mg tablet 20 mg PO BID potassium chloride [Klor-Con M10] 10 mEq tablet,ER particles/crystals 10 meq PO DAILY metoprolol tartrate 75 mg tablet 75 mg PO DAILY cefdinir 300 mg Capsule 300 mg PO DAILY@2100 18 Days Qty: 18 0RF metoprolol tartrate 50 mg Tablet 50 mg PO Q12HR 90 Days Qty: 90 0RF doxycycline hyclate 100 mg Tablet 100 mg PO Q12HR 19 Days Qty: 38 0RF Follow-up/Referrals: PHYSICIAN NOT ON STAFF,NONSTAFF [Primary Care Provider] - Time of Disposition: 00:58
--- NOTE | 2024-05-31 00:54 | P.HP_ITS ---
H&P: HPI History of Present Illness Date/Time: 05/31/24 00:54 Chief Complaint: SOB/dyspnea Narrative: This is an 88-year-old female with a significant past medical history congestive heart failure, atrial fibrillation, hypertension, hyperlipidemia who presented to the hospital with shortness of breath and hypoxia. Patient states that she started feeling more short of breath yesterday. She recently carried her on Thursday who she was to for 69 years. She had been doing a lot of walking and standing which had contributed to her bilateral lower extremity swelling. Workup in the hospital included a chest x-ray which showed right lower lung atelectasis/consolidation, moderate right pleural effusion slightly increased in size since comparison study. Initial labs shown a normal white blood cell count of 9.3, hemoglobin 8.7 sodium 134, chloride 97, potassium 3.1, creatinine 1.23, EGFR 41, alkaline phosphate 137, proBNP 1640, magnesium 1.7. Respiratory panel was negative for influenza a and B, RSV, COVID. EKG showed sinus rhythm with incomplete right bundle branch block with a rate of 75, QTC 388. Last echo from 01/29/2024 was reviewed and showed normal LV systolic function with an estimated EF of 60-65% normal RV systolic function left and right atrium severely enlarged, moderate aortic valve calcification, severe mitral valve regurgitation, severe tricuspid valve regurgitation, pulmonary hypertension with an estimated pulmonary arterial systolic pressure 49 mmHg. Of note, patient had a thoracentesis ultrasound done on the right lung on 02/01/2024 yielding 1 L of yellow pleural fluid. Patient was given 40 mg IV push Lasix, 40 mEq of potassium, and started on Levaquin while in the ED. Review of Systems Review of Systems: All systems reviewed & are unremarkable except as noted in HPI and below [facility] [place] Past Medical History Medical History (Updated 05/31/24 @ 01:06 by Jeannie Baker APRN) Anemia Hyperlipidemia Hypertension CHF (congestive heart failure) Atrial fibrillation Family History Family History Father Acute myocardial infarction Hypertension Mother Hypertension Cerebrovascular accident Other [place] 04/21/24 Social History Social History Smoking status: Never smoker Alcohol intake: never Substance use: never Do You Feel Safe in your Home?: Yes Lack of Transportation: YES Lack of Food: Never True Current Housing: I Have Housing Concerned About Future Housing: No Difficulty Paying Gas/Electric Bills: No Difficulty Paying for Meds: No Currently Unemployed: No Education: High School Diploma/GED Difficulty w/ Childcare or Family Care: No Spiritual care concerns: No Meds Home Medications and Allergies Home Medications ?Medication ?Instructions ?Recorded ?Confirmed ?Type amlodipine 5 mg tablet 5 mg PO DAILY 01/28/24 05/31/24 History atorvastatin 20 mg tablet 20 mg PO DAILY 01/28/24 05/31/24 History cetirizine 10 mg tablet 10 mg PO DAILY 01/28/24 05/31/24 History cimetidine 300 mg tablet 300 mg PO BID 01/28/24 05/31/24 History diltiazem HCl 120 mg 120 mg PO DAILY 01/28/24 05/31/24 History capsule,extended release 24 hr fluticasone propionate 50 2 spray intranasal DAILY 01/28/24 05/31/24 History mcg/actuation nasal spray,suspension furosemide 40 mg tablet 40 mg PO DAILY 01/28/24 05/31/24 History methimazole 10 mg tablet 10 mg PO DAILY 01/28/24 05/31/24 History mirtazapine 30 mg tablet 30 mg PO DAILY 01/28/24 05/31/24 History omeprazole 20 mg capsule,delayed 20 mg PO DAILY 01/28/24 05/31/24 History release potassium chloride 10 mEq 10 meq PO DAILY 01/28/24 05/31/24 History tablet,extended release(part/cryst) (Klor-Con M) propranolol 20 mg tablet 20 mg PO Q12H 01/28/24 05/31/24 History metoprolol tartrate 50 mg tablet 50 mg PO Q12HR 90 days #90 tabs 02/05/24 05/31/24 Rx acetaminophen 325 mg tablet 325 mg PO DAILY PRN fever or pain 05/31/24 05/31/24 History (Tylenol) apixaban 2.5 mg tablet (Eliquis) 2.5 mg PO Q12H 05/31/24 05/31/24 History azithromycin 250 mg tablet 250 mg PO DAILY 05/31/24 05/31/24 History calcium 300 mg-vit D3 200 1 tablet PO DAILY 05/31/24 05/31/24 History lhxl-yswovexo-nrapnepin 13.5 mg tablet (Citracal Plus Bone Density Builder) calcium carbonate 600 mg PO DAILY 05/31/24 05/31/24 History cholecalciferol (vitamin D3) 25 25 mcg PO DAILY 05/31/24 05/31/24 History mcg (1,000 unit) capsule ferrous sulfate 325 mg (65 mg 325 mg PO DAILY 05/31/24 05/31/24 History iron) tablet (FeroSul) melatonin 5 mg tablet 5 mg PO HS PRN insomnia 05/31/24 05/31/24 History cznxadwu-qag-jfgzr acid 0.4 1 tablet PO DAILY 05/31/24 05/31/24 History mg-lycopene 300 mcg-lutein 250 mcg tablet (Centrum Silver) potassium chloride 20 mEq 20 meq PO DAILY 05/31/24 05/31/24 History tablet,extended release trazodone 50 mg tablet 25 mg PO TID PRN anxiety 05/31/24 05/31/24 History Allergies Allergy/AdvReac Type Severity Reaction Status Date / Time adhesive tape Allergy Mild Itching Verified 05/31/24 03:34 Penicillins Allergy Unknown Unknown Verified 05/31/24 03:34 fentanyl AdvReac Unknown Unknown Verified 05/31/24 03:34 midazolam AdvReac Unknown Unknown Verified 05/31/24 03:34 morphine AdvReac Unknown Unknown Verified 05/31/24 03:34 propofol AdvReac Unknown Unknown Verified 05/31/24 03:34 Vital Signs Vital Signs - 24 hr 05/30/24 22:00 05/30/24 22:00 05/30/24 22:03 Pulse Rate 80 80 Respiratory Rate 18 Blood Pressure 144/62 H Pulse Oximetry 85 L 100 Oxygen Delivery Room Air Nasal Cannula Oxygen Flow Rate 2 05/30/24 22:06 05/30/24 22:13 05/30/24 22:15 Pulse Rate 80 81 Respiratory Rate 29 H 36 H Blood Pressure Pulse Oximetry 98 Oxygen Delivery Nasal Cannula Oxygen Flow Rate 2 05/30/24 22:23 05/30/24 22:23 05/30/24 22:57 Pulse Rate 87 79 Respiratory Rate 33 H 22 H Blood Pressure 144/62 H Pulse Oximetry 98 98 96 Oxygen Delivery Nasal Cannula Oxygen Flow Rate 2 05/30/24 23:00 05/31/24 00:40 Pulse Rate 76 79 Respiratory Rate 33 H 28 H Blood Pressure 135/88 Pulse Oximetry 100 98 Oxygen Delivery Oxygen Flow Rate Exam Narrative: General: In no acute distress, well nourished Head: atraumatic, no encephalopathy Eyes: EOMI, PERRLA, sclera clear ENT: moist mucous membranes, nasal passages clear Neck: supple, no JVD, no adenopathy, trachea midline Cardiac: Normal S1 and S2. No murmur, gallops or friction rubs, peripheral pulses intact. Respiratory: Crackles noted on the right greater than the left, no adventitious lung sounds, currently on 2 L nasal cannula Gastrointestinal: soft, non-distended, non-tender, normoactive bowel sounds. : voiding without difficulty. Extremities: moves all extremities well, no edema, good ROM, strength 5/5 Skin: clean, dry, intact. No wounds or lesions. Neuro: Alert and oriented x4, cranial nerves intact, no neuro deficits. Psych: normal mood, normal affect, interactive H&P: Results Labs Labs: Short CBC 05/30/24 Range/Units 22:31 WBC 9.3 (4.5-10.0) K/mm3 Hgb 8.7 L (12.0-15.0) g/dL Hct 27.9 L (37.0-47.0) % Plt Count 365 (150-375) k/mm3 BMP 05/30/24 22:31 Sodium 134 L Potassium 3.1 L Chloride 97 L Carbon Dioxide 31 H BUN 17 Creatinine 1.23 H Glucose 115 H Calcium 9.5 Liver Function 05/30/24 Range/Units 22:31 Total Bilirubin 0.4 (0.2-1.3) mg/dL AST 25 (14-36) U/L ALT 13 (6-35) U/L Alkaline Phosphatase 137 H (38-126) U/L Albumin 3.3 L (3.5-5.1) g/dL Imaging Chest x-ray: Radiologist's impression: EXAMINATION: XR chest 2V Exam Date/Time: 05/30/2024 22:50 CDT HISTORY: sob Comparison: None. RESULT: Lines, tubes, and devices: Cholecystomy clips. Right shoulder arthroplasty hardware. Lungs and pleura: Right mid and lower lung airspace opacities. Moderate left costophrenic angle blunting. Cardiomediastinal silhouette: Stable. Hiatal hernia. Other: No acute osseous or upper abdominal finding. IMPRESSION: Right lower lung atelectasis/consolidation. Moderate right pleural effusion, slightly increased in size since the comparison study. Reviewed, dictated and finalized at location [facility]. Assessment and Plan Assessment and plan (1) Acute hypoxic respiratory failure: Code(s): J96.01 - Acute respiratory failure with hypoxia Status: Acute Assessment and Plan: * Chest x-ray showing right lower lung atelectasis/consolidation with moderate right pleural effusion slightly increased in size when reviewing past chest x- rays * History of thoracentesis on the right lung back in January of last year yielding 1 L of serous fluid * Currently on 2 L nasal cannula, continue to wean O2 for sat greater than 92% * ProBNP 1640 (2) Pleural effusion: Code(s): J90 - Pleural effusion, not elsewhere classified Status: Acute Assessment and Plan: * Chest x-ray showing Moderate right pleural effusion * NPO status * Will get ultrasound-guided thoracentesis this morning (3) Community acquired pneumonia: Code(s): J18.9 - Pneumonia, unspecified organism Status: Acute Assessment and Plan: * Chest x-ray showing consolidation in the right lung * White blood cell count 9.3 * Patient started on Levaquin in the ED * Continue oral Levaquin (4) Hypokalemia: Code(s): E87.6 - Hypokalemia Status: Acute Assessment and Plan: * Potassium 3.1 * Patient was given 40 mEq while in the ED * Continue to trend (5) Hyponatremia: Code(s): E87.1 - Hypo-osmolality and hyponatremia Status: Acute Assessment and Plan: * Sodium 134 * Appears to be chronic and at baseline (6) CHF (congestive heart failure): Code(s): I50.9 - Heart failure, unspecified Status: Acute Assessment and Plan: * ProBNP 1640 * Troponin negative * Last echocardiogram reviewed which showed normal LV systolic function with an estimated EF of 60-65%, right ventricular systolic function is normal, bilateral atrial chambers severely enlarged, moderate aortic valve calcification, severe mitral valve regurgitation, severe tricuspid valve reg urgitation, pulmonary hypertension estimated pulmonary arterial systolic pressure of 49 mmHg * She was given 40 mg IV push Lasix while in the ED (7) Atrial fibrillation: Code(s): I48.91 - Unspecified atrial fibrillation Status: Acute Assessment and Plan: * Continue Eliquis, Cardizem, and metoprolol (8) Hypertension: Code(s): I10 - Essential (primary) hypertension Status: Acute Assessment and Plan: * Blood pressures ranging 138/52 to 142/60 * Continue amlodipine, propranolol (9) Hyperlipidemia: Code(s): E78.5 - Hyperlipidemia, unspecified Status: Acute Assessment and Plan: * Continue atorvastatin (10) Anemia: Code(s): D64.9 - Anemia, unspecified Status: Acute Assessment and Plan: * Hemoglobin 8.7 * Appears to be chronic * Continue ferrous sulfate * Will check reticulocyte count, vitamin B12, folic acid, ferritin, iron, TSH, lactate dehydrogenase, haptoglobin Quality VTE Prophylaxis VTE prophylaxis: pharmacologic ordered Hospitalist MIPS Advance Care Plan I have confirmed that the patient's Advanced Care Plan is present, code status is documented, or surrogate decision maker is listed in patient medical record.: Yes Medication Reconciliation I have utilized all available resources to obtain, update and review the patients current medications (includes all prescriptions, OTC, herbals, cannabis, and nutritional supplements).: Yes
[2024-05-31 00:57] LABS: Magnesium 1.7 mg/dL (1.6-2.3)
[2024-05-31 01:07] LABS: NT Pro B Type Natriuretic Pept 1640 pg/mL (19.9-100)
[2024-05-31 01:34] LABS: Troponin I < 0.012 ng/mL (0.000-0.034)
[2024-05-31] MEDS: POTASSIUM CHLORIDE 20 MEQ PACKET (FOR LIQUID) 40 MEQ PO (01:48)
[2024-05-31] MEDS: FUROSEMIDE INJ 40 MG/4 ML VIAL IV PUSH (01:49)
[2024-05-31] MEDS: levoFLOXacin 750 MG/D5W 150 ML 750 MG/150 ML BAG 100 MG IVPB (01:49)
--- NOTE | 2024-05-31 02:20 | ADMGEN ---
This patient, Keila Talbert, was admitted to [facility] Surg Room 306-02. Patient/family oriented to hospital policies and general routines including ID bracelet, bed and alarms, visiting hours, pain management, procedures, bathroom and other care routines, personal items, smoking policy, room service/diet, and visiting hours. Information on how to activate the Rapid Response Team has been discussed. Patient/Family are encouraged to report perceived risks to care and to ask questions if they do not understand what they are told or what they should do.
[2024-05-31 06:25] LABS: Basophils Percent Auto 0.2 % (0.2-1.2); Eosinophils Absolute Auto 0.2 K/mm3 (0-0.3); Eosinophils Percent Auto 2.7 % (0-4.4); Hematocrit 27.8 % (37.0-47.0); Hemoglobin 8.3 g/dL (12.0-15.0); Immature Granulocyte Absolute 0.03 K/mm3 (0.00-0.031); Immature Granulocyte Percent A 0.3 % (0-0.5); Lymphocytes Absolute Auto 1.49 K/mm3 (0.9-3.2); Lymphocytes Percent Auto 16.7 % (18.3-44.2); Mean Corpuscular HGB Conc 29.9 g/dl (32-36); Mean Corpuscular Hemoglobin 25.9 pg (26-34); Mean Corpuscular Volume 86.9 fl (80-100); Mean Platelet Volume 9.5 fl (7.4-10.4); Monocytes Absolute Auto 0.9 K/mm3 (0.1-0.6); Monocytes Percent Auto 10.4 % (2.6-8.5); Neutrophils Absolute Auto 6.2 K/mm3 (1.3-6.7); Neutrophils Percent Auto 69.7 % (45.5-73.1); Platelet Count Result 336 k/mm3 (150-375); Red Cell Distribution Width 15.1 % (11.5-14.5); White Blood Count 8.9 K/mm3 (4.5-10.0)
[2024-05-31 06:26] LABS: Immature Reticulocyte Fraction 14.7 % (3.0-15.9); Reticulocyte Hemoglobin Conten 26.3 pg (28.2-36.6); Reticulocyte Percent 1.36 % (0.7-4.3); Reticulocytes Absolute 0.04 10^6/uL (0.02-0.10)
[2024-05-31 06:37] LABS: Alanine Aminotransferase 12 U/L (6-35); Albumin Level 3.3 g/dL (3.5-5.1); Alkaline Phosphatase 113 U/L (38-126); Anion Gap 8 mmol/L (4-12); Aspartate Amino Transferase 20 U/L (14-36); Bilirubin,Total 0.4 mg/dL (0.2-1.3); Blood Urea Nitrogen 15 mg/dL (7-17); Calcium 9.2 mg/dL (8.4-10.2); Carbon Dioxide 31 mmol/L (22-30); Chloride 98 mmol/L (98-107); Estimated CRCL calculation 22 ml/min; Estimated Glomerular Filt Rate 42; Glucose 105 mg/dL (65-110); Lactate Dehydrogenase 161 U/L (120-246); Potassium 3.2 mmol/L (3.4-5.0); Sodium 137 mmol/L (137-145)
[2024-05-31 07:13] LABS: Crenated RBC 1+; Hypochromasia 1+; Ovalocytes 1+; Platelet Estimate Adequate (Adequate); Schistocytes None Seen
--- NOTE | 2024-05-31 07:26 | P.PNIM_ITS ---
Progress Note: A&P Assessment and Plan (1) Acute hypoxic respiratory failure: Code(s): J96.01 - Acute respiratory failure with hypoxia Status: Acute Assessment and Plan: * Chest x-ray showing right lower lung atelectasis/consolidation with moderate right pleural effusion slightly increased in size when reviewing past chest x- rays * History of thoracentesis on the right lung back in January of last year yield ing 1 L of serous fluid * Currently on 2 L nasal cannula, continue to wean O2 for sat greater than 92% * ProBNP 1640 * trend BNP (2) Pleural effusion: Code(s): J90 - Pleural effusion, not elsewhere classified Status: Acute Assessment and Plan: * Chest x-ray showing Moderate right pleural effusion * NPO status * Will get ultrasound-guided thoracentesis - awaiting labs. (3) Community acquired pneumonia: Code(s): J18.9 - Pneumonia, unspecified organism Status: Acute Assessment and Plan: * Chest x-ray showing consolidation in the right lung * White blood cell count 9.3 * Patient started on Levaquin in the ED * Continue oral Levaquin (4) Hypokalemia: Code(s): E87.6 - Hypokalemia Status: Acute Assessment and Plan: * Potassium 3.1 * Patient was given 40 mEq while in the ED * Continue to trend and replete as needed (5) Hyponatremia: Code(s): E87.1 - Hypo-osmolality and hyponatremia Status: Acute Assessment and Plan: * Sodium 134 * Appears to be chronic and at baseline (6) CHF (congestive heart failure): Code(s): I50.9 - Heart failure, unspecified Status: Acute Assessment and Plan: * ProBNP 1640 * Appears to be acute on chronic in nature * Troponin negative * Last echocardiogram reviewed which showed normal LV systolic function with an estimated EF of 60-65%, right ventricular systolic function is normal, bilateral atrial chambers severely enlarged, moderate aortic valve calcification, severe mitral valve regurgitation, severe tricuspid valve regurgitation, pulmonary hypertension estimated pulmonary arterial systolic pressure of 49 mmHg * She was given 40 mg IV push Lasix while in the ED * will trend BNP (7) Atrial fibrillation: Code(s): I48.91 - Unspecified atrial fibrillation Status: Acute Assessment and Plan: * Continue Cardizem, and metoprolol * hold eliquis for thoracentesis, restart per IR recommendation (8) Hypertension: Code(s): I10 - Essential (primary) hypertension Status: Acute Assessment and Plan: * Blood pressures ranging * Continue amlodipine (9) Hyperlipidemia: Code(s): E78.5 - Hyperlipidemia, unspecified Status: Acute Assessment and Plan: * Continue atorvastatin (10) Anemia: Code(s): D64.9 - Anemia, unspecified Status: Acute Assessment and Plan: * Hemoglobin 8.7 * Appears to be chronic * Will check reticulocyte count, vitamin B12, folic acid, ferritin, iron, TSH, lactate dehydrogenase, haptoglobin Plan Disposition -patient prefers to be discharged home at discharge. Code status -full code DVT -mechanical, patient was on Eliquis for procedure Time Spent With Patient Time with patient: Greater than 35 minutes (45 minutes) Subjective Date/time seen: 05/31/24 07:26 Interval history: This is an 88-year-old female with a significant past medical history congestive heart failure, atrial fibrillation, hypertension, hyperlipidemia who presented to the hospital with shortness of breath and hypoxia. Patient states that she started feeling more short of breath day prior to her arrival. She recently buried her on Thursday who she was to for 69 years. She had been doing a lot of walking and standing which had contributed to her bilateral lower extremity swelling. Workup in the hospital included a chest x-ray which showed right lower lung atelectasis/consolidation, moderate right pleural effusion slightly increased in size since comparison study. Initial labs shown a normal white blood cell count of 9.3, hemoglobin 8.7 sodium 134, chloride 97, potassium 3.1, creatinine 1.23, EGFR 41, alkaline phosphate 137, proBNP 1640, magnesium 1.7. Respiratory panel was negative for influenza a and B, RSV, COVID. EKG showed sinus rhythm with incomplete right bundle branch block with a rate of 75, QTC 388. Last echo from 01/29/2024 was reviewed and showed normal LV systolic function with an estimated EF of 60-65% normal RV systolic function left and right atrium severely enlarged, moderate aortic valve calcification, severe mitral valve regurgitation, severe tricuspid valve regurgitation, pulmonary hypertension with an estimated pulmonary arterial systolic pressure 49 mmHg. Of note, patient had a thoracentesis ultrasound done on the right lung on 02/01/2024 yielding 1 L of yellow pleural fluid. Patient was given 40 mg IV push Lasix, 40 mEq of potassium, and started on Levaquin while in the ED. 05/31-the patient is resting in bed, oxygen 2 L nasal cannula, satting 96%. Reports she is tired and becomes short of breath with ambulation. He under stands that we thoracentesis today confirms the however Eliquis last p.m.. Awaiting morning labs prior to procedure. She denies any headaches dizziness any chest pain, nausea, vomiting diarrhea. Review of Systems Review of Systems: All systems reviewed & are unremarkable except as noted in HPI and below Constitutional: Constitutional: Reports as per HPI and Reports no additional constitutional complaints Exam Narrative: General: In no acute distress, well nourished Head: atraumatic, no encephalopathy Eyes: EOMI, PERRLA, sclera clear ENT: moist mucous membranes, nasal passages clear Neck: supple, no JVD, no adenopathy, trachea midline Cardiac: Normal S1 and S2. No murmur, gallops or friction rubs, peripheral pulses intact. Respiratory: Lungs clear to auscultation, no adventitious lung sounds, diminished in lower lobes bilaterally. Gastrointestinal: soft, non-distended, non-tender, normoactive bowel sounds. : voiding without difficulty. Extremities: moves all extremities well, no edema, good ROM, strength 5/5 Skin: clean, dry, intact. No wounds or lesions. Neuro: Alert and oriented x4, cranial nerves intact, no neuro deficits. Psych: normal mood, normal affect, interactive Objective Data Vital Signs Vital Signs: Vital Signs - 24 hr 05/30/24 22:00 05/30/24 22:00 05/30/24 22:03 Temperature Pulse Rate 80 80 Respiratory Rate 18 Blood Pressure 144/62 H Pulse Oximetry 85 L 100 Oxygen Delivery Room Air Nasal Cannula Oxygen Flow Rate 2 05/30/24 22:06 05/30/24 22:13 05/30/24 22:15 Temperature Pulse Rate 80 81 Respiratory Rate 29 H 36 H Blood Pressure Pulse Oximetry 98 Oxygen Delivery Nasal Cannula Oxygen Flow Rate 2 05/30/24 22:23 05/30/24 22:23 05/30/24 22:57 Temperature Pulse Rate 87 79 Respiratory Rate 33 H 22 H Blood Pressure 144/62 H Pulse Oximetry 98 98 96 Oxygen Delivery Nasal Cannula Oxygen Flow Rate 2 05/30/24 23:00 05/31/24 00:40 05/31/24 01:01 Temperature Pulse Rate 76 79 76 Respiratory Rate 33 H 28 H 22 H Blood Pressure 135/88 138/52 L Pulse Oximetry 100 98 99 Oxygen Delivery Oxygen Flow Rate 05/31/24 02:00 05/31/24 02:00 05/31/24 06:40 Temperature 96.6 F L 98.4 F Pulse Rate 100 97 Respiratory Rate 18 20 Blood Pressure 141/69 H 142/65 H Pulse Oximetry 100 100 99 Oxygen Delivery Nasal Cannula Oxygen Flow Rate 2 Intake/Output Intake/Output: Intake & Output 05/28/24 05/30/24 05/30/24 05/31/24 23:59 00:59 23:59 23:59 Intake Total 150 Balance 150 Meds/Results Medications: Active Medications Generic Name Dose Route Start Last Admin Trade Name Freq PRN Reason Stop Dose Admin Acetaminophen 650 mg 05/31/24 03:09 Acetaminophen 325 Mg Tablet PO Q4H PRN Mild Pain (1-3) or Fever Levofloxacin 750 mg 06/02/24 09:00 Levofloxacin 750 Mg Tablet PO DAILY MILDRED Ondansetron HCl 4 mg 05/31/24 03:09 Ondansetron Inj 4 Mg/2 Ml Vial IV PUSH Q6H PRN Nausea And Vomiting Radiology Results: ITS Impressions Chest X-Ray 05/31/24 00:37 IMPRESSION: Right lower lung atelectasis/consolidation. Moderate right pleural effusion, slightly increased in size since the comparison study. Labs Labs: Laboratory Results - last 24 hr 05/30/24 05/30/24 05/31/24 22:30 22:31 06:04 WBC 9.3 8.9 RBC 3.28 L 3.20 L Hgb 8.7 L 8.3 L Hct 27.9 L 27.8 L MCV 85.1 86.9 MCH 26.5 25.9 L MCHC 31.2 L 29.9 L RDW 15.0 H 15.1 H Plt Count 365 336 MPV 8.9 9.5 Immature Gran % (Auto) 0.2 0.3 Neut % (Auto) 73.6 H 69.7 Lymph % (Auto) 13.1 L 16.7 L [place] % (Auto) 10.0 H 10.4 H Eos % (Auto) 2.8 2.7 Baso % (Auto) 0.3 0.2 Lymph # (Auto) 1.22 1.49 [place] # (Auto) 0.9 H 0.9 H Eos # (Auto) 0.3 0.2 Baso # (Auto) 0.0 0.0 Abs Immat Gran (auto) 0.02 0.03 Absolute Neuts (auto) 6.8 H 6.2 Absolute Nucleated RBC 0.000 0.000 Band Neutrophils % Not Reportable Nucleated RBC % 0.0 0.0 Platelet Estimate Adequate Hypochromasia 1+ Ovalocytes 1+ Crenated Cell 1+ Schistocytes None seen Absolute Retic Percent Retic Immature Retic Fraction Retic Hgb Content Sodium 134 L 137 Potassium 3.1 L 3.2 L Chloride 97 L 98 Carbon Dioxide 31 H 31 H Anion Gap 6 8 BUN 17 15 Creatinine 1.23 H 1.20 H Estim Creat Clear Calc 22 22 Estimated GFR 41 L 42 L Glucose 115 H 105 Calcium 9.5 9.2 Magnesium 1.7 Total Bilirubin 0.4 0.4 AST 25 20 ALT 13 12 Alkaline Phosphatase 137 H 113 Lactate Dehydrogenase 161 Troponin I < 0.012 NT-Pro-B Natriuret Pep 1640 H Total Protein 7.0 7.0 Albumin 3.3 L 3.3 L Influenza A (RT-PCR) Negative Influenza B (RT-PCR) Negative RSV (RT-PCR) Negative SARS-CoV-2 RNA (RT-PCR) Negative 05/31/24 06:05 WBC RBC Hgb Hct MCV MCH MCHC RDW Plt Count MPV Immature Gran % (Auto) Neut % (Auto) Lymph % (Auto) [place] % (Auto) Eos % (Auto) Baso % (Auto) Lymph # (Auto) [place] # (Auto) Eos # (Auto) Baso # (Auto) Abs Immat Gran (auto) Absolute Neuts (auto) Absolute Nucleated RBC Band Neutrophils % Nucleated RBC % Platelet Estimate Hypochromasia Ovalocytes Crenated Cell Schistocytes Absolute Retic 0.04 Percent Retic 1.36 Immature Retic Fraction 14.7 Retic Hgb Content 26.3 L Sodium Potassium Chloride Carbon Dioxide Anion Gap BUN Creatinine Estim Creat Clear Calc Estimated GFR Glucose Calcium Magnesium Total Bilirubin AST ALT Alkaline Phosphatase Lactate Dehydrogenase Troponin I NT-Pro-B Natriuret Pep Total Protein Albumin Influenza A (RT-PCR) Influenza B (RT-PCR) RSV (RT-PCR) SARS-CoV-2 RNA (RT-PCR) Quality VTE Prophylaxis VTE prophylaxis: pharmacologic ordered Hospitalist MIPS Advance Care Plan I have confirmed that the patient's Advanced Care Plan is present, code status is documented, or surrogate decision maker is listed in patient medical record.: Yes Medication Reconciliation I have utilized all available resources to obtain, update and review the patients current medications (includes all prescriptions, OTC, herbals, cannabis, and nutritional supplements).: Yes
[2024-05-31 07:36] LABS: Iron 39 ug/dL (37-170); Percent Iron Saturation 16 % (20-50); Thyroid Stimulating Hormone Reflex 0.282 uIU/mL (0.465-4.68)
[2024-05-31 08:20] LABS: Folic Acid > 20.0 ng/mL (2.76->20)
--- NOTE | 2024-05-31 08:52 | P.CDI_ITS ---
CDI Query Clarification Request Please specify type and acuity of heart failure if known. * Acute * Chronic * Acute on Chronic * Unknown * Systolic * Diastolic * Combined Systolic and Diastolic * Unknown The medical chart reflects the following: (6) CHF (congestive heart failure): Code(s): I50.9 - Heart failure, unspecified Status: Acute Assessment and Plan: * ProBNP 1640 * Troponin negative * Last echocardiogram reviewed which showed normal LV systolic function with an estimated EF of 60-65%, right ventricular systolic function is normal, bilateral atrial chambers severely enlarged, moderate aortic valve calcification, severe mitral valve regurgitation, severe tricuspid valve regurgitation, pulmonary hypertension estimated pulmonary arterial systolic pressure of 49 mmHg * She was given 40 mg IV push Lasix while in the ED <Addie Rios RN - Las t Filed: 05/31/24 08:53> Clarified Diagnosis Clarified Diagnosis: Acute on chronic congestive heart failure <Elva Rogers APRN - Last Filed: 05/31/24 11:28>
--- NOTE | 2024-05-31 08:52 | WPDCDIQUERY2 ---
CDI Query Clarification Request Please specify type and acuity of heart failure if known. Acute Chronic Acute on Chronic Unknown Systolic Diastolic Combined Systolic and Diastolic Unknown The medical chart reflects the following: (6) CHF (congestive heart failure): Code(s): I50.9 - Heart failure, unspecified Status: Acute Assessment and Plan: ProBNP 1640 Troponin negative Last echocardiogram reviewed which showed normal LV systolic function with an estimated EF of 60-65%, right ventricular systolic function is normal, bilateral atrial chambers severely enlarged, moderate aortic valve calcification, severe mitral valve regurgitation, severe tricuspid valve regurgitation, pulmonary hypertension estimated pulmonary arterial systolic pressure of 49 mmHg She was given 40 mg IV push Lasix while in the ED <Addie Rios RN - Last Filed: 05/31/24 08:53> Clarified Diagnosis Clarified Diagnosis: Acute on chronic congestive heart failure <Elva Rogers APRN - Last Filed: 05/31/24 11:28>
[2024-05-31 09:45] LABS: INR 1.4; Partial Thromboplastin Time 34.7 Seconds (22.3-36.8); Prothrombin Time 18.2 Seconds (11.1-14.7)
[2024-05-31] MEDS: dilTIAZem HCL CD 120 MG CAP.24HR PO (11:00)
[2024-05-31] MEDS: FUROSEMIDE 40 MG TABLET PO (11:00)
[2024-05-31] MEDS: METOPROLOL TARTRATE 50 MG TAB PO ×2 (11:00→21:07)
[2024-05-31 11:39] LABS: Free T4 Free Thyroxine Reflex 1.57 ng/dL (0.78-2.19)
[2024-05-31 12:27] LABS: Total Triiodothyronine (T3) 1.33 NG/ML (0.97-1.69)
--- NOTE | 2024-05-31 15:34 | PM.OP ---
Procedure Note - Brief Procedure Note - Brief Date of procedure: 05/31/24 SOB, Hypoxic resp failure, Pleural effusion Post-op diagnosis: Same Procedure performed: Right sided US guided thoracentesis Surgeon: Jackie Russ MD Anesthesia: local Findings: Large right sided pleural effusion Description of procedure: sterile technique US guidance 5Fr catheter removed 1250 cc thin yellow fluid Estimated blood loss (mL): 0.1 Pathology: Yes Complications: No immediate complications Condition: Stable Disposition: Floor
[2024-05-31 16:02] LABS: pH Pleural Fluid > 7.500 (7.210-7.500)
[2024-05-31] MEDS: MULTIVITAMINS /C LUTEIN (CENTRUM SILVER) TABLET *BKC 1 TAB PO (17:44)
[2024-05-31] MEDS: FERROUS SULFATE 325 MG TABLET DR BY MOUTH (17:45)
[2024-05-31] MEDS: amLODIPine BESYLATE 5 MG TABLET PO (17:45)
[2024-05-31] MEDS: ATORVASTATIN 20 MG TABLET PO (17:45)
[2024-05-31] MEDS: methiMAzole 10 MG TAB PO (17:45)
[2024-05-31] MEDS: CHOLECALCIFEROL 1,000 UNITS TABLET 1000 UNITS PO (17:45)
[2024-05-31] MEDS: FLUTICASONE PROPIONATE 0.05% NA SPR 16 GM BTL (*BKC) 2 SPRAY NASAL (17:47)
[2024-05-31] MEDS: MIRTAZAPINE 30 MG TABLET PO (17:47)
[2024-05-31] MEDS: MELATONIN 5 MG TABLET PO (21:07)
[2024-05-31] MEDS: APIXABAN 2.5 MG TABLET PO (21:07)
[2024-06-01] VITALS (7 sets, daily range): BP systolic 124–127; BP diastolic 42–54; PULSE 70–88; RESP 12–20; TEMP 36.6–37.4; O2SAT 99–100
[2024-06-01 05:38] LABS: Haptoglobin 365 mg/dL (43-212)
[2024-06-01 06:10] LABS: Basophils Percent Auto 0.4 % (0.2-1.2); Eosinophils Absolute Auto 0.2 K/mm3 (0-0.3); Eosinophils Percent Auto 2.1 % (0-4.4); Hemoglobin 8.2 g/dL (12.0-15.0); Immature Granulocyte Absolute 0.02 K/mm3 (0.00-0.031); Immature Granulocyte Percent A 0.2 % (0-0.5); Lymphocytes Absolute Auto 1.35 K/mm3 (0.9-3.2); Lymphocytes Percent Auto 16.6 % (18.3-44.2); Mean Corpuscular HGB Conc 30.4 g/dl (32-36); Mean Corpuscular Hemoglobin 26.2 pg (26-34); Mean Corpuscular Volume 86.3 fl (80-100); Mean Platelet Volume 9.2 fl (7.4-10.4); Monocytes Absolute Auto 0.9 K/mm3 (0.1-0.6); Monocytes Percent Auto 11.2 % (2.6-8.5); Neutrophils Absolute Auto 5.6 K/mm3 (1.3-6.7); Neutrophils Percent Auto 69.5 % (45.5-73.1); Platelet Count Result 324 k/mm3 (150-375); Red Blood Count 3.13 M/mm3 (4.2-5.4); Red Cell Distribution Width 15.1 % (11.5-14.5); White Blood Count 8.1 K/mm3 (4.5-10.0)
[2024-06-01 06:23] LABS: Alanine Aminotransferase 11 U/L (6-35); Albumin Level 2.9 g/dL (3.5-5.1); Alkaline Phosphatase 102 U/L (38-126); Anion Gap 6 mmol/L (4-12); Aspartate Amino Transferase 20 U/L (14-36); Bilirubin,Total 0.6 mg/dL (0.2-1.3); Blood Urea Nitrogen 16 mg/dL (7-17); Calcium 8.9 mg/dL (8.4-10.2); Carbon Dioxide 31 mmol/L (22-30); Chloride 99 mmol/L (98-107); Estimated CRCL calculation 26 ml/min; Estimated Glomerular Filt Rate 50; Glucose 98 mg/dL (65-110); Potassium 3.2 mmol/L (3.4-5.0); Sodium 136 mmol/L (137-145)
[2024-06-01 08:28] LABS: Magnesium 1.7 mg/dL (1.6-2.3)
[2024-06-01] MEDS: CHOLECALCIFEROL 1,000 UNITS TABLET 1000 UNITS PO (08:42)
[2024-06-01] MEDS: APIXABAN 2.5 MG TABLET PO ×2 (08:42→20:05)
[2024-06-01] MEDS: amLODIPine BESYLATE 5 MG TABLET PO (08:42)
[2024-06-01] MEDS: FERROUS SULFATE 325 MG TABLET DR BY MOUTH (08:42)
[2024-06-01] MEDS: FLUTICASONE PROPIONATE 0.05% NA SPR 16 GM BTL (*BKC) 2 SPRAY NASAL (08:42)
[2024-06-01] MEDS: methiMAzole 10 MG TAB PO (08:42)
[2024-06-01] MEDS: dilTIAZem HCL CD 120 MG CAP.24HR PO (08:42)
[2024-06-01] MEDS: FUROSEMIDE 40 MG TABLET PO (08:42)
[2024-06-01] MEDS: POTASSIUM CHLORIDE 20 MEQ ER TABLET 40 MEQ PO (08:42)
[2024-06-01] MEDS: ATORVASTATIN 20 MG TABLET PO (08:42)
[2024-06-01] MEDS: MULTIVITAMINS /C LUTEIN (CENTRUM SILVER) TABLET *BKC 1 TAB PO (08:43)
[2024-06-01] MEDS: METOPROLOL TARTRATE 50 MG TAB PO ×2 (08:43→20:05)
[2024-06-01] MEDS: MIRTAZAPINE 30 MG TABLET PO (08:43)
--- NOTE | 2024-06-01 10:36 | P.PNIM_ITS ---
Progress Note: A&P Assessment and Plan (1) Acute hypoxic respiratory failure: Code(s): J96.01 - Acute respiratory failure with hypoxia Status: Acute Assessment and Plan: * Chest x-ray showing right lower lung atelectasis/consolidation with moderate right pleural effusion slightly increased in size when reviewing past chest x- rays * History of thoracentesis on the right lung back in January of last year yield ing 1 L of serous fluid * Currently on 2 L nasal cannula, continue to wean O2 for sat greater than 92% * ProBNP 1640 * trend BNP * PT/OT (2) Pleural effusion: Code(s): J90 - Pleural effusion, not elsewhere classified Status: Acute Assessment and Plan: * Chest x-ray showing Moderate right pleural effusion * Ultrasound-guided thoracentesis on 05/31, 1250 mL of thin yellow fluid removed. * Pleural pH >7,500. * Fluid results pending. (3) Community acquired pneumonia: Code(s): J18.9 - Pneumonia, unspecified organism Status: Acute Assessment and Plan: * Chest x-ray showing consolidation in the right lung * White blood cell count 8.1. * Patient started on Levaquin in the ED * Continue oral Levaquin 750 mg PO daily. * PT/OT (4) Hypokalemia: Code(s): E87.6 - Hypokalemia Status: Acute Assessment and Plan: * Potassium 3.2 * Potassium Chloride 40 meq PO x1. * Continue to trend and replete as needed (5) Hyponatremia: Code(s): E87.1 - Hypo-osmolality and hyponatremia Status: Acute Assessment and Plan: * Sodium 136 * Appears to be chronic and at baseline (6) CHF (congestive heart failure): Code(s): I50.9 - Heart failure, unspecified Status: Acute Assessment and Plan: * ProBNP 1640 * Appears to be acute on chronic in nature * Troponin negative * Last echocardiogram reviewed which showed normal LV systolic function with an estimated EF of 60-65%, right ventricular systolic function is normal, bilateral atrial chambers severely enlarged, moderate aortic valve calcification, severe mitral valve regurgitation, severe tricuspid valve regurgitation, pulmonary hypertension estimated pulmonary arterial systolic pressure of 49 mmHg * She was given 40 mg IV push Lasix while in the ED. Currently receiving Furosemide 40 mg PO daily. * Add daily weights. (7) Atrial fibrillation: Code(s): I48.91 - Unspecified atrial fibrillation Status: Acute Assessment and Plan: * Continue Cardizem, Eliquis, and Metoprolol. (8) Hypertension: Code(s): I10 - Essential (primary) hypertension Status: Acute Assessment and Plan: * Blood pressure 127/47. * Continue amlodipine. (9) Hyperlipidemia: Code(s): E78.5 - Hyperlipidemia, unspecified Status: Acute Assessment and Plan: * Continue atorvastatin (10) Anemia: Code(s): D64.9 - Anemia, unspecified Status: Acute Assessment and Plan: * Hemoglobin 8.1. * Appears to be chronic. * Lab results: reticulocyte count 0.04, vitamin B12 393, folic acid>20.0, ferritin 103, iron 39, TSH 0.282, Free T4 1.57, Total T3 1.33, lactate dehydrogenase 161, haptoglobin 365. Plan Disposition -patient prefers to be discharged home at discharge. Code status -full code DVT -mechanical, patient was on Eliquis for procedure Subjective Date/time seen: 06/01/24 10:36 Interval history: Patient reports that her breathing is improving. Patient denies chest pain, palpitations, headache, dizziness, nausea, or vomiting. Review of Systems Review of Systems: All systems reviewed & are unremarkable except as noted in HPI and below Exam Const: General: comfortable and no acute distress Resp: Effort & Inspection: normal respiratory effort Auscultation: diminished lung sounds Cardio: Rate: regular rate Rhythm: regular rhythm GI: GI Palp: Yes Soft to palpation Auscultation: normal bowel sounds Neuro: Speech: normal speech Extrem: General: no pedal edema Psych: Mental Status: mental status grossly normal Affect: normal affect Objective Data Vital Signs Vital Signs: Vital Signs - 24 hr 05/31/24 11:00 05/31/24 13:45 05/31/24 17:30 Temperature 98.6 F 98.7 F Pulse Rate 94 72 98 Respiratory Rate 16 18 Blood Pressure 117/62 131/62 Pulse Oximetry 99 100 Oxygen Delivery Oxygen Flow Rate 05/31/24 20:00 05/31/24 20:30 06/01/24 04:30 Temperature 97.8 F 98 F Pulse Rate 86 78 Respiratory Rate 16 20 Blood Pressure 137/49 L 127/47 L Pulse Oximetry 98 98 99 Oxygen Delivery Nasal Cannula Oxygen Flow Rate 2 06/01/24 08:00 06/01/24 08:43 Temperature Pulse Rate 84 Respiratory Rate Blood Pressure Pulse Oximetry 99 Oxygen Delivery Nasal Cannula Oxygen Flow Rate 2 Intake/Output Intake/Output: Intake & Output 05/30/24 05/30/24 05/31/24 06/01/24 00:59 23:59 23:59 23:59 Intake Total 630 370 Output Total 1250 Balance -620 370 Meds/Results Medications: Active Medications Generic Name Dose Route Start Last Admin Trade Name Freq PRN Reason Stop Dose Admin Acetaminophen 650 mg 05/31/24 03:09 Acetaminophen 325 Mg Tablet PO Q4H PRN Mild Pain (1-3) or Fever Amlodipine Besylate 5 mg 05/31/24 09:00 06/01/24 08:42 Amlodipine Besylate 5 Mg Tablet PO 5 mg DAILY MILDRED Administration Apixaban 2.5 mg 05/31/24 09:00 06/01/24 08:42 Apixaban 2.5 Mg Tablet PO 2.5 mg Q12H MILDRED Administration Atorvastatin Calcium 20 mg 05/31/24 09:00 06/01/24 08:42 Atorvastatin 20 Mg Tablet PO 20 mg DAILY MILDRED Administration Diltiazem HCl 120 mg 05/31/24 09:00 06/01/24 08:42 Diltiazem Hcl Cd 120 Mg Cap.24hr PO 120 mg DAILY MILDRED Administration Ferrous Sulfate 325 mg 05/31/24 09:00 06/01/24 08:42 Ferrous Sulfate [address] BY MOUTH 325 mg DAILY@0800 MILDRED Administration Fluticasone Propionate 2 spray 05/31/24 09:00 06/01/24 08:42 Fluticasone Propionate 0.05% Na Spr 16 Gm Btl (*Bkc) NASAL 2 spray DAILY MILDRED Administration Furosemide 40 mg 05/31/24 09:00 06/01/24 08:42 Furosemide 40 Mg Tablet PO 40 mg DAILY MILDRED Administration Levofloxacin 750 mg 06/02/24 09:00 Levofloxacin 750 Mg Tablet PO DAILY MILDRED Melatonin 5 mg 05/31/24 08:56 05/31/24 21:07 Melatonin 5 Mg Tablet PO 5 mg HS PRN Administration insomnia Methimazole 10 mg 05/31/24 09:00 06/01/24 08:42 Methimazole 10 Mg Tab PO 10 mg DAILY MILDRED Administration Metoprolol Tartrate 50 mg 05/31/24 09:00 06/01/24 08:43 Metoprolol Tartrate 50 Mg Tab PO 50 mg Q12HR MILDRED Administration Mirtazapine 30 mg 05/31/24 09:00 06/01/24 08:43 Mirtazapine 30 Mg Tablet PO 30 mg DAILY MILDRED Administration Multivitamins/Minerals 1 tab 05/31/24 09:00 06/01/24 08:43 Multivitamins /C Lutein (Centrum Silver) Tablet *Bkc PO 1 tab DAILY MILDRED Administration Ondansetron HCl 4 mg 05/31/24 03:09 Ondansetron Inj 4 Mg/2 Ml Vial IV PUSH Q6H PRN Nausea And Vomiting Trazodone HCl 25 mg 05/31/24 08:56 Trazodone Hcl 25 Mg Tablet PO TID PRN anxiety Vitamin D 1,000 units 05/31/24 09:00 06/01/24 08:42 Cholecalciferol 1,000 Units Tablet PO 1,000 units DAILY MILDRED Administration Radiology Results: ITS Impressions Chest X-Ray 05/31/24 15:44 IMPRESSION: 1. Moderate-sized right pleural effusion with improvement status post thoracentesis. 2. Airspace opacities at the lung bases, consistent with atelectasis versus pneumonia. 3. Cardiomegaly. Thoracentesis Ultrasound 05/31/24 16:43 IMPRESSION: 1. Successful ultrasound-guided thoracentesis yielding 1250 mL of thin yellow fluid. Fluid was sent for the requested studies. Labs Labs: Laboratory Results - last 24 hr 05/31/24 05/31/24 06/01/24 06:05 15:36 05:37 WBC RBC Hgb Hct MCV MCH MCHC RDW Plt Count MPV Immature Gran % (Auto) Neut % (Auto) Lymph % (Auto) [place] % (Auto) Eos % (Auto) Baso % (Auto) Lymph # (Auto) [place] # (Auto) Eos # (Auto) Baso # (Auto) Abs Immat Gran (auto) Absolute Neuts (auto) Absolute Nucleated RBC Nucleated RBC % Haptoglobin 365 H Sodium Potassium Chloride Carbon Dioxide Anion Gap BUN Creatinine Estim Creat Clear Calc Estimated GFR Glucose Calcium Magnesium 1.7 Total Bilirubin AST ALT Alkaline Phosphatase Total Protein Albumin Free T4 1.57 Total T3 1.33 Pleural pH > 7.500 H 06/01/24 05:42 WBC 8.1 RBC 3.13 L Hgb 8.2 L Hct 27.0 L MCV 86.3 MCH 26.2 MCHC 30.4 L RDW 15.1 H Plt Count 324 MPV 9.2 Immature Gran % (Auto) 0.2 Neut % (Auto) 69.5 Lymph % (Auto) 16.[address] [place] % (Auto) 11.2 H Eos % (Auto) 2.1 Baso % (Auto) 0.4 Lymph # (Auto) 1.35 [place] # (Auto) 0.9 H Eos # (Auto) 0.2 Baso # (Auto) 0.0 Abs Immat Gran (auto) 0.02 Absolute Neuts (auto) 5.6 Absolute Nucleated RBC 0.000 Nucleated RBC % 0.0 Haptoglobin Sodium 136 L Potassium 3.2 L Chloride 99 Carbon Dioxide 31 H Anion Gap 6 BUN 16 Creatinine 1.04 H Estim Creat Clear Calc 26 Estimated GFR 50 L Glucose 98 Calcium 8.9 Magnesium Total Bilirubin 0.6 AST 20 ALT 11 Alkaline Phosphatase 102 Total Protein 6.0 L Albumin 2.9 L Free T4 Total T3 Pleural pH Quality VTE Prophylaxis VTE prophylaxis: pharmacologic ordered
[2024-06-01] MEDS: ACETAMINOPHEN 325 MG TABLET 650 MG PO (22:23)
[2024-06-02] VITALS (7 sets, daily range): BP systolic 118–154; BP diastolic 40–49; PULSE 70–85; RESP 14–20; TEMP 36.1–37.3; O2SAT 93–100
[2024-06-02 06:03] LABS: Basophils Percent Auto 0.4 % (0.2-1.2); Eosinophils Absolute Auto 0.2 K/mm3 (0-0.3); Eosinophils Percent Auto 2.7 % (0-4.4); Hematocrit 27.8 % (37.0-47.0); Hemoglobin 8.3 g/dL (12.0-15.0); Immature Granulocyte Absolute 0.03 K/mm3 (0.00-0.031); Immature Granulocyte Percent A 0.4 % (0-0.5); Lymphocytes Absolute Auto 1.47 K/mm3 (0.9-3.2); Lymphocytes Percent Auto 19.1 % (18.3-44.2); Mean Corpuscular HGB Conc 29.9 g/dl (32-36); Mean Corpuscular Hemoglobin 26.1 pg (26-34); Mean Corpuscular Volume 87.4 fl (80-100); Monocytes Absolute Auto 0.9 K/mm3 (0.1-0.6); Neutrophils Percent Auto 65.4 % (45.5-73.1); Platelet Count Result 304 k/mm3 (150-375); Red Blood Count 3.18 M/mm3 (4.2-5.4); White Blood Count 7.7 K/mm3 (4.5-10.0)
[2024-06-02 06:18] LABS: Alanine Aminotransferase 11 U/L (6-35); Albumin Level 2.9 g/dL (3.5-5.1); Alkaline Phosphatase 101 U/L (38-126); Anion Gap 4 mmol/L (4-12); Aspartate Amino Transferase 18 U/L (14-36); Bilirubin,Total 0.5 mg/dL (0.2-1.3); Blood Urea Nitrogen 19 mg/dL (7-17); Calcium 8.9 mg/dL (8.4-10.2); Carbon Dioxide 33 mmol/L (22-30); Chloride 100 mmol/L (98-107); Estimated CRCL calculation 25 ml/min; Estimated Glomerular Filt Rate 48; Glucose 106 mg/dL (65-110); Magnesium 1.9 mg/dL (1.6-2.3); Potassium 3.8 mmol/L (3.4-5.0); Sodium 137 mmol/L (137-145)
[2024-06-02 07:25] LABS: Hypochromasia 1+; Platelet Estimate Adequate (Adequate); Schistocytes None Seen
[2024-06-02] MEDS: methiMAzole 10 MG TAB PO (09:27)
[2024-06-02] MEDS: MULTIVITAMINS /C LUTEIN (CENTRUM SILVER) TABLET *BKC 1 TAB PO (09:27)
[2024-06-02] MEDS: MIRTAZAPINE 30 MG TABLET PO (09:27)
[2024-06-02] MEDS: dilTIAZem HCL CD 120 MG CAP.24HR PO (09:27)
[2024-06-02] MEDS: ATORVASTATIN 20 MG TABLET PO (09:27)
[2024-06-02] MEDS: FUROSEMIDE 40 MG TABLET PO (09:27)
[2024-06-02] MEDS: APIXABAN 2.5 MG TABLET PO ×2 (09:27→20:46)
[2024-06-02] MEDS: amLODIPine BESYLATE 5 MG TABLET PO (09:27)
[2024-06-02] MEDS: METOPROLOL TARTRATE 50 MG TAB PO ×2 (09:27→20:46)
[2024-06-02] MEDS: FERROUS SULFATE 325 MG TABLET DR BY MOUTH (09:27)
[2024-06-02] MEDS: CHOLECALCIFEROL 1,000 UNITS TABLET 1000 UNITS PO (09:27)
[2024-06-02] MEDS: FLUTICASONE PROPIONATE 0.05% NA SPR 16 GM BTL (*BKC) 2 SPRAY NASAL (09:28)
[2024-06-02] MEDS: levoFLOXacin 750 MG TABLET PO (09:28)
--- NOTE | 2024-06-02 12:38 | P.PNIM_ITS ---
Progress Note: A&P Assessment and Plan (1) Acute hypoxic respiratory failure: Code(s): J96.01 - Acute respiratory failure with hypoxia Status: Acute Assessment and Plan: * Chest x-ray showing right lower lung atelectasis/consolidation with moderate right pleural effusion slightly increased in size when reviewing past chest x- rays * History of thoracentesis on the right lung back in January of last year yield ing 1 L of serous fluid * Currently on 2 L nasal cannula, continue to wean O2 for sat greater than 92% * ProBNP 1640 * trend BNP * PT/OT (2) Pleural effusion: Code(s): J90 - Pleural effusion, not elsewhere classified Status: Acute Assessment and Plan: * Chest x-ray showing Moderate right pleural effusion * Ultrasound-guided thoracentesis on 05/31, 1250 mL of thin yellow fluid removed. * Pleural pH >7,500. * Fluid results pending. (3) Community acquired pneumonia: Code(s): J18.9 - Pneumonia, unspecified organism Status: Acute Assessment and Plan: * Chest x-ray showing consolidation in the right lung * White blood cell count 8.1. * Patient started on Levaquin in the ED * Continue oral Levaquin 750 mg PO daily. * PT/OT (4) Hypokalemia: Code(s): E87.6 - Hypokalemia Status: Acute Assessment and Plan: * Potassium 3.2 * Potassium Chloride 40 meq PO x1. * Continue to trend and replete as needed (5) Hyponatremia: Code(s): E87.1 - Hypo-osmolality and hyponatremia Status: Acute Assessment and Plan: * Sodium 136 * Appears to be chronic and at baseline (6) CHF (congestive heart failure): Code(s): I50.9 - Heart failure, unspecified Status: Acute Assessment and Plan: * ProBNP 1640 * Appears to be acute on chronic in nature * Troponin negative * Last echocardiogram reviewed which showed normal LV systolic function with an estimated EF of 60-65%, right ventricular systolic function is normal, bilateral atrial chambers severely enlarged, moderate aortic valve calcification, severe mitral valve regurgitation, severe tricuspid valve regurgitation, pulmonary hypertension estimated pulmonary arterial systolic pressure of 49 mmHg * She was given 40 mg IV push Lasix while in the ED. Currently receiving Furosemide 40 mg PO daily. * Add daily weights. (7) Atrial fibrillation: Code(s): I48.91 - Unspecified atrial fibrillation Status: Acute Assessment and Plan: * Continue Cardizem, Eliquis, and Metoprolol. (8) Hypertension: Code(s): I10 - Essential (primary) hypertension Status: Acute Assessment and Plan: * Blood pressure 127/47. * Continue amlodipine. (9) Hyperlipidemia: Code(s): E78.5 - Hyperlipidemia, unspecified Status: Acute Assessment and Plan: * Continue atorvastatin (10) Anemia: Code(s): D64.9 - Anemia, unspecified Status: Acute Assessment and Plan: * Hemoglobin 8.1. * Appears to be chronic. * Lab results: reticulocyte count 0.04, vitamin B12 393, folic acid>20.0, ferritin 103, iron 39, TSH 0.282, Free T4 1.57, Total T3 1.33, lactate dehydrogenase 161, haptoglobin 365. Plan Patient reports that her breathing is improving. Patient denies chest pain, palpitations, headache, dizziness, nausea, or vomiting. patient recently after 69 yrs of marriage, s/p thoracentesis on 05/31 1250 mL of thin yellow fluid, labs are pending pH was 7.5 suspect transudate, will continue to diuresed her, suspect patient has CAP being treated with Levaquin, will have PT/OT evaluate the patient, will continue to monitor, Disposition -patient prefers to be discharged home at discharge. Code status -full code DVT -mechanical, patient was on Eliquis for procedure Subjective Date/time seen: 06/02/24 12:38 Interval history: Patient reports that her breathing is improving. Patient denies chest pain, palpitations, headache, dizziness, nausea, or vomiting. patient recently after 69 yrs of marriage, s/p thoracentesis on 05/31 1250 mL of thin yellow fluid, labs are pending pH was 7.5 suspect transudate, will continue to diuresed her, suspect patient has CAP being treated with Levaquin, will have PT/OT evaluate the patient, will continue to monitor, Review of Systems Constitutional: Constitutional: Reports as per HPI Exam Narrative: Patient is comfortable, NAD HEENT: eyes are clear and none icteric LUNGS: Bilateral fair air entry with rales and rhonchi HEART: RR S1S2 ABD: BS+, Soft and nontender Lower extremities: edema SKIN: nonjaundiced Neuro: grossly intact. Objective Data Vital Signs Vital Signs: Vital Signs - 24 hr 06/01/24 14:00 06/01/24 20:00 06/01/24 20:05 Temperature 36.7 C Pulse Rate 70 88 Respiratory Rate 16 Blood Pressure 124/54 L Pulse Oximetry 100 99 Oxygen Delivery Nasal Cannula Oxygen Flow Rate 2 06/01/24 21:03 06/02/24 05:54 06/02/24 09:27 Temperature 37.4 C 36.1 C L Pulse Rate 81 70 84 Respiratory Rate 12 14 Blood Pressure 125/42 L 121/40 L Pulse Oximetry 99 100 Oxygen Delivery Oxygen Flow Rate 06/02/24 09:27 06/02/24 09:27 Temperature Pulse Rate 84 Respiratory Rate Blood Pressure 141/49 H Pulse Oximetry 99 Oxygen Delivery Nasal Cannula Oxygen Flow Rate 1 Intake/Output Intake/Output: Intake & Output 05/30/24 05/31/24 06/01/24 06/02/24 23:59 23:59 23:59 23:59 Intake Total 630 1979 1030 Output Total 1250 Balance -620 1979 1030 Meds/Results Medications: Active Medications Generic Name Dose Route Start Last Admin Trade Name Freq PRN Reason Stop Dose Admin Acetaminophen 650 mg 05/31/24 03:09 06/01/24 22:23 Acetaminophen 325 Mg Tablet PO 650 mg Q4H PRN Administration Mild Pain (1-3) or Fever Amlodipine Besylate 5 mg 05/31/24 09:00 06/02/24 09:27 Amlodipine Besylate 5 Mg Tablet PO 5 mg DAILY MILDRED Administration Apixaban 2.5 mg 05/31/24 09:00 06/02/24 09:27 Apixaban 2.5 Mg Tablet PO 2.5 mg Q12H MILDRED Administration Atorvastatin Calcium 20 mg 05/31/24 09:00 06/02/24 09:27 Atorvastatin 20 Mg Tablet PO 20 mg DAILY MILDRED Administration Diltiazem HCl 120 mg 05/31/24 09:00 06/02/24 09:27 Diltiazem Hcl Cd 120 Mg Cap.24hr PO 120 mg DAILY MILDRED Administration Ferrous Sulfate 325 mg 05/31/24 09:00 06/02/24 09:27 Ferrous Sulfate [address] BY MOUTH 325 mg DAILY@0800 MILDRED Administration Fluticasone Propionate 2 spray 05/31/24 09:00 06/02/24 09:28 Fluticasone Propionate 0.05% Na Spr 16 Gm Btl (*Bkc) NASAL 2 spray DAILY MILDRED Administration Furosemide 40 mg 05/31/24 09:00 06/02/24 09:27 Furosemide 40 Mg Tablet PO 40 mg DAILY MILDRED Administration Levofloxacin 750 mg 06/02/24 09:00 06/02/24 09:28 Levofloxacin 750 Mg Tablet PO 750 mg DAILY MILDRED Administration Melatonin 5 mg 05/31/24 08:56 05/31/24 21:07 Melatonin 5 Mg Tablet PO 5 mg HS PRN Administration insomnia Methimazole 10 mg 05/31/24 09:00 06/02/24 09:27 Methimazole 10 Mg Tab PO 10 mg DAILY MILDRED Administration Metoprolol Tartrate 50 mg 05/31/24 09:00 06/02/24 09:27 Metoprolol Tartrate 50 Mg Tab PO 50 mg Q12HR MILDRED Administration Mirtazapine 30 mg 05/31/24 09:00 06/02/24 09:27 Mirtazapine 30 Mg Tablet PO 30 mg DAILY MILDRED Administration Multivitamins/Minerals 1 tab 05/31/24 09:00 06/02/24 09:27 Multivitamins /C Lutein (Centrum Silver) Tablet *Bkc PO 1 tab DAILY MILDRED Administration Ondansetron HCl 4 mg 05/31/24 03:09 Ondansetron Inj 4 Mg/2 Ml Vial IV PUSH Q6H PRN Nausea And Vomiting Trazodone HCl 25 mg 05/31/24 08:56 Trazodone Hcl 25 Mg Tablet PO TID PRN anxiety Vitamin D 1,000 units 05/31/24 09:00 06/02/24 09:27 Cholecalciferol 1,000 Units Tablet PO 1,000 units DAILY MILDRED Administration Radiology Results: ITS Impressions Chest X-Ray 05/31/24 15:44 IMPRESSION: 1. Moderate-sized right pleural effusion with improvement status post thoracentesis. 2. Airspace opacities at the lung bases, consistent with atelectasis versus pneumonia. 3. Cardiomegaly. Thoracentesis Ultrasound 05/31/24 16:43 IMPRESSION: 1. Successful ultrasound-guided thoracentesis yielding 1250 mL of thin yellow fluid. Fluid was sent for the requested studies. Labs Labs: Laboratory Results - last 24 hr 06/02/24 05:27 WBC 7.7 RBC 3.18 L Hgb 8.3 L Hct 27.8 L MCV 87.4 MCH 26.1 MCHC 29.9 L RDW 15.0 H Plt Count 304 MPV 9.0 Immature Gran % (Auto) 0.4 Neut % (Auto) 65.4 Lymph % (Auto) 19.1 [place] % (Auto) 12.0 H Eos % (Auto) 2.7 Baso % (Auto) 0.4 Lymph # (Auto) 1.47 [place] # (Auto) 0.9 H Eos # (Auto) 0.2 Baso # (Auto) 0.0 Abs Immat Gran (auto) 0.03 Absolute Neuts (auto) 5.0 Absolute Nucleated RBC 0.000 Band Neutrophils % Not Reportable Nucleated RBC % 0.0 Platelet Estimate Adequate Hypochromasia 1+ Schistocytes None seen Sodium 137 Potassium 3.8 Chloride 100 Carbon Dioxide 33 H Anion Gap 4 BUN 19 H Creatinine 1.07 H Estim Creat Clear Calc 25 Estimated GFR 48 L Glucose 106 Calcium 8.9 Magnesium 1.9 Total Bilirubin 0.5 AST 18 ALT 11 Alkaline Phosphatase 101 Total Protein 6.0 L Albumin 2.9 L Quality VTE Prophylaxis VTE prophylaxis: pharmacologic ordered
--- NOTE | 2024-06-02 16:20 | PCOTNOTE ---
Per physical therapy evaluation, pt. is at baseline, SBA/independent in room with nursing confirmation. Re-order if pt. requests OT evaluation or there is change in functional capacity.
[2024-06-02] MEDS: MELATONIN 5 MG TABLET PO (20:48)
[2024-06-03 05:43] VITALS: BP 121/42; PULSE 73; RESP 16; TEMP 36.6; O2SAT 99
[2024-06-03 06:06] LABS: Basophils Percent Auto 0.2 % (0.2-1.2); Eosinophils Absolute Auto 0.2 K/mm3 (0-0.3); Eosinophils Percent Auto 2.1 % (0-4.4); Hematocrit 27.2 % (37.0-47.0); Hemoglobin 8.2 g/dL (12.0-15.0); Immature Granulocyte Absolute 0.03 K/mm3 (0.00-0.031); Immature Granulocyte Percent A 0.4 % (0-0.5); Lymphocytes Absolute Auto 1.72 K/mm3 (0.9-3.2); Lymphocytes Percent Auto 21.4 % (18.3-44.2); Mean Corpuscular HGB Conc 30.1 g/dl (32-36); Mean Corpuscular Hemoglobin 26.2 pg (26-34); Mean Corpuscular Volume 86.9 fl (80-100); Mean Platelet Volume 9.4 fl (7.4-10.4); Monocytes Percent Auto 11.8 % (2.6-8.5); Neutrophils Absolute Auto 5.1 K/mm3 (1.3-6.7); Neutrophils Percent Auto 64.1 % (45.5-73.1); Platelet Count Result 313 k/mm3 (150-375); Red Blood Count 3.13 M/mm3 (4.2-5.4); Red Cell Distribution Width 14.8 % (11.5-14.5)
[2024-06-03 06:13] LABS: Alanine Aminotransferase 11 U/L (6-35); Albumin Level 2.9 g/dL (3.5-5.1); Alkaline Phosphatase 103 U/L (38-126); Anion Gap 6 mmol/L (4-12); Aspartate Amino Transferase 23 U/L (14-36); Bilirubin,Total 0.4 mg/dL (0.2-1.3); Blood Urea Nitrogen 17 mg/dL (7-17); Calcium 9.2 mg/dL (8.4-10.2); Carbon Dioxide 32 mmol/L (22-30); Chloride 98 mmol/L (98-107); Estimated CRCL calculation 26 ml/min; Estimated Glomerular Filt Rate 52; Glucose 103 mg/dL (65-110); Magnesium 1.8 mg/dL (1.6-2.3); Potassium 3.3 mmol/L (3.4-5.0); Sodium 136 mmol/L (137-145)
[2024-06-03 09:45] VITALS: BP 147/47; PULSE 80; O2SAT 100
[2024-06-03] MEDS: dilTIAZem HCL CD 120 MG CAP.24HR PO (09:45)
[2024-06-03] MEDS: methiMAzole 10 MG TAB PO (09:45)
[2024-06-03] MEDS: levoFLOXacin 750 MG TABLET PO (09:45)
[2024-06-03] MEDS: amLODIPine BESYLATE 5 MG TABLET PO (09:45)
[2024-06-03] MEDS: METOPROLOL TARTRATE 50 MG TAB PO (09:45)
[2024-06-03] MEDS: APIXABAN 2.5 MG TABLET PO (09:45)
[2024-06-03] MEDS: FERROUS SULFATE 325 MG TABLET DR BY MOUTH (09:45)
[2024-06-03] MEDS: CHOLECALCIFEROL 1,000 UNITS TABLET 1000 UNITS PO (09:45)
[2024-06-03] MEDS: MULTIVITAMINS /C LUTEIN (CENTRUM SILVER) TABLET *BKC 1 TAB PO (09:46)
[2024-06-03] MEDS: ATORVASTATIN 20 MG TABLET PO (09:46)
[2024-06-03] MEDS: MIRTAZAPINE 30 MG TABLET PO (09:46)
[2024-06-03] MEDS: FUROSEMIDE 40 MG TABLET PO (09:46)
[2024-06-03] MEDS: FLUTICASONE PROPIONATE 0.05% NA SPR 16 GM BTL (*BKC) 2 SPRAY NASAL (09:47)
[2024-06-03] MEDS: POTASSIUM CHLORIDE 20 MEQ ER TABLET 40 MEQ PO (09:48)
--- NOTE | 2024-06-03 10:38 | PCNFU ---
Nutrition Follow-Up Complete: Inadequate energy intake related to NPO status as evidenced by current diet orders Diet order - Goal met PO intake greater than 50% - Goal met. Intakes 50-100% Goal: Pt current nutrition is Heart healthy diet. Nutrition recommendation: No new nutrition recommendations. Pt is eating adequately. Last recorded weight is 56.6 kg. Bowel Motility: Last recorded BM 05/28/24 Labs Reviewed: Hgb 8.2, Hct 27.2, Alb 2.9, Na 136, K+ 3.3, Cre 1.01 Meds Noted: Eliquis, Lasix, Mirtazipine, zofran Skin: No skin issues Additional Notes: Diet advanced and eating better. On mirtazipine. Continue same orders. Monitor diet orders, intake, wt, labs. Follow up in 5 days.
[2024-06-03 14:00] VITALS: BP 152/52; PULSE 81; RESP 18; TEMP 37.2; O2SAT 98
--- NOTE | 2024-06-03 15:42 | P.DS_ITS ---
DS: Admitting Diagnosis Discharge Date 06/03/24 Admitting Diagnosis SOB/dyspnea DS: Discharge Diagnosis Discharge Diagnosis (1) Acute hypoxic respiratory failure: Code(s): J96.01 - Acute respiratory failure with hypoxia Status: Acute Assessment and Plan: * Chest x-ray showing right lower lung atelectasis/consolidation with moderate right pleural effusion slightly increased in size when reviewing past chest x- rays * History of thoracentesis on the right lung back in January of last year yielding 1 L of serous fluid * Currently on 2 L nasal cannula, continue to wean O2 for sat greater than 92% * ProBNP 1640 * trend BNP * PT/OT (2) Pleural effusion: Code(s): J90 - Pleural effusion, not elsewhere classified Status: Acute Assessment and Plan: * Chest x-ray showing Moderate right pleural effusion * Ultrasound-guided thoracentesis on 05/31, 1250 mL of thin yellow fluid removed. * Pleural pH >7,500. * Fluid results pending. (3) Community acquired pneumonia: Code(s): J18.9 - Pneumonia, unspecified organism Status: Acute Assessment and Plan: * Chest x-ray showing consolidation in the right lung * White blood cell count 8.1. * Patient started on Levaquin in the ED * Continue oral Levaquin 750 mg PO daily. * PT/OT (4) Hypokalemia: Code(s): E87.6 - Hypokalemia Status: Acute Assessment and Plan: * Potassium 3.2 * Potassium Chloride 40 meq PO x1. * Continue to trend and replete as needed (5) Hyponatremia: Code(s): E87.1 - Hypo-osmolality and hyponatremia Status: Acute Assessment and Plan: * Sodium 136 * Appears to be chronic and at baseline (6) CHF (congestive heart failure): Code(s): I50.9 - Heart failure, unspecified Status: Acute Assessment and Plan: * ProBNP 1640 * Appears to be acute on chronic in nature * Troponin negative * Last echocardiogram reviewed which showed normal LV systolic function with an estimated EF of 60-65%, right ventricular systolic function is normal, bilateral atrial chambers severely enlarged, moderate aortic valve calcification, severe mitral valve regurgitation, severe tricuspid valve regurgitation, pulmonary hypertension estimated pulmonary arterial systolic pressure of 49 mmHg * She was given 40 mg IV push Lasix while in the ED. Currently receiving Furosemide 40 mg PO daily. * Add daily weights. (7) Atrial fibrillation: Code(s): I48.91 - Unspecified atrial fibrillation Status: Acute Assessment and Plan: * Continue Cardizem, Eliquis, and Metoprolol. (8) Hypertension: Code(s): I10 - Essential (primary) hypertension Status: Acute Assessment and Plan: * Blood pressure 127/47. * Continue amlodipine. (9) Hyperlipidemia: Code(s): E78.5 - Hyperlipidemia, unspecified Status: Acute Assessment and Plan: * Continue atorvastatin (10) Anemia: Code(s): D64.9 - Anemia, unspecified Status: Acute Assessment and Plan: * Hemoglobin 8.1. * Appears to be chronic. * Lab results: reticulocyte count 0.04, vitamin B12 393, folic acid>20.0, ferritin 103, iron 39, TSH 0.282, Free T4 1.57, Total T3 1.33, lactate dehydrogenase 161, haptoglobin 365. Plan Patient reports that her breathing is improving. Patient denies chest pain, palpitations, headache, dizziness, nausea, or vomiting. patient recently after 69 yrs of marriage, s/p thoracentesis on 05/31 1250 mL of thin yellow fluid, labs are pending pH was 7.5 suspect transudate, will continue to diuresed her, suspect patient has CAP being treated with Levaquin, will have PT/OT evaluate the patient, will continue to monitor, Disposition -patient prefers to be discharged home at discharge. Code status -full code DVT -mechanical, patient was on Eliquis for procedure DS: Summary Hospital Course Hospital Course: Patient reports that her breathing is improving. Patient denies chest pain, palpitations, headache, dizziness, nausea, or vomiting. patient recently after 69 yrs of marriage, s/p thoracentesis on 05/31 1250 mL of thin yellow fluid, labs are pending pH was 7.5 suspect transudate, will continue to diuresed her, suspect patient has CAP being treated with Levaquin, will have PT/OT evaluate the patient, will continue to monitor, today patient is feeling better and clinically stable, will discharge home today. Time Spent with Patient Time attestation: Total time spent providing and/or coordinating discharge services: Exam Narrative: Patient is comfortable, NAD HEENT: eyes are clear and none icteric LUNGS: Bilateral fair air entry with rales and rhonchi HEART: RR S1S2 ABD: BS+, Soft and nontender Lower extremities: edema SKIN: nonjaundiced Neuro: grossly intact. DS: Data Data Completed and Pending Completed studies during hospitalization: Pending at discharge 05/31/24 15:40 Cytology [PTH] Routine Labs on day of discharge: Labs from last 24 hours 06/03/24 05:30 WBC 8.0 RBC 3.13 L Hgb 8.2 L Hct 27.2 L MCV 86.9 MCH 26.2 MCHC 30.1 L RDW 14.8 H Plt Count 313 MPV 9.4 Immature Gran % (Auto) 0.4 Neut % (Auto) 64.1 Lymph % (Auto) 21.4 [place] % (Auto) 11.8 H Eos % (Auto) 2.1 Baso % (Auto) 0.2 Lymph # (Auto) 1.72 [place] # (Auto) 1.0 H Eos # (Auto) 0.2 Baso # (Auto) 0.0 Abs Immat Gran (auto) 0.03 Absolute Neuts (auto) 5.1 Absolute Nucleated RBC 0.000 Nucleated RBC % 0.0 Sodium 136 L Potassium 3.3 L Chloride 98 Carbon Dioxide 32 H Anion Gap 6 BUN 17 Creatinine 1.01 H Estim Creat Clear Calc 26 Estimated GFR 52 L Glucose 103 Calcium 9.2 Magnesium 1.8 Total Bilirubin 0.4 AST 23 ALT 11 Alkaline Phosphatase 103 Total Protein 6.0 L Albumin 2.9 L Discharge Plan Discharge Attending physician on discharge: Sarah Abbasi Consulting providers: Patty Tomlinson; Jackie Russ; Elva Rogers; Jeannie Baker; Jeremy Braun V. Discharging Clinician: Sarah Abbasi Patient Disposition: [facility] Living Activity: as tolerated Diet: heart healthy Discharge Instructions: patient is instructed to keep her hydrated but not too much, weigh herself every day and if her weight is 3 lbs more than her regular wt take 1 extra tab of Lasix (furosemide) with one extra tab of potassium and to call her primary care provider, follow up with her primary care provider as soon as possible, patient is instructed if symptoms worsen, cough, shortness of breath, and swelling of her legs to go to nearest ER. Patient Instructions: Antibiotic Form Patient Language: Peruvian Stand Alone Forms: General Discharge Information Follow-up/Referrals: PHYSICIAN NOT ON STAFF,NONSTAFF [Primary Care Provider] - Discharge Medications: New levofloxacin 750 mg tablet 750 mg PO DAILY Qty: 3 0RF Continued amlodipine 5 mg tablet 5 mg PO DAILY atorvastatin 20 mg tablet 20 mg PO DAILY cetirizine 10 mg tablet 10 mg PO DAILY cimetidine 300 mg tablet 300 mg PO BID diltiazem HCl 120 mg capsule,extended release 24hr 120 mg PO DAILY fluticasone propionate 50 mcg/actuation spray,suspension 2 spray INTRANASAL DAILY mirtazapine 30 mg tablet 30 mg PO DAILY omeprazole 20 mg capsule,delayed release(DR/EC) 20 mg PO DAILY methimazole 10 mg tablet 10 mg PO DAILY potassium chloride [Klor-Con M10] 10 mEq tablet,ER particles/crystals 10 meq PO DAILY metoprolol tartrate 50 mg Tablet 50 mg PO Q12HR 90 Days Qty: 90 0RF Centrum Silver 0.4 mg-300 mcg- 250 mcg tablet 1 tablet PO DAILY Eliquis 2.5 mg tablet 2.5 mg PO Q12H acetaminophen [Tylenol] 325 mg tablet 325 mg PO DAILY PRN (Reason: fever or pain) trazodone 50 mg tablet 25 mg PO TID PRN (Reason: anxiety) cholecalciferol (vitamin D3) 25 mcg (1,000 unit) capsule 25 mcg PO DAILY ferrous sulfate [FeroSul] 325 mg (65 mg iron) tablet 325 mg PO DAILY Citracal Plus Bone Density 300 mg-200 unit -13.5 mg tablet 1 tablet PO DAILY calcium carbonate 600 mg calcium (1,500 mg) tablet 600 mg PO DAILY melatonin 5 mg tablet 5 mg PO HS PRN (Reason: insomnia) azithromycin 250 mg tablet 250 mg PO DAILY Rx Instructions: start on day 2 of therapy. therapy started 05/29/24 and is to last 4 days furosemide 40 mg tablet 40 mg PO DAILY Qty: 40 0RF Held potassium chloride 20 mEq tablet extended release 20 meq PO DAILY Hold Instructions: until seen by her primary care provider Date of admission: 05/31/24 00:56 Primary Care Provider: PHYSICIAN NOT ON STAFF,NONSTAFF Admitting Provider: Sarah Abbasi Attending physician on admission: Sraah Abbasi Condition: Improved
[2024-06-04 23:13] LABS: Albumin Pleural Fluid 2.1 g/dL; Glucose Pleural Fluid 102 mg/dL; LDH Pleural Fluid 102 U/L; Total Protein Pleural Fluid 4.7 g/dL
== END 2024-06-03 17:15 | DRG 291 ==
LOC: ANHED 05-31 00:49 → ANH3MEDSUR 05-31 01:23
PROVIDERS: Nurse Practitioner Acute Care; Nurse Practitioner Family; Radiology Diagnostic Radiology; Admitting Provider Family Medicine; Emergency Provider Emergency Medicine; Visit Provider Family Medicine
DX: I11.0 Hypertensive heart disease with heart failure (principal); I50.33 Acute on chronic diastolic (congestive) heart failure; J18.9 Pneumonia, unspecified organism; J96.01 Acute respiratory failure with hypoxia; I48.20 Chronic atrial fibrillation, unspecified; J90 Pleural effusion, not elsewhere classified; E87.1 Hypo-osmolality and hyponatremia; E78.5 Hyperlipidemia, unspecified; Z20.822 Contact with and (suspected) exposure to COVID-19; Z79.01 Long term (current) use of anticoagulants; E87.6 Hypokalemia; I27.20 Pulmonary hypertension, unspecified; I34.0 Nonrheumatic mitral (valve) insufficiency; I36.1 Nonrheumatic tricuspid (valve) insufficiency
CPT/HCPCS: 32555; 36415; 71046; 80053; 82042; 82607; 82728; 82746; 82945; 83010; 83540; 83550; 83615; 83735; 83880; 83986; 84157; 84439; 84443; 84480; 84484; 85025; 85046; 85610; 85730; 87070; 87205; 87637; 88108; 88305; 93005; 96374; 97161; 99285; A9270; J1940; J1956